=== PATIENT | male | born 1955 | race Caucasian/White ===

== ENCOUNTER 2021-08-07 18:05 | Inpatient (IN) | payer MEDICAID, SELFPAY ==
[2021-08-07] VITALS (9 sets, daily range): BP systolic 139–172; BP diastolic 71–85; PULSE 53–78; RESP 14–22; TEMP 35.9–36.8; O2SAT 98–100; BMI 21.6; BMI 18.8
--- NOTE | 2021-08-07 18:10 | EKG12_ITS ---
Test Reason : CP Blood Pressure : / mmHG Vent. Rate : 057 BPM Atrial Rate : 057 BPM P-R Int : 174 ms QRS Dur : 104 ms QT Int : 430 ms P-R-T Axes : 072 056 059 degrees QTc Int : 418 ms Sinus bradycardia Nonspecific ST abnormality Abnormal ECG Confirmed by ROSCOE GUILLEN, MAYRA ([id number]), online content editor EDIS WALLS ([id number]) on 08/12/2021 1:07:41 PM Referred By: ROBERTO Confirmed By:MAYRA MALHOTRA MD
--- NOTE | 2021-08-07 18:38 | RAD_ITS ---
STUDY: X-RAY CHEST REASON FOR EXAM: Male, 65 years old. chest pain TECHNIQUE: Single frontal view of the chest. COMPARISON: None. FINDINGS: Lungs are hyperaerated. Surgical clips right axilla. The lungs are clear and expanded. There is no demonstrated pleural abnormality. Normal size heart. Normal mediastinum and dylan. Normal visualized pulmonary arteries. Normal visualized aortic arch and descending thoracic aorta. Normal visualized thoracic spine. Normal visualized ribs, clavicles, and shoulders. There is no demonstrated abnormality of the visualized soft tissue structures of the upper abdomen. RAD/Chest 1 View (Portable) IMPRESSION: COPD Electronically Signed: Osmany Leon MD at 21:21 EDT , Service support ,
[2021-08-07 18:51] LABS: Absolute Lymphocyte Count 1.45 X10^3/uL (0.83-4.51); Absolute Neutrophil Count 4.3 X10^3/uL (2.0-7.7); Basophil# 0.04 X10^3/uL; Basophil% 0.6 % (0-1); Eosinophil# 0.08 X10^3/uL; Eosinophils% 1.2 % (0-5); Hematocrit 42.5 % (40-54); Hemoglobin 14.3 g/dL (13.0-16.5); Lymphocyte # 1.45 X10^3/ul (0.83-4.51); Lymphocyte % 22.6 % (19-41); Mean Corp Hgb Conc 33.6 g/dL (32-36); Mean Corpuscular Volume 92.2 fL (80-94); Monocyte% 7.8 % (0-10); NRBC Flagged by Analyzer 0 % (0-5); Neutrophil # 4.32 X10^3/uL (2.7-7.7); Neutrophil % 67.5 % (47-70); Platelet Count 229 K/mm3 (150-450); RBC Distribution Width CV 13.5 % (11.6-14.6); RBC Distribution Width SD 46.1 fl (35.1-43.9); Red Blood Count 4.61 M/mm3 (4.6-6.2); White Blood Count 6.4 K/mm3 (4.4-11.0)
[2021-08-07 18:59] LABS: Anion Gap 8 (5-15); BUN 19 mg/dL (7-18); BUN/Creat Ratio 18.8 RATIO (10-20); Calcium,Total 9.9 mg/dL (8.5-10.1); Chloride 99 mmol/L (98-107); Creatinine, Serum 1.01 mg/dL (0.70-1.30); EST Glomerular Filtration Rate 79 mL/min (>60); Est Glom Filt Rate - Afr Amer 95 mL/min (>60); Estimated Creatinine Clearance 61.63 ml/min; Glucose 165 mg/dL (74-106); Potassium 4.2 mmol/L (3.5-5.1); Sodium Level 134 mmol/L (136-145); Troponin-I HS 54 pg/mL (3.0-78.0)
--- NOTE | 2021-08-07 19:25 | ED.VIS.CHEST ---
HPI History of Present Illness Chief Complaint: Chest Pain Detail of Chief Complaint: Chest pain that started approximately 5 PM Informant: patient Onset/Context/Timing Onset: Today Narrative Narrative: Patient presents to the emergency department complaint chest pain at around 5 PM today. Patient states that he was laying down watching TV when he had left-sided chest discomfort with numbness and tingling in the left arm. Patient became very diaphoretic and soaked through his shirt. He is never had discomfort like this before. He denies recent travel or surgery. Patient states his pain lasted until about a half an hour ago which was a total of about an hour and a half. Patient is a smoker. No heart history. Patient does have prior history of mouth cancer. Patient is currently pain-free. [facility] Medical History (Updated 08/07/21 @ 20:[address] Alireza Villegas, ) [place] (hard of hearing) Home Medications NK 08/07/21 [History Last Taken Unknown] Allergy/AdvReac Type Severity Reaction Status Date / Time No Known Allergies Allergy Verified 08/07/21 18:06 Social History Smoking Status: Unknown if ever smoked ROS ROS ED Review of Systems ROS Unobtainable: other Constitutional Constitutional ED: Reports lethargy; Denies chills, fever(s), sweats or weight loss Eyes Eyes: Denies blurry vision, change in vision or diplopia ENT ENT ED: Denies rhinorrhea or sore throat Cardiovascular Cardiovascular: Reports chest pain; Denies orthopnea Respiratory/Chest Respiratory/Chest: Reports dyspnea and dyspnea on exertion; Denies cough, orthopnea or sputum Gastrointestinal Gastrointestinal: Denies abdominal pain, diarrhea, nausea or vomiting Genitourinary Genitourinary ED: Denies dysuria, hematuria or urinary frequency Musculoskeletal Musculoskeletal: Reports other Details: Numbness and tingling to left arm ; Denies arthralgias, back pain, myalgias or neck pain Integumentary Denies abscess, Abrasions or rash Neurologic Neurologic: Denies headache(s) or weakness Psychiatric Psychiatric: Denies anxiety, depression or suicidal thoughts Endocrine Endocrinology: Denies polydipsia, polyphagia or polyuria Hematologic/Lymphatic Hematologic/Lymphatic: Denies easy bleeding, easy bruising or lymphadenopathy Allergic/Immunologic Allergic/Immunologic ED: Denies mouth swelling, tongue swelling or urticaria EXAM Physical Exam Const Vital Signs: 08/07/21 18:06 08/07/21 18:35 08/07/21 18:50 Temperature 96.6 F L Temperature Source Temporal Pulse Rate 60 53 L Respiratory Rate 22 H 22 H Respiratory Effort Normal Non-Labored Blood Pressure 172/75 H 167/71 H Blood Pressure Mean 107 103 Pulse Ox 100 100 Oxygen Delivery Method Room Air Room Air 08/07/21 19:34 08/07/21 20:28 Temperature Temperature Source Pulse Rate 78 63 Respiratory Rate 16 14 Respiratory Effort Blood Pressure 163/85 H Blood Pressure Mean 111 Pulse Ox 100 99 Oxygen Delivery Method Room Air Room Air Positive well nourished and well developed General Appearance ED: well developed and NAD HEENT Reports TM's clear and moist mucous membranes normocephalic and atraumatic; Negative for trauma or tenderness Tympanic Membrane ED: Yes TM's clear Eyes PERRL and EOMs intact bilaterally General Eye ED: Negative for pale conjunctiva or scleral icterus Neck no lymphadenopathy, supple and no JVD General: Negative for tenderness Chest Wall inspection of chest normal and palpation of chest normal Chest: Negative for tenderness Resp normal respiratory effort and clear to auscultation bilaterally Effort and Inspection: Negative for respiratory distress or pain with movement Auscultation: Negative for rhonchi, wheezes or diminished lung sounds Cardio regular rate, regular rhythm, S1 normal heart sound, S2 normal heart sound and no murmurs Peripheral Pulses: pulses 2+ throughout GI normal to inspection, nondistended, normoactive bowel sounds, soft to palpation, non-tender, non-distended and no masses Back/Spine no CVA tenderness and no thoracic nor lumbar tenderness Extremity normal to inspection General Extremety ED: Negative for edema General Extremity: Negative for edema Neuro oriented x3, CN's II-XII intact bilaterally, no sensory deficits noted and gait normal Sensorium / Orientation: awake, alert, oriented to person, oriented to place and oriented to time Motor Exam: strength 5/5 throughout and strength abnormal Psych mental status grossly normal Skin no rashes or lesions noted and no wounds Heart Score History: Highly Suspicious ECG: Significant ST-Depression Age: >45 - <65 years Risk Factors: 1 or 2 Risk Factors Troponin: </= Normal Limit Score: 6 MDM MDM MDM Narrative Medical decision making narrative: Patient has some subtle ST depression anterior lateral which appears new compared to prior EKG from 2013. Patient currently pain-free. Case will be discussed with hospitalist evaluate for admission. Once hospitalist saw the patient he refused admission and wanted to sign out AGAINST MEDICAL ADVICE. Myself and patient son were able to convince him to stay for a repeat delta troponin. His delta troponin was elevated and believe patient is currently having a non-ST NM. Case discussed with hospitalist and will start patient on heparin drip. Patient is now agreeing to be admitted. Lab Data Attestation: I reviewed the patient's lab results. Labs: Laboratory Results - last 24 hr 08/07/21 08/07/21 08/07/21 18:35 18:35 20:18 WBC 6.4 RBC 4.61 Hgb 14.3 Hct 42.5 MCV 92.2 MCH 31.0 MCHC 33.6 RDW Std Deviation 46.1 H RDW Coeff of Atif 13.5 Plt Count 229 MPV 11.0 Immature Gran % (Auto) 0.300 Neut % (Auto) 67.5 Lymph % (Auto) 22.6 [place] % (Auto) 7.8 Eos % (Auto) 1.2 Baso % (Auto) 0.6 Absolute Neuts (auto) 4.3 Absolute Lymphs (auto) 1.45 Nucleated RBC % 0 Sodium 134 L Potassium 4.2 Chloride 99 Carbon Dioxide 27.0 Anion Gap 8 BUN 19 H Creatinine 1.01 Estim Creat Clear Calc 61.63 Est GFR (MDRD) Af Amer 95 Est GFR (MDRD) Non-Af 79 BUN/Creatinine Ratio 18.8 Glucose 165 H Calcium 9.9 Troponin I High Sens 54 267 H* Radiography Chest X-Ray - ED: 1 View Diagnostic Testin view chest x-ray obtained interpreted by myself as hyperinflation otherwise nothing acute EKG Initial EKG: Attestation: I personally reviewed and interpreted this EKG as follows: Comments: Sinus rhythm with a ventricular rate of [address] changes and subtle ST depression in lateral leads. Prior EKG tracings: available for review Prior: Changed Discharge Plan Dx/Rx/DC Orders Clinical Impression: Chest pain, Non-ST elevated myocardial infarction Disposition Disposition: Acute Care [facility]
[2021-08-07] MEDS: Aspirin 81 MG TAB.CHEW 324 MG PO (19:32)
--- NOTE | 2021-08-07 19:32 | NURSING ---
DR BARRIOS FOR DR FOLEY
[2021-08-07 20:43] LABS: Troponin-I HS 267 pg/mL (3.0-78.0)
--- NOTE | 2021-08-07 20:53 | PCM.HP.STD ---
Documented by User: DORI Sanchez 08/07/21 21:05 HPI - General General Date of Admission: 08/07/21 Date of Service: 08/07/21 Chief Complaint: Chest pain HPI Narrative AILEEN GRUBBS, is a 65 M who presents with complaints of chest pain patient stated it started approximately 5 PM this evening. Patient states that he was laying watching TV when he began to have left-sided chest pain with numbness and tingling in his left arm. Son reports that patient became diaphoretic today and soaked through T-shirt. Patient states that it lasted approximately an hour and a half. Patient has no cardiac history. Patient currently pain-free. Patient initially did not want to be admitted but delta troponin was obtained and it was significantly elevated, patient now agreeable to admission for observation. Patient denies fever, chills, shortness of breath, cough, nausea, vomiting. [facility] Medical History (Updated 08/07/21 @ 21:00 by DORI Sanchez) History of mouth cancer [place] (hard of hearing) Home Medications NK 08/07/21 [History Last Taken Unknown] Allergy/AdvReac Type Severity Reaction Status Date / Time No Known Allergies Allergy Verified 08/07/21 18:06 unable to obtain Surgical History (Updated 08/07/21 @ 20:57 by DORI Sanchez) History of mandibular surgery Social History (Updated 08/07/21 @ 20:58 by DORI Sanchez) Smoking Status: Current every day smoker tobacco type: cigars per week: 20 alcohol intake: never substance use type: does not use ROS Constitutional Constitutional: Denies anorexia, chills, fatigue, malaise or weakness Cardiovascular Cardiovascular: Reports chest pain, numbness in extremities and radiating jaw, neck or arm pain; Denies arrhythmia on telemetry, edema, nausea, palpitations or vomiting Respiratory/Chest Respiratory/Chest: Denies cough, hemoptysis, shortness of breath at rest or shortness of breath with exertion Gastrointestinal Gastrointestinal: Denies abdominal pain, constipation, diarrhea or dyspepsia Genitourinary Genitourinary: Denies dysuria Musculoskeletal Musculoskeletal: Denies back pain, extremity pain, joint pain, joint stiffness or joint swelling Integumentary Integumentary: Denies dry skin Neurologic Neurologic: Denies abnormal gait, abnormal speech, confusion, dizziness or focal weakness Psychiatric Psychiatric: Denies anxiety or depression Endocrine Endocrinology: Denies change in body appearance Hematologic/Lymphatic Hematologic/Lymphatic: Denies anemia, easy bleeding or easy bruising Vital Signs Vital Signs Vital Signs: 08/07/21 18:06 08/07/21 18:35 08/07/21 18:50 Temperature 96.6 F L Temperature Source Temporal Pulse Rate 60 53 L Respiratory Rate 22 H 22 H Respiratory Effort Normal Non-Labored Blood Pressure 172/75 H 167/71 H Blood Pressure Mean 107 103 Pulse Ox 100 100 Oxygen Delivery Method Room Air Room Air 08/07/21 19:34 08/07/21 20:28 Temperature Temperature Source Pulse Rate 78 63 Respiratory Rate 16 14 Respiratory Effort Blood Pressure 163/85 H Blood Pressure Mean 111 Pulse Ox 100 99 Oxygen Delivery Method Room Air Room Air Weight Weight: 130 lb Body Mass Index (BMI) 21.6 Physical Exam Const alert, oriented x3 and no apparent distress General Appearance: cooperative HEENT normocephalic and head/scalp atraumatic Eyes conjunctivae normal and no scleral icterus Neck supple and no JVD General: trachea midline Resp normal respiratory effort, normal air movement and clear to auscultation bilaterally Cardio regular rate, regular rhythm, S1 normal heart sound, S2 normal heart sound and peripheral pulses 2+ throughout GI normal to inspection, nondistended, normoactive bowel sounds, soft to palpation and non-tender Extremity normal capillary refill and no clubbing, cyanosis or edema General Extremity: no tenderness to palpation of joints or extremities Skin General Skin Exam: no breakdown and turgor normal Lesions: no lesions Rashes: no rashes Neuro no focal motor deficits and no sensory deficits noted Speech: speech normal Motor Exam: Negative for general weakness Psych thought process normal, cooperative and affect normal Appearance: appropriate Results Lab / Micro Data Result Diagrams: 08/07/21 18:35 08/07/21 18:35 Labs: Laboratory Results - last 24 hr 08/07/21 18:35: WBC 6.4, RBC 4.61, Hgb 14.3, Hct 42.5, MCV 92.2, MCH 31.0, MCHC 33.6, RDW Std Deviation 46.1 H, RDW Coeff of Atif 13.5, Plt Count 229, MPV 11.0, Immature Gran % (Auto) 0.300, Neut % (Auto) 67.5, Lymph % (Auto) 22.6, [place] % (Auto) 7.8, Eos % (Auto) 1.2, Baso % (Auto) 0.6, Absolute Neuts (auto) 4.3, Absolute Lymphs (auto) 1.45, Nucleated RBC % 0 08/07/21 18:35: Sodium 134 L, Potassium 4.2, Chloride 99, Carbon Dioxide 27.0, Anion Gap 8, BUN 19 H, Creatinine 1.01, Estim Creat Clear Calc 61.63, Est GFR (MDRD) Af Amer 95, Est GFR (MDRD) Non-Af 79, BUN/Creatinine Ratio 18.8, Glucose 165 H, Calcium 9.9, Troponin I High Sens 54 08/07/21 20:18: Troponin I High Sens 267 H* Assessment & Plan Assessment/Plan (1) Non-ST elevated myocardial infarction: PLAN: 1. Non-STEMI -Admit to PCU for cardiac monitoring, patient has no cardiac history -Consult cardiology -Initiate heparin drip with bolus, PTTs per protocol -Cardiac diet -N.p.o. at midnight pending cardiac evaluation -CBC, CMP, lipids, hemoglobin A1c ordered. -Normal saline 75 ml/hr -Vital signs per protocol, patient mildly hypertensive upon initial evaluation DVT prophylaxis-not indicated, therapeutic heparin ordered This patient was seen by DORI Sanchez under the supervision of Dr. George. Documented by User: Dr. Pee George MD 08/07/21 21:33 [facility] Medical History (Updated 08/07/21 @ 21:00 by DORI Sanchez) History of mouth cancer [place] (hard of hearing) Home Medications NK 08/07/21 [History Last Taken Unknown] Allergy/AdvReac Type Severity Reaction Status Date / Time No Known Allergies Allergy Verified 08/07/21 18:06 Surgical History (Updated 08/07/21 @ 20:57 by DORI Sanchez) History of mandibular surgery Social History (Updated 08/07/21 @ 20:58 by DORI Sanchez) Smoking Status: Current every day smoker tobacco type: cigars per week: 20 alcohol intake: never substance use type: does not use Results Lab / Micro Data Result Diagrams: 08/07/21 18:35 08/07/21 18:35 Charges/Coding Addendum Addendum: Dr. George: I personally reviewed the chart and examined the patient, and agree with the above findings. 65-year-old male presents from home with chest pain onset around 5 PM today. His initial troponin was unremarkable at 54 and he tried to leave AMA however he was convinced to stay for a delta troponin. On repeat troponin his troponin was 267 therefore he was convinced to stay to undergo work-up for his non-STEMI. EKG showed some ST depression laterally therefore he was started on a heparin drip and was given a dose of aspirin in the ER. 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 He had surgery which removed his tongue and all of his teeth about 6 or 7 years ago. He still has a PEG tube in place from that time because he is never followed up with surgeon to have it removed. I did discuss with the son that if he does have a heart cath by cardiology and he does have a stent placed he would need to be on to medications for 1year and the son is agreeable to monitor his pills. Of note he does not eat any solid food and subsist solely on ensures. States that he is pain-free currently and feels fine. Visit Charges Inpatient E&M: 62135 Init Hosp L2
[2021-08-07] MEDS: Heparin Injection (Vial) 5,000 UNIT/ML VIAL 4000 UNIT IV (21:15)
[2021-08-07] MEDS: HEPARIN/D5w 25,000 UNITS 25,000 UNITS/250 ML IV.SOLN. 8 UNITS IV (21:16)
[2021-08-07 21:46] LABS: International Normalized Ratio 1.1; Prothrombin Time (Protime)PT. 13.3 SECONDS (11.7-14.9)
[2021-08-07 21:47] LABS: Partial Thromboplast Time 37.4 Seconds (24.1-36.2)
--- NOTE | 2021-08-07 22:27 | NURSING ---
KARLENE GIL, BUBBA BARRIOS
--- NOTE | 2021-08-07 23:11 | PCS.PANDOC ---
PANDEMIC DOCUMENTATION INITIATED: Date: 07/15/2021 Time: 190
--- NOTE | 2021-08-07 23:18 | EKG12_ITS ---
Test Reason : CP ADMIT Blood Pressure : / mmHG Vent. Rate : 060 BPM Atrial Rate : 060 BPM P-R Int : 180 ms QRS Dur : 094 ms QT Int : 436 ms P-R-T Axes : 063 055 051 degrees QTc Int : 436 ms Normal sinus rhythm Normal ECG Confirmed by ROSCOE GUILLEN, MAYRA ([id number]), food editor EDIS WALLS ([id number]) on 08/12/2021 1:11:08 PM Referred By: SOPHIE Confirmed By:MAYRA MALHOTRA MD
[2021-08-07] MEDS: 0.9% Normal Saline 1,000 ML 75 ML IV (23:28)
[2021-08-08] VITALS (17 sets, daily range): BP systolic 132–169; BP diastolic 63–121; PULSE 52–66; RESP 15–30; TEMP 36.7–37.1; O2SAT 20–100
[2021-08-08 01:46] LABS: Troponin-I HS 1198 pg/mL (3.0-78.0)
[2021-08-08 03:57] LABS: Absolute Lymphocyte Count 1.49 X10^3/uL (0.83-4.51); Absolute Neutrophil Count 2.8 X10^3/uL (2.0-7.7); Basophil# 0.05 X10^3/uL; Eosinophil# 0.05 X10^3/uL; Hematocrit 37.6 % (40-54); Hemoglobin 12.9 g/dL (13.0-16.5); Lymphocyte # 1.49 X10^3/ul (0.83-4.51); Lymphocyte % 30.3 % (19-41); Mean Corp Hgb Conc 34.3 g/dL (32-36); Mean Corpuscular Hgb 31.2 pg (27.0-32.0); Mean Corpuscular Volume 90.8 fL (80-94); Monocyte# 0.51 X10^3/uL; Monocyte% 10.4 % (0-10); NRBC Flagged by Analyzer 0 % (0-5); Neutrophil # 2.81 X10^3/uL (2.7-7.7); Neutrophil % 57.1 % (47-70); Platelet Count 209 K/mm3 (150-450); RBC Distribution Width CV 13.3 % (11.6-14.6); RBC Distribution Width SD 44.2 fl (35.1-43.9); Red Blood Count 4.14 M/mm3 (4.6-6.2); White Blood Count 4.9 K/mm3 (4.4-11.0)
[2021-08-08 04:13] LABS: Anion Gap 6 (5-15); BUN 16 mg/dL (7-18); BUN/Creat Ratio 23.8 RATIO (10-20); Calcium,Total 9.1 mg/dL (8.5-10.1); Chloride 102 mmol/L (98-107); Cholesterol 140 mg/dL (200); Creatinine, Serum 0.67 mg/dL (0.70-1.30); EST Glomerular Filtration Rate 126 mL/min (>60); Est Glom Filt Rate - Afr Amer 153 mL/min (>60); Estimated Creatinine Clearance 93.74 ml/min; Glucose 96 mg/dL (74-106); High Density Lipoprotein 43 mg/dL; Potassium 3.8 mmol/L (3.5-5.1); Sodium Level 134 mmol/L (136-145); Triglycerides 45 mg/dL; Very Low Density Lipoprotein 9 mg/dL (5-40)
[2021-08-08 04:25] LABS: Partial Thromboplast Time 142.2 Seconds (24.1-36.2)
[2021-08-08 07:53] LABS: Hemoglobin A1c 5.2 % (3.8-5.6)
--- NOTE | 2021-08-08 09:15 | CASEMGMT ---
According to the [facility] community plan website, the following are in-network tertiary facilities: [facility], [place], [facility], [place], [facility], [facility], [facility], [place], [facility], and . Uriel VALLE CM
--- NOTE | 2021-08-08 10:31 | PCM.CONS.C ---
Documented by User: CYDNEY Aldana 08/08/21 13:48 Assessment & Plan Assessment/Plan (1) Non-ST elevated myocardial infarction: (2) Essential hypertension: PLAN: Pt will proceed with a diagnostic heart cath echocardiogram will be done today. HPI Consult Data Date of Consult: 08/08/21 HPI Narrative HPI Narrative: AILEEN GRUBBS, is a 65 M who presented last night to the emergency department with chest discomfort. He stated that the chest discomfort started about 5 PM. Left-sided chest discomfort with numbness and tingling down his left arm. He became very diaphoretic enough to soak through his shirt. The chest pain lasted about an hour and a half. He was brought to the emergency room by his son. Initial troponin was 54 it did trend upward to 267 and third troponin was 1198. He does have a history of smoking, and tongue cancer which required surgery. He was not on any home medications. Patient is currently pain free. [facility] Medical History History of mouth cancer QAGAN TAYAGUNGIN (hard of hearing) Home Medications NK 08/07/21 [History Last Taken Unknown] Allergy/AdvReac Type Severity Reaction Status Date / Time No Known Allergies Allergy Verified 08/07/21 18:06 Surgical History History of mandibular surgery Social History housing: house Smoking Status: Current every day smoker tobacco type: cigars per week: 20 Tobacco: How many years used: 52 alcohol intake: never substance use type: does not use ROS Constitutional Constitutional: Reports systems reviewed and no addt'l complaints, except as documented ENT HEENT: Reports abnormal hearing Cardiovascular Cardiovascular: Reports systems reviewed and no addt'l complaints, except as documented; Denies dizziness, dyspnea on exertion, leg edema, lightheadedness, orthopnea, palpitations or syncope Respiratory/Chest Respiratory/Chest: Reports systems reviewed and no addt'l complaints, except as documented Gastrointestinal Gastrointestinal: Reports systems reviewed and no addt'l complaints, except as documented Neurologic Neurologic: Reports systems reviewed and no addt'l complaints, except as documented Physical Exam Const alert, oriented x3, no apparent distress and average body habitus HEENT normocephalic, head/scalp atraumatic and external nose normal General Ear: hearing grossly impaired bilateral Mouth: tongue abnormal other (resected tongue and lower mandible ) Teeth and Gingiva: edentulous Eyes PERRL, EOMs intact bilaterally, conjunctivae normal and no scleral icterus Neck full ROM, nuchal rigidity, no lymphadenopathy, supple, no JVD and no carotid bruits Chest inspection of chest normal Resp normal respiratory effort, no retractions and no use of accessory muscles Auscultation: diminished lung sounds bilateral Cardio regular rate, regular rhythm, S1 normal heart sound, S2 normal heart sound, no murmurs, no rub, no gallops, no clicks and no JVD GI normal to inspection, nondistended, normoactive bowel sounds, soft to palpation, non-tender, non-distended, hepatosplenomegaly, no masses and no bruits Extremity no clubbing, cyanosis or edema and no pedal edema Peripheral Pulses: Yes posterior tibial pulses present bilateral diminished Skin no rashes or lesions noted Neuro oriented x3, CN's II-XII intact bilaterally and moves all extremities Charges/Coding Visit Charges Office Visits / Consults: 41479 IP Consult L5 Objective Data Vital Signs: Vital Signs Temp Pulse Resp BP Pulse Ox 98.0 F 56 L 16 132/70 H 95 08/08/21 04:23 08/08/21 04:23 08/08/21 04:23 08/08/21 04:23 08/08/21 07:25 Oxygen Delivery Method Room Air Weight: 131 lb 2.801 oz Body Mass Index (BMI) 18.8 Intake & Output: Intake and Output for Last 24 Hours 08/06/21 08/07/21 08/08/21 23:59 23:59 23:59 Intake Total 57.47 / 57.47 Balance 57.47 / 57.47 Lab / Micro Data Result Diagrams: 08/08/21 03:38 08/08/21 03:38 Labs: Laboratory Results - last 24 hr 08/07/21 18:35: WBC 6.4, RBC 4.61, Hgb 14.3, Hct 42.5, MCV 92.2, MCH 31.0, MCHC 33.6, RDW Std Deviation 46.1 H, RDW Coeff of Atif 13.5, Plt Count 229, MPV 11.0, Immature Gran % (Auto) 0.300, Neut % (Auto) 67.5, Lymph % (Auto) 22.6, Bertie % (Auto) 7.8, Eos % (Auto) 1.2, Baso % (Auto) 0.6, Absolute Neuts (auto) 4.3, Absolute Lymphs (auto) 1.45, Nucleated RBC % 0 08/07/21 18:35: Sodium 134 L, Potassium 4.2, Chloride 99, Carbon Dioxide 27.0, Anion Gap 8, BUN 19 H, Creatinine 1.01, Estim Creat Clear Calc 61.63, Est GFR (MDRD) Af Amer 95, Est GFR (MDRD) Non-Af 79, BUN/Creatinine Ratio 18.8, Glucose 165 H, Calcium 9.9, Troponin I High Sens 54 08/07/21 20:18: Troponin I High Sens 267 H* 08/07/21 21:14: PT 13.3, INR 1.1, APTT 37.4 H 08/08/21 00:50: Troponin I High Sens 1198 H* 08/08/21 03:38: Hemoglobin A1c 5.2 08/08/21 03:38: WBC 4.9, RBC 4.14 L, Hgb 12.9 L, Hct 37.6 L, MCV 90.8, MCH 31.2, MCHC 34.3, RDW Std Deviation 44.2 H, RDW Coeff of Atif 13.3, Plt Count 209, MPV 11.0, Immature Gran % (Auto) 0.200, Neut % (Auto) 57.1, Lymph % (Auto) 30.3, Bertie % (Auto) 10.4 H, Eos % (Auto) 1.0, Baso % (Auto) 1.0, Absolute Neuts (auto) 2.8, Absolute Lymphs (auto) 1.49, Nucleated RBC % 0 08/08/21 03:38: Sodium 134 L, Potassium 3.8, Chloride 102, Carbon Dioxide 26.0, Anion Gap 6, BUN 16, Creatinine 0.67 L, Estim Creat Clear Calc 93.74, Est GFR (MDRD) Af Amer 153, Est GFR (MDRD) Non-Af 126, BUN/Creatinine Ratio 23.8 H, Glucose 96, Calcium 9.1, Triglycerides 45, Cholesterol 140, LDL Cholesterol 88, VLDL Cholesterol 9, HDL Cholesterol 43 08/08/21 03:38: APTT 142.2 H* Micro: Microbiology 08/08/21 04:16 Nasal Secretion SARS-CoV-2 Antigen (Rapid) - Final Cardiology Labs/Tests 08/07/21 18:35: WBC 6.4, RBC 4.61, Hgb 14.3, Hct 42.5, MCV 92.2, MCH 31.0, MCHC 33.6, Plt Count 229, MPV 11.0, Immature Gran % (Auto) 0.300, Neut % (Auto) 67.5, Lymph % (Auto) 22.6, Bertie % (Auto) 7.8, Eos % (Auto) 1.2, Baso % (Auto) 0.6, Absolute Neuts (auto) 4.3, Nucleated RBC % 0 08/07/21 18:35: Sodium 134 L, Potassium 4.2, Chloride 99, Carbon Dioxide 27.0, Anion Gap 8, BUN 19 H, Creatinine 1.01, Est GFR (MDRD) Af Amer 95, Est GFR (MDRD) Non-Af 79, BUN/Creatinine Ratio 18.8, Glucose 165 H, Calcium 9.9 08/07/21 21:14: PT 13.3, INR 1.1, APTT 37.4 H 08/08/21 03:38: Hemoglobin A1c 5.2 08/08/21 03:38: WBC 4.9, RBC 4.14 L, Hgb 12.9 L, Hct 37.6 L, MCV 90.8, MCH 31.2, MCHC 34.3, Plt Count 209, MPV 11.0, Immature Gran % (Auto) 0.200, Neut % (Auto) 57.1, Lymph % (Auto) 30.3, Bertie % (Auto) 10.4 H, Eos % (Auto) 1.0, Baso % (Auto) 1.0, Absolute Neuts (auto) 2.8, Nucleated RBC % 0 08/08/21 03:38: Sodium 134 L, Potassium 3.8, Chloride 102, Carbon Dioxide 26.0, Anion Gap 6, BUN 16, Creatinine 0.67 L, Est GFR (MDRD) Af Amer 153, Est GFR (MDRD) Non-Af 126, BUN/Creatinine Ratio 23.8 H, Glucose 96, Calcium 9.1, Triglycerides 45, Cholesterol 140, LDL Cholesterol 88, VLDL Cholesterol 9, HDL Cholesterol 43 08/08/21 03:38: APTT 142.2 H* Rhythm: EKG: ECHO: Stress Test: Cardiac Cath: PCI: CT Surgery: Holter monitor: EPS: PPM: CXR: Chest CT Scan: Radiography Diagnostic Testing: Radiology Impression Chest X-Ray 08/07/21 18:38 IMPRESSION: COPD Electronically Signed: Osmany Leon MD at 21:21 EDT , Service support , Documented by User: Dr. Kp Spencer MD 08/08/21 13:58 Assessment & Plan Assessment/Plan (1) Non-ST elevated myocardial infarction: PLAN: This patient seen and evaluated today and agree with the cardiac care plan and management by the midlevel Patient presented with chest pain and has a clear evidence of non-ST elevation NH the EKG showed underlying normal sinus rhythm. We reviewed all the evaluation here in the hospital including the EKG, the cardiac telemetry and the cardiac biomarkers with high sensitive troponin Patient was taken to the [facility] and cardiac catheterization was performed the culprit lesion identified at the large proximal RCA and underwent successful percutaneous core intervention Patient has calcified left coronary system and had diffuse atherosclerosis involving the diagonal branch and had 2 focal lesions involving the LAD and had diffuse atherosclerosis involving the OM1 which is a small branch His LV systolic function is preserved ejection fraction from 55-60% with mild inferobasal hypokinesia Recommendation and plan; 1. Patient will continue on DAPT/Brilinta plus low-dose aspirin for 1 year 2. Started on high-dose atorvastatin 40 mg once a day Started on a low-dose beta-jenna carvedilol Patient to follow-up I was wondering slight #3 cardiac rehab phase 1 recommended 4. 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 Sprague for continuation of cardiac care plan and to discuss further plan based on his clinical progression. HPI Consult Data Date of Consult: 08/08/21 PFSH Medical History History of mouth cancer QAGAN TAYAGUNGIN (hard of hearing) Home Medications NK 08/07/21 [History Last Taken Unknown] Allergy/AdvReac Type Severity Reaction Status Date / Time No Known Allergies Allergy Verified 08/07/21 18:06 Surgical History History of mandibular surgery Social History housing: house Smoking Status: Current every day smoker tobacco type: cigars per week: 20 Tobacco: How many years used: 52 alcohol intake: never substance use type: does not use Lab / Micro Data Result Diagrams: 08/08/21 03:38 08/08/21 03:38
--- NOTE | 2021-08-08 10:50 | ECHOD_ITS ---
Reason For Study: NSTEMI Procedure This was a 2D Doppler, Color Flow transthoracic echocardiogram. The study was technically difficult. PT had difficulty lying still and not talking loudly during exam. Exam performed portable in patient room. Left Ventricle Normal left ventricle. The estimated ejection fraction is EF 55-60 %. Right Ventricle Normal right ventricle. Normal systolic function. Atria Normal right atrium. Mitral Valve The mitral valve is structurally normal. No prolapse or stenosis seen. No mitral valve insufficiency. Tricuspid Valve Normal tricuspid valve. Unable to estimate RV systolic pressure due to insufficient tricuspid regurgitant envelope. Aortic Valve Normal aortic valve. Pulmonic Valve The pulmonic valve is not well visualized. Great Vessels Normal aortic root. Pericardium/Pleural No pericardial effusion. MMode/2D Measurements & Calculations LVIDd: 3.6 cm IVSd: 1.0 cm Ao root diam: 3.5 cm LVIDs: 2.6 cm LVPWd: 1.0 cm RVDd: 3.0 cm FS: 26.2 % LAV(MOD-sp4): 34.1 ml LVAd ap4: 25.9 cm2 LVAd ap2: 20.9 cm2 LVLd ap4: 7.8 cm LVLd ap2: 8.3 cm EDV(MOD-sp4): 77.3 ml EDV(MOD-sp2): 44.3 ml EDV(sp4-el): 73.4 ml EDV(sp2-el): 44.8 ml LVAs ap4: 14.2 cm2 LVAs ap2: 10.8 cm2 LVLs ap4: 6.6 cm LVLs ap2: 6.7 cm ESV(MOD-sp4): 27.0 ml ESV(MOD-sp2): 15.6 ml ESV(sp4-el): 25.7 ml ESV(sp2-el): 14.7 ml EF(MOD-sp4): 65.0 % EF(MOD-sp2): 64.9 % EF(sp4-el): 65.0 % SV(MOD-sp4): 50.2 ml SV(MOD-sp2): 28.8 ml SV(sp4-el): 47.7 ml LA A4 area: 13.3 cm2 RA A4 area: 10.4 cm2 Doppler Measurements & Calculations MV E max bret: 58.3 cm/sec Lat Peak E' Bret: 5.5 cm/sec Med Peak E' Bret: 4.1 cm/sec MV A max bret: 72.1 cm/sec E/E' lat: 10.6 E/E' med: 14.1 MV E/A: 0.81 Ao V2 max: 94.2 cm/sec LV V1 max: 69.2 cm/sec PA V2 max: 61.4 cm/sec Ao max P.5 mmHg LV V1 max P.9 mmHg ECHO/Echo Complete Interpretation Summary The estimated ejection fraction is EF 55-60 %. Normal LV systolic functhion Ordering Physician: Buffy Hernández Referring Physician: TINA PCP Performed By: Domenica Suárez RDCS, RVT
--- NOTE | 2021-08-08 12:22 | PN.HOSP_ITS ---
Subjective Subjective Patient seen and examined. He was admitted with a complaint of chest pain, and diagnosed with non-STEMI based on elevated troponins. Cardiology on board he is on heparin drip. Patient had no complaints today and felt well. Review of systems otherwise negative. Labs and vitals reviewed. Objective Data Objective Data Vital Signs: Vital Signs Temp Pulse Resp BP Pulse Ox 98.1 F 62 18 146/63 H 99 08/08/21 10:00 08/08/21 10:00 08/08/21 10:00 08/08/21 10:00 08/08/21 10:00 Oxygen Delivery Method Room Air Weight: 131 lb 2.801 oz Body Mass Index (BMI) 18.8 Intake & Output: Intake and Output for Last 24 Hours 08/06/21 08/07/21 08/08/21 23:59 23:59 23:59 Intake Total 57.47 / 57.47 Balance 57.47 / 57.47 Lab / Micro Data Result Diagrams: 08/08/21 03:38 08/08/21 03:38 Labs: Laboratory Results - last 24 hr 08/07/21 18:35: WBC 6.4, RBC 4.61, Hgb 14.3, Hct 42.5, MCV 92.2, MCH 31.0, MCHC 33.6, RDW Std Deviation 46.1 H, RDW Coeff of Atif 13.5, Plt Count 229, MPV 11.0, Immature Gran % (Auto) 0.300, Neut % (Auto) 67.5, Lymph % (Auto) 22.6, Towns % (Auto) 7.8, Eos % (Auto) 1.2, Baso % (Auto) 0.6, Absolute Neuts (auto) 4.3, Absolute Lymphs (auto) 1.45, Nucleated RBC % 0 08/07/21 18:35: Sodium 134 L, Potassium 4.2, Chloride 99, Carbon Dioxide 27.0, Anion Gap 8, BUN 19 H, Creatinine 1.01, Estim Creat Clear Calc 61.63, Est GFR (MDRD) Af Amer 95, Est GFR (MDRD) Non-Af 79, BUN/Creatinine Ratio 18.8, Glucose 165 H, Calcium 9.9, Troponin I High Sens 54 08/07/21 20:18: Troponin I High Sens 267 H* 08/07/21 21:14: PT 13.3, INR 1.1, APTT 37.4 H 08/08/21 00:50: Troponin I High Sens 1198 H* 08/08/21 03:38: Hemoglobin A1c 5.2 08/08/21 03:38: WBC 4.9, RBC 4.14 L, Hgb 12.9 L, Hct 37.6 L, MCV 90.8, MCH 31.2, MCHC 34.3, RDW Std Deviation 44.2 H, RDW Coeff of Atif 13.3, Plt Count 209, MPV 11.0, Immature Gran % (Auto) 0.200, Neut % (Auto) 57.1, Lymph % (Auto) 30.3, Towns % (Auto) 10.4 H, Eos % (Auto) 1.0, Baso % (Auto) 1.0, Absolute Neuts (auto) 2.8, Absolute Lymphs (auto) 1.49, Nucleated RBC % 0 08/08/21 03:38: Sodium 134 L, Potassium 3.8, Chloride 102, Carbon Dioxide 26.0, Anion Gap 6, BUN 16, Creatinine 0.67 L, Estim Creat Clear Calc 93.74, Est GFR (MDRD) Af Amer 153, Est GFR (MDRD) Non-Af 126, BUN/Creatinine Ratio 23.8 H, Glucose 96, Calcium 9.1, Triglycerides 45, Cholesterol 140, LDL Cholesterol 88, VLDL Cholesterol 9, HDL Cholesterol 43 08/08/21 03:38: APTT 142.2 H* Micro: Microbiology 08/08/21 04:16 Nasal Secretion SARS-CoV-2 Antigen (Rapid) - Final Radiography Diagnostic Testing: Radiology Impression Chest X-Ray 08/07/21 18:38 IMPRESSION: COPD Electronically Signed: Osmany Leon MD at 21:21 EDT , Service support , Physical Exam Const alert, oriented x3 and no apparent distress Exam Limitations: no limitations HEENT head/scalp atraumatic, moist oral mucous membranes and oropharynx normal Head and Scalp: normocephalic Eyes PERRL, EOMs intact bilaterally and conjunctivae normal Neck no lymphadenopathy, supple and no JVD Resp normal respiratory effort, no retractions, no use of accessory muscles and clear to auscultation bilaterally Cardio regular rate, regular rhythm, S1 normal heart sound, S2 normal heart sound and no murmurs GI normal to inspection, nondistended, normoactive bowel sounds, soft to palpation, non-tender and non-distended Extremity normal to inspection, full ROM and no clubbing, cyanosis or edema Peripheral Pulses: Yes pulses 2+ throughout Skin no rashes or lesions noted Neuro oriented x3, CN's II-XII intact bilaterally and moves all extremities Sensorium / Orientation: awake and alert Psych affect normal Assessment & Plan Assessment/Plan (1) Non-ST elevated myocardial infarction: PLAN: #Nonstemi * Initial troponin was negative but subsequently trended up. On heparin drip * Also on aspirin and high intensity statin. * Cardiology on board and for cardiac cath later today. * 2D echo ordered. * #History of oral cancer * Has PEG tube in place * Does not eat solid foods and is mainly on Ensure. * #DVT prophylaxis: on heparin drip Charges/Coding Visit Charges Inpatient E&M: 73805 Subs Hosp L3
--- NOTE | 2021-08-08 13:36 | PCI.CARDCATH ---
PCI Cardiac Cath Report PCI Report: Procedure performed: 1. Left heart catheterization 2. Selective left coronary angiography 3. Selective right cholangiography 4. Successful percutaneous core intervention of the culprit which is subtotal proximal large dominant RCA 99% with predilatation using 2 x 15 mm balloon Followed by placement of drug-eluting stent/Orsiro 3.5 x 40 mm overlaped by 3.5 x 18 mm postdilated by 3.5 and achievement of 0% stenosis with maintenance of KINGSLEY-3 flow. 5. Left ventriculogram 6. Measurement of LVEDP 7. Placement of TR band to maintain hemostasis for the right radial artery arteriotomy site 8. Moderate sedation. Consent; Risk and benefits of the procedure explained in detail to the patient elected to proceed informed consent obtained. Preprocedure diagnosis this is a 65-year-old patient with history of hypertension presented with symptoms of chest pain and had non-ST elevation myocardial infarction EKG showed underlying normal sinus with no significant change in the EKG but he had significant elevated high sensitive troponin I. Patient treated with medical therapy with heparin aspirin and was brought into the [facility] for cardiac catheterization and a plan of myocardial revascularization based on the finding. Interventional and diagnostic equipment used 1. 6 Bolivian sheath placed in the right radial artery/[facility] 2. Diagnostic 5 Bolivian JL 3.5 catheter 3. Diagnostic 5 Bolivian JR4 catheter 4. Interventional guide catheter 6 Bolivian JR4 100 cm guide catheter. 5. 0.014 run-through extra floppy 180 cm straight guidewire 6. 0.035, 260 cm J exchange wire. 7. 2 x 15 mm emerge balloon 8. Drug-eluting stent/Orsiro 3.5 x 40 mm, overlap with 3.5 x 18 mm 9. Post dilatation using NC balloon 3.5 x 15 mm 10. 5 Bolivian angulated pigtail catheter. Procedure in detail; Patient brought to the [facility] in fasting state, heparin drip was stopped and patient was given aspirin this morning We will proceed with the access to the right radial artery and a 6 Bolivian sheath from catheter was placed patient was given a cocktail of verapamil, heparin as well as nitroglycerin Then will proceed with the diagnostic catheter, advanced ascending aorta cannulated the left main multiple views including QATARI, JIMENEZ cranial and caudal views of the left carotid system obtained Following this catheter exchanged for a 5 Bolivian JR4 catheter engaged the right coronary ostium and 2 views QATARI and JIMENEZ cranial views were obtained for the RCA Angiographic views were restarted and the culprit lesion identified as subtotal high-grade 99% stenosis of a dominant large RCA We proceed with interventional plan patient was given an additional 6000 units of heparin and then will proceed with the guide catheter 6 Bolivian JR4 guide catheter followed by the guidewire run-through across the lesion predilated the lesion with 2 x 15 mm balloon, followed by placement of a drug-eluting stent 3.5 x 40 mm overlapping 3.5 x 18 mm there was a dissection noted in the proximal part which is covered by the 3.5 x 18 and the lesions have been postdilated with 3.5 x 15 NC balloon and achieved excellent result with reduction of stenosis from 99% to 0 and maintenance of KINGSLEY-3 flow Following this we used a pigtail catheter across aortic valve placed in the mid ventricle and LV ventriculogram obtained 30 degree JIMENEZ projection ACT level was acceptable above 250 and patient was given 2 bolus of Integrilin followed by Integrilin infusion his renal function was normal. Hemodynamics; LV systolic function is preserved ejection fraction in the range of 55-60% There is no systolic gradient across aortic valve. There is no mitral regurgitation noted There is mild inferobasal hypokinesia noted in comparison to the rest of the myocardium LVEDP is elevated to 22 mmHg Current angiography; Left main coronary artery is calcified with extension of calcification into the LAD and the left circumflex Angiographically the left main coronary artery has nonobstructive atherosclerosis involving the midportion of around 20% The left anterior descending is calcified from the proximal to the mid, proximal LAD had nonobstructive atherosclerosis from 30-40 LAD itself is a very large artery reaching all the way to the apex There are 2 segmental lesions in the mid LAD of at least around proximally 70% and distally around 60 to 70% There are abundant septal branches The first diagonal branch has diffuse long segment of atherosclerosis of at least around 90% which is a branching vessel Left circumflex the first obtuse marginal is high OM1 with a diffuse atherosclerosis seen a small vessel The circumflex in the AV groove and the OM1 and OM 1 had around 50 to 60% stenosis Right coronary artery is a culprit in this case which is a large dominant RCA as described with a successful PCI and intervention Following this TR band applied to the right radial artery area with no complication in the [facility] Kp Spencer MD,FACC,[facility]
--- NOTE | 2021-08-08 13:45 | EKG12_ITS ---
Test Reason : AM EKG Blood Pressure : / mmHG Vent. Rate : 062 BPM Atrial Rate : 062 BPM P-R Int : 172 ms QRS Dur : 080 ms QT Int : 420 ms P-R-T Axes : 081 044 -49 degrees QTc Int : 426 ms Normal sinus rhythm ST & T wave abnormality, consider inferior ischemia Abnormal ECG When compared with ECG of 08-AUG-2021 14:18, MANUAL COMPARISON REQUIRED, DATA IS UNCONFIRMED Confirmed by KIRA GUILLEN, ROSINA ([id number]), makeup editor EDIS WALLS ([id number]) on 08/13/2021 10:36:02 AM Referred By: ARACELI Confirmed By:ROSINA MALONE MD
--- NOTE | 2021-08-08 13:55 | CASEMGMT ---
LEONARD YA assessment: Face to Face with patient for initial transition planning/care coordination assessment. LEONARD YA introduced self and role at [facility], pt voices understanding and consents to assessment. Pt is lying in bed in no distress on room air. Pt is A/Ox4 and answers all questions appropriately but is hard of hearing and hard to understand his speech. Care providers, pharmacy, and demographics verified. Presentation: Pt c/o CP today Admitting dx: NSTEMI PCP: Pt states does not have PCP but does have a list at home, declines list. Specialists: Pt states no current specialists. Preferred Pharmacy: [facility] Insurance: [facility] community plan Prescription Benefit: [facility] community plan Living Will/HPOA: Pt does not have LW/HPOA and declines info at this time. LNOK: Dawood Rae, son Living Arrangements: Pt states lives with son in home and states no concerns at home. Pt is independent w/ ADL's. Transportation: Pt states friend drives and states no transportation concerns. DME/HHC: Pt states no current DME or need for any further DME. Pt states no hx of HHC but has been to rehab in the past in [facility]. Pt states no concerns with going home at time of discharge. Pt is retired. Pt does smoke 5-6 cigarettes daily but does not drink ETOH. Pt voices no further concerns/needs. CM to follow any further discharge planning/needs. Advised pt to ask for CM if any further questions/concerns/needs arise, voices understanding. Pt Goal: Home Plan: [place] LEONARD YA
[2021-08-08] MEDS: 0.9% Normal Saline 1,000 ML 75 ML IV (14:20)
--- NOTE | 2021-08-08 17:56 | NURSING ---
TR band reapplied due to bleeding. 6ml pressure applied.
[2021-08-08] MEDS: Carvedilol 3.125 MG TABLET PO (21:27)
[2021-08-08] MEDS: Calcium Carbonate 500 MG Tablet 1000 MG PO (21:27)
[2021-08-08] MEDS: Atorvastatin Calcium 40 MG Tablet PO (21:27)
[2021-08-09] VITALS (8 sets, daily range): BP systolic 146–155; BP diastolic 64–68; PULSE 53–69; RESP 14–18; TEMP 36.3–36.8; O2SAT 96–98
[2021-08-09] MEDS: 0.9% Normal Saline 1,000 ML 75 ML IV (03:34)
[2021-08-09 03:51] LABS: Hematocrit 36.6 % (40-54); Hemoglobin 12.6 g/dL (13.0-16.5); Mean Corp Hgb Conc 34.4 g/dL (32-36); Mean Corpuscular Hgb 31.5 pg (27.0-32.0); Mean Corpuscular Volume 91.5 fL (80-94); Mean Platelet Vol. 11.3 fl (6.2-12.0); Platelet Count 218 K/mm3 (150-450); RBC Distribution Width CV 13.6 % (11.6-14.6); RBC Distribution Width SD 45.8 fl (35.1-43.9); White Blood Count 6.1 K/mm3 (4.4-11.0)
[2021-08-09 04:04] LABS: Partial Thromboplast Time 36.9 Seconds (24.1-36.2)
[2021-08-09 04:24] LABS: ALB/GLOB Ratio 0.9 RATIO (0.9-2.4); AST(SGOT) 34 U/L (15-37); Alanine Aminotransfer ALT/SGPT 19 U/L (16-61); Albumin, Serum 3.2 g/dL (3.2-5.0); Alkaline Phosphatase 79 U/L (45-117); Anion Gap 7 (5-15); BUN 15 mg/dL (7-18); BUN/Creat Ratio 19.6 RATIO (10-20); Calcium,Total 8.8 mg/dL (8.5-10.1); Chloride 104 mmol/L (98-107); Cholesterol 137 mg/dL (200); Creatinine, Serum 0.76 mg/dL (0.70-1.30); EST Glomerular Filtration Rate 109 mL/min (>60); Est Glom Filt Rate - Afr Amer 131 mL/min (>60); Estimated Creatinine Clearance 82.64 ml/min; Globulin 3.6 g/dL (2.2-4.2); Glucose 91 mg/dL (74-106); High Density Lipoprotein 40 mg/dL; Potassium 3.5 mmol/L (3.5-5.1); Protein, Total 6.8 g/dL (6.4-8.2); Sodium Level 135 mmol/L (136-145); Triglycerides 75 mg/dL; Very Low Density Lipoprotein 15 mg/dL (5-40)
--- NOTE | 2021-08-09 08:03 | CRPHASE1_ITS ---
Patient Communication PHII Cardiac Rehab Discussed with Patient:: Yes Guide to Cardiac Rehab Given to Patient:: Yes Choice Program [facility] CR PHII:: Communication Given to CR Choice Program Other:: Communication Given to CR Home Day Care Provider:: Kp Spencer Phase II Cardiac Rehab:: Yes Sessions:: 36 sessions - 3 days/wk, 12 weeks Cardiac Rehabilitation Info Cardiac Rehabilitation Program Information: Cardiac Rehabilitation is important for patients like you who are recovering from a heart problem. Cardiac rehabilitation programs are recognized as integral to the continued care of the patient with coronary heart disease. The cardiac rehabilitation program is designed to optimize a patient's physical, psychological, and social functioning. Health foster care case manager work in cardiac rehabilitation programs and assist you with getting the treatments you need to get stronger and healthier - like exercise, healthy eating habits, and medications. Cardiac rehabilitation has been show to help people with heart problems live longer and have better life enjoyment than people who do not go to cardiac rehabilitation. Please contact the Cardiac Rehabilitation Program at [facility] at in two weeks if you have not heard from them.
--- NOTE | 2021-08-09 08:05 | CRPH1.INSTRU ---
General Education CAD and cardiac anatomy and function:: Patient communicates acknowledgment Explanation of diagnoses and procedures:: Patient communicates acknowledgment Sign/Symptoms of MA:: Patient communicates acknowledgment Antiplatelet therapy: Patient communicates acknowledgment Smoking Patient Nicotine/Smoking Risk Factors Are:: Cigarettes Recommendations Include:: Smoking cessation strategies/Smoking packet, Participation in a smoking cessation program, Previous smoker; encourage continued cessation Nicotine/Smoking Response Code:: Patient communicates acknowledgment Dyslipidemia Patient Dyslipidemia Risk Factors Are:: Total Cholesterol, Triglycerides, HDL, LDL Recommendations Include:: Lipid profile provided, Reviewed NCEP/ATP guidelines, Therapeutic Lifestyle Change dietary guidelines Dyslipidemia Response Code:: Patient communicates acknowledgment Overweight/Obesity Patient Overweight/Obesity Risk Factors Are:: BMI Normal [18-25 & < 65 years old] Hypertension Recommendations Include:: Maintain BP <130/85, DASH dietary guidelines, Decrease/maintain normal body weight, Moderation of ETOH Hypertension:: Patient communicates acknowledgment Heart Disease Patient Heart Disease Risk Factors Are:: Family history of heart disease < 65 years old, Previous cardiac event Recommendations Include:: Educated family members of their risk Heart Disease Response Code:: Patient communicates acknowledgment Diabetes Patient Diabetes Risk Factors Are:: No documented hx of diabetes Metabolic Syndrome Recommendations Include:: Does not meet criteria Sedentary Patient Sedentary Risk Factors Are:: Lack of regular exercise Recommendations Include:: Aerobic exercise 5-7 times/week for 20-30 minutes continuously, Benefits of regular exercise, Discussed home walking program, Monitored Outpatient Cardiac Rehab Sedentary Response Code:: Patient communicates acknowledgment Stress Patient Stress Risk Factors Are:: Patient denies stress as a risk factor
[2021-08-09] MEDS: Aspirin E.C. 81 MG Tablet PO (08:54)
--- NOTE | 2021-08-09 10:00 | EKG12_ITS ---
Test Reason : Blood Pressure : / mmHG Vent. Rate : 058 BPM Atrial Rate : 058 BPM P-R Int : 198 ms QRS Dur : 088 ms QT Int : 456 ms P-R-T Axes : 068 043 -02 degrees QTc Int : 447 ms Sinus bradycardia Otherwise normal ECG When compared with ECG of 07-AUG-2021 23:18, MANUAL COMPARISON REQUIRED, DATA IS UNCONFIRMED Confirmed by KIRA GUILLEN, ROSINA ([id number]), pictures editor EDIS WALLS ([id number]) on 08/13/2021 10:40:39 AM Referred By: ARACELI Confirmed By:ROSINA MALONE MD
--- NOTE | 2021-08-09 10:23 | PN.CARD_ITS ---
Documented by User: CYDNEY Aldana 08/09/21 13:09 Subjective Subjective pt is feeling much better today. He does not have any Chest pain/heaviness/tightness. He is not SOB Objective Data Vital Signs: Vital Signs Temp Pulse Resp BP Pulse Ox 98 F 68 15 146/67 H 98 08/09/21 08:17 08/09/21 09:00 08/09/21 08:17 08/09/21 08:17 08/09/21 08:17 Oxygen Delivery Method Room Air Weight: 131 lb 2.801 oz Body Mass Index (BMI) 18.8 Intake & Output: Intake and Output for Last 24 Hours 08/07/21 08/08/21 08/09/21 23:59 23:59 23:59 Intake Total 1085.05 / 1085.05 992.5 / 992.5 Output Total 300 / 300 Balance 1085.05 / 785.05 692.5 / 692.5 Lab / Micro Data Result Diagrams: 08/09/21 03:12 08/09/21 03:12 Labs: Laboratory Results - last 24 hr 08/09/21 03:12: WBC 6.1, RBC 4.00 L, Hgb 12.6 L, Hct 36.6 L, MCV 91.5, MCH 31.5, MCHC 34.4, RDW Std Deviation 45.8 H, RDW Coeff of Atif 13.6, Plt Count 218, MPV 11.3 08/09/21 03:12: Sodium 135 L, Potassium 3.5, Chloride 104, Carbon Dioxide 24.0, Anion Gap 7, BUN 15, Creatinine 0.76, Estim Creat Clear Calc 82.64, Est GFR (MDRD) Af Amer 131, Est GFR (MDRD) Non-Af 109, BUN/Creatinine Ratio 19.6, Glucose 91, Calcium 8.8, Total Bilirubin 0.80, AST 34, ALT 19, Alkaline Phosphatase 79, Total Protein 6.8, Albumin 3.2, Globulin 3.6, Albumin/Globulin Ratio 0.9, Triglycerides 75, Cholesterol 137, LDL Cholesterol 82, VLDL Cholesterol 15, HDL Cholesterol 40 08/09/21 03:12: APTT 36.9 H Cardiology Labs/Tests 08/09/21 03:12: WBC 6.1, RBC 4.00 L, Hgb 12.6 L, Hct 36.6 L, MCV 91.5, MCH 31.5, MCHC 34.4, Plt Count 218, MPV 11.3 08/09/21 03:12: Sodium 135 L, Potassium 3.5, Chloride 104, Carbon Dioxide 24.0, Anion Gap 7, BUN 15, Creatinine 0.76, Est GFR (MDRD) Af Amer 131, Est GFR (MDRD) Non-Af 109, BUN/Creatinine Ratio 19.6, Glucose 91, Calcium 8.8, Total Bilirubin 0.80, Triglycerides 75, Cholesterol 137, LDL Cholesterol 82, VLDL Cholesterol 15, HDL Cholesterol 40 08/09/21 03:12: APTT 36.9 H Rhythm: SR Cardiac Cath with PCI 08/08/21: Left main coronary artery is calcified with extension of calcification into the LAD and the left circumflex Angiographically the left main coronary artery has nonobstructive at herosclerosis involving the midportion of around 20% The left anterior descending is calcified from the proximal to the mid, proximal LAD had nonobstructive atherosclerosis from 30-40 LAD itself is a very large artery reaching all the way to the apex There are 2 segmental lesions in the mid LAD of at least around proximally 70% and distally around 60 to 70% There are abundant septal branches The first diagonal branch has diffuse long segment of atherosclerosis of at least around 90% which is a branching vessel Left circumflex the first obtuse marginal is high OM1 with a diffuse atherosclerosis seen a small vessel The circumflex in the AV groove and the OM1 and OM 1 had around 50 to 60% steno sis Right coronary artery is a culprit in this case which is a large dominant RCA as described with a successful PCI and intervention Radiography Diagnostic Testing: Radiology Impression Echocardiogram 08/08/21 10:50 Interpretation Summary The estimated ejection fraction is EF 55-60 %. Normal LV systolic functhion ___ Ordering Physician: Buffy Hernández Referring Physician: NO PCP Performed By: Dmoenica Suárez, THADCS, RVT Physical Exam Const alert, oriented x3, no apparent distress and average body habitus HEENT normocephalic, head/scalp atraumatic and external nose normal General Ear: hearing grossly impaired bilateral Mouth: tongue abnormal other (resected tongue and lower mandible ) Teeth and Gingiva: edentulous Eyes PERRL, EOMs intact bilaterally, conjunctivae normal and no scleral icterus Neck full ROM, nuchal rigidity, no lymphadenopathy, supple, no JVD and no carotid bruits Chest inspection of chest normal Resp normal respiratory effort, no retractions and no use of accessory muscles Auscultation: diminished lung sounds bilateral Cardio regular rate, regular rhythm, S1 normal heart sound, S2 normal heart sound, no murmurs, no rub, no gallops, no clicks and no JVD GI normal to inspection, nondistended, normoactive bowel sounds, soft to palpation, non-tender, non-distended, hepatosplenomegaly, no masses and no bruits Extremity no clubbing, cyanosis or edema and no pedal edema Peripheral Pulses: Yes posterior tibial pulses present bilateral diminished Skin no rashes or lesions noted Neuro oriented x3, CN's II-XII intact bilaterally and moves all extremities Assessment & Plan Assessment/Plan (1) Non-ST elevated myocardial infarction: (2) Essential hypertension: PLAN: * Pt underwent stenting to his RCA yesterday * his lipids are controlled, however with his NSTEMI and PCI will continue with atorvastatin * Will start on low dose lisinopril * his EF is normal * will refer to for cardiac rehab * Would like for him to be d/c home on ASA, Brilinta, Coreg, Lisinopril and Atorvastatin. * Prior to d/c will stress importance of mediations for pt. Especially the brilinta with the complexity of his stent to his RCA. * will follow up with pt in office Charges/Coding Visit Charges Inpatient E&M: 31864 Subs Hosp L3 Documented by User: Dr. 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: (4) History of coronary artery stent placement: PLAN: This patient seen and evaluated at bedside today I review all his current data in the hospital including current lab finding of cardiac catheterization cardiac telemetry and agree with the plan as documented by the midlevel Patient presented with chest pain with a clinical diagnosis of non-ST elevation [facility] underwent cardiac catheterization with PCI and stent of the RCA Also patient had calcified left coronary system with significant atherosclerosis of the LAD and plan will be to continue medical therapy and arrange for elective PCI of the LAD based on his clinical progression.
[2021-08-09] MEDS: TICAGRELOR 90 MG TABLET PO (10:54)
[2021-08-09] MEDS: Carvedilol 3.125 MG TABLET PO (10:54)
--- NOTE | 2021-08-09 11:32 | PCM.DC.SUM ---
Documented by User: Dr. Marybeth Chávez MD 08/09/21 13:50 Providers Date of Admission: 08/07/21 Primary Care Physician: Tesha Primary Care Phys Consultations 08/07/21 23:13 Consult: Cardiology Routine Consulting Provider: Bc Sprague Reason for Consult: NSTEMI EMERGENT Consult: No Notified: Yes Date Notified: 08/08/21 Time Notified: 07:39 Method of Notification: Text Reason For Visit: NSTEMI Diagnosis Discharge Diagnosis (1) Non-ST elevated myocardial infarction: Status: Acute Code(s): I21.4 - Non-ST elevation (NSTEMI) myocardial infarction (2) Essential hypertension: Status: Acute Code(s): I10 - Essential (primary) hypertension Medications at Discharge Home Medications aspirin 81 mg PO DAILY #30 tab 08/09/21 atorvastatin 40 mg PO QHS #30 tab 08/09/21 carvedilol 3.125 mg PO BID #60 tab 08/09/21 lisinopril 2.5 mg PO DAILY #30 tab 08/09/21 ticagrelor [Brilinta] 90 mg PO BID #60 tab 08/09/21 Hospital Course Procedures Cardiac catheterization Summary of Care Provided Minutes Spent on Discharge: 45 Hospital Course: Patient is a 65-year-old male with a past medical history as outlined was admitted with a complaint of chest pain which started on the evening of the day of presentation was left-sided, with associated numbness and tingling in his left arm. He had associated diaphoresis and chest pain lasted for about an hour and a half. On admission, initial troponin was negative but repeat troponins trended upwards. EKG showed no acute ST changes. He was admitted and managed for non-STEMI. Cardiology was consulted. He had cardiac cath with successful PCI of the RCA which was a large dominant RCA. He was also noted to have segmental lesions in the mid LAD of at least 70% proximally and 67% distally. 2D echo done showed EF of 55 to 60% with normal left ventricular systolic function. Patient remained stable after cath and felt well. He was discharged on low-dose lisinopril, aspirin, Brilinta, Coreg and high intensity statin. 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 Patient seen and examined prior to discharge. He felt well and had no complaints. Review of symptoms otherwise negative. Labs and vitals reviewed. Home medication reviewed and reconciled. Physical Exam Const alert, oriented x3 and no apparent distress General Appearance: cooperative and comfortable Orientation / Consciousness: awake Exam Limitations: no limitations HEENT normocephalic, head/scalp atraumatic, hearing grossly normal bilaterally, moist oral mucous membranes and oropharynx normal Eyes PERRL, EOMs intact bilaterally and conjunctivae normal Neck no lymphadenopathy General: trachea midline Resp normal respiratory effort, normal air movement, no retractions, no use of accessory muscles and clear to auscultation bilaterally Cardio regular rate, regular rhythm, S1 normal heart sound, S2 normal heart sound, no murmurs and peripheral pulses 2+ throughout GI normal to inspection, nondistended, normoactive bowel sounds, soft to palpation and non-tender Extremity normal to inspection, full ROM, normal capillary refill and no clubbing, cyanosis or edema General Extremity: no tenderness to palpation of joints or extremities Skin General Skin Exam: no breakdown and turgor normal Lesions: no lesions Rashes: no rashes Neuro CN's II-XII intact bilaterally, moves all extremities, no focal motor deficits and no sensory deficits noted Sensorium / Orientation: awake and alert Speech: speech normal Motor Exam: Negative for general weakness Psych thought process normal, cooperative and affect normal Appearance: appropriate Weight / BMI Weight Weight: 131 lb 2.801 oz Body Mass Index (BMI) 18.8 ABG / Lab / Microbiology Data Result Diagrams: 08/09/21 03:12 08/09/21 03:12 Laboratory: Laboratory Results - last 24 hr 08/09/21 03:12: WBC 6.1, RBC 4.00 L, Hgb 12.6 L, Hct 36.6 L, MCV 91.5, MCH 31.5, MCHC 34.4, RDW Std Deviation 45.8 H, RDW Coeff of Atif 13.6, Plt Count 218, MPV 11.3 08/09/21 03:12: Sodium 135 L, Potassium 3.5, Chloride 104, Carbon Dioxide 24.0, Anion Gap 7, BUN 15, Creatinine 0.76, Estim Creat Clear Calc 82.64, Est GFR (MDRD) Af Amer 131, Est GFR (MDRD) Non-Af 109, BUN/Creatinine Ratio 19.6, Glucose 91, Calcium 8.8, Total Bilirubin 0.80, AST 34, ALT 19, Alkaline Phosphatase 79, Total Protein 6.8, Albumin 3.2, Globulin 3.6, Albumin/Globulin Ratio 0.9, Triglycerides 75, Cholesterol 137, LDL Cholesterol 82, VLDL Cholesterol 15, HDL Cholesterol 40 08/09/21 03:12: APTT 36.9 H Microbiology: Microbiology 08/08/21 04:16 Nasal Secretion SARS-CoV-2 Antigen (Rapid) - Final Radiography Diagnostic Testing: Radiology Impression Echocardiogram 08/08/21 10:50 Interpretation Summary The estimated ejection fraction is EF 55-60 %. Normal LV systolic functhion Ordering Physician: Buffy Hernández Referring Physician: TESHA PCP Performed By: Domenica Suárez, KIM, RVT Meaningful Use Info Meaningful Use Diagnoses (Choose all that apply): AMI AMI/Post PCI/Angioplasty Aspirin given w/in 24hrs of arrival?: Yes ASA at discharge?: Yes Antiplatelet Therapy at Discharge:: Yes Statins at discharge?: Yes Jam/ARB at discharge?: Yes Beta Shanice at discharge?: Yes Done w/ Acute IA measure.: Yes Documented LVEF (%): 60 Discharge Plan Admission Admit Date/Time: 08/07/21 20:54 Primary Reason for Your Visit: nonstemi Attending Provider: Marybteh Chávez Primary Care Provider: Care Physician,No Primary Consulting Providers: Bc Sprague Instructions Patient Instructions: Cardiac Rehab Exercise Program, Heart Attack Dc, Heart Attack Meds Discharge Orders/Prescriptions Prescriptions: New aspirin 81 mg tablet,delayed release (DR/EC) 81 mg PO DAILY Qty: 30 RF: 1 atorvastatin 40 mg tablet 40 mg PO QHS Qty: 30 RF: 1 Brilinta 90 mg tablet 90 mg PO BID Qty: 60 RF: 1 lisinopril 2.5 mg tablet 2.5 mg PO DAILY Qty: 30 RF: 1 carvedilol 3.125 mg tablet 3.125 mg PO BID Qty: 60 RF: 1 Referrals / Follow Up: Camille Woods MD [STAFF PHYSICIAN] - Within 2 Weeks (call to set up PCP appointment) Care Physician,No Primary [Primary Care Provider] - Buffy Hernández PA [PHYSICIAN RESOURCE RECOVERY ENGINEER] - 09/05/21 2:00 pm Disposition Disposition (needs filled in before D/C Order can be placed): Home, Self Care Charges/Coding Visit Charges Inpatient E&M: 57685 Disch Hosp Documented by User: CYDNEY Aldana 08/09/21 12:24 Providers Date of Admission: 08/07/21 Reason For Visit: NSTEMI Medications at Discharge Home Medications aspirin 81 mg PO DAILY #30 tab 08/09/21 atorvastatin 40 mg PO QHS #30 tab 08/09/21 carvedilol 3.125 mg PO BID #60 tab 08/09/21 lisinopril 2.5 mg PO DAILY #30 tab 08/09/21 ticagrelor [Brilinta] 90 mg PO BID #60 tab 08/09/21 ABG / Lab / Microbiology Data Result Diagrams: 08/09/21 03:12 08/09/21 03:12 D/C Instructions Lifting Restrictions: nothing greater than 10 lbs for 3 days Call your doctor if your incision/area has: Continuous Slow Oozing, Sudden Increased Bleeding, Increased Pain/ Swelling, Increased Redness, Foul Smelling Discharge and Swelling at the incision site Call your doctor if you observe: Fever of 101 or Higher, Shortness of breath and Chest pain Additional Instructions: You are also started on several new medications: it is VERY IMPORTANT TO NO STOP THE BRILINTA at any time. This is helping to keep your stent open. this is to be taken morning and evening. You should have been given a card to get this for free for 30 days. If it is to expensive after that call the [facility] [phone] option 4, the nurse will help you with either getting this medication covered or switching this. Carvedilol is to be taken twice a day (morning and evening)- this is to help with blood pressure and to help your heart heal after your heart attack Lisinopril is to be taken once a day- this is also to help with blood pressure and to help your heart heal after your heart attack You are to take a baby Aspirin once a day Atorvastatin is for cholesterol, even though yours is okay, we still want you to be on this with your heart attack Keep your appt with the [facility] Discharge Plan Admission Admit Date/Time: 08/07/21 20:54 Primary Reason for Your Visit: nonstemi Attending Provider: Marybeth Chávez Primary Care Provider: Elder Spence,Tesha Primary Consulting Providers: Bc Sprague Instructions Patient Instructions: Cardiac Rehab Exercise Program, Heart Attack Dc, Heart Attack Meds Discharge Orders/Prescriptions Prescriptions: New aspirin 81 mg tablet,delayed release (DR/EC) 81 mg PO DAILY Qty: 30 RF: 1 atorvastatin 40 mg tablet 40 mg PO QHS Qty: 30 RF: 1 Brilinta 90 mg tablet 90 mg PO BID Qty: 60 RF: 1 lisinopril 2.5 mg tablet 2.5 mg PO DAILY Qty: 30 RF: 1 carvedilol 3.125 mg tablet 3.125 mg PO BID Qty: 60 RF: 1 Referrals / Follow Up: Camille Woods MD [STAFF PHYSICIAN] - Within 2 Weeks (call to set up PCP appointment) Care Physician,No Primary [Primary Care Provider] - Buffy Hernández PA [PHYSICIAN RESOURCE RECOVERY ENGINEER] - 09/05/21 2:00 pm Disposition Disposition (needs filled in before D/C Order can be placed): Home, Self Care
[2021-08-09] MEDS: Lisinopril 2.5 MG Tablet PO (13:21)
--- NOTE | 2021-08-09 14:10 | CASEMGMT ---
Pt to be sent home on Brilinta at discharge and med e-scribed to [facility] previously. Call to pharmacy, pt's insurance card info provided, and per pharmacist, pt has no co-pay at this time. Uriel VALLE CM
== END 2021-08-09 14:30 | disposition home or self-care (01) | DRG 174 ==
LOC: ED 19:31 → PCU 08-08 02:44
PROVIDERS: Internal Medicine Interventional Cardiology; Admitting Provider Family Medicine; Emergency Provider Emergency Medicine; Visit Provider Student in an Organized Health Care Education/Training Program
DX: I21.4 Non-ST elevation (NSTEMI) myocardial infarction (principal); I25.10 Atherosclerotic heart disease of native coronary artery without angina pectoris; I10 Essential (primary) hypertension; F17.210 Nicotine dependence, cigarettes, uncomplicated; H91.90 Unspecified hearing loss, unspecified ear; Z85.819 Personal history of malignant neoplasm of unspecified site of lip, oral cavity, and pharynx; Z93.1 Gastrostomy status
CPT/HCPCS: 36415; 71045; 80048; 80053; 80061; 83036; 84484; 85025; 85027; 85610; 85730; 87426; 92928; 93005; 93306; 93458; 99152; 99153; 99285; 99406; C1874; J7030; J7040; Q9957; Q9967; A4216; C1725; C1769; C1887; C1894; C9600; J1327; J1940; J3490

== ENCOUNTER → 2021-08-27 15:24 | Outpatient (CLI) | payer MEDICAID, SELFPAY ==
[2021-08-27 16:54] LABS: Vitamin D,25 Hydroxy 43.2 ng/mL
[2021-08-28 12:41] LABS: Free T3 2.5 pg/mL (2.18-3.98); T4 Free Direct 0.69 ng/dL (0.76-1.46)
== END ==
PROVIDERS: PCP Internal Medicine; Referring Provider Internal Medicine; Visit Provider Internal Medicine
DX: R79.89 Other specified abnormal findings of blood chemistry (principal); E55.9 Vitamin D deficiency, unspecified; Z12.5 Encounter for screening for malignant neoplasm of prostate; Z86.39 Personal history of other endocrine, nutritional and metabolic disease
CPT/HCPCS: 36415; 82306; 84153; 84439; 84443; 84481; G0103

== ENCOUNTER 2023-11-07 12:50 | Inpatient (IN) | payer MEDICARE, MEDICAID, SELFPAY ==
[2023-11-07] VITALS (27 sets, daily range): BP systolic 71–176; BP diastolic 48–95; PULSE 97–141; RESP 12–41; TEMP 36.3–37.1; O2SAT 93–100; BMI 15.8
--- NOTE | 2023-11-07 12:58 | EKG12_ITS ---
Test Reason : SOB Blood Pressure : / mmHG Vent. Rate : 120 BPM Atrial Rate : 120 BPM P-R Int : 134 ms QRS Dur : 086 ms QT Int : 318 ms P-R-T Axes : 083 063 065 degrees QTc Int : 449 ms Sinus tachycardia with Premature atrial complexes with Aberrant conduction Possible Left atrial enlargement Anterior infarct , age undetermined Abnormal ECG Confirmed by JOHNATHON GUILLEN, CLIFF ([id number]), film or videotape editor MISSY EBVERLY ([id number]) on 11/10/2023 6:19:42 AM Referred By: Chi Terrell Confirmed By:ARIADNA DIEGO MD
--- NOTE | 2023-11-07 13:01 | RAD_ITS ---
STUDY: X-RAY CHEST REASON FOR EXAM: Male, 68 years old. Dyspnea TECHNIQUE: AP portable view of the chest. COMPARISON: August 07, 2021 FINDINGS: There are surgical clips in the right axillary region. There are monitoring devices. Lungs are hyperexpanded. There are mild lower lung interstitial increased opacities. There is no demonstrated pleural abnormality. Normal size heart. Normal mediastinum and dylan. Normal visualized pulmonary arteries. Normal visualized aortic arch and descending thoracic aorta. Normal visualized thoracic spine. Normal visualized ribs, clavicles, and shoulders. There is percutaneous gastrostomy tube in the left upper abdomen. RAD/Chest 1 View (Portable) IMPRESSION: COPD with lower lung interstitial edema or infiltrates. Electronically Signed: Hamzah Perez MD at 14:54 EST ,
--- NOTE | 2023-11-07 13:03 | EX.ED.DYSGE1 ---
HPI <CYDNEY Roa - Last Filed: 11/07/23 17:17> History of Present Illness Chief Complaint: Shortness of Breath Narrative Narrative: 68-year-old male with PMH of HTN, HLD, CAD with stent, oral cancer s/p surgery presents with shortness of breath. History is very limited as patient is hard of hearing and has difficulty speaking and was placed on a nonrebreather due to hypoxia. He is able to nod that he is NOT on chemotherapy or radiation. Chart lists history of tobacco abuse. PFSH <CYDNEY Roa - Last Filed: 11/07/23 17:17> PFSH Medical History Atherosclerotic heart disease of [place] coronary artery without angina pectoris CAD (coronary artery disease) Congenital hypothyroidism Dysphagia Essential hypertension Hearing loss of aging History of mouth cancer [place] (hard of hearing) HTN (hypertension) Malnutrition Myocardial infarct Oral cancer Home Medications levothyroxine 50 mcg tablet 50 mcg PO DAILY #30 tabs 08/28/21 [Rx Last Taken Unknown] aspirin 81 mg tablet,delayed release 81 mg PO DAILY #90 tabs 03/07/22 [Rx Last Taken Unknown] atorvastatin 40 mg tablet 40 mg PO QHS #90 tabs 03/07/22 [Rx Last Taken Unknown] carvedilol 3.125 mg tablet 3.125 mg PO BID #180 tabs 03/07/22 [Rx Last Taken Unknown] lisinopril 5 mg tablet 5 mg PO DAILY #90 tabs 03/07/22 [Rx Last Taken Unknown] ticagrelor 90 mg tablet (Brilinta) 90 mg PO BID #180 tabs 03/07/22 [Rx Last Taken Unknown] omeprazole 20 mg capsule,delayed release 20 mg PO DAILY 12/24/22 [History Last Taken Unknown] Allergy/AdvReac Type Severity Reaction Status Date / Time No Known Allergies Allergy Verified 11/07/23 12:51 Surgical History History of appendectomy History of coronary artery stent placement (08/08/21) History of mandibular surgery History of tonsillectomy Social History housing: house Smoking Status: Current every day smoker tobacco type: cigars per week: 20 Tobacco: How many years used: 52 alcohol intake: never substance use type: does not use caffeine: Yes Type: coffee Number of servings: 2 ROS <CYDNEY Roa - Last Filed: 11/07/23 17:17> ROS ED ROS Narrative unable to obtain EXAM <CYDNEY Roa - Last Filed: 11/07/23 17:17> Physical Exam Narrative Exam Narrative: CONST: Cachectic male sitting in bed on nonrebreather EYES: Normal inspection. NECK: Normal inspection. RESP: Tachypneic at 30/minute, diffusely wheezing with crackles. CVS: Tachycardic with regular rhythm, no murmur, no gallop. ABD: Soft and nontender, no guarding or rebound, nondistended. SKIN: Color normal, no rash, warm, dry, intact. EXTREMITIES: Normal appearance, no pedal edema. 2+ radial and DP pulses. NEURO: Awake and alert, follows commands. PSYCH: Normal affect. Const Vital Signs: 11/07/23 12:56 11/07/23 13:34 11/07/23 14:00 Temperature 98.5 F 98.8 F Temperature Source Axillary Temporal Pulse Rate 124 H 129 H Respiratory Rate 33 H 30 H Respiratory Effort Short of Breath Labored Respiratory Depth Shallow Respiratory Pattern Tachypnea Blood Pressure 152/87 H 176/95 H Blood Pressure Mean 108 122 Pulse Ox 99 99 Oxygen Delivery Method Non-Rebreather Oxygen Flow Rate (L/min) 12 Fraction of Inspired Oxygen (FIO2) 11/07/23 15:00 11/07/23 13:09 11/07/23 13:11 Temperature 98.5 F Temperature Source Axillary Pulse Rate 124 H 122 H Respiratory Rate 27 H 40 H Respiratory Effort Respiratory Depth Respiratory Pattern Blood Pressure 155/85 H 152/87 H Blood Pressure Mean 108 108 Pulse Ox 94 96 95 Oxygen Delivery Method Nasal Cannula Non-Rebreather Non-Rebreather Oxygen Flow Rate (L/min) 12 12 Fraction of Inspired Oxygen (FIO2) 11/07/23 13:14 11/07/23 13:08 11/07/23 16:37 Temperature 98.5 F Temperature Source Axillary Pulse Rate 123 H 120 H Respiratory Rate 35 H 40 H Respiratory Effort Labored Respiratory Depth Shallow Respiratory Pattern Tachypnea Blood Pressure 142/86 H Blood Pressure Mean 104 Pulse Ox 94 Oxygen Delivery Method Non-Rebreather Mechanical Ventilator Oxygen Flow Rate (L/min) 10 Fraction of Inspired Oxygen (FIO2) 11/07/23 16:45 11/07/23 17:02 Temperature Temperature Source Pulse Rate 106 H Respiratory Rate 20 H 39 H Respiratory Effort Respiratory Depth Respiratory Pattern Blood Pressure 145/93 H Blood Pressure Mean 110 Pulse Ox 93 94 Oxygen Delivery Method Ambu-Bag Oxygen Flow Rate (L/min) Fraction of Inspired Oxygen (FIO2) 60 <Dr. Chi Pleitez MD - Last Filed: 11/07/23 13:54> Physical Exam Const Vital Signs: 11/07/23 12:56 11/07/23 13:34 11/07/23 14:00 Temperature 98.5 F 98.8 F Temperature Source Axillary Temporal Pulse Rate 124 H 129 H Respiratory Rate 33 H 30 H Respiratory Effort Short of Breath Labored Respiratory Depth Shallow Respiratory Pattern Tachypnea Blood Pressure 152/87 H 176/95 H Blood Pressure Mean 108 122 Pulse Ox 99 99 Oxygen Delivery Method Non-Rebreather Oxygen Flow Rate (L/min) 12 Fraction of Inspired Oxygen (FIO2) 11/07/23 15:00 11/07/23 13:09 11/07/23 13:11 Temperature 98.5 F Temperature Source Axillary Pulse Rate 124 H 122 H Respiratory Rate 27 H 40 H Respiratory Effort Respiratory Depth Respiratory Pattern Blood Pressure 155/85 H 152/87 H Blood Pressure Mean 108 108 Pulse Ox 94 96 95 Oxygen Delivery Method Nasal Cannula Non-Rebreather Non-Rebreather Oxygen Flow Rate (L/min) 12 12 Fraction of Inspired Oxygen (FIO2) 11/07/23 13:14 11/07/23 13:08 11/07/23 16:37 Temperature 98.5 F Temperature Source Axillary Pulse Rate 123 H 120 H Respiratory Rate 35 H 40 H Respiratory Effort Labored Respiratory Depth Shallow Respiratory Pattern Tachypnea Blood Pressure 142/86 H Blood Pressure Mean 104 Pulse Ox 94 Oxygen Delivery Method Non-Rebreather Mechanical Ventilator Oxygen Flow Rate (L/min) 10 Fraction of Inspired Oxygen (FIO2) 11/07/23 16:45 11/07/23 17:02 Temperature Temperature Source Pulse Rate 106 H Respiratory Rate 20 H 39 H Respiratory Effort Respiratory Depth Respiratory Pattern Blood Pressure 145/93 H Blood Pressure Mean 110 Pulse Ox 93 94 Oxygen Delivery Method Ambu-Bag Oxygen Flow Rate (L/min) Fraction of Inspired Oxygen (FIO2) 60 <Dr. Andi Grant DO - Last Filed: 11/07/23 18:58> Physical Exam Const Vital Signs: 11/07/23 12:56 11/07/23 13:34 11/07/23 14:00 Temperature 98.5 F 98.8 F Temperature Source Axillary Temporal Pulse Rate 124 H 129 H Respiratory Rate 33 H 30 H Respiratory Effort Short of Breath Labored Respiratory Depth Shallow Respiratory Pattern Tachypnea Blood Pressure 152/87 H 176/95 H Blood Pressure Mean 108 122 Pulse Ox 99 99 Oxygen Delivery Method Non-Rebreather Oxygen Flow Rate (L/min) 12 Fraction of Inspired Oxygen (FIO2) 11/07/23 15:00 11/07/23 13:09 11/07/23 13:11 Temperature 98.5 F Temperature Source Axillary Pulse Rate 124 H 122 H Respiratory Rate 27 H 40 H Respiratory Effort Respiratory Depth Respiratory Pattern Blood Pressure 155/85 H 152/87 H Blood Pressure Mean 108 108 Pulse Ox 94 96 95 Oxygen Delivery Method Nasal Cannula Non-Rebreather Non-Rebreather Oxygen Flow Rate (L/min) 12 12 Fraction of Inspired Oxygen (FIO2) 11/07/23 13:14 11/07/23 13:08 11/07/23 16:37 Temperature 98.5 F Temperature Source Axillary Pulse Rate 123 H 120 H Respiratory Rate 35 H 40 H Respiratory Effort Labored Respiratory Depth Shallow Respiratory Pattern Tachypnea Blood Pressure 142/86 H Blood Pressure Mean 104 Pulse Ox 94 Oxygen Delivery Method Non-Rebreather Mechanical Ventilator Oxygen Flow Rate (L/min) 10 Fraction of Inspired Oxygen (FIO2) 11/07/23 16:45 11/07/23 17:02 Temperature Temperature Source Pulse Rate 106 H Respiratory Rate 20 H 39 H Respiratory Effort Respiratory Depth Respiratory Pattern Blood Pressure 145/93 H Blood Pressure Mean 110 Pulse Ox 93 94 Oxygen Delivery Method Ambu-Bag Oxygen Flow Rate (L/min) Fraction of Inspired Oxygen (FIO2) 60 MDM <CYDNEY Roa - Last Filed: 11/07/23 17:17> [facility] MDM Narrative Medical decision making narrative: I have personally performed a face to face assessment of the patient and have reviewed the CALLIE Note. I performed a substantive portion of the visit including all aspects of the following. My michel findings include: 68-year-old male history of oral cancer that was surgically resected about 7 to 8 years ago at [facility]. Son said he is really not taking care of himself. Has not left the house to see a physician recently. He been increasingly short of breath over the last week. Denies chest pain. No fever. He drinks Ensure shakes for his nutrition. He really does not eat much solids. Son said he is really cannot take care of him now at home. Exam is [six 8-year-old male blood pressure 142/86. Heart rate 123. On nonrebreather is 94%. HEENT exam dry mucous membranes. Prior surgical resection of soft tissue in his mouth. Posterior pharynx shows secretions. Neck nontender. Trachea midline. Lungs coarse breath sounds bilaterally. Tachypnea. Heart tachycardic 120. No murmur. Chest wall nontender. No crepitus. Abdomen soft. Nondistended. Moving all 4 extremities. Very cachectic. Muscular wasting. No edema. No calf tenderness or swelling. Neurologically he is awake. He is very hard of hearing. He is difficult to communicate with. Most of the history from his son.] Medical Decision Making [68-year-old male prior oral cancer with surgical resection presents short of breath.] Other additions or changes: [None] History gathered from: Patient and son Patient respiratory distress on nonrebreather with wheezing and crackling. Is very cachectic and chronically ill-appearing. He is tachycardic in the 120s, RR 30s, nonrebreather in place. Blood pressures been stable with 150s/80s or above. Due to significant wheezing and crackling routine with suctioning and states he had layers of mucus stuck in his mouth and a pillow which they removed. He was treated with DuoNeb and Solu-Medrol while sepsis workup was initiated. WBC is 15.0. Hemoglobin 14.0 but is higher than previous. Patient looks dehydrated and this may be hemoconcentration. Sodium is 147, potassium 3.2, BUN 23, creatinine 0.88. Glucose is 121 with normal CO2 and anion gap. Lactic is 2.2. Troponin is 974. EKG had significant artifact but is sinus tachycardia does not show a STEMI. He denies chest pain so this may be demand NSTEMI. CXR shows COPD with lower lung interstitial edema or infiltrates. I ordered CT of the neck and CTA of the chest to further evaluate for mass or pneumonia. The CT neck was read second and the radiologist called and said there is extensive postsurgical resection with suspected mucous plugging or aspiration in the posterior aspect of the oropharynx extending into the larynx. He also looked at the CTA and states there is significant mucous plugging at the origin of the left lower lobe bronchus extending to the subsegmental bronchi. The lung is still well aerated. He likely has aspiration pneumonia/mucous plugging was treated with Zosyn as well as IV heparin for his elevated troponin. Patient's mentation declined and he had accessory muscle use and was moved to room 1 and intubated by the attending. Cardiology Dr. Garcia was made aware that patient is being treated for an NSTEMI and he had no additional recommendations to the treatment plan. Health: Cardiology, hospitalist 25 minutes of critical care time were consumed by evaluation of the patient, discussion with family, treatment and planning, discussion with consultants. External records reviewed: Catheterization lab report 08/08/2021 showed 99% stenosis of the dominant large RCA with stent placed successfully. Lab Data Attestation: I reviewed the patient's lab results. Labs: Laboratory Results - last 24 hr 11/07/23 11/07/23 13:00 13:30 WBC 15.0 H RBC 4.48 L Hgb 14.0 Hct 42.2 MCV 94.2 H MCH 31.3 MCHC 33.2 RDW Std Deviation 46.3 H RDW Coeff of Atif 13.4 Plt Count 327 MPV 11.7 Immature Gran % (Auto) 1.100 H Neut % (Auto) 88.0 H Lymph % (Auto) 5.4 L [place] % (Auto) 5.1 Eos % (Auto) 0.1 Baso % (Auto) 0.3 Absolute Neuts (auto) 13.2 H Absolute Lymphs (auto) 0.81 L Nucleated RBC % 0 PT 16.1 H INR 1.3 APTT 28.1 Sodium 147 H Potassium 3.2 L Chloride 114 H Carbon Dioxide 28.0 Anion Gap 5 BUN 23 H Creatinine 0.88 Estim Creat Clear Calc 56.22 Est GFR (MDRD) Af Amer 111 Est GFR (MDRD) Non-Af 91 BUN/Creatinine Ratio 26.0 H Glucose 121 H Lactic Acid 2.2 H* Calcium 9.2 Total Bilirubin 1.60 H AST 23 ALT 23 Alkaline Phosphatase 104 Total Creatine Kinase 38 L Troponin I High Sens 974 H* B-Natriuretic Peptide 503.5 H Total Protein 7.1 Albumin 2.4 L Globulin 4.7 H Albumin/Globulin Ratio 0.5 L Urine Color Yellow Urine Clarity Clear Urine pH 6.0 Ur Specific [place] 1.015 Urine Protein 100 H Urine Glucose (UA) Normal Urine Ketones 50 H Urine Occult Blood 150 H Urine Nitrite Positive H Urine Bilirubin 1 H Urine Urobilinogen 4 H Ur Leukocyte Esterase 25 H Urine RBC 5-10 SEEN Urine WBC 0-5 SEEN Ur Squamous Epith Cells 0-5 SEEN Urine Bacteria 1+ Urine Mucus 0 SEEN ABG Data ABG results: ABG 11/07/23 11/07/23 13:15 16:43 Specimen Type ELIZABETH ART Sample Site Not entered R Radial pH 6.97 L* Bicarbonate Actual 25.4 Total CO2 29 Base Excess -6 L O2 Saturation 93 L O2 % 7.0 100.0 ABG pCO2 109.6 H* ABG pO2 105 H VBG pH 7.43 H VBG pO2 < 34 VBG HCO3 26 VBG Total CO2 27 VBG O2 Sat (Calc) 40 L VBG Base Excess 2 POC Mix VBG pCO2 Pt Tmp 38.7 L O2 Delivery Device AeroMask NRB Vent Mode Not entered Crit Call To/Read Back Yes Blood Gas Notified Whom pleitez Blood Gas Notified Time 16:44:25 Radiography Diagnostic Testing: Clinical Impression(s) from Imaging Studies Chest X-Ray 11/07/23 13:01 IMPRESSION: COPD with lower lung interstitial edema or infiltrates. Electronically Signed: Hamzah Perez MD at 14:54 EST , Chest CTA 11/07/23 14:07 IMPRESSION: CTA chest examination, without a demonstrated pulmonary embolism or arterial dissection. Interstitial edema or infiltrate. Electronically Signed: Hamzah Perez MD at 15:49 EST , Soft Tissue Neck CT 11/07/23 14:07 IMPRESSION: Extensive postsurgical changes to the oropharynx with suspected mucous plugging or aspirated in the posterior aspect of the oropharynx, hypopharynx and extending into the larynx. N.B. : The above Results were Read Back by Mike Ng MD to CYDNEY Roa, and understanding confirmed on 11/07/2023 16:44:29 (ET). Electronically Signed: Mike Ng MD at 16:45 EST Reading Location ID and State: [id number] / [place] [employer] , Service support , ADDENDUM: 11/07/23 1652 IMPRESSION: Extensive postsurgical changes to the oropharynx with suspected mucous plugging or aspirated in the posterior aspect of the oropharynx, hypopharynx and extending into the larynx. N.B. : The above Results were Read Back by Mike Ng MD to CYDNEY Roa, and understanding confirmed on 11/07/2023 16:44:29 (ET). Electronically Signed: Mike Ng MD at 16:45 EST Reading Location ID and State: [id number] / [place] [employer] , Service support , Chest X-Ray 11/07/23 17:15 IMPRESSION: 1. Interval placement of endotracheal tube with the tip above the [place]. 2. Interval placement of nasogastric tube with the tip likely in the body the stomach. 3. No change in bibasilar patchy pneumonia. Electronically Signed: Mike Ng MD at 18:49 EST Reading Location ID and State: [id number] / [place] [employer] , Service support , EKG Initial EKG: Attestation: I personally reviewed and interpreted this EKG as follows: Interpretation: Sinus Tachycardia Comments: Sinus tachycardia at 120 bpm Occasional PVCs, poor quality EKG due to artifact and patient movement, no STEMI <Dr. Chi Pleietz MD - Last Filed: 11/07/23 13:54> [facility] MDM Narrative Medical decision making narrative: Son arrived and provide more history. He had type of mouth cancer that was removed 7-8 years ago at and denies recurrence since then. He lives with the son and someone comes in to check in on him. He does not eat or drink much but drinks Ensure shakes. Son states he has been short of breath for 1 week. I have personally performed a face to face assessment of the patient and have reviewed the CALLIE Note. I performed a substantive portion of the visit including all aspects of the following. My michel findings include: 68-year-old male history of oral cancer that was surgically resected about 7 to 8 years ago at [facility]. Son said he is really not taking care of himself. Has not left the house to see a physician recently. He been increasingly short of breath over the last week. Denies chest pain. No fever. He drinks Ensure shakes for his nutrition. He really does not eat much solids. Son said he is really cannot take care of him now at home. Exam is [six 8-year-old male blood pressure 142/86. Heart rate 123. On nonrebreather is 94%. HEENT exam dry mucous membranes. Prior surgical resection of soft tissue in his mouth. Posterior pharynx shows secretions. Neck nontender. Trachea midline. Lungs coarse breath sounds bilaterally. Tachypnea. Heart tachycardic 120. No murmur. Chest wall nontender. No crepitus. Abdomen soft. Nondistended. Moving all 4 extremities. Very cachectic. Muscular wasting. No edema. No calf tenderness or swelling. Neurologically he is awake. He is very hard of hearing. He is difficult to communicate with. Most of the history from his son.] Medical Decision Making [68-year-old male prior oral cancer with surgical resection presents short of breath.] Other additions or changes: [None] Lab Data Lab results narrative: CBC shows no a white count of 15. H&H of 14 and 42. Platelets 327. PT/INR of 16 and 1. PTT of 28. CMP shows a sodium 147. Potassium of 3.2. Gap of 5. BUN is 23 and creatinine 0.8. Liver enzymes unremarkable. His troponins elevated at 974 previously has been over 1100. Lactic acid is elevated 2.2. Urine Alsys shows positive nitrites 5-10 red cells no white cells 1+ bacteria Labs: Laboratory Results - last 24 hr 11/07/23 11/07/23 13:00 13:30 WBC 15.0 H RBC 4.48 L Hgb 14.0 Hct 42.2 MCV 94.2 H MCH 31.3 MCHC 33.2 RDW Std Deviation 46.3 H RDW Coeff of Atif 13.4 Plt Count 327 MPV 11.7 Immature Gran % (Auto) 1.100 H Neut % (Auto) 88.0 H Lymph % (Auto) 5.4 L [place] % (Auto) 5.1 Eos % (Auto) 0.1 Baso % (Auto) 0.3 Absolute Neuts (auto) 13.2 H Absolute Lymphs (auto) 0.81 L Nucleated RBC % 0 PT 16.1 H INR 1.3 APTT 28.1 Sodium 147 H Potassium 3.2 L Chloride 114 H Carbon Dioxide 28.0 Anion Gap 5 BUN 23 H Creatinine 0.88 Estim Creat Clear Calc 56.22 Est GFR (MDRD) Af Amer 111 Est GFR (MDRD) Non-Af 91 BUN/Creatinine Ratio 26.0 H Glucose 121 H Lactic Acid 2.2 H* Calcium 9.2 Total Bilirubin 1.60 H AST 23 ALT 23 Alkaline Phosphatase 104 Total Creatine Kinase 38 L Troponin I High Sens 974 H* B-Natriuretic Peptide 503.5 H Total Protein 7.1 Albumin 2.4 L Globulin 4.7 H Albumin/Globulin Ratio 0.5 L Urine Color Yellow Urine Clarity Clear Urine pH 6.0 Ur Specific [place] 1.015 Urine Protein 100 H Urine Glucose (UA) Normal Urine Ketones 50 H Urine Occult Blood 150 H Urine Nitrite Positive H Urine Bilirubin 1 H Urine Urobilinogen 4 H Ur Leukocyte Esterase 25 H Urine RBC 5-10 SEEN Urine WBC 0-5 SEEN Ur Squamous Epith Cells 0-5 SEEN Urine Bacteria 1+ Urine Mucus 0 SEEN ABG Data ABG results: ABG 11/07/23 11/07/23 13:15 16:43 Specimen Type ELIZABETH ART Sample Site Not entered R Radial pH 6.97 L* Bicarbonate Actual 25.4 Total CO2 29 Base Excess -6 L O2 Saturation 93 L O2 % 7.0 100.0 ABG pCO2 109.6 H* ABG pO2 105 H VBG pH 7.43 H VBG pO2 < 34 VBG HCO3 26 VBG Total CO2 27 VBG O2 Sat (Calc) 40 L VBG Base Excess 2 POC Mix VBG pCO2 Pt Tmp 38.7 L O2 Delivery Device AeroMask NRB Vent Mode Not entered Crit Call To/Read Back Yes Blood Gas Notified Whom pleitez Blood Gas Notified Time 16:44:25 Radiography Chest X-Ray - ED: 1 View and Read by ED Physician Diagnostic Testing: Clinical Impression(s) from Imaging Studies Chest X-Ray 11/07/23 13:01 IMPRESSION: COPD with lower lung interstitial edema or infiltrates. Electronically Signed: Hamzah Perez MD at 14:54 EST , Chest CTA 11/07/23 14:07 IMPRESSION: CTA chest examination, without a demonstrated pulmonary embolism or arterial dissection. Interstitial edema or infiltrate. Electronically Signed: Hamzah Perez MD at 15:49 EST , Soft Tissue Neck CT 11/07/23 14:07 IMPRESSION: Extensive postsurgical changes to the oropharynx with suspected mucous plugging or aspirated in the posterior aspect of the oropharynx, hypopharynx and extending into the larynx. N.B. : The above Results were Read Back by Mike Ng MD to CYDNEY Roa, and understanding confirmed on 11/07/2023 16:44:29 (ET). Electronically Signed: Mike Ng MD at 16:45 EST , ADDENDUM: 11/07/23 1652 IMPRESSION: Extensive postsurgical changes to the oropharynx with suspected mucous plugging or aspirated in the posterior aspect of the oropharynx, hypopharynx and extending into the larynx. N.B. : The above Results were Read Back by Mike Ng MD to CYDNEY Roa, and understanding confirmed on 11/07/2023 16:44:29 (ET). Electronically Signed: Mike Ng MD at 16:45 EST Reading Location ID and State: 1407 / Tel , Service support , Chest X-Ray 11/07/23 17:15 IMPRESSION: 1. Interval placement of endotracheal tube with the tip above the [place]. 2. Interval placement of nasogastric tube with the tip likely in the body the stomach. 3. No change in bibasilar patchy pneumonia. Electronically Signed: Mike Ng MD at 18:49 EST Reading Location ID and State: [id number] / Tel , Service support , <Dr. Andi Grant, DO - Last Filed: 11/07/23 18:58> [facility] Lab Data Labs: Laboratory Results - last 24 hr 11/07/23 11/07/23 13:00 13:30 WBC 15.0 H RBC 4.48 L Hgb 14.0 Hct 42.2 MCV 94.2 H MCH 31.3 MCHC 33.2 RDW Std Deviation 46.3 H RDW Coeff of Atif 13.4 Plt Count 327 MPV 11.7 Immature Gran % (Auto) 1.100 H Neut % (Auto) 88.0 H Lymph % (Auto) 5.4 L [place] % (Auto) 5.1 Eos % (Auto) 0.1 Baso % (Auto) 0.3 Absolute Neuts (auto) 13.2 H Absolute Lymphs (auto) 0.81 L Nucleated RBC % 0 PT 16.1 H INR 1.3 APTT 28.1 Sodium 147 H Potassium 3.2 L Chloride 114 H Carbon Dioxide 28.0 Anion Gap 5 BUN 23 H Creatinine 0.88 Estim Creat Clear Calc 56.22 Est GFR (MDRD) Af Amer 111 Est GFR (MDRD) Non-Af 91 BUN/Creatinine Ratio 26.0 H Glucose 121 H Lactic Acid 2.2 H* Calcium 9.2 Total Bilirubin 1.60 H AST 23 ALT 23 Alkaline Phosphatase 104 Total Creatine Kinase 38 L Troponin I High Sens 974 H* B-Natriuretic Peptide 503.5 H Total Protein 7.1 Albumin 2.4 L Globulin 4.7 H Albumin/Globulin Ratio 0.5 L Urine Color Yellow Urine Clarity Clear Urine pH 6.0 Ur Specific [place] 1.015 Urine Protein 100 H Urine Glucose (UA) Normal Urine Ketones 50 H Urine Occult Blood 150 H Urine Nitrite Positive H Urine Bilirubin 1 H Urine Urobilinogen 4 H Ur Leukocyte Esterase 25 H Urine RBC 5-10 SEEN Urine WBC 0-5 SEEN Ur Squamous Epith Cells 0-5 SEEN Urine Bacteria 1+ Urine Mucus 0 SEEN ABG Data ABG results: ABG 11/07/23 11/07/23 13:15 16:43 Specimen Type ELIZABETH ART Sample Site Not entered R Radial pH 6.97 L* Bicarbonate Actual 25.4 Total CO2 29 Base Excess -6 L O2 Saturation 93 L O2 % 7.0 100.0 ABG pCO2 109.6 H* ABG pO2 105 H VBG pH 7.43 H VBG pO2 < 34 VBG HCO3 26 VBG Total CO2 27 VBG O2 Sat (Calc) 40 L VBG Base Excess 2 POC Mix VBG pCO2 Pt Tmp 38.7 L O2 Delivery Device AeroMask NRB Vent Mode Not entered Crit Call To/Read Back Yes Blood Gas Notified Whom pleitez Blood Gas Notified Time 16:44:25 Radiography Diagnostic Testing: Clinical Impression(s) from Imaging Studies Chest X-Ray 11/07/23 13:01 IMPRESSION: COPD with lower lung interstitial edema or infiltrates. Electronically Signed: Hamzah Perez MD at 14:54 EST Reading Location ID and State: [address] [place] [address] , Service support , Chest CTA 11/07/23 14:07 IMPRESSION: CTA chest examination, without a demonstrated pulmonary embolism or arterial dissection. Interstitial edema or infiltrate. Electronically Signed: Hamzah Perez MD at 15:49 EST , Soft Tissue Neck CT 11/07/23 14:07 IMPRESSION: Extensive postsurgical changes to the oropharynx with suspected mucous plugging or aspirated in the posterior aspect of the oropharynx, hypopharynx and extending into the larynx. N.B. : The above Results were Read Back by Mike Ng MD to CYDNEY Roa, and understanding confirmed on 11/07/2023 16:44:29 (ET). Electronically Signed: Mike Ng MD at 16:45 EST , ADDENDUM: 11/07/23 1652 IMPRESSION: Extensive postsurgical changes to the oropharynx with suspected mucous plugging or aspirated in the posterior aspect of the oropharynx, hypopharynx and extending into the larynx. N.B. : The above Results were Read Back by Mike Ng MD to CYDNEY Roa, and understanding confirmed on 11/07/2023 16:44:29 (ET). Electronically Signed: Mike Ng MD at 16:45 EST , Chest X-Ray 11/07/23 17:15 IMPRESSION: 1. Interval placement of endotracheal tube with the tip above the wellington. 2. Interval placement of nasogastric tube with the tip likely in the body the stomach. 3. No change in bibasilar patchy pneumonia. Electronically Signed: Mike Ng MD at 18:49 EST , Treatment and Re-Evaluation :: Le: Patient signed out to me pending admission called back to the room with database coordinator present. Increasing work of breathing with tachypnea patient less responsive. Patient unable to follow commands. ABG ordered, added BNP, patient moved over to larger room. Decision made to intubate. ABG with 0.9 and CO2 of 107. He will be placed on the ventilator increasing ventilation rate to help with hypercapnia. He had an NSTEMI therefore heparin will be started. He is full code. Will discuss with medicine team for ICU placement. Procedure note: Emergent. Patient moved into larger room, RSI with etomidate and succinylcholine. Initial use of glido scope, airway was anterior initial placement, however there was no breath sounds he was not hypoxic, this was removed, I used Mac 4 blade direct visualization and with slight cricoid pressure, 7.5 Kiswahili tube placed 23 cm at the lip. Bilateral breath sounds with capnography return. Tube was secured. Continued bilateral breath sounds. Postintubation chest x-ray pending. 1830: Postintubation chest x-ray 1 view interpreted myself good placement of endotracheal tube and orogastric tube. No pneumothorax. Report from nursing on propofol blood pressure announced on the 80s, this was changed over to fentanyl, IV fluid bolus was ordered. Blood gas reordered and reviewed improved pH and CO2. Ventilation rate was decreased down to 12 from 18. PaO2 was 70 on reported 60% oxygenation. Will maintain oxygenation at this time. <Dr. Chi Pleitez MD - Last Filed: 11/07/23 13:54> Critical Care Time Critical Care Time: Yes Critical care time (excluding procedures): 30-74 minutes, Including time spent:, Discussing w/Patient &/or Family/Employment Advisor, Discussing w/Consultants, Arranging Admission or Transfer, Performing Direct Patient Care at Bedside and - (35 minutes) <Dr. Andi Grant DO - Last Filed: 11/07/23 18:58> Critical Care Time Critical care time (excluding procedures): - (45 minutes) Discharge Plan Dx/Rx/DC Orders Clinical Impression: History of oral cancer, Leukocytosis, Non-ST elevated myocardial infarction, Respiratory failure, Hypoxia, Left lower lobe pneumonia, Dehydration, Acute hypercapnic respiratory failure, Severe sepsis Disposition Disposition: Acute Care Hospital [facility]
[2023-11-07] MEDS: Ipratropium/Albuterol Sulfate 3 ML AMPUL.NEB INHALATION (13:08)
[2023-11-07] MEDS: MethylPREDNISolone 125 MG/2 ML Vial IV (13:16)
[2023-11-07 13:18] LABS: Blood Gas Specimen Type VEN; O2 Delivery Device AeroMask; SITE Not entered; VBG BASE EXCESS 2 mmol/L (-1.0-3.5); VBG Bicarbonate 26 mmol/L (22-26); VBG PO2 < 34 mmHg (25-40); VBG SO2 40 % (50-70); VBG TCO2 27 mmol/L (23-33); VBG pCO2 38.7 mmHg (41-51); VBG pH 7.43 (7.32-7.42)
[2023-11-07 13:22] LABS: Absolute Lymphocyte Count 0.81 X10^3/uL (0.83-4.51); Absolute Neutrophil Count 13.2 X10^3/uL (2.0-7.7); Basophil# 0.05 X10^3/uL; Basophil% 0.3 % (0-1); Eosinophil# 0.01 X10^3/uL; Eosinophils% 0.1 % (0-5); Hematocrit 42.2 % (40-54); Lymphocyte # 0.81 X10^3/ul (0.83-4.51); Lymphocyte % 5.4 % (19-41); Mean Corp Hgb Conc 33.2 g/dL (32-36); Mean Corpuscular Hgb 31.3 pg (27.0-32.0); Mean Corpuscular Volume 94.2 fL (80-94); Mean Platelet Vol. 11.7 fl (6.2-12.0); Monocyte# 0.76 X10^3/uL; Monocyte% 5.1 % (0-10); NRBC Flagged by Analyzer 0 % (0-5); Neutrophil # 13.19 X10^3/uL (2.7-7.7); Platelet Count 327 K/mm3 (150-450); RBC Distribution Width CV 13.4 % (11.6-14.6); RBC Distribution Width SD 46.3 fl (35.1-43.9); Red Blood Count 4.48 M/mm3 (4.6-6.2)
[2023-11-07 13:32] LABS: International Normalized Ratio 1.3; Prothrombin Time (Protime)PT. 16.1 SECONDS (11.7-14.9)
[2023-11-07 13:34] LABS: Partial Thromboplast Time 28.1 Seconds (24.1-36.2)
[2023-11-07 13:34] LABS: Mucous, Urine 0 SEEN /hpf (<or=2+)
[2023-11-07 13:36] LABS: Color, Urine Yellow (Yellow); Glucose, Dipstick Normal (Normal); Ketone-Dipstick 50 mg/dl (Negative); Leukocyte Esterase-Dipstick 25 /ul (Negative); Nitrite-Dipstick Positive (Negative); Occult Blood-Urine 150 /ul (Negative); Protein-Dipstick 100 mg/dl (Negative); Specific Gravity, Urine 1.015 (1.002-1.030); Urine Clarity Clear (Clear); Urine Urobilinogen 4 mg/dl (Normal)
[2023-11-07 13:38] LABS: Urine Bilirubin Dipstick 1 mg/dL (Negative)
[2023-11-07 13:46] LABS: ALB/GLOB Ratio 0.5 RATIO (0.9-2.4); AST(SGOT) 23 U/L (15-37); Alanine Aminotransfer ALT/SGPT 23 U/L (16-61); Albumin, Serum 2.4 g/dL (3.2-5.0); Alkaline Phosphatase 104 U/L (45-117); Anion Gap 5 (5-15); BUN 23 mg/dL (7-18); Calcium,Total 9.2 mg/dL (8.5-10.1); Chloride 114 mmol/L (98-107); Creatinine, Serum 0.88 mg/dL (0.70-1.30); EST Glomerular Filtration Rate 91 mL/min (>60); Est Glom Filt Rate - Afr Amer 111 mL/min (>60); Estimated Creatinine Clearance 56.22 ml/min; Globulin 4.7 g/dL (2.2-4.2); Glucose 121 mg/dL (74-106); Lactic Acid 2.2 mmol/L (0.4-1.9); Potassium 3.2 mmol/L (3.5-5.1); Protein, Total 7.1 g/dL (6.4-8.2); Sodium Level 147 mmol/L (136-145); Troponin-I HS 974 pg/mL (3.0-78.0)
[2023-11-07 13:47] LABS: Red Blood Cells-Urine 5-10 SEEN /hpf (0-5); White Blood Cells 0-5 SEEN /hpf (0-5)
[2023-11-07 13:48] LABS: Bacteria 1+ /hpf (None Seen); Squamous Epithelial Cells - UA 0-5 SEEN /hpf (0-5)
--- NOTE | 2023-11-07 14:00 | ED.RN ---
RN ASSESSED PATIENT. PATIENT CONTINUES TO USE ACCESSORY MUSCLES TO BREATHE. PTS SON IN ROOM. RN STATES WHAT HAPPENED TODAY THAT MADE YOU CALL 911. PTS SON STATES I JUST CANT TAKE CARE OF HIM ANYMORE. HE NEEDS A LOT MORE HELP THAN I CAN GIVE HIM AT HOME. RN STATES SHE UNDERSTANDS AND WILL PUT IN FOR A CONSULT FOR SOCIAL WORK. RN STATES THEY TEND TO ROUND ON THE FLOOR WITH PATIENT AND FAMILIES. PTS SON STATES HE WOULD LIKE PT TO BE PLACED IN RETIREMENT. DR. LEMUS NOTIFIED OF CASE MANAGEMENT CONSULT AND REQUESTING PATIENT BE INTUBATED BASED OFF NURSES ASSESSMENT OF PATIENT. DR. LEMUS STATES HE WOULD LIKE TO WAIT UNTIL HIS CTA IS BACK.
--- NOTE | 2023-11-07 14:07 | CT_ITS ---
STUDY: CTA CHEST REASON FOR EXAM: Male, 68 years old. Dyspnea RADIATION DOSAGE (If Supplied By Facility): CTDIvol = ( 9.20 ) mGy, DLP = ( 435.17 ) mGycm TECHNIQUE: The examination was performed with the intravenous administration of IV 100mL Isovue-370. Post-processing of the angiographic images was performed, with multiplanar reformation and 3D reconstruction. Individualized dose optimization techniques were used for this CT. COMPARISON: Chest x-ray FINDINGS: Normal enhancement of the main pulmonary artery and right and left pulmonary arteries. Normal enhancement of the bilateral peripheral pulmonary arteries. There is no demonstrated pulmonary embolism. There is atherosclerotic calcification of the aortic arch with tortuosity. There is no demonstrated aortic dissection. There are calcifications of the coronary arteries. Normal mediastinum. Normal hilar regions. Normal visualized trachea and bronchi. The lungs are well expanded. There is emphysema with fibrotic densities and blebs at the lung apices on the right more than the left. There are regions of bronchiectasis in the upper and lower lungs. There are endobronchial opacities in the lower chest on the left more than the right. There are patchy interstitial increased opacities of the lower lungs. Normal pleura. There are surgical clips in the right axillary region. Normal osseous structures. There is a percutaneous gastrostomy in the upper abdomen. CT/CTA Chest W/WO Contrast IMPRESSION: CTA chest examination, without a demonstrated pulmonary embolism or arterial dissection. Interstitial edema or infiltrate. Electronically Signed: Hamzah Perez MD at 15:49 EST ,
--- NOTE | 2023-11-07 14:07 | CT_ITS ---
STUDY: CT SOFT TISSUE NECK WITH CONTRAST REASON FOR EXAM: Male, 68 years old. dyspnea, oral cancer RADIATION DOSAGE (If Supplied By Facility): CTDIvol = ( 9.20 ) mGy, DLP = ( 435.17 ) mGycm TECHNIQUE: The patient was scanned in a multi-detector CT scanner. High resolution transaxial imaging was performed following intravenous administration of IV 100mL Isovue-370. Sagittal and coronal images were reconstructed. Individualized dose optimization techniques were used for this CT. COMPARISON: None. FINDINGS: Normal bilateral parotid glands. Normal bilateral sterilization tech spaces. Normal bilateral parapharyngeal spaces. Normal bilateral carotid spaces. Normal bilateral sublingual and submandibular glands and spaces. Normal visualized nasopharynx. Normal retropharyngeal space. Normal perivertebral space. Postsurgical changes to the oropharynx with with enlargement of the oral cavity with suspected resection of the majority of the tongue, paucity of the surrounding soft tissues, and reconstruction of the mandible. The patient is a edentulous. . The visualized cervical lymph nodes (levels I-) are within normal size limits, and maintain normal morphology. There is no demonstrated solid or cystic mass lesion. There is no abnormal contrast enhancement. There is ill-defined alveolar densities within the inferior aspect of the oropharynx extending into the hypopharynx and larynx worrisome for a mucous plugging or aspirated. The pre-epiglottic and paraglottic adipose spaces are normal. Normal visualized bilateral piriform sinuses, aryepiglottic folds, vocal cords, and arytenoid-cricoid articulations. Normal subglottic trachea. Normal bilateral lobes of the thyroid gland. Bilateral apical scarring. Air-fluid level in the left mid x-ray sinus consistent with acute sinusitis. There is multilevel degenerative changes of the cervical spine. CT/Soft Tissue Neck WITH Contrast IMPRESSION: Extensive postsurgical changes to the oropharynx with suspected mucous plugging or aspirated in the posterior aspect of the oropharynx, hypopharynx and extending into the larynx. N.B. : The above Results were Read Back by Mike Ng MD to CYDNEY Roa, and understanding confirmed on 11/07/2023 16:44:29 (ET). Electronically Signed: Mike Ng MD at 16:45 EST ,
[2023-11-07] MEDS: 0.9% Normal Saline (1000mL) 1,000 ML 999 ML IV ×2 (14:08→18:23)
--- NOTE | 2023-11-07 14:08 | ED.RN ---
THIS RN WALKING BY PT ROOM, AND PEERED INTO ROOM. PT HAD SLID DOWN IN THE BED. THIS RN AND AMIE RN MOVED PT UP IN THE BED. PT REMAINS TACHYPNEIC BRETHING 40-50 TIMES A MINUTE. THIS RN SHARING CONCERNS WITH DR. LEMUS AND JEY ABOUT BREATHING STATUS. PER DR LEMUS PT IS A FULL CODE. MOVED UP IN THE BED AND READJUSTED.
[2023-11-07 14:16] LABS: CPK Total, Creatine Kinase 38 U/L (39-308)
--- NOTE | 2023-11-07 14:41 | ED.RN ---
PATIENTS FAMILY REQUESTING TO SPEAK TO DRAFTER CARTOGRAPHIC ABOUT PLACEMENT
--- NOTE | 2023-11-07 16:30 | ED.RN ---
RN ASKED RT DONNELL TO ASSESS PATIENT. DONNELL STATES PATIENT LOOKS WORSE AND IS USING ACCESSORY MUSCLES TO BREATHE. DR. SHAY AND CYDNEY KHANNA AT BEDSIDE ASSESSING PATIENT. PT PULLED UP IN BED. PT HAS BLANK STARE BUT RESPONDS TO PAINFUL STIMULI. DR. SHAY REQUESTING A NEW ABG TO BE ORDERED. PT MOVED TO TRAUMA ROOM 1. ALL BELONGINGS GATHERED FROM ROOM 12 AND PLACED IN ROOM 1. THIS RN AT BEDSIDE PREPARING PATIENT FOR INTUBATION. RT DONNELL AT BEDSIDE DRAWING ABG. DR. SHAY ALSO AT BEDSIDE PREPARING FOR INTUBATION.
[2023-11-07] MEDS: Etomidate 20 MG/10 ML Vial 15 MG IV (16:40)
[2023-11-07] MEDS: Succinylcholine Chloride 200 MG/10 ML SYRINGE 60 MG IV (16:41)
[2023-11-07 16:46] LABS: Base Excess -6 mmol/L (-2 to +2); Bicarbonate 25.4 mmol/L (22-26); Blood Gas Specimen Type ART; Mode Not entered; O2 Delivery Device NRB; PO2 105 mmHG (75-100); SITE R Radial; SO2 93 % (95-99); Total Carbon Dioxide 29 mmol/L; pCO2 109.6 mmHg (35-45); pH 6.97 (7.35-7.45)
[2023-11-07] MEDS: Ceftriaxone 1 GM/50 ML BAG IV (16:50)
[2023-11-07] MEDS: Propofol 10MG/Ml 1,000 MG/100 ML Bottle 2.9 MG CONT INF ×2 (17:04→19:40)
[2023-11-07] MEDS: Heparin Injection (Vial) 5,000 UNIT/ML VIAL 3000 UNIT IV (17:09)
--- NOTE | 2023-11-07 17:09 | ED.RN ---
PATIENTS SON, DANTE UPDATED- PATIENTS BREATHING DID NOT GET ANY BETTER AND HE IS NOW INTUBATED. HE WILL BE IN THE ICU. NO FURTHER QUESTIONS
[2023-11-07 17:10] LABS: BNP,B-Type NATRIURETIC PEPTIDE 503.5 pg/mL (0-100)
[2023-11-07] MEDS: HEPARIN/D5w 25,000 UNITS 25,000 UNITS/250 ML IV.SOLN. 5.5 UNITS CONT INF (17:11)
--- NOTE | 2023-11-07 17:15 | RAD_ITS ---
STUDY: X-RAY CHEST REASON FOR EXAM: Male, 68 years old. intubation TECHNIQUE: Single AP portable view of the chest. COMPARISON: 11/07/2023 at 1352 FINDINGS: Interval placement of endotracheal tube with the tip approximately 4 cm above the wellington. Interval placement of nasogastric tube with the tip in the left upper quadrant likely in the body the stomach. Status post right axillary lymph node dissection. Bilateral apical scarring. No change in the patchy alveolar densities in the lung bases consistent with bibasilar pneumonia. There is no demonstrated pleural abnormality. Normal size heart. Normal mediastinum and dylan. Normal visualized pulmonary arteries. Normal visualized aortic arch and descending thoracic aorta. Normal visualized thoracic spine. Normal visualized ribs, clavicles, and shoulders. There is no demonstrated abnormality of the visualized soft tissue structures of the upper abdomen. RAD/Chest 1 View (Portable) IMPRESSION: 1. Interval placement of endotracheal tube with the tip above the wellington. 2. Interval placement of nasogastric tube with the tip likely in the body the stomach. 3. No change in bibasilar patchy pneumonia. Electronically Signed: Mike Ng MD at 18:49 EST ,
[2023-11-07 17:16] LABS: Reflex Lactate? Y
--- NOTE | 2023-11-07 17:25 | ED.RN ---
THIS RN SPEAKS WITH PT SON DANTE ON THE PHONE, PER DANTE PT DAUGHTER REPORTS THAT PT IS A DNRCC. RTHIS RNB INQUIRES WHAT KIND OF DNR PT HAS. PER SON, PT IS OK WITH BEING INTUBATED, BUT IF HE DIES HE DOES NOT WANT REVIVED. THIS RN EDUCATES SON ON DNRCC AND DNRCC-A. PER SON PT DNRCC-A. THIS RN REQUESTS SON TO BRING IN COPIES OF THE DNR AND LIVING WILL.
[2023-11-07] MEDS: Piperacil/Tazobactam 3.375 GM in 0.9% Normal Saline (50mL MB+) 50 ML IV ×2 (17:29→23:38)
--- NOTE | 2023-11-07 17:35 | HP.PCM.HOS_ITS ---
HPI - General General Date of Admission: 11/07/23 HPI Narrative AILEEN GRUBBS, is a 68 M who presents to the hospital with shortness of breath that has been worsening over the last week. COVID and flu were negative in the ER. He has a history of head and neck cancer that he had surgery and radiation for about 8 years ago. Unfortunately he is currently intubated and there is no family at bedside so the information was obtained from the ED physician. It looks like on admission he had a CTA of the chest that demonstrated what appeared to be mucous plugging in the left airway and there was concern for significant aspiration, he did have a leukocytosis to 15. He had been doing oka y and then worsened fairly quickly necessitating intubation. Currently is hemodynamically stable and has received IV antibiotics in the ER. [facility] Medical History Atherosclerotic heart disease of [place] coronary artery without angina pectoris CAD (coronary artery disease) Congenital hypothyroidism Dysphagia Essential hypertension Hearing loss of aging History of mouth cancer [place] (hard of hearing) HTN (hypertension) Malnutrition Myocardial infarct Oral cancer Home Medications levothyroxine 50 mcg tablet 50 mcg PO DAILY #30 tabs 08/28/21 [Rx Last Taken Unknown] aspirin 81 mg tablet,delayed release 81 mg PO DAILY #90 tabs 03/07/22 [Rx Last Taken Unknown] atorvastatin 40 mg tablet 40 mg PO QHS #90 tabs 03/07/22 [Rx Last Taken Unknown] carvedilol 3.125 mg tablet 3.125 mg PO BID #180 tabs 03/07/22 [Rx Last Taken Unknown] lisinopril 5 mg tablet 5 mg PO DAILY #90 tabs 03/07/22 [Rx Last Taken Unknown] ticagrelor 90 mg tablet (Brilinta) 90 mg PO BID #180 tabs 03/07/22 [Rx Last Taken Unknown] omeprazole 20 mg capsule,delayed release 20 mg PO DAILY 12/24/22 [History Last Taken Unknown] Allergy/AdvReac Type Severity Reaction Status Date / Time No Known Allergies Allergy Verified 11/07/23 12:51 Family History unable to obtain unable to obtain Surgical History History of appendectomy History of coronary artery stent placement (08/08/21) History of mandibular surgery History of tonsillectomy Social History housing: house Smoking Status: Current every day smoker tobacco type: cigars per week: 20 Tobacco: How many years used: 52 alcohol intake: never substance use type: does not use caffeine: Yes Type: coffee Number of servings: 2 ROS Review of Systems ROS Unobtainable: due to endotracheal tube Vital Signs Vital Signs Vital Signs: 11/07/23 12:56 11/07/23 13:34 11/07/23 14:00 Temperature 98.5 F 98.8 F Temperature Source Axillary Temporal Pulse Rate 124 H 129 H Respiratory Rate 33 H 30 H Respiratory Effort Short of Breath Labored Respiratory Depth Shallow Respiratory Pattern Tachypnea Blood Pressure 152/87 H 176/95 H Blood Pressure Mean 108 122 Pulse Ox 99 99 Oxygen Delivery Method Non-Rebreather Oxygen Flow Rate (L/min) 12 11/07/23 15:00 11/07/23 13:09 11/07/23 13:11 Temperature 98.5 F Temperature Source Axillary Pulse Rate 124 H 122 H Respiratory Rate 27 H 40 H Respiratory Effort Respiratory Depth Respiratory Pattern Blood Pressure 155/85 H 152/87 H Blood Pressure Mean 108 108 Pulse Ox 94 96 95 Oxygen Delivery Method Nasal Cannula Non-Rebreather Non-Rebreather Oxygen Flow Rate (L/min) 12 12 11/07/23 13:14 11/07/23 13:08 11/07/23 16:37 Temperature 98.5 F Temperature Source Axillary Pulse Rate 123 H 120 H Respiratory Rate 35 H 40 H Respiratory Effort Labored Respiratory Depth Shallow Respiratory Pattern Tachypnea Blood Pressure 142/86 H Blood Pressure Mean 104 Pulse Ox 94 Oxygen Delivery Method Non-Rebreather Mechanical Ventilator Oxygen Flow Rate (L/min) 10 11/07/23 16:45 Temperature Temperature Source Pulse Rate 106 H Respiratory Rate 20 H Respiratory Effort Respiratory Depth Respiratory Pattern Blood Pressure 145/93 H Blood Pressure Mean 110 Pulse Ox 93 Oxygen Delivery Method Ambu-Bag Oxygen Flow Rate (L/min) Weight Weight: 107 lb 9.369 oz Body Mass Index (BMI) 15.8 Physical Exam Const General Appearance: disheveled, frail, intubated and patient mechanically ventilated Nutritional Appearance: cachectic HEENT normocephalic Eyes PERRL and conjunctivae normal Neck supple and no JVD Resp normal respiratory effort, no retractions and no use of accessory muscles Auscultation: Negative for crackles, rales, rhonchi or wheezes Cardio regular rate, regular rhythm, S1 normal heart sound, S2 normal heart sound and no murmurs GI soft to palpation and non-distended; Negative for hepatosplenomegaly Extremity no clubbing, cyanosis or edema Skin no rashes or lesions noted Neuro Sensorium / Orientation: sedated on vent Psych Appearance: intubated Results Lab / Micro Data 11/07/23 13:00 11/07/23 13:00 Labs: Laboratory Results - last 24 hr 11/07/23 13:00: WBC 15.0 H, RBC 4.48 L, Hgb 14.0, Hct 42.2, MCV 94.2 H, MCH 31.3, MCHC 33.2, RDW Std Deviation 46.3 H, RDW Coeff of Atif 13.4, Plt Count 327, MPV 11.7, Immature Gran % (Auto) 1.100 H, Neut % (Auto) 88.0 H, Lymph % (Auto) 5.4 L, [place] % (Auto) 5.1, Eos % (Auto) 0.1, Baso % (Auto) 0.3, Absolute Neuts (auto) 13.2 H, Absolute Lymphs (auto) 0.81 L, Nucleated RBC % 0, PT 16.1 H, INR 1.3, APTT 28.1, Sodium 147 H, Potassium 3.2 L, Chloride 114 H, Carbon Dioxide 28.0, Anion Gap 5, BUN 23 H, Creatinine 0.88, Estim Creat Clear Calc 56.22, Est GFR (MDRD) Af Amer 111, Est GFR (MDRD) Non-Af 91, BUN/Creatinine Ratio 26.0 H, Glucose 121 H, Lactic Acid 2.2 H*, Calcium 9.2, Total Bilirubin 1.60 H, AST 23, ALT 23, Alkaline Phosphatase 104, Total Creatine Kinase 38 L, Troponin I High Sens 974 H*, B-Natriuretic Peptide 503.5 H, Total Protein 7.1, Albumin 2.4 L, Globulin 4.7 H, Albumin/Globulin Ratio 0.5 L 11/07/23 13:30: Urine Color Yellow, Urine Clarity Clear, Urine pH 6.0, Ur Specific [place] 1.015, Urine Protein 100 H, Urine Glucose (UA) Normal, Urine Ketones 50 H, Urine Occult Blood 150 H, Urine Nitrite Positive H, Urine Bilirubin 1 H, Urine Urobilinogen 4 H, Ur Leukocyte Esterase 25 H, Urine RBC 5- 10 SEEN, Urine WBC 0-5 SEEN, Ur Squamous Epith Cells 0-5 SEEN, Urine Bacteria 1+, Urine Mucus 0 SEEN Micro: Microbiology 11/07/23 13:30 Nasal Secretion SARS-CoV-2 & FLU Antigen (Rapid) - Final ABG Data ABG results: ABG 11/07/23 11/07/23 13:15 16:43 Specimen Type ELIZABETH ART Sample Site Not entered R Radial pH 6.97 L* Bicarbonate Actual 25.4 Total CO2 29 Base Excess -6 L O2 Saturation 93 L O2 % 7.0 100.0 ABG pCO2 109.6 H* ABG pO2 105 H VBG pH 7.43 H VBG pO2 < 34 VBG HCO3 26 VBG Total CO2 27 VBG O2 Sat (Calc) 40 L VBG Base Excess 2 POC Mix VBG pCO2 Pt Tmp 38.7 L O2 Delivery Device AeroMask NRB Vent Mode Not entered Crit Call To/Read Back Yes Blood Gas Notified Whom pleitez Blood Gas Notified Time 16:44:25 Imagaing Radiology Impression Chest X-Ray 11/07/23 13:01 IMPRESSION: COPD with lower lung interstitial edema or infiltrates. Electronically Signed: Hamzah Perez MD at 14:54 EST Reading Location ID and State: [facility] / [place] , Service support , Chest CTA 11/07/23 14:07 IMPRESSION: CTA chest examination, without a demonstrated pulmonary embolism or arterial dissection. Interstitial edema or infiltrate. Electronically Signed: Hamzah Perez MD at 15:49 EST , Soft Tissue Neck CT 11/07/23 14:07 IMPRESSION: Extensive postsurgical changes to the oropharynx with suspected mucous plugging or aspirated in the posterior aspect of the oropharynx, hypopharynx and extending into the larynx. N.B. : The above Results were Read Back by Mike Ng MD to CYDNEY Roa, and understanding confirmed on 11/07/2023 16:44:29 (ET). Electronically Signed: Mike Ng MD at 16:45 EST , ADDENDUM: 11/07/23 1652 IMPRESSION: Extensive postsurgical changes to the oropharynx with suspected mucous plugging or aspirated in the posterior aspect of the oropharynx, hypopharynx and extending into the larynx. N.B. : The above Results were Read Back by Mike Ng MD to CYDNEY Roa, and understanding confirmed on 11/07/2023 16:44:29 (ET). Electronically Signed: Mike Ng MD at 16:45 EST , Assessment & Plan Assessment/Plan (1) Left lower lobe pneumonia: (2) Respiratory failure: (3) Non-ST elevated myocardial infarction: PLAN: Plan 1. Sepsis secondary to aspiration pneumonia in the setting of previous head and neck surgery for throat cancer leading to acute hypoxic and hypercapnic respir atory failure requiring intubation complicated by non-STEMI/severe protein calorie malnutrition ? Will consult cardiology ? Continue with the heparin drip ? Continue with Zosyn ? Will transfer to the ICU ? Continue with his current vent settings ? He does have an OG in place will consult nutrition secondary to his severe protein calorie malnutrition for tube feeds, BMI is 15.9 he does have temporal wasting and significant muscular atrophy ? Family did say that he is a DNR CCA with intubation 2. HTN/HLD/CAD status post stent/non-STEMI ? Continue with the heparin drip and appreciate cardiology's assistance ? Will obtain an echo ? Continue with his p.o. Coreg and Lipitor ? Continue with lisinopril and aspirin ? His stents were in 2020 3. History of oral cancer status postresection DVT: Heparin drip Sepsis Attestation Sepsis Attestation: Agree w/Sepsis Date exam was performed: 11/07/23 Time exam was performed: 16:50 Possible Source of Sepsis: Pulmonary Sepsis Organ Dysfunction Criteria Present: Acute Respiratory Failure (New need for BiPAP/CPAP or MV) and Lactic Acid > 2 mmol/L Fluid Resuscitation Fluid resuscitation indicated?: Yes Fluid Resuscitation ordered: 30 ml/kg fluid bolus ordered Sepsis Note Date exam was performed: 11/07/23 Time exam was performed: 17:56 Sepsis Attestation: Sepsis re-evaluation was performed Response to fluids: Fluid responsive hypotension Charges/Coding Visit Charges Inpatient E&M: 56651 Init Hosp L3
--- NOTE | 2023-11-07 18:04 | ED.RN ---
BP 82/53. Dr. Grant notified. Propofol stopped. Liter of fluid hung.
[2023-11-07 18:07] LABS: Allen Test Positive; Base Excess -6 mmol/L (-2 to +2); Blood Gas Specimen Type ART; Mode AC; O2 Delivery Device Adult Vent; PEEP 5; PO2 73 mmHG (75-100); RR 18; SITE L Radial; SO2 94 % (95-99); Total Carbon Dioxide 21 mmol/L; pCO2 36.7 mmHg (35-45); pH 7.34 (7.35-7.45)
--- NOTE | 2023-11-07 18:10 | CPS ---
Per Dr Le decreased RR to 12
[2023-11-07] MEDS: fentaNYL drip 100 ML 2.5 MCG CONT INF (18:22)
[2023-11-07] MEDS: fentaNYL 100 MCG/2 ML Ampul 50 MCG IV (18:23)
[2023-11-07 18:35] LABS: CPK Total, Creatine Kinase 85 U/L (39-308); Triglycerides 130 mg/dL
[2023-11-07 18:42] LABS: Lactic Acid 2.9 mmol/L (0.4-1.9)
--- NOTE | 2023-11-07 18:46 | ECHOD_ITS ---
Reason For Study: CHEST PAIN Procedure This was a 2D Doppler, Color Flow transthoracic echocardiogram. The study was technically limited. The study was technically difficult. Due to poor accoustic windows, arrhythmia and body habitus. Exam performed portable in ICU/CCU. Left Ventricle Normal LV size. The estimated ejection fraction is 60 %. Unable to assess diastolic dysfunction. No regional wall motion abnormalities noted. Right Ventricle Normal RV size. Normal systolic function. Atria Normal left atrium. Normal right atrium. No doppler evidence for ASD. Mitral Valve There is no mitral valve stenosis. No mitral valve insufficiency. Tricuspid Valve There is no tricuspid stenosis. Unable to estimate RV systolic pressure due to inadequate jet, pulmonary artery pressure probably normal. Aortic Valve The aortic valve is not well visualized. There is no aortic stenosis. No aortic valve insufficiency. Pulmonic Valve There is no pulmonic valvular stenosis. No pulmonic valve insufficiency. Great Vessels Normal aortic root. Pericardium/Pleural No pericardial effusion. MMode/2D Measurements & Calculations LVIDd: 3.7 cm IVSd: 0.81 cm Ao root diam: 2.9 cm LVIDs: 2.4 cm LVPWd: 0.83 cm RVDd: 2.7 cm FS: 36.4 % LAV(MOD-bp): 30.5 ml EDV(MOD-sp4): 36.6 ml SV(MOD-sp4): 24.4 ml LAV(MOD-bp) Indexed: 18.4 ml/m2 ESV(MOD-sp4): 12.2 ml LAV(MOD-sp2): 30.7 ml EF(MOD-sp4): 66.7 % LAV(MOD-sp4): 26.7 ml LA dimension(2D): 3.2 cm TAPSE: 2.2 cm LA A4 area: 11.6 cm2 Doppler Measurements & Calculations MV E max bertha: 59.6 cm/sec Ao V2 max: 86.5 cm/sec LV V1 max: 59.9 cm/sec Ao max P.0 mmHg LV V1 max P.4 mmHg Ao V2 mean: 52.2 cm/sec LV V1 mean P.85 mmHg Ao mean P.3 mmHg LV V1 mean: 44.1 cm/sec Ao V2 VTI: 12.8 cm LV V1 VTI: 11.2 cm AV (velocity ratio): 0.88 PA V2 max: 71.3 cm/sec PA V2 mean: 77.8 cm/sec ECHO/Echo Complete Interpretation Summary Technically difficult study The estimated ejection fraction is 60 %. Unable to assess diastolic dysfunction. Ordering Physician: Pee George Referring Physician: Jaleesa Bunch Performed By: Domenica Suárez, RDCS, RVT
--- NOTE | 2023-11-07 19:13 | ED.RN ---
1700 PT INTUBATED, MOVING LEGS. PT PLACED IN SOFT WRIST RESTRAINTS FOR TUBE PROTECTIONS. DR. SOLER.
[2023-11-07] MEDS: 0.9% Normal Saline (1000mL) 1,000 ML 100 ML IV (20:43)
[2023-11-07 20:58] LABS: Triglycerides 170 mg/dL
[2023-11-07] MEDS: 0.9% Normal Saline (500mL Bag) 500 ML 999 ML IV (21:21)
[2023-11-07] MEDS: dexMEDEtomidine 400 MCG in 0.9% Normal Saline (100mL Bag) 96 ML 6.3 MCG CONT INF (21:30)
[2023-11-07] MEDS: Vancomycin HCl 1,250 MG in 0.9% Normal Saline (250mL Bag) 250 ML 167 MG IV (21:35)
--- NOTE | 2023-11-07 21:54 | PCM.RX.CS ---
Consult Antibiotic Management Pharmacy has been consulted to manage selected antiobiotic: Vancomycin Type of Intervention Type of Consult: New start Suspected Infection Suspected Infection: Sepsis Labs Labs: Sodium 147 mmol/L (136-145) H 11/07/23 13:00 Potassium 3.2 mmol/L (3.5-5.1) L 11/07/23 13:00 Chloride 114 mmol/L (98-107) H 11/07/23 13:00 Carbon Dioxide 28.0 mmol/L (21.0-32.0) 11/07/23 13:00 Anion Gap 5 (5-15) 11/07/23 13:00 BUN 23 mg/dL (7-18) H 11/07/23 13:00 Creatinine 0.88 mg/dL (0.70-1.30) 11/07/23 13:00 Est GFR (MDRD) Af Amer 111 mL/min (>60) 11/07/23 13:00 Est GFR (MDRD) Non-Af 91 mL/min (>60) 11/07/23 13:00 BUN/Creatinine Ratio 26.0 RATIO (10-20) H 11/07/23 13:00 Glucose 121 mg/dL (74-106) H 11/07/23 13:00 Microbiology Microbiology: Microbiology 11/07/23 13:30 Nasal Secretion SARS-CoV-2 & FLU Antigen (Rapid) - Final Dosing Weight Weight used for dosin kg Estimated Creatinine Clearance Estimated Creatinine Clearance: 56 Goal Trough Goal Trough: 15-20 mcg/mL Pharmacy Plan for Drug Dosing Pharmacy Plan for Drug Dosing: Pharmacy Service will continue to monitor and adjust dosing as required. Follow-Up Labs Follow-Up Labs: Trough: Vancomycin Date/Time Labs Ordered Labs to be done on [date and time ordered]: 11/09/23 @0900
[2023-11-07] MEDS: Norepinephrine 8 MG in 0.9% Normal Saline (250mL Bag) 242 ML 9.4 MG CONT INF (22:42)
[2023-11-07] MEDS: Chlorhexidine 15 ML PO (22:45)
[2023-11-07] MEDS: Pantoprazole Sodium 40 MG in 0.9% Normal Saline (100mL MB+) 100 ML 330 MG IV (23:18)
[2023-11-07 23:33] LABS: Partial Thromboplast Time 45.9 Seconds (24.1-36.2)
[2023-11-08] VITALS (52 sets, daily range): BP systolic 74–148; BP diastolic 44–81; PULSE 89–120; RESP 12–26; TEMP 35.9–38.6; O2SAT 86–99; BMI 16.5
[2023-11-08] MEDS: 0.9% Normal Saline (1000mL) 1,000 ML 100 ML IV (02:30)
[2023-11-08] MEDS: fentaNYL drip 100 ML 15 MCG CONT INF ×4 (03:32→23:41)
[2023-11-08 04:44] LABS: Absolute Lymphocyte Count 0.62 X10^3/uL (0.83-4.51); Absolute Neutrophil Count 11.3 X10^3/uL (2.0-7.7); Basophil# 0.02 X10^3/uL; Basophil% 0.2 % (0-1); Hematocrit 32.6 % (40-54); Hemoglobin 10.4 g/dL (13.0-16.5); Lymphocyte # 0.62 X10^3/ul (0.83-4.51); Lymphocyte % 5.1 % (19-41); Mean Corp Hgb Conc 31.9 g/dL (32-36); Mean Corpuscular Hgb 30.4 pg (27.0-32.0); Mean Corpuscular Volume 95.3 fL (80-94); Mean Platelet Vol. 11.8 fl (6.2-12.0); Monocyte# 0.24 X10^3/uL; NRBC Flagged by Analyzer 0 % (0-5); Neutrophil # 11.26 X10^3/uL (2.7-7.7); Neutrophil % 91.6 % (47-70); Platelet Count 261 K/mm3 (150-450); RBC Distribution Width CV 13.7 % (11.6-14.6); RBC Distribution Width SD 48.3 fl (35.1-43.9); Red Blood Count 3.42 M/mm3 (4.6-6.2); White Blood Count 12.3 K/mm3 (4.4-11.0)
[2023-11-08 04:59] LABS: Anion Gap 7 (5-15); BUN 27 mg/dL (7-18); BUN/Creat Ratio 38.1 RATIO (10-20); Calcium,Total 7.2 mg/dL (8.5-10.1); Chloride 125 mmol/L (98-107); Creatinine, Serum 0.71 mg/dL (0.70-1.30); EST Glomerular Filtration Rate 118 mL/min (>60); Est Glom Filt Rate - Afr Amer 143 mL/min (>60); Glucose 188 mg/dL (74-106); Potassium 3.1 mmol/L (3.5-5.1); Sodium Level 151 mmol/L (136-145)
[2023-11-08] MEDS: Levothyroxine 50 MCG Tablet NG (05:30)
[2023-11-08] MEDS: dexMEDEtomidine 400 MCG in 0.9% Normal Saline (100mL Bag) 96 ML 12.5 MCG CONT INF ×3 (05:59→17:47)
[2023-11-08] MEDS: Potassium Chloride Oral Soln 20 MEQ/15 ML UDC 40 MEQ PO ×2 (06:04→10:12)
[2023-11-08] MEDS: Piperacil/Tazobactam 3.375 GM in 0.9% Normal Saline (50mL MB+) 50 ML IV ×3 (06:24→21:55)
[2023-11-08 06:37] LABS: Partial Thromboplast Time 61.4 Seconds (24.1-36.2)
--- NOTE | 2023-11-08 07:12 | CON.PCM.CC_ITS ---
Assessment & Plan Assessment/Plan (1) Acute hypercapnic respiratory failure: (2) Severe sepsis: (3) Left lower lobe pneumonia: (4) Non-ST elevated myocardial infarction: PLAN: Plan RECOMMENDATIONS: 1. Initiate tube feeds 2. Monitor for refeeding syndrome 3. Continue empiric antibiotics pending cultures 4. Spontaneous breathing and awakening trials per protocol 5. KVO IV fluids with increased free water flushes 6. Consult therapies IMPRESSIONS: 1. Sepsis secondary to possible aspiration pneumonia Patient with increased infiltrates noted in bilateral lower lobes. Patient does have an elevated troponin, but is unclear if this is related to hypoxia or not. Patient does have endorgan damage as demonstrated by respiratory failure. Patient is on empiric antibiotics at this time. Continue pressors to maintain perfusion pressures. Wean as possible. Patient does have some findings suggestive of a possible early UTI. Cultures should help differentiate. 2. Non-ST elevation [place] [facility] has been consulted. Patient does have an elevated troponin with a history of coronary artery disease. Echocardiogram has been ordered. Patient is on telemetry at this time. Await recommendations. Patient is on a heparin drip in the interim. 3. Acute combined respiratory failure with sepsis CT of the chest she does show some emphysematous changes with bronchiectasis indicating probable complications of smoking. Patient also has increased infiltrates in the bilateral lower lobes. Patient is on empiric antibiotics pending cultures. It is unclear if patient is on supplemental oxygen at baseline. 4. Hypernatremia/hyperchloremia Patient's renal function is within normal limits. Clinical suspicion that this is secondary to volume resuscitation associated to problem #1. Will KVO IV fluids. Patient will be placed on tube feeds with free water flushes. 5. History of oral cancer/severe protein malnutrition/GERD Complicates care, management, recovery and prognosis. Will need to watch patient closely for refeeding syndrome as it appears as though he had decreased p.o. intake recently. It is unclear if this is related to mechanical issues as history is relatively limited. CODE STATUS was confirmed by hospitalist with family as a DNR Comfort Care arrest. TIME: 40 minutes critical care time spent addressing patient's sepsis, NSTEMI, respiratory failure, hypernatremia, review of all data and collaboration with care team HPI Consult Data Date of Consult: 11/08/23 HPI Narrative Reason for Consultation: Respiratory failure HPI Narrative: AILEEN GRUBBS is a 68 M, with past medical history listed below, who presents to [facility] on 11/07/2023 secondary to shortness of breath. Patient does have a complex past medical history including oral cancer status post surgery. Patient reportedly is very hard of hearing and has difficulty speaking secondary to his surgery, but had to be placed on a nonrebreather secondary to hypoxia. Patient did communicate that he was not on chemoradiation at the time of presentation. In the ER, patient was afebrile, but tachycardic at 129 bpm. Patient was normotensive, but tachypneic at 33 breaths/min and requiring a nonrebreather. Patient ultimately was intubated for respiratory distress. Laboratory workup showed a white blood cell count of 15, hemoglobin of 14 and platelets of 327. INR was within normal limits. Chemistry showed a low potassium at 3.2, elevated sodium at 147 and chloride at 114. Patient's lactate was 2.2 at that time. Patient did have an elevated BNP at 503 and a troponin of 974. Urinalysis showed some mild findings consistent with a UTI. Patient did have a VBG obtai dylan initially, but postintubation ABG showed a pH of 6.97 with a CO2 of 110. Chest x-ray did show hyperinflation and a CTA of the chest showed interstitial edema versus infiltrate, but no PE. ER did report the patient does not really care for himself well and is not regularly following up with a physician. After admission to the intensive care unit, patient did have an ABG showing normalization of acid-base status. Patient has required pressors to maintain perfusion at low doses. No fevers have been reported. Patient has been able to be weaned to 30% FiO2. Patient did not have a spontaneous breathing or awakening trial this morning secondary to recent intubation. Patient did have some tachycardia and was transition from propofol to Precedex. Patient appears to have responded well to this with improved heart rate better synchrony with the ventilator. Unable to obtain review of systems secondary to patient's intubation. Review of the medical record shows patient did have an echocardiogram in 2020 showing an EF of 55 to 60% with no significant valvular issues. Review of the CTA from the ER does show a possible infiltrate in the right upper lobe along with emphysematous changes. Patient also has bilateral lower lobe infiltrates patient does have some areas consistent with bronchiectasis, but no intraluminal sputum is appreciated. Patient has never had pulmonary function tests completed at [facility]. [facility] Medical History Atherosclerotic heart disease of [place] coronary artery without angina pectoris CAD (coronary artery disease) Congenital hypothyroidism Dysphagia Essential hypertension Hearing loss of aging History of mouth cancer ALUTIIQ (hard of hearing) HTN (hypertension) Malnutrition Myocardial infarct Oral cancer Home Medications levothyroxine 50 mcg tablet 50 mcg PO DAILY #30 tabs 08/28/21 [Rx Last Taken Unknown] aspirin 81 mg tablet,delayed release 81 mg PO DAILY #90 tabs 03/07/22 [Rx Last Taken Unknown] atorvastatin 40 mg tablet 40 mg PO QHS #90 tabs 03/07/22 [Rx Last Taken Unknown] carvedilol 3.125 mg tablet 3.125 mg PO BID #180 tabs 03/07/22 [Rx Last Taken Unknown] lisinopril 5 mg tablet 5 mg PO DAILY #90 tabs 03/07/22 [Rx Last Taken Unknown] ticagrelor 90 mg tablet (Brilinta) 90 mg PO BID #180 tabs 03/07/22 [Rx Last Taken Unknown] omeprazole 20 mg capsule,delayed release 20 mg PO DAILY 12/24/22 [History Last Taken Unknown] Allergy/AdvReac Type Severity Reaction Status Date / Time No Known Allergies Allergy Verified 11/07/23 12:51 Family History unable to obtain Surgical History History of appendectomy History of coronary artery stent placement (08/08/21) History of mandibular surgery History of tonsillectomy Social History housing: house Smoking Status: Current every day smoker tobacco type: cigars per week: 20 Tobacco: How many years used: 52 alcohol intake: never substance use type: does not use caffeine: Yes Type: coffee Number of servings: 2 ROS Review of Systems ROS Unobtainable: due to endotracheal tube Physical Exam Const Constitutional Narrative: Temporal wasting noted. General Appearance: disheveled, frail, intubated and patient mechanically ventilated Nutritional Appearance: cachectic HEENT normocephalic HEENT Narrative: Edentulous General Ear: hearing grossly impaired Eyes PERRL and conjunctivae normal Neck supple and no JVD Resp normal respiratory effort, no retractions and no use of accessory muscles Auscultation: Negative for crackles, rales, rhonchi or wheezes Cardio regular rate, regular rhythm, S1 normal heart sound, S2 normal heart sound and no murmurs GI soft to palpation and non-distended; Negative for hepatosplenomegaly Extremity no clubbing, cyanosis or edema Skin no rashes or lesions noted Neuro Sensorium / Orientation: sedated on vent Psych Appearance: intubated Medical Records Data Attestation: I reviewed the patient's medical records Lab / Micro Data Attestation: I reviewed the patient's lab results. 11/08/23 04:25 11/08/23 04:25 Labs: Laboratory Results - last 24 hr 11/07/23 13:00: WBC 15.0 H, RBC 4.48 L, Hgb 14.0, Hct 42.2, MCV 94.2 H, MCH 31.3, MCHC 33.2, RDW Std Deviation 46.3 H, RDW Coeff of Atif 13.4, Plt Count 327, MPV 11.7, Immature Gran % (Auto) 1.100 H, Neut % (Auto) 88.0 H, Lymph % (Auto) 5.4 L, Coleman % (Auto) 5.1, Eos % (Auto) 0.1, Baso % (Auto) 0.3, Absolute Neuts (auto) 13.2 H, Absolute Lymphs (auto) 0.81 L, Nucleated RBC % 0, PT 16.1 H, INR 1.3, APTT 28.1, Sodium 147 H, Potassium 3.2 L, Chloride 114 H, Carbon Dioxide 28.0, Anion Gap 5, BUN 23 H, Creatinine 0.88, Estim Creat Clear Calc 56.22, Est GFR (MDRD) Af Amer 111, Est GFR (MDRD) Non-Af 91, BUN/Creatinine Ratio 26.0 H, Glucose 121 H, Lactic Acid 2.2 H*, Calcium 9.2, Total Bilirubin 1.60 H, AST 23, ALT 23, Alkaline Phosphatase 104, Total Creatine Kinase 38 L, Troponin I High Sens 974 H*, B-Natriuretic Peptide 503.5 H, Total Protein 7.1, Albumin 2.4 L, Globulin 4.7 H, Albumin/Globulin Ratio 0.5 L 11/07/23 13:30: Urine Color Yellow, Urine Clarity Clear, Urine pH 6.0, Ur Specific [place] 1.015, Urine Protein 100 H, Urine Glucose (UA) Normal, Urine Ketones 50 H, Urine Occult Blood 150 H, Urine Nitrite Positive H, Urine Bilirubin 1 H, Urine Urobilinogen 4 H, Ur Leukocyte Esterase 25 H, Urine RBC 5- 10 SEEN, Urine WBC 0-5 SEEN, Ur Squamous Epith Cells 0-5 SEEN, Urine Bacteria 1+, Urine Mucus 0 SEEN 11/07/23 18:06: Lactic Acid 2.9 H*, Total Creatine Kinase 85, Triglycerides 130 11/07/23 20:35: Triglycerides 170 11/07/23 22:50: APTT 45.9 H 11/08/23 04:25: WBC 12.3 H, RBC 3.42 L, Hgb 10.4 L, Hct 32.6 L, MCV 95.3 H, MCH 30.4, MCHC 31.9 L, RDW Std Deviation 48.3 H, RDW Coeff of Atif 13.7, Plt Count 261, MPV 11.8, Immature Gran % (Auto) 1.100 H, Neut % (Auto) 91.6 H, Lymph % (Auto) 5.1 L, Coleman % (Auto) 2.0, Eos % (Auto) 0.0, Baso % (Auto) 0.2, Absolute Neuts (auto) 11.3 H, Absolute Lymphs (auto) 0.62 L, Nucleated RBC % 0, Sodium 151 H, Potassium 3.1 L, Chloride 125 H, Carbon Dioxide 19.0 L, Anion Gap 7, BUN 27 H, Creatinine 0.71, Estim Creat Clear Calc 51.40, Est GFR (MDRD) Af Amer 143, Est GFR (MDRD) Non-Af 118, BUN/Creatinine Ratio 38.1 H, Glucose 188 H, Calcium 7.2 L 11/08/23 06:20: APTT 61.4 H Micro: Microbiology 11/07/23 13:30 Nasal Secretion SARS-CoV-2 & FLU Antigen (Rapid) - Final ABG Data ABG results: ABG 11/07/23 11/07/23 11/07/23 13:15 16:43 18:03 Specimen Type ELIZABETH ART ART Sample Site Not entered R Radial L Radial pH 6.97 L* 7.34 L Bicarbonate Actual 25.4 20.0 L Total CO2 29 21 Base Excess -6 L -6 L O2 Saturation 93 L 94 L O2 % 7.0 100.0 60.0 ABG pCO2 109.6 H* 36.7 ABG pO2 105 H 73 L Yosvany Test Positive VBG pH 7.43 H VBG pO2 < 34 VBG HCO3 26 VBG Total CO2 27 VBG O2 Sat (Calc) 40 L VBG Base Excess 2 POC Mix VBG pCO2 Pt Tmp 38.7 L Respiration Rate 18 O2 Delivery Device AeroMask NRB Adult Vent Vent Mode Not entered AC Tidal Volume 400.0 POC PEEP 5 Crit Call To/Read Back Yes Blood Gas Notified Whom pleitez Blood Gas Notified Time 16:44:25 Attestation: I personally reviewed and interpreted this ABG as follows: (Significant respiratory acidosis with partial metabolic compensation that was normalized following intubation) Imagaing Radiology Impression Chest X-Ray 11/07/23 13:01 IMPRESSION: COPD with lower lung interstitial edema or infiltrates. Electronically Signed: Hamzah Perez MD at 14:54 EST , Chest CTA 11/07/23 14:07 IMPRESSION: CTA chest examination, without a demonstrated pulmonary embolism or arterial dissection. Interstitial edema or infiltrate. Electronically Signed: Hamzah Perez MD at 15:49 EST , Soft Tissue Neck CT 11/07/23 14:07 IMPRESSION: Extensive postsurgical changes to the oropharynx with suspected mucous plugging or aspirated in the posterior aspect of the oropharynx, hypopharynx and extending into the larynx. N.B. : The above Results were Read Back by Mike Ng MD to CYDNEY Roa, and understanding confirmed on 11/07/2023 16:44:29 (ET). Electronically Signed: Mike Ng MD at 16:45 EST , ADDENDUM: 11/07/23 1652 IMPRESSION: Extensive postsurgical changes to the oropharynx with suspected mucous plugging or aspirated in the posterior aspect of the oropharynx, hypopharynx and extending into the larynx. N.B. : The above Results were Read Back by Mike Ng MD to CYDNEY Roa, and understanding confirmed on 11/07/2023 16:44:29 (ET). Electronically Signed: Mike Ng MD at 16:45 EST , Chest X-Ray 11/07/23 17:15 IMPRESSION: 1. Interval placement of endotracheal tube with the tip above the [place]. 2. Interval placement of nasogastric tube with the tip likely in the body the stomach. 3. No change in bibasilar patchy pneumonia. Electronically Signed: Mike Ng MD at 18:49 EST , Charges/Coding Procedures [facility]ists Procedures: [id number]
--- NOTE | 2023-11-08 07:20 | PCM.PN.HOSP ---
Reason for Visit Reason for Visit: Diagnoses Non-ST elevation (NSTEMI) myocardial infarction (11/07/23) Pneumonia, unspecified organism (11/07/23) Respiratory failure, unspecified, unspecified whether with hypoxia or hypercapnia (11/07/23) Objective Data Objective Data Vital Signs: Vital Signs Temp Pulse Resp BP Pulse Ox O2 Del Method O2 Flow Rate 98.6 F 111 H 15 108/65 95 Mechanical Ventilator 10 11/08/23 07:00 11/08/23 07:00 11/08/23 07:00 11/08/23 07:00 11/08/23 07:00 11/08/23 07:00 11/07/23 13:14 FiO2 30 11/08/23 07:00 Oxygen Flow Rate (L/min) 10 Oxygen Delivery Method Mechanical Ventilator Weight: 111 lb 12.39 oz Body Mass Index (BMI) 16.5 Intake & Output: Intake and Output for Last 24 Hours 11/06/23 11/07/23 11/08/23 23:59 23:59 23:59 Intake Total 2952.60 / 2965.58 1362.87 / 1362.87 Output Total 400 / 400 Balance 2952.60 / 2565.58 962.87 / 962.87 Lab / Micro Data 11/08/23 04:25 11/08/23 04:25 Labs: Laboratory Results - last 24 hr 11/07/23 13:00: WBC 15.0 H, RBC 4.48 L, Hgb 14.0, Hct 42.2, MCV 94.2 H, MCH 31.3, MCHC 33.2, RDW Std Deviation 46.3 H, RDW Coeff of Atif 13.4, Plt Count 327, MPV 11.7, Immature Gran % (Auto) 1.100 H, Neut % (Auto) 88.0 H, Lymph % (Auto) 5.4 L, [place] % (Auto) 5.1, Eos % (Auto) 0.1, Baso % (Auto) 0.3, Absolute Neuts (auto) 13.2 H, Absolute Lymphs (auto) 0.81 L, Nucleated RBC % 0, PT 16.1 H, INR 1.3, APTT 28.1, Sodium 147 H, Potassium 3.2 L, Chloride 114 H, Carbon Dioxide 28.0, Anion Gap 5, BUN 23 H, Creatinine 0.88, Estim Creat Clear Calc 56.22, Est GFR (MDRD) Af Amer 111, Est GFR (MDRD) Non-Af 91, BUN/Creatinine Ratio 26.0 H, Glucose 121 H, Lactic Acid 2.2 H*, Calcium 9.2, Total Bilirubin 1.60 H, AST 23, ALT 23, Alkaline Phosphatase 104, Total Creatine Kinase 38 L, Troponin I High Sens 974 H*, B-Natriuretic Peptide 503.5 H, Total Protein 7.1, Albumin 2.4 L, Globulin 4.7 H, Albumin/Globulin Ratio 0.5 L 11/07/23 13:30: Urine Color Yellow, Urine Clarity Clear, Urine pH 6.0, Ur Specific [place] 1.015, Urine Protein 100 H, Urine Glucose (UA) Normal, Urine Ketones 50 H, Urine Occult Blood 150 H, Urine Nitrite Positive H, Urine Bilirubin 1 H, Urine Urobilinogen 4 H, Ur Leukocyte Esterase 25 H, Urine RBC 5-10 SEEN, Urine WBC 0-5 SEEN, Ur Squamous Epith Cells 0-5 SEEN, Urine Bacteria 1+, Urine Mucus 0 SEEN 11/07/23 18:06: Lactic Acid 2.9 H*, Total Creatine Kinase 85, Triglycerides 130 11/07/23 20:35: Triglycerides 170 11/07/23 22:50: APTT 45.9 H 11/08/23 04:25: WBC 12.3 H, RBC 3.42 L, Hgb 10.4 L, Hct 32.6 L, MCV 95.3 H, MCH 30.4, MCHC 31.9 L, RDW Std Deviation 48.3 H, RDW Coeff of Atif 13.7, Plt Count 261, MPV 11.8, Immature Gran % (Auto) 1.100 H, Neut % (Auto) 91.6 H, Lymph % (Auto) 5.1 L, [place] % (Auto) 2.0, Eos % (Auto) 0.0, Baso % (Auto) 0.2, Absolute Neuts (auto) 11.3 H, Absolute Lymphs (auto) 0.62 L, Nucleated RBC % 0, Sodium 151 H, Potassium 3.1 L, Chloride 125 H, Carbon Dioxide 19.0 L, Anion Gap 7, BUN 27 H, Creatinine 0.71, Estim Creat Clear Calc 51.40, Est GFR (MDRD) Af Amer 143, Est GFR (MDRD) Non-Af 118, BUN/Creatinine Ratio 38.1 H, Glucose 188 H, Calcium 7.2 L 11/08/23 06:20: APTT 61.4 H Micro: Microbiology 11/07/23 13:30 Nasal Secretion SARS-CoV-2 & FLU Antigen (Rapid) - Final ABG Data ABG results: ABG 11/07/23 11/07/23 11/07/23 13:15 16:43 18:03 Specimen Type ELIZABETH ART ART Sample Site Not entered R Radial L Radial pH 6.97 L* 7.34 L Bicarbonate Actual 25.4 20.0 L Total CO2 29 21 Base Excess -6 L -6 L O2 Saturation 93 L 94 L O2 % 7.0 100.0 60.0 ABG pCO2 109.6 H* 36.7 ABG pO2 105 H 73 L Yosvany Test Positive VBG pH 7.43 H VBG pO2 < 34 VBG HCO3 26 VBG Total CO2 27 VBG O2 Sat (Calc) 40 L VBG Base Excess 2 POC Mix VBG pCO2 Pt Tmp 38.7 L Respiration Rate 18 O2 Delivery Device AeroMask NRB Adult Vent Vent Mode Not entered AC Tidal Volume 400.0 POC PEEP 5 Crit Call To/Read Back Yes Blood Gas Notified Whom pleitez Blood Gas Notified Time 16:44:25 Radiography Diagnostic Testing: Radiology Impression Chest X-Ray 11/07/23 13:01 IMPRESSION: COPD with lower lung interstitial edema or infiltrates. Electronically Signed: Hamzah Perez MD at 14:54 EST Reading Location ID and State: [facility] / [place] , Service support , Chest CTA 11/07/23 14:07 IMPRESSION: CTA chest examination, without a demonstrated pulmonary embolism or arterial dissection. Interstitial edema or infiltrate. Electronically Signed: Hamzah Perez MD at 15:49 EST , Soft Tissue Neck CT 11/07/23 14:07 IMPRESSION: Extensive postsurgical changes to the oropharynx with suspected mucous plugging or aspirated in the posterior aspect of the oropharynx, hypopharynx and extending into the larynx. N.B. : The above Results were Read Back by Mike Ng MD to CYDNEY Roa, and understanding confirmed on 11/07/2023 16:44:29 (ET). Electronically Signed: Mike Ng MD at 16:45 EST Reading Location ID and State: [id number] / [place] [facility] , Service support , ADDENDUM: 11/07/23 1652 IMPRESSION: Extensive postsurgical changes to the oropharynx with suspected mucous plugging or aspirated in the posterior aspect of the oropharynx, hypopharynx and extending into the larynx. N.B. : The above Results were Read Back by Mike Ng MD to CYDNEY Roa, and understanding confirmed on 11/07/2023 16:44:29 (ET). Electronically Signed: Mike Ng MD at 16:45 EST Reading Location ID and State: [id number] / [place] [facility] , Service support , Chest X-Ray 11/07/23 17:15 IMPRESSION: 1. Interval placement of endotracheal tube with the tip above the [place]. 2. Interval placement of nasogastric tube with the tip likely in the body the stomach. 3. No change in bibasilar patchy pneumonia. Electronically Signed: Mike Ng MD at 18:49 EST , Physical Exam Narrative Seen and examined. Yesterday events noted. Patient is intubated. Patient has head and neck cancer status post surgery 8 years ago. Currently sedated. On Levophed drip. Physical exam General: Sedated, unresponsive. HEENT: Atraumatic, PERRLA, EOMI, Normocephalic Oral: ET and OG tube Neck: Supple, No JVD, Negative Carotid Bruits Lungs: Air entry diminished in bilateral lung bases. No crepitation/rhonchi Cardiovascular: Irregular rhythm, Normal S1, Normal S2, No murmurs Abdomen: Buttonhole PEG tube. Bowel Sounds sluggish, Soft, Non Tender, Non-Distended : No renal angle tenderness. No suprapubic tenderness. Extremities: No edema, Capillary Refill Less than 3 Seconds Skin: No rashes, No breakdown Musculoskeletal: Diffuse atrophy of muscles of thighs and legs in both lower extremities. No Tenderness to Palpation of Joints or Extremities Neurological: Detail neuro exam unobtainable. No obvious lateralizing signs. Psych/Mental Status: Flat affect. Assessment & Plan Assessment/Plan (1) Left lower lobe pneumonia: (2) Respiratory failure: (3) Non-ST elevated myocardial infarction: PLAN: Plan 68-year-old gentleman was brought by squad for shortness of breath, hypoxia 88% on room air for being sick for several days, defecating on the sofa with history of mild cancer/surgery and 8 years ago.Patient is hard of hearing and does not speak 1. Septic shock most likely due to aspiration pneumonia with suspicion of UTI: Patient is being admitted in ICU. The patient presented with septic shock with clinical indicators of tach cardia, hypoxia, leukocytosis with immature granulocyte more than 1% indicating left shift due to possible aspiration pneumonia/early UTI with acute sepsis-related organ dysfunction as evidenced by acute hypoxic respiratory failure, fluid resistant hypotension requiring vasopressor. The patient was evaluated by return agent. Cultures pending. On broad-spectrum IV antibiotic. 2. Acute hypoxic and hypercarbic respiratory failure most likely due to aspiration as per history with previous head and neck surgery for throat cancer about 8 years ago with severe respiratory acidosis: 5 diabetes shows pH 6.97 with 110 bicarb. Patient is intubated on ventilator. Vent management as per return agent. 3. Elevated troponin possible non-STEMI type II/irregular heartbeat/Arrhythmia, CAD status post stent in 2020: Twelve-lead first EKG shows irregular rhythm with sinus tachycardia and multiple PACs/paroxysmal atrial tachycardia. Repeat EKG ordered. Elevated troponin probably nonischemic in nature, due to acute myocardial injury from increased cardiac demand with severe respiratory acidosis and hypoxia. Patient also has severe coronary artery disease. Continue aspirin, and heparin drip. Beta-jenna and nitrate on hold due to hold for SBP less than 120 mmHg 4. Hypertension, dyslipidemia: Fasting profile tomorrow AM. 5. Severe protein calorie malnutrition chronic in nature: Skin Drier consulted. Patient has buttonhole type PEG tube. DVT: Heparin drip Charges/Coding Visit Charges Inpatient E&M: 29949 Subs Hosp L3
--- NOTE | 2023-11-08 09:55 | EKG12_ITS ---
Test Reason : Blood Pressure : / mmHG Vent. Rate : 105 BPM Atrial Rate : 000 BPM P-R Int : 000 ms QRS Dur : 088 ms QT Int : 364 ms P-R-T Axes : 000 071 231 degrees QTc Int : 481 ms Atrial fibrillation with rapid ventricular response with premature ventricular or aberrantly conducte d complexes T wave abnormality, consider anterior ischemia Abnormal ECG When compared with ECG of 07-NOV-2023 13:10, MANUAL COMPARISON REQUIRED, DATA IS UNCONFIRMED Confirmed by JOHNATHON GUILLEN, CLIFF ([id number]), city editor EDIS WALLS ([id number]) on 11/10/2023 8:52:10 A M Referred By: Chi Terrell Confirmed By:ARIADNA DIEGO MD
[2023-11-08] MEDS: Vancomycin IV 500 MG/100 ML BAG 100 MG IV ×2 (10:10→20:22)
[2023-11-08] MEDS: Chlorhexidine 15 ML PO ×2 (10:11→20:39)
[2023-11-08] MEDS: Carvedilol 3.125 MG TABLET NG ×2 (10:11→20:29)
[2023-11-08] MEDS: Pantoprazole Sodium 40 MG in 0.9% Normal Saline (100mL MB+) 100 ML 330 MG IV ×2 (10:12→21:31)
--- NOTE | 2023-11-08 10:53 | CON.PCM.CA_ITS ---
Assessment & Plan Assessment/Plan (1) Non-ST elevated myocardial infarction: PLAN: Likely demand based in the setting of hypoxia and acidosis on top of his underlying severe coronary artery disease. Continue aspirin. Also on ticagrelor.Continue beta-blockers. Continue beta-blockers. Nitropaste. (2) CAD (coronary artery disease): PLAN: Coronary angiography from 2020 was reviewed. At that time, he was noted to have critical lesion in his proximal and mid right coronary artery which were treated with drug-eluting stents. He is also noted to have severe diffuse LAD disease and a very tight lesion in proximal first diagonal. Continue medical management. Presently he is not a candidate for any invasive options. Further recommendations when his respiratory issues and sepsis are resolved. (3) Severe sepsis: PLAN: As per critical care. (4) Bilateral pneumonia: PLAN: As per pulmonology. (5) Respiratory failure: PLAN: Bilateral pneumonia. On ventilator. (6) Protein calorie malnutrition: (7) History of mouth cancer: HPI Consult Data Date of Consult: 11/08/23 HPI Narrative Reason for Consultation: Elevated troponin HPI Narrative: This gentleman has past medical history significant for oral cancer status post glossectomy and extensive pharyngeal reconstructive surgery. He presented to the hospital with complaints of shortness of breath. His condition deteriorated rapidly in the emergency room and he had to be intubated. CT scan of the chest revealed bilateral pneumonia, likely aspiration. His pH on admission was 6.97. Troponins were noted to be elevated. Subsequently we have been asked for evaluation. Patient is presently intubated. History is obtained from the chart. [facility] Medical History (Updated 11/08/23 @ 11:[address] Salena Garcia MD) Atherosclerotic heart disease of [place] coronary artery without angina pectoris CAD (coronary artery disease) Congenital hypothyroidism Dysphagia Essential hypertension Hearing loss of aging History of mouth cancer [place] (hard of hearing) HTN (hypertension) Malnutrition Myocardial infarct Oral cancer Home Medications levothyroxine 50 mcg tablet 50 mcg PO DAILY #30 tabs 08/28/21 [Rx Last Taken Unknown] aspirin 81 mg tablet,delayed release 81 mg PO DAILY #90 tabs 03/07/22 [Rx Last Taken Unknown] atorvastatin 40 mg tablet 40 mg PO QHS #90 tabs 03/07/22 [Rx Last Taken Unknown] carvedilol 3.125 mg tablet 3.125 mg PO BID #180 tabs 03/07/22 [Rx Last Taken Unknown] lisinopril 5 mg tablet 5 mg PO DAILY #90 tabs 03/07/22 [Rx Last Taken Unknown] ticagrelor 90 mg tablet (Brilinta) 90 mg PO BID #180 tabs 03/07/22 [Rx Last Taken Unknown] omeprazole 20 mg capsule,delayed release 20 mg PO DAILY 12/24/22 [History Last Taken Unknown] Allergy/AdvReac Type Severity Reaction Status Date / Time No Known Allergies Allergy Verified 11/07/23 12:51 Family History unable to obtain Surgical History History of appendectomy History of coronary artery stent placement (08/08/21) History of mandibular surgery History of tonsillectomy Social History housing: house Smoking Status: Current every day smoker tobacco type: cigars per week: 20 Tobacco: How many years used: 52 alcohol intake: never substance use type: does not use caffeine: Yes Type: coffee Number of servings: 2 Physical Exam Narrative Sedated on vent. Cachectic. Heart sounds 1 and 2 are noted. Chest clear to auscultation anteriorly. No ankle edema is noted. Risk Stratification Risk Stratification Applicable: No Objective Data Vital Signs: Vital Signs Temp Pulse Resp BP Pulse Ox O2 Del Method O2 Flow Rate 98.6 F 100 21 H 108/65 93 Mechanical Ventilator 10 11/08/23 07:00 11/08/23 09:21 11/08/23 09:21 11/08/23 07:00 11/08/23 09:21 11/08/23 07:00 11/07/23 13:14 FiO2 30 11/08/23 07:00 Oxygen Flow Rate (L/min) 10 Oxygen Delivery Method Mechanical Ventilator Weight: 111 lb 12.39 oz Body Mass Index (BMI) 16.5 Intake & Output: Intake and Output for Last 24 Hours 11/06/23 11/07/23 11/08/23 23:59 23:59 23:59 Intake Total 2952.60 / 2965.58 1505.55 / 1505.55 Output Total 525 / 525 Balance 2952.60 / 2565.58 980.55 / 980.55 Lab / Micro Data 11/08/23 04:25 11/08/23 04:25 Labs: Laboratory Results - last 24 hr 11/07/23 13:00: WBC 15.0 H, RBC 4.48 L, Hgb 14.0, Hct 42.2, MCV 94.2 H, MCH 31.3, MCHC 33.2, RDW Std Deviation 46.3 H, RDW Coeff of Atif 13.4, Plt Count 327, MPV 11.7, Immature Gran % (Auto) 1.100 H, Neut % (Auto) 88.0 H, Lymph % (Auto) 5.4 L, [place] % (Auto) 5.1, Eos % (Auto) 0.1, Baso % (Auto) 0.3, Absolute Neuts (auto) 13.2 H, Absolute Lymphs (auto) 0.81 L, Nucleated RBC % 0, PT 16.1 H, INR 1.3, APTT 28.1, Sodium 147 H, Potassium 3.2 L, Chloride 114 H, Carbon Dioxide 28.0, Anion Gap 5, BUN 23 H, Creatinine 0.88, Estim Creat Clear Calc 56.22, Est GFR (MDRD) Af Amer 111, Est GFR (MDRD) Non-Af 91, BUN/Creatinine Ratio 26.0 H, Glucose 121 H, Lactic Acid 2.2 H*, Calcium 9.2, Total Bilirubin 1.60 H, AST 23, ALT 23, Alkaline Phosphatase 104, Total Creatine Kinase 38 L, Troponin I High Sens 974 H*, B-Natriuretic Peptide 503.5 H, Total Protein 7.1, Albumin 2.4 L, Globulin 4.7 H, Albumin/Globulin Ratio 0.5 L 11/07/23 13:30: Urine Color Yellow, Urine Clarity Clear, Urine pH 6.0, Ur Specific [place] 1.015, Urine Protein 100 H, Urine Glucose (UA) Normal, Urine Ketones 50 H, Urine Occult Blood 150 H, Urine Nitrite Positive H, Urine Bilirubin 1 H, Urine Urobilinogen 4 H, Ur Leukocyte Esterase 25 H, Urine RBC 5- 10 SEEN, Urine WBC 0-5 SEEN, Ur Squamous Epith Cells 0-5 SEEN, Urine Bacteria 1+ , Urine Mucus 0 SEEN 11/07/23 18:06: Lactic Acid 2.9 H*, Total Creatine Kinase 85, Triglycerides 130 11/07/23 20:35: Triglycerides 170 12/09/23 22:50: APTT 45.9 H 11/08/23 04:25: WBC 12.3 H, RBC 3.42 L, Hgb 10.4 L, Hct 32.6 L, MCV 95.3 H, MCH 30.4, MCHC 31.9 L, RDW Std Deviation 48.3 H, RDW Coeff of Atif 13.7, Plt Count 261, MPV 11.8, Immature Gran % (Auto) 1.100 H, Neut % (Auto) 91.6 H, Lymph % (Auto) 5.1 L, [place] % (Auto) 2.0, Eos % (Auto) 0.0, Baso % (Auto) 0.2, Absolute Neuts (auto) 11.3 H, Absolute Lymphs (auto) 0.62 L, Nucleated RBC % 0, Sodium 151 H, Potassium 3.1 L, Chloride 125 H, Carbon Dioxide 19.0 L, Anion Gap 7, BUN 27 H, Creatinine 0.71, Estim Creat Clear Calc 51.40, Est GFR (MDRD) Af Amer 143, Est GFR (MDRD) Non-Af 118, BUN/Creatinine Ratio 38.1 H, Glucose 188 H, Calcium 7.2 L 11/08/23 06:20: APTT 61.4 H Micro: Microbiology 11/07/23 13:30 Nasal Secretion SARS-CoV-2 & FLU Antigen (Rapid) - Final ABG Data ABG results: ABG 11/07/23 11/07/23 11/07/23 13:15 16:43 18:03 Specimen Type ELIZABETH ART ART Sample Site Not entered R Radial L Radial pH 6.97 L* 7.34 L Bicarbonate Actual 25.4 20.0 L Total CO2 29 21 Base Excess -6 L -6 L O2 Saturation 93 L 94 L O2 % 7.0 100.0 60.0 ABG pCO2 109.6 H* 36.7 ABG pO2 105 H 73 L Yosvany Test Positive VBG pH 7.43 H VBG pO2 < 34 VBG HCO3 26 VBG Total CO2 27 VBG O2 Sat (Calc) 40 L VBG Base Excess 2 POC Mix VBG pCO2 Pt Tmp 38.7 L Respiration Rate 18 O2 Delivery Device AeroMask NRB Adult Vent Vent Mode Not entered AC Tidal Volume 400.0 POC PEEP 5 Crit Call To/Read Back Yes Blood Gas Notified Whom pleitez Blood Gas Notified Time 16:44:25 Cardiology Labs/Tests 11/07/23 13:00: WBC 15.0 H, RBC 4.48 L, Hgb 14.0, Hct 42.2, MCV 94.2 H, MCH 31.3, MCHC 33.2, Plt Count 327, MPV 11.7, Immature Gran % (Auto) 1.100 H, Neut % (Auto) 88.0 H, Lymph % (Auto) 5.4 L, [place] % (Auto) 5.1, Eos % (Auto) 0.1, Baso % (Auto) 0.3, Absolute Neuts (auto) 13.2 H, Nucleated RBC % 0, PT 16.1 H, INR 1.3, APTT 28.1, Sodium 147 H, Potassium 3.2 L, Chloride 114 H, Carbon Dioxide 28.0, Anion Gap 5, BUN 23 H, Creatinine 0.88, Est GFR (MDRD) Af Amer 111, Est GFR (MDRD) Non-Af 91, BUN/Creatinine Ratio 26.0 H, Glucose 121 H, Lactic Acid 2.2 H* , Calcium 9.2, Total Bilirubin 1.60 H, B-Natriuretic Peptide 503.5 H 11/07/23 13:15: VBG pH 7.43 H, VBG pO2 < 34, VBG HCO3 26, VBG O2 Sat (Calc) 40 L , VBG Base Excess 2 11/07/23 13:30: Urine Color Yellow, Urine Clarity Clear, Urine pH 6.0, Ur Specific [place] 1.015, Urine Protein 100 H, Urine Glucose (UA) Normal, Urine Ketones 50 H, Urine Occult Blood 150 H, Urine Nitrite Positive H, Urine Bilirubin 1 H, Urine Urobilinogen 4 H, Ur Leukocyte Esterase 25 H, Urine RBC 5- 10 SEEN, Urine WBC 0-5 SEEN 11/07/23 16:43: pH 6.97 L*, Bicarbonate Actual 25.4, Base Excess -6 L, O2 Saturation 93 L, ABG pCO2 109.6 H*, ABG pO2 105 H 11/07/23 18:03: pH 7.34 L, Bicarbonate Actual 20.0 L, Base Excess -6 L, O2 Saturation 94 L, ABG pCO2 36.7, ABG pO2 73 L, Yosvany Test Positive 11/07/23 18:06: Lactic Acid 2.9 H*, Triglycerides 130 11/07/23 20:35: Triglycerides 170 11/07/23 22:50: APTT 45.9 H 11/08/23 04:25: WBC 12.3 H, RBC 3.42 L, Hgb 10.4 L, Hct 32.6 L, MCV 95.3 H, MCH 30.4, MCHC 31.9 L, Plt Count 261, MPV 11.8, Immature Gran % (Auto) 1.100 H, Neut % (Auto) 91.6 H, Lymph % (Auto) 5.1 L, [place] % (Auto) 2.0, Eos % (Auto) 0.0, Baso % (Auto) 0.2, Absolute Neuts (auto) 11.3 H, Nucleated RBC % 0, Sodium 151 H, Potassium 3.1 L, Chloride 125 H, Carbon Dioxide 19.0 L, Anion Gap 7, BUN 27 H, Creatinine 0.71, Est GFR (MDRD) Af Amer 143, Est GFR (MDRD) Non-Af 118, BUN/Creatinine Ratio 38.1 H, Glucose 188 H, Calcium 7.2 L 11/08/23 06:20: APTT 61.4 H Rhythm: EKG: ECHO: Stress Test: Cardiac Cath: PCI: CT Surgery: Holter monitor: EPS: PPM: CXR: Chest CT Scan: Radiography Diagnostic Testing: Radiology Impression Chest X-Ray 11/07/23 13:01 IMPRESSION: COPD with lower lung interstitial edema or infiltrates. Electronically Signed: Hamzah Perez MD at 14:54 EST , Chest CTA 11/07/23 14:07 IMPRESSION: CTA chest examination, without a demonstrated pulmonary embolism or arterial dissection. Interstitial edema or infiltrate. Electronically Signed: Hamzah Perez MD at 15:49 EST , Soft Tissue Neck CT 11/07/23 14:07 IMPRESSION: Extensive postsurgical changes to the oropharynx with suspected mucous plugging or aspirated in the posterior aspect of the oropharynx, hypopharynx and extending into the larynx. N.B. : The above Results were Read Back by Mike Ng MD to CYDNEY Roa, and understanding confirmed on 11/07/2023 16:44:29 (ET). Electronically Signed: Mike Ng MD at 16:45 EST Reading Location ID and State: [id number] / [facility] [employer] Tel , Service support , ADDENDUM: 11/07/23 1652 IMPRESSION: Extensive postsurgical changes to the oropharynx with suspected mucous plugging or aspirated in the posterior aspect of the oropharynx, hypopharynx and extending into the larynx. N.B. : The above Results were Read Back by Mike Ng MD to CYDNEY Roa, and understanding confirmed on 11/07/2023 16:44:29 (ET). Electronically Signed: Mike Ng MD at 16:45 EST , Chest X-Ray 11/07/23 17:15 IMPRESSION: 1. Interval placement of endotracheal tube with the tip above the [place]. 2. Interval placement of nasogastric tube with the tip likely in the body the stomach. 3. No change in bibasilar patchy pneumonia. Electronically Signed: Mike Ng MD at 18:49 EST ,
[2023-11-08] MEDS: Vital AF 1.2 Cal Liquid 1,000 ML 20 ML GT (12:11)
[2023-11-08] MEDS: 0.9% Saline Lock 10 ML Syringe IV ×2 (12:18→16:45)
--- NOTE | 2023-11-08 12:30 | NURSING ---
1230 SpO2 dropped to 86%, repositioned, suctioned for nothing per OET, OET remains 23cm lip w/same position inside of os. RT notified, increased to 40%, 1240 SpO2 88% increased to 50%, RT present in pt room. 1250 SpO2 93%
--- NOTE | 2023-11-08 13:34 | RAD_ITS ---
STUDY: XR Chest 1 View 11/08/2023 1:47 PM REASON FOR EXAM: Male, 68 years old. PICC placement COMPARISON: Study done yesterday TECHNIQUE: XR Chest 1 View FINDINGS: There is no demonstrated pleural abnormality. There is an NGT and ET tube in place. Left PICC line. The tip is in the superior vena cava. Left lower lobe infiltrate. The lung hughes are hyperexpanded. There is an elevated right hemidiaphragm. Normal heart size. Normal mediastinum. Normal dylan. Prominent appearing increased interstitial lung markings. Normal visualized pulmonary arteries. There is atherosclerotic calcification of the aortic arch with tortuosity. There are diffuse degenerative changes of the visualized thoracic spine. There is degenerative osteoarthritis of the bilateral shoulders. There are no acute findings of the upper abdomen. RAD/CXR for Line Placement IMPRESSION: Left sided pneumonia. Electronically Signed: Mike Hernandez MD at 14:45 EST ,
[2023-11-08 14:37] LABS: Partial Thromboplast Time 50.2 Seconds (24.1-36.2)
[2023-11-08] MEDS: Nitroglycerin Oint 1 INCH PACKET 0.5 INCH TD ×2 (15:02→20:28)
[2023-11-08] MEDS: HEPARIN/D5w 25,000 UNITS 25,000 UNITS/250 ML IV.SOLN. 7.5 UNITS CONT INF (16:08)
[2023-11-08] MEDS: Acetaminophen 650 MG/20 ML UDC GT (20:29)
[2023-11-08 22:13] LABS: Partial Thromboplast Time 59.3 Seconds (24.1-36.2)
[2023-11-09] VITALS (33 sets, daily range): BP systolic 89–146; BP diastolic 39–85; PULSE 92–126; RESP 12–36; TEMP 37.8–38.4; O2SAT 90–100; BMI 17.6
[2023-11-09] MEDS: dexMEDEtomidine 400 MCG in 0.9% Normal Saline (100mL Bag) 96 ML 12.5 MCG CONT INF (01:47)
[2023-11-09 04:43] LABS: Magnesium 2.4 mg/dL (1.6-2.6); Phosphorus 2.2 mg/dL (2.5-4.9)
[2023-11-09 04:44] LABS: Partial Thromboplast Time 59.5 Seconds (24.1-36.2)
[2023-11-09] MEDS: Nitroglycerin Oint 1 INCH PACKET 0.5 INCH TD ×3 (05:14→21:00)
[2023-11-09] MEDS: Levothyroxine 50 MCG Tablet NG (05:14)
[2023-11-09] MEDS: Piperacil/Tazobactam 3.375 GM in 0.9% Normal Saline (50mL MB+) 50 ML IV ×3 (05:14→22:10)
[2023-11-09] MEDS: Acetaminophen 650 MG/20 ML UDC GT (05:14)
--- NOTE | 2023-11-09 07:31 | PN.HOSP_ITS ---
Reason for Visit Reason for Visit: Shortness of breath Subjective Subjective Mr. Rae is a 68-year-old male who presents emergency department [facility] on 11/07/2023 with worsening shortness of breath. Reported that his breathing had worsened been worsening over the last week prior to presentation. He indicated he had a history of head neck cancer that he had surgery and radiation for about 8 years ago. He required intubation on presentation due to his extreme hypoxia and respiratory distress on presentation. On presentation he was afebrile with a heart rate of 124, blood pressure was 152/87, respiratory rate was 33-40 and oxygen saturations were 99% on a nonrebreather at 12 L. Due to ongoing respiratory distress as noted above he required intubation. His CBC revealed a leukocytosis with a white count of 15.0 and 88.0% neutrophilia. Initial blood gas demonstrated a pH of 6.97, pCO2 109.6 and a pO2 of 105. Timing of this ABG was unclear however I suspect it was immediately following intubation. His ABG improved with mechanical ventilation. His initial chemistry panel showed hyponatremia with a sodium of 147, serum potassium was 3. 2, serum chloride was elevated at 114, renal function was normal but he did have a lactic acidosis with a lactic of 2.2. His initial bilirubin was elevated at 1.6 and his serum troponin was 974. Initial BNP was 503.5. He qualified for sepsis and that was 5 to be related to aspiration pneumonia and he was then placed on empiric antibiotics. Due to his rising troponin cardiology was consulted. And felt that his troponin elevation was likely related to severe hypoxia and acidosis on his underlying severe coronary artery disease and recommended continuing aspirin, starting Brilinta and continuing his beta- blockers. His previous cardiac catheterization from 2020 was reviewed and patient may undergo a cardiac catheterization once he is more medically stable per documentation. He is intubated and sedated. Currently on 35% FiO2. Does awaken move all extremities spontaneously. Patient was evidently found in a very disheveled state. Objective Data Objective Data Vital Signs: Vital Signs Temp Pulse Resp BP Pulse Ox O2 Del Method O2 Flow Rate 100.9 F H 117 H 28 H 131/53 H 93 Mechanical Ventilator 10 11/09/23 07:00 11/09/23 07:21 11/09/23 07:21 11/09/23 07:00 11/09/23 07:21 11/09/23 07:00 11/07/23 13:14 FiO2 35 11/09/23 07:21 Oxygen Flow Rate (L/min) 10 Oxygen Delivery Method Mechanical Ventilator Weight: 54 kg Body Mass Index (BMI) 17.6 Intake & Output: Intake and Output for Last 24 Hours 11/07/23 11/08/23 11/09/23 23:59 23:59 23:59 Intake Total 2952.60 / 2965.58 2972.74 / 3139.99 708.86 / 708.86 Output Total 1100 / 1100 200 / 200 Balance 2952.60 / 2565.58 1872.74 / 2039.99 508.86 / 508.86 Medical Nutrition Assessment Dietitian: Malnutrition Criteria Met Start: 11/08/23 09:33 Freq: Status: Active Protocol: Document 11/08/23 09:46 AG (Rec: 11/08/23 09:46 AG Desktop) Nutrition Malnutrition Evidence of Malnutrition Exists Yes Malnutrition (severe): Chronic Evidenced By Suboptimal Energy Intake ( Severe),Physical Changes ( Severe) Clinical Problem Chronic Disease or Condition Related Malnutrition Etiology severe, chronic malnutrition related to inadequate energy intake Signs/Symptoms as evidenced by svere muscle wasting/fat loss evident per physical exam in orbital, clavicle, acromion, and temporal areas; estimated PO intake meeting <75% of estimated energy needs > 3 months; BMI 16.5 Status Active Problem Recommendation Dietitian Recommendations/Changes NPO while intubated; Via OGT- Vital AF 1.2 at goal rate of 60mL/hour w/ 150mL H2O flush every 4 hours to provide 1728 calories, 108 g protein, and 2067mL total fluid/day. Would start at 20mL/hour and increase by 10mL/hour every 8- 12 hours as tolerated until goal rate is achieved. Concerns for refeeding given malnutrition, will monitor electrolytes closely. Daily wts. VP PACKAGING eval prior to PO diet advancement once extubated. May need to revisit use of PEG for nutrition. Lab / Micro Data 11/09/23 07:35 11/09/23 07:35 Labs: Laboratory Results - last 24 hr 11/08/23 14:20: APTT 50.2 H 11/08/23 21:55: APTT 59.3 H 11/09/23 04:20: APTT 59.5 H, Phosphorus 2.2 L, Magnesium 2.4 Micro: Microbiology 11/07/23 18:08 Sputum, Induced/Lukens Gram Stain - Final 11/07/23 13:30 Urine Catheter - Catheter Urine Culture - Preliminary Presumptive E. coli 11/07/23 13:30 Nasal Secretion SARS-CoV-2 & FLU Antigen (Rapid) - Final Radiography Diagnostic Testing: Radiology Impression Chest X-Ray 11/08/23 13:34 IMPRESSION: Left sided pneumonia. Electronically Signed: Mike Hernandez MD at 14:45 EST , Physical Exam Const no apparent distress; Negative for average body habitus, healthy appearing or well nourished Constitutional Narrative: Cachectic appearing, upper middle-aged, white male, lying in bed intubated and sedated, appears much older than stated age HEENT head/scalp atraumatic and moist oral mucous membranes HEENT Narrative: Bilateral temporal wasting, edentulous, ET tube and OG in place Head and Scalp: normocephalic Eyes PERRL and conjunctivae normal Eyes Narrative: No scleral icterus Neck no lymphadenopathy and supple Neck Narrative: Trachea midline, no thyroid enlargement Resp no retractions and no use of accessory muscles Resp Narrative: Diffusely diminished but currently clear Auscultation: Negative for rales, rhonchi or wheezes Cardio regular rate, regular rhythm, S1 normal heart sound, S2 normal heart sound, no murmurs, no rub, no gallops and no clicks GI normal to inspection, nondistended, normoactive bowel sounds, soft to palpation and non-tender GI Narrative: Scaphoid abdomen Extremity no clubbing, cyanosis or edema Extremity Narrative: Pedal pulses are 2+, extremities are cool, extremely poor nail care, significantly reduced lean muscle mass Skin no wounds, skin turgor normal, no jaundice, no petechiae and no mottling Skin Narrative: Pale Neuro Neuro Narrative: Patient is intubated and sedated sedated, does spontaneously move extremities Psych Psych Narrative: Unable to assess due to sedation Assessment & Plan Assessment/Plan (1) Acute respiratory failure with hypoxia and hypercapnia: (2) Protein calorie malnutrition: (3) Severe sepsis: (4) Left lower lobe pneumonia: (5) Dehydration: (6) Non-ST elevated myocardial infarction: (7) Hypernatremia: (8) Hypokalemia: (9) Lactic acidosis: PLAN: Plan Acute hypoxic hypercapnic respiratory failure secondary to pneumonia -Patient's oxygen saturations were extremely low on presentation requiring n onrebreather with eventual intubation -Initial blood gas showed a pH of 6.97 which is consistent with severe acidosis and found to be respiratory -Gram stain shows multiple organisms however not yet finalized--> suspect aspiration in nature -Patient remains on mechanical ventilation with an FiO2 of 35%. -Will need speech consultation after extubation -Continue vancomycin and Zosyn -Pulmonary/critical care medicine following-appreciate input Septic shock -Suspect related to aspiration pneumonia plus UTI -Urine culture is showing E. coli but colony count is not significant -Sputum cultures pending -Blood cultures remain pending -Patient has been weaned off of Levophed as of yesterday afternoon at noon -Continue to monitor -Continue broad-spectrum antibiotics with vancomycin and Zosyn for now Hypernatremia/hyperchloremia -Increase free water and tube feed to 250 cc every 4 hours -Add D5W x 1 L -Repeat lab in a.m. NSTEMI -Suspect related to hypoxia and acidosis causing worsening ischemia and known coronary artery disease -Cardiac catheterization from 2020 was reviewed and showed a critical lesion in the proximal and mid right coronary artery which was treated with drug-eluting stents as well as severe diffuse LAD disease and had very tight lesion in the proximal first diagonal -Plan at this time is to continue medical therapy as patient is not currently a candidate for invasive options however may need cardiac catheterization once respiratory issues and sepsis is resolved -Echocardiogram is pending -Continue heparin drip -Continue carvedilol 3.125 twice daily -Start Aspirin and Brilinta per cardiology documentation -Continue Nitropaste as ordered Hypokalemia -Resolved -Recheck in a.m. Lactic acidosis -Likely related to severe hypoxia and sepsis -Resolved Severe malnutrition -Dietitian is following -Tube feeds have been initiated -Oral supplementations CAD/HTN/HPL -Continue home carvedilol -Restart home ticagrelor -Restart home aspirin -Restart home statin -Restart home lisinopril -Cardiac catheterization from 2020 was reviewed and showed a critical lesion in the proximal and mid right coronary artery which was treated with drug-eluting stents as well as severe diffuse LAD disease and had very tight lesion in the proximal first diagonal -Echo is pending GERD -Continue PPI History of head neck cancer -Remote -Previous radiation could contribute to swallowing difficulties -Will ask speech therapy to evaluate the patient prior to discharge after extubated DVT prophylaxis -Continue heparin drip CODE STATUS -DNR CCA with short-term intubation Charges/Coding Visit Charges Inpatient E&M: 10399 Subs Hosp L3
[2023-11-09 07:53] LABS: Absolute Lymphocyte Count 0.58 X10^3/uL (0.83-4.51); Absolute Neutrophil Count 11.3 X10^3/uL (2.0-7.7); Basophil# 0.03 X10^3/uL; Basophil% 0.2 % (0-1); Hematocrit 32.7 % (40-54); Hemoglobin 10.4 g/dL (13.0-16.5); Lymphocyte # 0.58 X10^3/ul (0.83-4.51); Lymphocyte % 4.7 % (19-41); Mean Corp Hgb Conc 31.8 g/dL (32-36); Mean Corpuscular Volume 97.6 fL (80-94); Mean Platelet Vol. 12.5 fl (6.2-12.0); Monocyte# 0.31 X10^3/uL; Monocyte% 2.5 % (0-10); NRBC Flagged by Analyzer 0 % (0-5); Neutrophil # 11.25 X10^3/uL (2.7-7.7); Neutrophil % 91.7 % (47-70); POSITIVE DIFFERENTIAL YES; POSITIVE MORPHOLOGY YES; Platelet Count 200 K/mm3 (150-450); RBC Distribution Width SD 50.2 fl (35.1-43.9); Red Blood Count 3.35 M/mm3 (4.6-6.2); White Blood Count 12.3 K/mm3 (4.4-11.0)
[2023-11-09 07:56] LABS: Differential Indicated SCAN CRITERIA MET
--- NOTE | 2023-11-09 07:58 | PN.CC_ITS ---
Assessment & Plan Assessment/Plan (1) Acute hypercapnic respiratory failure: (2) Severe sepsis: (3) Left lower lobe pneumonia: (4) Non-ST elevated myocardial infarction: PLAN: Plan RECOMMENDATIONS: 1. Continue assist-control mode mechanical ventilation. Wean FiO2 and PEEP to maintain oxygen saturations at or above 90%. 2. Continue empiric antimicrobials. 3. Continue tube feeding as tolerated. 4. Continue heparin infusion. 5. Periodic diuresis to maintain euvolemic state. 6. Continue appropriate ICU prophylaxis. IMPRESSIONS: 1. Sepsis secondary to possible aspiration pneumonia The patient presented with sepsis due to probable aspiration pneumonia with acute sepsis related organ dysfunction as evidenced by respiratory failure requiring invasive mechanical ventilatory support. The patient remains on appropriate antimicrobial therapy. He has been weaned from vasopressor support and remains hemodynamically stable. Plan to continue empiric antimicrobials, pending finalized culture results. Continue to wean FiO2 to maintain saturations at or above 90%. Plan for daily paired spontaneous awakening and breathing trials. 2. Non-ST elevation [place] Most likely secondary to demand ischemia in the setting of #1. Cardiology is following to assist with medical management. Awaiting results of repeat echocardiogram. 3. Acute combined respiratory failure with sepsis CT of the chest she does show some emphysematous changes with bronchiectasis indicating probable complications of smoking. Continue current supportive measures as noted above. 4. History of oral cancer/severe protein malnutrition/GERD Complicates care, management, recovery and prognosis. Continue to monitor for refeeding syndrome given underlying poor nutritional state. Physical therapy to work with the patient. CODE STATUS: DNR Comfort Care arrest TIME: 33 minutes of critical care time, independent of procedures, was spent add ressing the patient's sepsis secondary to aspiration pneumonia, NSTEMI, respiratory failure, review of all data and collaboration with care team. Subjective Subjective The patient was seen and examined at the bedside this morning. Events from the last 24 hours have been reviewed. Today is vent day #3. The patient failed his spontaneous awakening/breathing trial this morning. He remains on assist control mode of mechanical ventilation with an FiO2 requirement of 35% and PEEP of 5. He is currently sedated on Precedex and fentanyl. He has been tolerant of tube feeds. The patient is documented to be overall net +5.3 L for the hospitalization. Objective Data Objective Data The patient's most recent lab work, culture data and imaging studies have all been personally reviewed. Surface echocardiogram from July 2021 demonstrated an ejection fraction of 55 to 60%. Infectious workup has been unrevealing to date. Vital Signs: Vital Signs Temp Pulse Resp BP Pulse Ox O2 Del Method O2 Flow Rate 100.9 F H 117 H 28 H 131/53 H 93 Mechanical Ventilator 10 11/09/23 07:00 11/09/23 07:21 11/09/23 07:21 11/09/23 07:00 11/09/23 07:21 11/09/23 07:00 11/07/23 13:14 FiO2 35 11/09/23 07:21 Oxygen Flow Rate (L/min) 10 Oxygen Delivery Method Mechanical Ventilator Weight: 119 lb 0.794 oz Body Mass Index (BMI) 17.6 Intake & Output: Intake and Output for Last 24 Hours 11/07/23 11/08/23 11/09/23 23:59 23:59 23:59 Intake Total 2952.60 / 2965.58 2972.74 / 3139.99 708.86 / 708.86 Output Total 1100 / 1100 200 / 200 Balance 2952.60 / 2565.58 1872.74 / 2039.99 508.86 / 508.86 Medical Nutrition Assessment Dietitian: Malnutrition Criteria Met Start: 11/08/23 09:33 Freq: Status: Active Protocol: Document 11/08/23 09:46 AG (Rec: 11/08/23 09:46 AG Desktop) Nutrition Malnutrition Evidence of Malnutrition Exists Yes Malnutrition (severe): Chronic Evidenced By Suboptimal Energy Intake ( Severe),Physical Changes ( Severe) Clinical Problem Chronic Disease or Condition Related Malnutrition Etiology severe, chronic malnutrition related to inadequate energy intake Signs/Symptoms as evidenced by svere muscle wasting/fat loss evident per physical exam in orbital, clavicle, acromion, and temporal areas; estimated PO intake meeting <75% of estimated energy needs > 3 months; BMI 16.5 Status Active Problem Recommendation Dietitian Recommendations/Changes NPO while intubated; Via OGT- Vital AF 1.2 at goal rate of 60mL/hour w/ 150mL H2O flush every 4 hours to provide 1728 calories, 108 g protein, and 2067mL total fluid/day. Would start at 20mL/hour and increase by 10mL/hour every 8- 12 hours as tolerated until goal rate is achieved. Concerns for refeeding given malnutrition, will monitor electrolytes closely. 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 May need to revisit use of PEG for nutrition. Lab / Micro Data Attestation: I reviewed the patient's lab results. 11/09/23 07:35 11/08/23 04:25 Labs: Laboratory Results - last 24 hr 11/08/23 14:20: APTT 50.2 H 11/08/23 21:55: APTT 59.3 H 11/09/23 04:20: APTT 59.5 H, Phosphorus 2.2 L, Magnesium 2.4 11/09/23 07:35: WBC 12.3 H, RBC 3.35 L, Hgb 10.4 L, Hct 32.7 L, MCV 97.6 H, MCH 31.0, MCHC 31.8 L, RDW Std Deviation 50.2 H, RDW Coeff of Atif 14.0, Plt Count 200, MPV 12.5 H, Immature Gran % (Auto) 0.900, Neut % (Auto) 91.7 H, Lymph % (Auto) 4.7 L, [place] % (Auto) 2.5, Eos % (Auto) 0.0, Baso % (Auto) 0.2, Absolute Neuts (auto) 11.3 H, Absolute Lymphs (auto) 0.58 L, Nucleated RBC % 0 Micro: Microbiology 11/07/23 18:08 Sputum, Induced/Lukens Gram Stain - Final 11/07/23 13:30 Urine Catheter - Catheter Urine Culture - Preliminary Presumptive E. coli 11/07/23 13:30 Nasal Secretion SARS-CoV-2 & FLU Antigen (Rapid) - Final Radiography Diagnostic Testing: Radiology Impression Chest X-Ray 11/08/23 13:34 IMPRESSION: Left sided pneumonia. Electronically Signed: Mike Hernandez MD at 14:45 EST , Physical Exam Const Constitutional Narrative: Intubated, sedated and mechanically ventilated. No ventilator dyssynchrony noted. Frail and cachectic in appearance. HEENT normocephalic and head/scalp atraumatic HEENT Narrative: Temporal wasting present. Mouth: endotracheal tube in place and OG tube in place Eyes PERRL, EOMs intact bilaterally and conjunctivae normal Neck supple General: trachea midline Chest inspection of chest normal Resp normal respiratory effort Auscultation: Negative for rales, rhonchi or wheezes Cardio regular rate and regular rhythm GI normal to inspection, nondistended, normoactive bowel sounds Extremity no clubbing, cyanosis or edema Skin no rashes or lesions noted Neuro Sensorium / Orientation: sedated on vent Charges/Coding Procedures Hospitalists Procedures: 62843 Critial Care 1st Hr
[2023-11-09 08:05] LABS: Anion Gap 6 (5-15); BUN 43 mg/dL (7-18); BUN/Creat Ratio 41.3 RATIO (10-20); Calcium,Total 7.7 mg/dL (8.5-10.1); Chloride 126 mmol/L (98-107); Creatinine, Serum 1.04 mg/dL (0.70-1.30); EST Glomerular Filtration Rate 76 mL/min (>60); Est Glom Filt Rate - Afr Amer 92 mL/min (>60); Estimated Creatinine Clearance 52.64 ml/min; Glucose 174 mg/dL (74-106); Potassium 4.4 mmol/L (3.5-5.1); Sodium Level 152 mmol/L (136-145)
[2023-11-09 08:22] LABS: Differential Comment SCANNED
[2023-11-09 08:27] LABS: Vancomycin, Trough Level 16.3 ug/mL (5.0-15.0)
[2023-11-09 08:28] LABS: Thyroid Stim Hormone (TSH) < 0.01 uIU/mL (0.358-3.74)
--- NOTE | 2023-11-09 08:42 | PCM.RX.CS ---
Consult Antibiotic Management Pharmacy has been consulted to manage selected antiobiotic: Vancomycin Type of Intervention Type of Consult: Follow-up Suspected Infection Suspected Infection: Sepsis and Pneumonia Labs Labs: Sodium 152 mmol/L (136-145) H 11/09/23 07:35 Potassium 4.4 mmol/L (3.5-5.1) 11/09/23 07:35 Chloride 126 mmol/L (98-107) H 11/09/23 07:35 Carbon Dioxide 20.0 mmol/L (21.0-32.0) L 11/09/23 07:35 Anion Gap 6 (5-15) 11/09/23 07:35 BUN 43 mg/dL (7-18) H 11/09/23 07:35 Creatinine 1.04 mg/dL (0.70-1.30) 11/09/23 07:35 Est GFR (MDRD) Af Amer 92 mL/min (>60) 11/09/23 07:35 Est GFR (MDRD) Non-Af 76 mL/min (>60) 11/09/23 07:35 BUN/Creatinine Ratio 41.3 RATIO (10-20) H 11/09/23 07:35 Glucose 174 mg/dL (74-106) H 11/09/23 07:35 Vancomycin Trough 16.3 ug/mL (5.0-15.0) H 11/09/23 07:35 Microbiology Microbiology: Microbiology 11/07/23 13:30 Urine Catheter - Catheter Urine Culture - Final Presumptive E. coli 11/07/23 18:08 Sputum, Induced/Lukens Gram Stain - Final 11/07/23 13:30 Nasal Secretion SARS-CoV-2 & FLU Antigen (Rapid) - Final Goal Trough Goal Trough: 15-20 mcg/mL Pharmacy Plan for Drug Dosing Pharmacy Plan for Drug Dosing: VANCOMYCIN LEVEL RECEIVED Current Vancomycin Dose: 500mg q12h (30,0) Number of Doses Received: x1 1250mg dose, x2 500mg doses Vancomycin Level: trough resulted at 16.3 Hours Since Last Dose: 11 hours since last 500mg dose Renal Function: SrCr is 1.04 Renal Function Trend: SrCr is increasing (was 0.71 on 11/08/23) Lab/Micro: Vancomycin Plan/Comments: resulted trough of 16.3 is within the ordered goal trough range of 15-20. recommend continuing current dose of 500mg q12h and checking a trough prior to the 4th dose Pending Level: 11/11/23 at 0900 Pharmacy Service will continue to monitor and adjust dosing as required. Follow-Up Labs Follow-Up Labs: Trough: Vancomycin (11/11/23 @ 0900)
--- NOTE | 2023-11-09 09:21 | CASEMGMT ---
LEONARD YA received call from Ada YA at [facility] [phone], asking for update. Per Ada, patient has had pegtube for 12 years and is not being used. Patient was to have follow-up with Dr. Vela and patient cancelled. Ada will be on vacation and Mohan will be covering [phone].
[2023-11-09] MEDS: Vancomycin IV 500 MG/100 ML BAG 100 MG IV ×2 (09:39→20:30)
[2023-11-09] MEDS: Aspirin 81 MG TAB.CHEW NG (09:39)
[2023-11-09] MEDS: TICAGRELOR 90 MG TABLET NG ×2 (09:39→21:00)
[2023-11-09] MEDS: Lisinopril 5 MG Tablet NG (09:39)
[2023-11-09] MEDS: Chlorhexidine 15 ML PO ×2 (09:41→21:00)
[2023-11-09] MEDS: Carvedilol 3.125 MG TABLET NG ×2 (09:48→21:00)
[2023-11-09] MEDS: Polyethylene Glycol 3350 17 GM PACKET 34 GM PO (09:48)
[2023-11-09] MEDS: Senna Tablet 1 TABLET PO ×2 (09:48→21:00)
[2023-11-09] MEDS: Dextrose 5%-Water (1000mL Bag) 1,000 ML 60 ML IV (10:00)
[2023-11-09] MEDS: Pantoprazole Sodium 40 MG in 0.9% Normal Saline (100mL MB+) 100 ML 330 MG IV ×2 (10:22→21:47)
[2023-11-09] MEDS: Na Biphos/Potassium Phosphate PACKET 1 PACKET GT ×2 (13:59→21:00)
[2023-11-09] MEDS: dexMEDEtomidine 400 MCG in 0.9% Normal Saline (100mL Bag) 96 ML 6.3 MCG CONT INF (14:05)
[2023-11-09] MEDS: fentaNYL drip 100 ML 7.5 MCG CONT INF (14:08)
--- NOTE | 2023-11-09 19:40 | NURSING ---
At the start of shift pts tube feed running at 50 mL/hr but charted as 30mL/hr in MAR. This RN charted tube feed is at 50mL/hr in MAR at 1940.
[2023-11-09] MEDS: Vital AF 1.2 Cal Liquid 1,000 ML 50 ML GT (21:00)
[2023-11-09] MEDS: Polyethylene Glycol 3350 17 GM PACKET PO (21:00)
[2023-11-09] MEDS: Atorvastatin Calcium 40 MG Tablet NG (21:00)
[2023-11-10] VITALS (37 sets, daily range): BP systolic 93–130; BP diastolic 45–97; PULSE 12–112; RESP 12–35; TEMP 37.6–38.1; O2SAT 90–99; BMI 18.1
[2023-11-10] MEDS: HEPARIN/D5w 25,000 UNITS 25,000 UNITS/250 ML IV.SOLN. 7.5 UNITS CONT INF (01:19)
[2023-11-10] MEDS: fentaNYL drip 100 ML 10 MCG CONT INF ×2 (01:36→14:37)
[2023-11-10] MEDS: dexMEDEtomidine 400 MCG in 0.9% Normal Saline (100mL Bag) 96 ML 10 MCG CONT INF (02:34)
[2023-11-10] MEDS: Piperacil/Tazobactam 3.375 GM in 0.9% Normal Saline (50mL MB+) 50 ML IV ×3 (05:00→20:34)
[2023-11-10] MEDS: Nitroglycerin Oint 1 INCH PACKET 0.5 INCH TD ×3 (05:01→20:47)
[2023-11-10] MEDS: Na Biphos/Potassium Phosphate PACKET 1 PACKET GT ×2 (05:01→13:39)
[2023-11-10] MEDS: Levothyroxine 50 MCG Tablet NG (05:01)
[2023-11-10 06:19] LABS: Absolute Neutrophil Count 12.3 X10^3/uL (2.0-7.7); Basophil# 0.02 X10^3/uL; Basophil% 0.2 % (0-1); Hemoglobin 9.9 g/dL (13.0-16.5); Lymphocyte % 4.5 % (19-41); Mean Corp Hgb Conc 31.9 g/dL (32-36); Mean Corpuscular Hgb 30.8 pg (27.0-32.0); Mean Corpuscular Volume 96.6 fL (80-94); Mean Platelet Vol. 12.7 fl (6.2-12.0); Monocyte# 0.22 X10^3/uL; Monocyte% 1.7 % (0-10); NRBC Flagged by Analyzer 0 % (0-5); Neutrophil # 12.28 X10^3/uL (2.7-7.7); Neutrophil % 92.5 % (47-70); POSITIVE DIFFERENTIAL YES; POSITIVE MORPHOLOGY YES; Platelet Count 190 K/mm3 (150-450); RBC Distribution Width CV 14.2 % (11.6-14.6); RBC Distribution Width SD 50.2 fl (35.1-43.9); Red Blood Count 3.21 M/mm3 (4.6-6.2); White Blood Count 13.3 K/mm3 (4.4-11.0)
[2023-11-10 06:28] LABS: Partial Thromboplast Time 52.2 Seconds (24.1-36.2)
[2023-11-10 06:36] LABS: ALB/GLOB Ratio 0.4 RATIO (0.9-2.4); AST(SGOT) 50 U/L (15-37); Alanine Aminotransfer ALT/SGPT 30 U/L (16-61); Albumin, Serum 1.3 g/dL (3.2-5.0); Alkaline Phosphatase 60 U/L (45-117); Anion Gap 4 (5-15); BUN 38 mg/dL (7-18); BUN/Creat Ratio 43.4 RATIO (10-20); Calcium,Total 7.4 mg/dL (8.5-10.1); Chloride 122 mmol/L (98-107); Creatinine, Serum 0.88 mg/dL (0.70-1.30); EST Glomerular Filtration Rate 92 mL/min (>60); Est Glom Filt Rate - Afr Amer 112 mL/min (>60); Estimated Creatinine Clearance 64.06 ml/min; Globulin 3.2 g/dL (2.2-4.2); Glucose 169 mg/dL (74-106); Magnesium 2.4 mg/dL (1.6-2.6); Phosphorus 1.8 mg/dL (2.5-4.9); Potassium 3.8 mmol/L (3.5-5.1); Protein, Total 4.5 g/dL (6.4-8.2); Sodium Level 147 mmol/L (136-145)
[2023-11-10 06:57] LABS: Differential Indicated SCAN CRITERIA MET
--- NOTE | 2023-11-10 07:05 | PCM.PN.INT ---
Assessment & Plan Assessment/Plan (1) Acute hypercapnic respiratory failure: (2) Severe sepsis: (3) Left lower lobe pneumonia: (4) Non-ST elevated myocardial infarction: PLAN: Plan RECOMMENDATIONS: 1. Continue assist-control mode mechanical ventilation. Wean FiO2 and PEEP to maintain oxygen saturations at or above 90%. 2. Continue empiric antimicrobials, pending finalized culture results. 3. Ongoing electrolyte repletion as needed. 4. Continue tube feeding as tolerated. 5. Continue heparin infusion. 6. Will administer low-dose diuretics today. 7. Continue appropriate ICU prophylaxis. 8. Start scheduled bronchodilators. IMPRESSIONS: 1. Sepsis secondary to possible aspiration pneumonia The patient presented with sepsis due to probable aspiration pneumonia with acute sepsis related organ dysfunction as evidenced by respiratory failure requiring invasive mechanical ventilatory support. The patient remains on appropriate antimicrobial therapy. He has been weaned from vasopressor support and remains hemodynamically stable. Plan to continue empiric antimicrobials, pending finalized culture results. Continue to wean FiO2 to maintain saturations at or above 90%. Plan for daily paired spontaneous awakening and breathing trials. Given the patient's volume status, will attempt to administer low-dose diuretics today. 2. Non-ST elevation [place] Most likely secondary to demand ischemia in the setting of #1. Cardiology is following to assist with medical management. Echocardiogram revealed intact, preserved systolic function. 3. Acute combined respiratory failure with sepsis CT of the chest she does show some emphysematous changes with bronchiectasis indicating probable complications of smoking. As such, we will start scheduled bronchodilator therapy today. 4. History of oral cancer/severe protein malnutrition/GERD Complicates care, management, recovery and prognosis. Continue to monitor for refeeding syndrome given underlying poor nutritional state. Physical therapy to work with the patient. CODE STATUS: DNR Comfort Care arrest TIME: 32 minutes of critical care time, independent of procedures, was spent addressing the patient's sepsis secondary to aspiration pneumonia, NSTEMI, respiratory failure, review of all data and collaboration with care team. Subjective Subjective The patient was seen and examined at the bedside this morning. Events from the last 24 hours have been reviewed. The patient is currently afebrile, hemodynamically stable and maintaining appropriate oxygen saturations with an FiO2 requirement of 35%. The patient was placed on a spontaneous breathing trial this morning. However, he is not currently following any commands and appears tachypneic on CPAP. The patient is documented to be overall net +9.7 L for the hospitalization. Chemistry profile demonstrated improvement in his sodium to 147. Phosphorus is low at 1.8. Objective Data Objective Data The patient's most recent lab work, culture data and imaging studies have all been personally reviewed. Surface echocardiogram from July 2021 demonstrated an ejection fraction of 55 to 60%. Sputum culture is currently growing Staph aureus and gram-negative rods. Urine culture is demonstrating growth of presumptive E. coli. Vital Signs: Vital Signs Temp Pulse Resp BP Pulse Ox O2 Del Method O2 Flow Rate 100 F H 97 30 H 130/71 H 92 Mechanical Ventilator 10 11/10/23 07:00 11/10/23 07:00 11/10/23 07:00 11/10/23 07:00 11/10/23 07:00 11/10/23 07:00 11/07/23 13:14 FiO2 35 11/10/23 07:00 Oxygen Flow Rate (L/min) 10 Oxygen Delivery Method Mechanical Ventilator Weight: 122 lb 9.232 oz Body Mass Index (BMI) 18.1 Intake & Output: Intake and Output for Last 24 Hours 11/08/23 11/09/23 11/10/23 23:59 23:59 23:59 Intake Total 2972.74 / 3139.99 3057.72 / 3322.72 2689.99 / 2689.99 Output Total 1100 / 1100 600 / 600 200 / 200 Balance 1872.74 / 2039.99 2457.72 / 2722.72 2489.99 / 2489.99 Medical Nutrition Assessment Dietitian: Malnutrition Criteria Met Start: 11/08/23 09:33 Freq: Status: Active Protocol: Document 11/09/23 10:11 [facility] (Rec: 11/09/23 10:11 [facility] Desktop) Nutrition Malnutrition Evidence of Malnutrition Exists Yes Malnutrition (severe): Chronic Evidenced By Suboptimal Energy Intake ( Severe),Physical Changes ( Severe) Clinical Problem Chronic Disease or Condition Related Malnutrition Etiology severe, chronic malnutrition related to inadequate energy intake Signs/Symptoms as evidenced by severe muscle wasting/fat loss evident per physical exam in orbital, clavicle, acromion, and temporal areas; estimated PO intake meeting <75% of 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 Rec continue to increase by 10mL/hour every 8- 12 hours as tolerated until goal rate of 60 ml/hr is achieved. Concerns for refeeding given malnutrition, will monitor electrolytes closely. 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 May need to revisit use of PEG for nutrition. Lab / Micro Data Attestation: I reviewed the patient's lab results. 11/10/23 05:10 11/10/23 05:10 Labs: Laboratory Results - last 24 hr 11/09/23 07:35: WBC 12.3 H, RBC 3.35 L, Hgb 10.4 L, Hct 32.7 L, MCV 97.6 H, MCH 31.0, MCHC 31.8 L, RDW Std Deviation 50.2 H, RDW Coeff of Atif 14.0, Plt Count 200, MPV 12.5 H, Immature Gran % (Auto) 0.900, Neut % (Auto) 91.7 H, Lymph % (Auto) 4.7 L, [place] % (Auto) 2.5, Eos % (Auto) 0.0, Baso % (Auto) 0.2, Absolute Neuts (auto) 11.3 H, Absolute Lymphs (auto) 0.58 L, Nucleated RBC % 0, Differential Comment SCANNED, Sodium 152 H, Potassium 4.4, Chloride 126 H, Carbon Dioxide 20.0 L, Anion Gap 6, BUN 43 H, Creatinine 1.04, Estim Creat Clear Calc 52.64, Est GFR (MDRD) Af Amer 92, Est GFR (MDRD) Non-Af 76, BUN/Creatinine Ratio 41.3 H, Glucose 174 H, Calcium 7.7 L, TSH < 0.01 L, Vancomycin Trough 16.3 H 11/10/23 05:10: WBC 13.3 H, RBC 3.21 L, Hgb 9.9 L, Hct 31.0 L, MCV 96.6 H, MCH 30.8, MCHC 31.9 L, RDW Std Deviation 50.2 H, RDW Coeff of Atif 14.2, Plt Count 190, MPV 12.7 H, Immature Gran % (Auto) 1.100 H, Neut % (Auto) 92.5 H, Lymph % (Auto) 4.5 L, [place] % (Auto) 1.7, Eos % (Auto) 0.0, Baso % (Auto) 0.2, Absolute Neuts (auto) 12.3 H, Absolute Lymphs (auto) 0.60 L, Nucleated RBC % 0, APTT 52.2 H, Sodium 147 H, Potassium 3.8, Chloride 122 H, Carbon Dioxide 21.0, Anion Gap 4 L, BUN 38 H, Creatinine 0.88, Estim Creat Clear Calc 64.06, Est GFR (MDRD) Af Amer 112, Est GFR (MDRD) Non-Af 92, BUN/Creatinine Ratio 43.4 H, Glucose 169 H, Calcium 7.4 L, Phosphorus 1.8 L, Magnesium 2.4, Total Bilirubin 0.90, AST 50 H, ALT 30, Alkaline Phosphatase 60, Total Protein 4.5 L, Albumin 1.3 L, Globulin 3.2, Albumin/Globulin Ratio 0.4 L Micro: Microbiology 11/09/23 11:50 Sputum, Induced/Lukens Gram Stain - Final 11/07/23 18:08 Sputum, Induced/Lukens Gram Stain - Final 11/07/23 18:08 Sputum, Induced/Lukens Respiratory Culture - Preliminary Staphylococcus aureus Gram negative 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 coli 11/07/23 13:30 Nasal Secretion SARS-CoV-2 & FLU Antigen (Rapid) - Final Radiography Diagnostic Testing: Radiology Impression Echocardiogram 11/07/23 18:46 Interpretation Summary Technically difficult study The estimated ejection fraction is 60 %. Unable to assess diastolic dysfunction. Ordering Physician: Pee George Referring Physician: Jaleesa Bunch Performed By: Domenica Suárez, KIM, RVT Physical Exam Const Constitutional Narrative: Intubated, sedated and mechanically ventilated. No ventilator dyssynchrony noted. Frail and cachectic in appearance. Tachypneic on spontaneous breathing trial. HEENT normocephalic and head/scalp atraumatic HEENT Narrative: Temporal wasting present. Mouth: endotracheal tube in place and OG tube in place Eyes PERRL, EOMs intact bilaterally and conjunctivae normal Neck supple General: trachea midline Chest inspection of chest normal Resp Effort and Inspection: tachypneic Auscultation: Negative for rales, rhonchi or wheezes Cardio regular rate and regular rhythm GI normal to inspection, nondistended, normoactive bowel sounds Inspection: GI tube present Extremity no clubbing, cyanosis or edema Skin no rashes or lesions noted Neuro Sensorium / Orientation: sedated on vent Charges/Coding Procedures Hospitalists Procedures: [id number] Critial Care 1st Hr
[2023-11-10 07:36] LABS: T4 Free Direct 1.18 ng/dL (0.76-1.46)
[2023-11-10 07:38] LABS: Differential Comment SCANNED; Reactive Lymphocyte 1+
[2023-11-10] MEDS: Polyethylene Glycol 3350 17 GM PACKET PO ×2 (08:07→20:47)
[2023-11-10] MEDS: TICAGRELOR 90 MG TABLET NG ×2 (08:07→20:47)
[2023-11-10] MEDS: Senna Tablet 1 TABLET PO ×2 (08:07→20:47)
[2023-11-10] MEDS: Carvedilol 3.125 MG TABLET NG ×2 (08:07→20:48)
[2023-11-10] MEDS: Aspirin 81 MG TAB.CHEW NG (08:07)
[2023-11-10] MEDS: Furosemide 20 MG/2 ML VIAL IV ×2 (08:09→18:12)
[2023-11-10] MEDS: Lisinopril 5 MG Tablet NG (08:10)
[2023-11-10] MEDS: Pantoprazole Sodium 40 MG in 0.9% Normal Saline (100mL MB+) 100 ML 330 MG IV ×2 (08:10→20:33)
--- NOTE | 2023-11-10 08:22 | PCM.PN.HOSP ---
Reason for Visit Reason for Visit: Shortness of breath Subjective Subjective Tachycardic and tachypneic. Doing okay on his breathing trial however with his tachycardia and tachypnea I suspect extubation will be on hold for this time. As his risk for reintubation is quite high. No significant issues overnight. Objective Data Objective Data Vital Signs: Vital Signs Temp Pulse Resp BP Pulse Ox O2 Del Method O2 Flow Rate 100 F H 108 H 35 H 130/71 H 91 Mechanical Ventilator 10 11/10/23 07:00 11/10/23 07:19 11/10/23 07:19 11/10/23 07:00 11/10/23 07:19 11/10/23 07:00 11/07/23 13:14 FiO2 35 11/10/23 07:00 Oxygen Flow Rate (L/min) 10 Oxygen Delivery Method Mechanical Ventilator Weight: 55.6 kg Body Mass Index (BMI) 18.1 Intake & Output: Intake and Output for Last 24 Hours 11/08/23 11/09/23 11/10/23 23:59 23:59 23:59 Intake Total 2972.74 / 3139.99 3057.72 / 3322.72 2689.99 / 2689.99 Output Total 1100 / 1100 600 / 600 200 / 200 Balance 1872.74 / 2039.99 2457.72 / 2722.72 2489.99 / 2489.99 Medical Nutrition Assessment Dietitian: Malnutrition Criteria Met Start: 11/08/23 09:33 Freq: Status: Active Protocol: Document 11/09/23 10:11 SLA (Rec: 11/09/23 10:11 SLA Desktop) Nutrition Malnutrition Evidence of Malnutrition Exists Yes Malnutrition (severe): Chronic Evidenced By Suboptimal Energy Intake ( Severe),Physical Changes ( Severe) Clinical Problem Chronic Disease or Condition Related Malnutrition Etiology severe, chronic malnutrition related to inadequate energy intake Signs/Symptoms as evidenced by severe muscle wasting/fat loss evident per physical exam in orbital, clavicle, acromion, and temporal areas; estimated PO intake meeting <75% of estimated energy needs > 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 Rec continue to increase by 10mL/hour every 8- 12 hours as tolerated until goal rate of 60 ml/hr is achieved. Concerns for refeeding given malnutrition, will monitor electrolytes closely. 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 May need to revisit use of PEG for nutrition. Lab / Micro Data 11/10/23 05:10 11/10/23 05:10 Labs: Laboratory Results - last 24 hr 11/09/23 07:35: Differential Comment SCANNED, TSH < 0.01 L, Vancomycin Trough 16.3 H 11/10/23 05:10: WBC 13.3 H, RBC 3.21 L, Hgb 9.9 L, Hct 31.0 L, MCV 96.6 H, MCH 30.8, MCHC 31.9 L, RDW Std Deviation 50.2 H, RDW Coeff of Atif 14.2, Plt Count 190, MPV 12.7 H, Immature Gran % (Auto) 1.100 H, Neut % (Auto) 92.5 H, Lymph % (Auto) 4.5 L, [place] % (Auto) 1.7, Eos % (Auto) 0.0, Baso % (Auto) 0.2, Absolute Neuts (auto) 12.3 H, Absolute Lymphs (auto) 0.60 L, Nucleated RBC % 0, Differential Comment SCANNED, Reactive Lymphocytes 1+, APTT 52.2 H, Sodium 147 H, Potassium 3.8, Chloride 122 H, Carbon Dioxide 21.0, Anion Gap 4 L, BUN 38 H, Creatinine 0.88, Estim Creat Clear Calc 64.06, Est GFR (MDRD) Af Amer 112, Est GFR (MDRD) Non-Af 92, BUN/Creatinine Ratio 43.4 H, Glucose 169 H, Calcium 7.4 L, Phosphorus 1.8 L, Magnesium 2.4, Total Bilirubin 0.90, AST 50 H, ALT 30, Alkaline Phosphatase 60, Total Protein 4.5 L, Albumin 1.3 L, Globulin 3.2, Albumin/Globulin Ratio 0.4 L, Free T4 1.18 Micro: Microbiology 11/09/23 11:50 Sputum, Induced/Lukens Gram Stain - Final 11/07/23 18:08 Sputum, Induced/Lukens Gram Stain - Final 11/07/23 18:08 Sputum, Induced/Lukens Respiratory Culture - Preliminary Staphylococcus aureus Gram negative 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 coli 11/07/23 13:30 Nasal Secretion SARS-CoV-2 & FLU Antigen (Rapid) - Final Radiography Diagnostic Testing: Radiology Impression Echocardiogram 11/07/23 18:46 Interpretation Summary Technically difficult study The estimated ejection fraction is 60 %. Unable to assess diastolic dysfunction. Ordering Physician: Pee George Referring Physician: Jaleesa Bunch Performed By: Domenica Suárez, KIM, RVT Physical Exam Const alert and no apparent distress; Negative for average body habitus, healthy appearing or well nourished Constitutional Narrative: Cachectic appearing, upper middle-aged, white male, lying in bed intubated and sedated, appears much older than stated age, despite sedation patient is somewhat awake during my evaluation and follows commands intermittently but not consistently General Appearance: disheveled and frail HEENT normocephalic, head/scalp atraumatic and moist oral mucous membranes HEENT Narrative: ET tube and OG in place, patient is a dentulous Head and Scalp: normocephalic Resp normal respiratory effort, no retractions and no use of accessory muscles Resp Narrative: Diffusely diminished but currently clear Auscultation: Negative for crackles, rales, rhonchi or wheezes Cardio regular rate, regular rhythm, S1 normal heart sound, S2 normal heart sound, no murmurs, no rub, no gallops and no clicks GI normal to inspection, nondistended, normoactive bowel sounds, soft to palpation, non-tender and non-distended; Negative for hepatosplenomegaly GI Narrative: Scaphoid abdomen Extremity no clubbing, cyanosis or edema Extremity Narrative: Pedal pulses are 2+, significantly reduced lean muscle mass, left upper extremity PICC is clean and dry Neuro Neuro Narrative: Patient is intubated and sedated on the ventilator however does open eyes and interacts intermittently following commands, spontaneously moves all extremities Sensorium / Orientation: awake and alert Speech: Negative for speech normal Psych Psych Narrative: Unable to assess due to sedation/intubation Appearance: intubated Assessment & Plan Assessment/Plan (1) Acute respiratory failure with hypoxia and hypercapnia: (2) Protein calorie malnutrition: (3) Severe sepsis: (4) Left lower lobe pneumonia: (5) Dehydration: (6) Non-ST elevated myocardial infarction: (7) Hypernatremia: (8) Hypokalemia: (9) Lactic acidosis: (10) Abnormal results of thyroid function studies: (11) Hypophosphatemia: PLAN: Plan Acute hypoxic hypercapnic respiratory failure secondary to polymicrobial pneumonia (Staph aureus/and 2 gram-negative rods) -Patient's oxygen saturations were extremely low on presentation requiring nonrebreather with eventual intubation -Initial blood gas showed a pH of 6.97 which is consistent with severe acidosis and found to be respiratory -Gram stain shows multiple organisms however not yet finalized--> suspect aspiration in nature -Patient remains on mechanical ventilation with an FiO2 of 35%. -Will need speech consultation after extubation -Continue vancomycin and Zosyn -Lasix 20 mg IV twice daily x 1 day ordered -Sputum cultures thus far growing Staph aureus and 2 different gram-negative rods with identification pending -Awaiting his sensitivities for all organisms -Pulmonary/critical care medicine following-appreciate input Septic shock -Suspect related to polymicrobial pneumonia -Urine culture is showing E. coli but colony count is not significant -Sputum cultures shows polymicrobial infection -Blood cultures remain pending -Continue broad-spectrum antibiotics with vancomycin and Zosyn for now Hypernatremia/hyperchloremia -Improved today with bolus of free water and increasing free water via tube feed with sodium and chloride now trending down -Continue free water and tube feed to 250 cc every 4 hours -Received D5W x 1 L on 11/09/2023 -Repeat lab in a.m. Abnormal TSH -TSH was undetectable however free T4 is normal -Suspect euthyroid sick syndrome -Okay to continue levothyroxine NSTEMI -Suspect related to hypoxia and acidosis causing worsening ischemia and known coronary artery disease -Cardiac catheterization from 2020 was reviewed and showed a critical lesion in the proximal and mid right coronary artery which was treated with drug-eluting stents as well as severe diffuse LAD disease and had very tight lesion in the proximal first diagonal -Plan at this time is to continue medical therapy as patient is not currently a candidate for invasive options however may need cardiac catheterization once respiratory issues and sepsis is resolved -Echocardiogram demonstrated normal EF at 60% with no identifiable regional wall motion abnormalities however the study was difficult -Continue heparin drip -Continue carvedilol 3.125 twice daily -Continue lisinopril -Continue aspirin and Brilinta per cardiology documentation -Continue Nitropaste as ordered Hypophosphatemia -K-Phos bolus given -Recheck a.m. phosphorus level Lactic acidosis -Likely related to severe hypoxia and sepsis -Resolved Severe malnutrition -Dietitian is following -Tube feeds have been initiated -Oral supplementations CAD/HTN/HPL -Continue home carvedilol -Restart home ticagrelor -Restart home aspirin -Restart home statin -Restart home lisinopril -Cardiac catheterization from 2020 was reviewed and showed a critical lesion in the proximal and mid right coronary artery which was treated with drug-eluting stents as well as severe diffuse LAD disease and had very tight lesion in the proximal first diagonal -Echo is pending GERD -Continue PPI History of head neck cancer -Remote -Previous radiation could contribute to swallowing difficulties -Will ask speech therapy to evaluate the patient prior to discharge after extubated DVT prophylaxis -Continue heparin drip CODE STATUS -DNR CCA with short-term intubation Charges/Coding Visit Charges Inpatient E&M: 25604 Subs Hosp L2
[2023-11-10] MEDS: Potassium Phosphate 30 MMOL in 0.9% Normal Saline (250mL Bag) 250 ML 42 MMOL IV (08:51)
[2023-11-10] MEDS: Vancomycin IV 500 MG/100 ML BAG 100 MG IV ×2 (09:10→20:34)
[2023-11-10] MEDS: Chlorhexidine 15 ML PO ×2 (09:38→20:54)
[2023-11-10] MEDS: dexMEDEtomidine 400 MCG in 0.9% Normal Saline (100mL Bag) 96 ML 12.5 MCG CONT INF ×2 (11:05→19:30)
[2023-11-10] MEDS: Ipratropium/Albuterol Sulfate 3 ML AMPUL.NEB INHALATION ×2 (11:58→19:01)
--- NOTE | 2023-11-10 15:02 | CASEMGMT ---
RN CM NOTE: Pt remains intubated. Call placed to pt's son, Dawood, to complete initial RN CM assessment. No answer. VM left asking son to return call to RN CM. Phone number provided. Joan JUNIORN RN CM
[2023-11-10] MEDS: Vital AF 1.2 Cal Liquid 1,000 ML 60 ML GT (18:24)
[2023-11-10] MEDS: Atorvastatin Calcium 40 MG Tablet NG (20:48)
[2023-11-10] MEDS: Acetaminophen 650 MG/20 ML UDC GT (21:09)
[2023-11-10] MEDS: 0.9% Saline Lock 10 ML Syringe IV (21:09)
[2023-11-11] VITALS (52 sets, daily range): BP systolic 76–137; BP diastolic 45–79; PULSE 88–123; RESP 16–41; TEMP 37.7–38.1; O2SAT 89–98; BMI 18.5
[2023-11-11] MEDS: fentaNYL drip 100 ML 7.5 MCG CONT INF (01:42)
[2023-11-11] MEDS: dexMEDEtomidine 400 MCG in 0.9% Normal Saline (100mL Bag) 96 ML 10 MCG CONT INF ×2 (01:43→14:45)
[2023-11-11] MEDS: CHLORHEXIDINE GLUC 2% CLOTH 1 EACH TOWELETTE TOPICAL ×2 (03:43→23:00)
[2023-11-11 03:53] LABS: Absolute Lymphocyte Count 0.54 X10^3/uL (0.83-4.51); Absolute Neutrophil Count 9.2 X10^3/uL (2.0-7.7); Basophil# 0.01 X10^3/uL; Basophil% 0.1 % (0-1); Eosinophil# 0.02 X10^3/uL; Eosinophils% 0.2 % (0-5); Hematocrit 28.8 % (40-54); Hemoglobin 9.5 g/dL (13.0-16.5); Lymphocyte # 0.54 X10^3/ul (0.83-4.51); Lymphocyte % 5.3 % (19-41); Mean Corpuscular Hgb 31.5 pg (27.0-32.0); Mean Corpuscular Volume 95.4 fL (80-94); Mean Platelet Vol. 12.7 fl (6.2-12.0); NRBC Flagged by Analyzer 0.2 % (0-5); Neutrophil # 9.17 X10^3/uL (2.7-7.7); Neutrophil % 90.3 % (47-70); POSITIVE DIFFERENTIAL YES; POSITIVE MORPHOLOGY YES; Platelet Count 161 K/mm3 (150-450); RBC Distribution Width CV 14.2 % (11.6-14.6); RBC Distribution Width SD 49.8 fl (35.1-43.9); Red Blood Count 3.02 M/mm3 (4.6-6.2); White Blood Count 10.2 K/mm3 (4.4-11.0)
[2023-11-11 04:04] LABS: Partial Thromboplast Time 61.2 Seconds (24.1-36.2)
[2023-11-11 04:12] LABS: Anion Gap 6 (5-15); BUN 43 mg/dL (7-18); BUN/Creat Ratio 42.2 RATIO (10-20); Calcium,Total 7.1 mg/dL (8.5-10.1); Chloride 120 mmol/L (98-107); Creatinine, Serum 1.02 mg/dL (0.70-1.30); EST Glomerular Filtration Rate 77 mL/min (>60); Est Glom Filt Rate - Afr Amer 94 mL/min (>60); Estimated Creatinine Clearance 55.27 ml/min; Glucose 161 mg/dL (74-106); Magnesium 2.1 mg/dL (1.6-2.6); Phosphorus 3.7 mg/dL (2.5-4.9); Potassium 3.1 mmol/L (3.5-5.1); Sodium Level 148 mmol/L (136-145)
[2023-11-11 04:24] LABS: Differential Comment SCANNED; Differential Indicated SCAN CRITERIA MET
[2023-11-11] MEDS: Nitroglycerin Oint 1 INCH PACKET 0.5 INCH TD (05:50)
[2023-11-11] MEDS: Piperacil/Tazobactam 3.375 GM in 0.9% Normal Saline (50mL MB+) 50 ML IV ×3 (05:50→20:30)
[2023-11-11] MEDS: Levothyroxine 50 MCG Tablet NG (05:51)
[2023-11-11] MEDS: Ipratropium/Albuterol Sulfate 3 ML AMPUL.NEB INHALATION ×3 (07:06→19:19)
--- NOTE | 2023-11-11 07:07 | PN.CC_ITS ---
Assessment & Plan Assessment/Plan (1) Acute hypercapnic respiratory failure: (2) Severe sepsis: (3) Left lower lobe pneumonia: (4) Non-ST elevated myocardial infarction: PLAN: Plan RECOMMENDATIONS: 1. Continue assist-control mode mechanical ventilation. Wean FiO2 and PEEP to maintain oxygen saturations at or above 90%. 2. Continue empiric antimicrobials, pending finalized culture results. 3. Ongoing electrolyte repletion as needed. 4. Continue tube feeding as tolerated. 5. Continue heparin infusion. 6. Gentle diuresis as tolerated by hemodynamics and renal function. 7. Continue appropriate ICU prophylaxis. 8. Continue scheduled bronchodilators. 9. Obtain follow-up chest x-ray this morning. IMPRESSIONS: 1. Sepsis secondary to possible aspiration pneumonia The patient presented with sepsis due to probable aspiration pneumonia with acute sepsis related organ dysfunction as evidenced by respiratory failure req uiring invasive mechanical ventilatory support. The patient remains on appropriate antimicrobial therapy. He has been weaned from vasopressor support and remains hemodynamically stable. Plan to continue empiric antimicrobials, pending finalized culture results. Continue to wean FiO2 to maintain saturations at or above 90%. Plan for daily paired spontaneous awakening and breathing trials. Continue attempts at diuresis as tolerated by hemodynamics and renal function. 2. Non-ST elevation [place] Most likely secondary to demand ischemia in the setting of #1. Cardiology is following to assist with medical management. Echocardiogram revealed intact, preserved systolic function. 3. Acute combined respiratory failure with sepsis CT of the chest she does show some emphysematous changes with bronchiectasis indicating probable complications of smoking. As such, we will continue scheduled bronchodilator therapy today. 4. History of oral cancer/severe protein malnutrition/GERD Complicates care, management, recovery and prognosis. Continue to monitor for refeeding syndrome given underlying poor nutritional state. Physical therapy to work with the patient. CODE STATUS: DNR Comfort Care arrest TIME: 34 minutes of critical care time, independent of procedures, was spent addressin g the patient's sepsis secondary to aspiration pneumonia, NSTEMI, respiratory failure, review of all data and collaboration with care team. Subjective Subjective The patient was seen and examined at the bedside this morning. Events from the last 24 hours have been reviewed. The patient has had some low-grade fevers overnight but remains otherwise hemodynamically stable on assist control mode of mechanical ventilation with an FiO2 requirement of 40%. The patient continues to develop significant tachycardia and tachypnea with spontaneous breathing trials. The patient is currently documented to be overall net +11 L for the hospitalization. Sodium remains mildly elevated at 148 with a potassium of 3.1. Objective Data Objective Data The patient's most recent lab work, culture data and imaging studies have all been personally reviewed. Surface echocardiogram from July 2021 demonstrated an ejection fraction of 55 to 60%. The patient's sputum culture is currently demonstrating growth of 3+ Staphylococcus aureus and rare Proteus mirabilis and E. coli. Vital Signs: Vital Signs Temp Pulse Resp BP Pulse Ox O2 Del Method O2 Flow Rate 100.3 F H 93 22 H 92/47 L 91 Mechanical Ventilator 10 11/11/23 07:00 11/11/23 07:00 11/11/23 07:00 11/11/23 07:00 11/11/23 07:00 11/11/23 07:00 11/07/23 13:14 FiO2 40 11/11/23 07:00 Oxygen Flow Rate (L/min) 10 Oxygen Delivery Method Mechanical Ventilator Weight: 125 lb 10.616 oz Body Mass Index (BMI) 18.5 Intake & Output: Intake and Output for Last 24 Hours 11/09/23 11/10/23 11/11/23 23:59 23:59 23:59 Intake Total 3057.72 / 3322.72 5489.60 / 5752.73 694.79 / 694.79 Output Total 600 / 600 2049 / 2049 350 / 350 Balance 2457.72 / 2722.72 3439.60 / 3702.73 344.79 / 344.79 Medical Nutrition Assessment Dietitian: Malnutrition Criteria Met Start: 11/08/23 09:33 Freq: Status: Active Protocol: Document 11/10/23 12:51 (Rec: 11/10/23 12:51 [id number]) Nutrition Malnutrition Evidence of Malnutrition Exists Yes Malnutrition (severe): Chronic Evidenced By Suboptimal Energy Intake ( Severe),Physical Changes ( Severe) Clinical Problem Chronic Disease or Condition Related Malnutrition Etiology severe, chronic malnutrition related to inadequate energy intake Signs/Symptoms as evidenced by severe muscle wasting/fat loss evident per physical exam in orbital, clavicle, acromion, and temporal areas; 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 Rec continue to increase by 10mL/hour every 8- 12 hours as tolerated until goal rate of 60 ml/hr is achieved. Concerns for refeeding given malnutrition, will monitor electrolytes closely. [employer] OPERATIONS eval prior to PO diet advancement once extubated. May need to revisit use of PEG for nutrition. Lab / Micro Data Attestation: I reviewed the patient's lab results. 11/11/23 03:45 11/11/23 03:45 Labs: Laboratory Results - last 24 hr 11/10/23 05:10: Differential Comment SCANNED, Reactive Lymphocytes 1+, Free T4 1.18 11/11/23 03:45: WBC 10.2, RBC 3.02 L, Hgb 9.5 L, Hct 28.8 L, MCV 95.4 H, MCH 31.5, MCHC 33.0, RDW Std Deviation 49.8 H, RDW Coeff of Atif 14.2, Plt Count 161, MPV 12.7 H, Immature Gran % (Auto) 2.100 H, Neut % (Auto) 90.3 H, Lymph % (Auto) 5.3 L, [place] % (Auto) 2.0, Eos % (Auto) 0.2, Baso % (Auto) 0.1, Absolute Neuts (auto) 9.2 H, Absolute Lymphs (auto) 0.54 L, Nucleated RBC % 0.2, Differential Comment SCANNED, APTT 61.2 H, Sodium 148 H, Potassium 3.1 L, Chloride 120 H, Carbon Dioxide 22.0, Anion Gap 6, BUN 43 H, Creatinine 1.02, Estim Creat Clear Calc 55.27, Est GFR (MDRD) Af Amer 94, Est GFR (MDRD) Non-Af 77, BUN/Creatinine Ratio 42.2 H, Glucose 161 H, Calcium 7.1 L, Phosphorus 3.7, Magnesium 2.1 Micro: Microbiology 11/07/23 13:10 Blood Culture (Wb) - Anticubital Left Blood Culture - Pr eliminary No growth in 48 hours. 11/07/23 13:00 Blood Culture (Wb) - Anticubital Right Blood Culture - Preliminary No growth in 48 hours. 11/07/23 18:08 Sputum, Induced/Lukens Gram Stain - Final 11/07/23 18:08 Sputum, Induced/Lukens Respiratory Culture - Preliminary Staphylococcus aureus Proteus mirabilis Escherichia coli 11/09/23 11:50 Sputum, Induced/Lukens Gram Stain - Final 11/07/23 13:30 Urine Catheter - Catheter Urine Culture - Final Presumptive E. coli 11/07/23 13:30 Nasal Secretion SARS-CoV-2 & FLU Antigen (Rapid) - Final Radiography Diagnostic Testing: Radiology Impression Echocardiogram 11/07/23 18:46 Interpretation Summary Technically difficult study The estimated ejection fraction is 60 %. Unable to assess diastolic dysfunction. Ordering Physician: Pee George Referring Physician: Jaleesa Bunch Performed By: Domenica Suárez, KIM, RVT Physical Exam Const Constitutional Narrative: Intubated, sedated and mechanically ventilated. No ventilator dyssynchrony noted. Frail and cachectic in appearance. HEENT normocephalic and head/scalp atraumatic HEENT Narrative: Temporal wasting present. Mouth: endotracheal tube in place and OG tube in place Eyes PERRL, EOMs intact bilaterally and conjunctivae normal Neck supple General: trachea midline Chest inspection of chest normal Resp Resp Narrative: Overbreathing set rate on ventilator. Effort and Inspection: tachypneic Auscultation: Negative for rales, rhonchi or wheezes Cardio regular rate and regular rhythm GI normal to inspection, nondistended, normoactive bowel sounds Inspection: GI tube present Extremity no clubbing, cyanosis or edema Skin no rashes or lesions noted Neuro Sensorium / Orientation: sedated on vent Charges/Coding Procedures Hospitalists Procedures: 99123 Critial Care 1st Hr
--- NOTE | 2023-11-11 07:08 | RAD_ITS ---
INDICATION: Respiratory Failure EXAMINATION/TECHNIQUE: X-RAY - XR Chest 1 View COMPARISON: 11/07/2023. FINDINGS: LINES/DEVICES: PICC line is seen on the left side its tip is at the lower part of the superior vena cava. Endotracheal tube is seen its tip is 3 cm superior to the [place]. An NG tube is seen its tip is below the diaphragm is in good position. LUNGS: Patchy groundglass opacities are seen in the lung bases bilaterally suggesting bilateral pneumonia. There is hyperinflation both lungs suggesting COPD. There is pleural-parenchymal scarring in the right lung apex. MEDIASTINUM AND CARDIOVASCULAR STRUCTURES: Cardiac silhouette not enlarged. Central airways and mediastinal contour are unremarkable. BONES AND SOFT TISSUES: Unremarkable. RAD/Chest 1 View (Portable) IMPRESSION: Bibasilar pneumonia it is worse when compared to the previous study. COPD. Electronically Signed: Kaleigh Parra MD at 8:07 EST ,
[2023-11-11] MEDS: Chlorhexidine 15 ML PO ×2 (08:16→20:31)
[2023-11-11] MEDS: TICAGRELOR 90 MG TABLET NG ×2 (08:16→20:30)
[2023-11-11] MEDS: Aspirin 81 MG TAB.CHEW NG (08:16)
[2023-11-11] MEDS: Potassium Chloride 10mEq/100mL 10 MEQ/100 ML IV.SOLN. 100 MEQ IV BOLUS ×4 (08:16→11:04)
[2023-11-11] MEDS: Potassium Chloride Oral Soln 20 MEQ/15 ML UDC 60 MEQ GT (08:16)
[2023-11-11] MEDS: Senna Tablet 1 TABLET PO ×2 (08:17→20:30)
[2023-11-11] MEDS: Polyethylene Glycol 3350 17 GM PACKET PO ×2 (08:17→20:30)
[2023-11-11] MEDS: Carvedilol 3.125 MG TABLET NG ×2 (08:17→20:30)
[2023-11-11] MEDS: Pantoprazole Sodium 40 MG in 0.9% Normal Saline (100mL MB+) 100 ML 330 MG IV ×2 (08:20→20:29)
[2023-11-11] MEDS: Furosemide 40 MG/4 ML Vial IV (08:21)
--- NOTE | 2023-11-11 08:21 | PCM.PN.HOSP ---
Reason for Visit Reason for Visit: Shortness of breath Subjective Subjective No issues overnight. Patient continues to become tachycardic and tachypneic while on breathing trials. After his breathing trial today his sats dropped and he required increasing FiO2 to 40%. Objective Data Objective Data Vital Signs: Vital Signs Temp Pulse Resp BP Pulse Ox O2 Del Method O2 Flow Rate 100.2 F H 95 22 H 96/48 L 92 Mechanical Ventilator 10 11/11/23 08:00 11/11/23 08:00 11/11/23 08:00 11/11/23 08:00 11/11/23 08:00 11/11/23 08:00 11/07/23 13:14 FiO2 40 11/11/23 08:00 Oxygen Flow Rate (L/min) 10 Oxygen Delivery Method Mechanical Ventilator Weight: 57 kg Body Mass Index (BMI) 18.5 Intake & Output: Intake and Output for Last 24 Hours 11/09/23 11/10/23 11/11/23 23:59 23:59 23:59 Intake Total 3057.72 / 3322.72 5489.60 / 5752.73 944.79 / 944.79 Output Total 600 / 600 2049 / 2049 350 / 350 Balance 2457.72 / 2722.72 3439.60 / 3702.73 594.79 / 594.79 Medical Nutrition Assessment Dietitian: Malnutrition Criteria Met Start: 11/08/23 09:33 Freq: Status: Active Protocol: Document 11/10/23 12:51 LO (Rec: 11/10/23 12:51 LO [id number]) Nutrition Malnutrition Evidence of Malnutrition Exists Yes Malnutrition (severe): Chronic Evidenced By Suboptimal Energy Intake ( Severe),Physical Changes ( Severe) Clinical Problem Chronic Disease or Condition Related Malnutrition Etiology severe, chronic malnutrition related to inadequate energy intake Signs/Symptoms as evidenced by severe muscle wasting/fat loss evident per physical exam in orbital, clavicle, acromion, and temporal areas; 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 Rec continue to increase by 10mL/hour every 8- 12 hours as tolerated until goal rate of 60 ml/hr is achieved. Concerns for refeeding given malnutrition, will monitor electrolytes closely. BUSINESS LAWYER eval prior to PO diet advancement once extubated. May need to revisit use of PEG for nutrition. Lab / Micro Data 11/11/23 03:45 11/11/23 03:45 Labs: Laboratory Results - last 24 hr 11/11/23 03:45: WBC 10.2, RBC 3.02 L, Hgb 9.5 L, Hct 28.8 L, MCV 95.4 H, MCH 31.5, MCHC 33.0, RDW Std Deviation 49.8 H, RDW Coeff of Atif 14.2, Plt Count 161, MPV 12.7 H, Immature Gran % (Auto) 2.100 H, Neut % (Auto) 90.3 H, Lymph % (Auto) 5.3 L, [place] % (Auto) 2.0, Eos % (Auto) 0.2, Baso % (Auto) 0.1, Absolute Neuts (auto) 9.2 H, Absolute Lymphs (auto) 0.54 L, Nucleated RBC % 0.2, Differential Comment SCANNED, APTT 61.2 H, Sodium 148 H, Potassium 3.1 L, Chloride 120 H, Carbon Dioxide 22.0, Anion Gap 6, BUN 43 H, Creatinine 1.02, Estim Creat Clear Calc 55.27, Est GFR (MDRD) Af Amer 94, Est GFR (MDRD) Non-Af 77, BUN/Creatinine Ratio 42.2 H, Glucose 161 H, Calcium 7.1 L, Phosphorus 3.7, Magnesium 2.1 Micro: Microbiology 11/07/23 13:10 Blood Culture (Wb) - Anticubital Left Blood Culture - Preliminary No growth in 48 hours. 11/07/23 13:00 Blood Culture (Wb) - Anticubital Right Blood Culture - Preliminary No growth in 48 hours. 11/07/23 18:08 Sputum, Induced/Lukens Gram Stain - Final 11/07/23 18:08 Sputum, Induced/Lukens Respiratory Culture - Preliminary Staphylococcus aureus Proteus mirabilis Escherichia coli 11/09/23 11:50 Sputum, Induced/Lukens Gram Stain - Final 11/07/23 13:30 Urine Catheter - Catheter Urine Culture - Final Presumptive E. coli 11/07/23 13:30 Nasal Secretion SARS-CoV-2 & FLU Antigen (Rapid) - Final Radiography Diagnostic Testing: Radiology Impression Chest X-Ray 11/11/23 07:08 IMPRESSION: Bibasilar pneumonia it is worse when compared to the previous study. COPD. Electronically Signed: Kaleigh Parra MD at 8:07 EST Reading Location ID and State: [facility] / [place] Tel , Service support , Physical Exam Const alert and no apparent distress; Negative for average body habitus, healthy appearing or well nourished Constitutional Narrative: Cachectic appearing, upper middle-aged, white male, lying in bed intubated and sedated, appears much older than stated age General Appearance: disheveled and frail HEENT normocephalic, head/scalp atraumatic and moist oral mucous membranes HEENT Narrative: Edentulous, ET tube, OG in place, temporal wasting Resp normal respiratory effort, no retractions, no use of accessory muscles and clear to auscultation bilaterally Resp Narrative: Diffusely diminished but currently clear Auscultation: Negative for crackles, rales, rhonchi or wheezes Cardio regular rhythm, S1 normal heart sound, S2 normal heart sound, no murmurs, no rub, no gallops and no clicks Cardio Narrative: Mild tachycardia with heart rates fluctuating between 100-110 GI normal to inspection, nondistended, normoactive bowel sounds, soft to palpation, non-tender and non-distended; Negative for hepatosplenomegaly GI Narrative: Scaphoid abdomen Extremity no clubbing, cyanosis or edema Extremity Narrative: Pedal pulses are 2+, significantly reduced lean muscle mass, left upper extremity PICC is clean and dry Neuro Neuro Narrative: Patient is intubated and sedated on the ventilator Psych Psych Narrative: Unable to assess due to sedation/intubation Assessment & Plan Assessment/Plan (1) Acute respiratory failure with hypoxia and hypercapnia: (2) Protein calorie malnutrition: (3) Severe sepsis: (4) Left lower lobe pneumonia: (5) Dehydration: (6) Non-ST elevated myocardial infarction: (7) Hypernatremia: (8) Hypokalemia: (9) Lactic acidosis: (10) Abnormal results of thyroid function studies: (11) Hypophosphatemia: (12) Anemia: PLAN: Plan Acute hypoxic hypercapnic respiratory failure secondary to polymicrobial pneumonia (Staph aureus/and 2 gram-negative rods) -Patient's oxygen saturations were extremely low on presentation requiring nonrebreather with eventual intubation -Initial blood gas showed a pH of 6.97 which is consistent with severe acidosis and found to be respiratory -Sputum culture with Staph aureus, Proteus, and E. coli -Staph is MSSA so discontinue vancomycin -Proteus is sensitive to Zosyn so we will continue -Patient remains on mechanical ventilation with an FiO2 of 40% -Continue diuresis per pulmonary critical care medicine as hemodynamics allow -Will need speech consultation after extubation -Pulmonary/critical care medicine following-appreciate input Septic shock -Secondary to polymicrobial pneumonia -Urine culture is showing E. coli but colony count is not significant -Blood cultures are with no growth at 48 hours -Narrow to Zosyn only to cover E. coli and Proteus -Today is day 4 of 7 for antibiotics Hypernatremia/hyperchloremia -Seems to be stabilizing however slight rise today so we will increase free water -Continue free water and tube feed but increase to 300 cc every 4 hours from 250 cc every 4 hours -Received D5W x 1 L on 11/09/2023 -Repeat lab in a.m. Hypokalemia -Oral potassium replacement -Recheck level in a.m. Anemia -Baseline hemoglobin is unclear -Hemoglobin has trended down however he is over 11 L positive for his hospitalization -If continues to trend down will need to pursue further workup given the fact the patient is on a heparin drip, Brilinta, and aspirin -Discontinue heparin drip as soon as cardiology allows Abnormal TSH -TSH was undetectable however free T4 is normal -Suspect euthyroid sick syndrome -Okay to continue levothyroxine NSTEMI -Suspect related to hypoxia and acidosis causing worsening ischemia and known coronary artery disease -Cardiac catheterization from 2020 was reviewed and showed a critical lesion in the proximal and mid right coronary artery which was treated with drug-eluting stents as well as severe diffuse LAD disease and had very tight lesion in the proximal first diagonal -Plan at this time is to continue medical therapy as patient is not currently a candidate for invasive options however may need cardiac catheterization once respiratory issues and sepsis is resolved -Echocardiogram demonstrated normal EF at 60% with no identifiable regional wall motion abnormalities however the study was difficult -Continue heparin drip--> awaiting cardiology input to discontinue -Continue carvedilol 3.125 twice daily -Continue lisinopril -Continue aspirin and Brilinta per cardiology documentation -Continue Nitropaste as ordered Hypophosphatemia -Resolved Severe malnutrition -Dietitian is following -Tube feeds running and patient tolerating well -Oral supplementations CAD/HTN/HPL -Continue home carvedilol -Restart home ticagrelor -Restart home aspirin -Restart home statin -Restart home lisinopril -Cardiac catheterization from 2020 was reviewed and showed a critical lesion in the proximal and mid right coronary artery which was treated with drug-eluting stents as well as severe diffuse LAD disease and had very tight lesion in the proximal first diagonal -Echo is pending GERD -Continue PPI History of head neck cancer -Remote -Previous radiation could contribute to swallowing difficulties -Will ask speech therapy to evaluate the patient prior to discharge after extubated DVT prophylaxis -Continue heparin drip CODE STATUS -DNR CCA with short-term intubation Charges/Coding Visit Charges Inpatient E&M: 74574 Subs Hosp L2
[2023-11-11] MEDS: dexMEDEtomidine 400 MCG in 0.9% Normal Saline (100mL Bag) 96 ML 16.3 MCG CONT INF (08:44)
[2023-11-11 10:04] LABS: Hemoglobin A1c 5.6 % (3.8-5.6)
--- NOTE | 2023-11-11 10:10 | CASEMGMT ---
LEONARD YA NOTE: No return call from son. Call placed to son again at this time. No answer. VM left for son to return call to this RN CM. Phone # provided. Joan JUNIORN LEONARD CM
[2023-11-11] MEDS: HEPARIN/D5w 25,000 UNITS 25,000 UNITS/250 ML IV.SOLN. 7.5 UNITS CONT INF (10:16)
[2023-11-11] MEDS: fentaNYL drip 100 ML 12.5 MCG CONT INF ×2 (10:16→18:22)
[2023-11-11] MEDS: Vital AF 1.2 Cal Liquid 1,000 ML 60 ML GT (10:55)
[2023-11-11] MEDS: 0.45% Normal Saline 1,000 ML 999 ML IV (13:38)
[2023-11-11] MEDS: Norepinephrine 8 MG in 0.9% Normal Saline (250mL Bag) 242 ML 9.4 MG CONT INF (14:46)
[2023-11-11] MEDS: Atorvastatin Calcium 40 MG Tablet NG (20:30)
[2023-11-11] MEDS: dexMEDEtomidine 400 MCG in 0.9% Normal Saline (100mL Bag) 96 ML 12.5 MCG CONT INF (22:24)
[2023-11-12] VITALS (46 sets, daily range): BP systolic 74–157; BP diastolic 44–106; PULSE 77–99; RESP 16–33; TEMP 36.8–37.8; O2SAT 87–100; BMI 19.3
--- NOTE | 2023-11-12 00:01 | EKG12_ITS ---
Test Reason : Blood Pressure : / mmHG Vent. Rate : 088 BPM Atrial Rate : 088 BPM P-R Int : 150 ms QRS Dur : 086 ms QT Int : 360 ms P-R-T Axes : 073 059 125 degrees QTc Int : 435 ms Normal sinus rhythm T wave abnormality, consider anterolateral ischemia Abnormal ECG When compared with ECG of 08-NOV-2023 09:55, Sinus rhythm has replaced Atrial fibrillation Non-specific change in ST segment in Anterior leads Inverted T waves have replaced nonspecific T wave abnormality in Lateral leads Confirmed by JOHNATHON GUILLEN, CLIFF ([id number]), publishing editor EIDS WALLS ([id number]) on 11/16/2023 12:57:48 PM Referred By: Chi Terrell Confirmed By:ARIADNA DIEGO MD
[2023-11-12] MEDS: 0.9% Saline Lock 10 ML Syringe IV ×3 (02:45→07:52)
[2023-11-12] MEDS: fentaNYL drip 100 ML 12.5 MCG CONT INF (02:45)
[2023-11-12 03:53] LABS: Absolute Lymphocyte Count 0.68 X10^3/uL (0.83-4.51); Absolute Neutrophil Count 13.6 X10^3/uL (2.0-7.7); Basophil# 0.01 X10^3/uL; Basophil% 0.1 % (0-1); Eosinophil# 0.04 X10^3/uL; Eosinophils% 0.3 % (0-5); Hematocrit 27.3 % (40-54); Lymphocyte # 0.68 X10^3/ul (0.83-4.51); Lymphocyte % 4.6 % (19-41); Mean Corpuscular Hgb 30.9 pg (27.0-32.0); Mean Corpuscular Volume 93.8 fL (80-94); Mean Platelet Vol. 12.7 fl (6.2-12.0); Monocyte# 0.26 X10^3/uL; Monocyte% 1.8 % (0-10); NRBC Flagged by Analyzer 0 % (0-5); Neutrophil % 91.5 % (47-70); POSITIVE MORPHOLOGY YES; Platelet Count 196 K/mm3 (150-450); RBC Distribution Width CV 14.3 % (11.6-14.6); RBC Distribution Width SD 48.6 fl (35.1-43.9); Red Blood Count 2.91 M/mm3 (4.6-6.2); White Blood Count 14.8 K/mm3 (4.4-11.0)
[2023-11-12 04:02] LABS: Differential Indicated SCAN CRITERIA MET
[2023-11-12 04:08] LABS: Anion Gap 4 (5-15); BUN 42 mg/dL (7-18); BUN/Creat Ratio 42.3 RATIO (10-20); Calcium,Total 7.1 mg/dL (8.5-10.1); Chloride 120 mmol/L (98-107); Creatinine, Serum 0.99 mg/dL (0.70-1.30); EST Glomerular Filtration Rate 80 mL/min (>60); Est Glom Filt Rate - Afr Amer 97 mL/min (>60); Estimated Creatinine Clearance 61.04 ml/min; Glucose 191 mg/dL (74-106); Potassium 3.5 mmol/L (3.5-5.1); Sodium Level 147 mmol/L (136-145)
[2023-11-12 04:30] LABS: Differential Comment SCANNED; Target Cells 2+
[2023-11-12] MEDS: Piperacil/Tazobactam 3.375 GM in 0.9% Normal Saline (50mL MB+) 50 ML IV ×3 (05:11→22:07)
[2023-11-12] MEDS: Levothyroxine 50 MCG Tablet NG (05:11)
[2023-11-12 05:24] LABS: Partial Thromboplast Time 62.4 Seconds (24.1-36.2)
[2023-11-12] MEDS: dexMEDEtomidine 400 MCG in 0.9% Normal Saline (100mL Bag) 96 ML 10 MCG CONT INF (05:49)
--- NOTE | 2023-11-12 06:35 | PCM.PN.INT ---
Assessment & Plan Assessment/Plan (1) Acute hypercapnic respiratory failure: (2) Severe sepsis: (3) Left lower lobe pneumonia: (4) Non-ST elevated myocardial infarction: PLAN: Plan RECOMMENDATIONS: 1. Continue assist-control mode mechanical ventilation. Wean FiO2 and PEEP to maintain oxygen saturations at or above 90%. 2. Continue antimicrobials. 3. Ongoing electrolyte repletion as needed. 4. Continue tube feeding as tolerated. 5. Attempt diuresis, if feasible, from a hemodynamic perspective. 6. Continue appropriate ICU prophylaxis. 7. Continue scheduled bronchodilators. IMPRESSIONS: 1. Sepsis secondary to possible aspiration pneumonia The patient presented with sepsis due to probable aspiration pneumonia with acute sepsis related organ dysfunction as evidenced by respiratory failure requiring invasive mechanical ventilatory support. The patient remains on appropriate antimicrobial therapy. He has been weaned from vasopressor support and remains hemodynamically stable. Plan to continue empiric antimicrobials, pending finalized culture results. Continue to wean FiO2 to maintain saturations at or above 90%. Plan for daily paired spontaneous awakening and breathing trials. Continue attempts at diuresis as tolerated by hemodynamics and renal function. 2. Non-ST elevation PR Most likely secondary to demand ischemia in the setting of #1. Cardiology is following to assist with medical management. Echocardiogram revealed intact, preserved systolic function. 3. Acute combined respiratory failure with sepsis CT of the chest she does show some emphysematous changes with bronchiectasis indicating probable complications of smoking. As such, we will continue scheduled bronchodilator therapy today. 4. History of oral cancer/severe protein malnutrition/GERD Complicates care, management, recovery and prognosis. Continue to monitor for refeeding syndrome given underlying poor nutritional state. Physical therapy to work with the patient. CODE STATUS: DNR Comfort Care arrest TIME: 32 minutes of critical care time, independent of procedures, was spent addressing the patient's sepsis secondary to aspiration pneumonia, NSTEMI, respiratory failure, review of all data and collaboration with care team. Subjective Subjective The patient was seen and examined at the bedside this morning. Events from the last 24 hours have been reviewed. The patient was able to be weaned off of Levophed this morning. He seems to be quite sensitive to fentanyl. He continues to fail his spontaneous breathing trial on account of worsening tachypnea and tachycardia. The patient is documented to be overall net +14 L for the hospitalization. However, attempts at diuresis have been limited due to his hemodynamic status. Objective Data Objective Data The patient's most recent lab work, culture data and imaging studies have all been personally reviewed. Surface echocardiogram from July 2021 demonstrated an ejection fraction of 55 to 60%. The patient's sputum culture is currently demonstrating growth of 3+ Staphylococcus aureus and rare Proteus mirabilis and E. coli. Vital Signs: Vital Signs Temp Pulse Resp BP Pulse Ox O2 Del Method O2 Flow Rate 98.6 F 88 30 H 157/69 H 96 Mechanical Ventilator 35 11/12/23 06:00 11/12/23 06:15 11/12/23 06:00 11/12/23 06:15 11/12/23 06:00 11/12/23 06:00 11/12/23 04:00 FiO2 35 11/12/23 06:00 Oxygen Flow Rate (L/min) 35 Oxygen Delivery Method Mechanical Ventilator Weight: 131 lb 6.328 oz Body Mass Index (BMI) 19.3 Intake & Output: Intake and Output for Last 24 Hours 11/10/23 11/11/23 11/12/23 23:59 23:59 23:59 Intake Total 5489.60 / 5752.73 4383.23 / 4401.33 1712.22 / 1712.22 Output Total 0 / 0 2200 / 2200 400 / 400 Balance 3439.60 / 3702.73 2183.23 / 2201.33 1312.22 / 1312.22 Medical Nutrition Assessment Dietitian: Malnutrition Criteria Met Start: 11/08/23 09:33 Freq: Status: Active Protocol: Document 11/11/23 09:25 AG (Rec: 11/11/23 09:25 AG Desktop) Nutrition Malnutrition Evidence of Malnutrition Exists Yes Malnutrition (severe): Chronic Evidenced By Suboptimal Energy Intake ( Severe),Physical Changes ( Severe) Clinical Problem Chronic Disease or Condition Related Malnutrition Etiology severe, chronic malnutrition related to inadequate energy intake Signs/Symptoms as evidenced by severe muscle wasting/fat loss evident per physical exam in orbital, clavicle, acromion, and temporal areas; 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 WAREHOUSE RECEIVER eval prior to PO diet advancement once extubated. May need to revisit use of PEG for nutrition. Lab / Micro Data Attestation: I reviewed the patient's lab results. 11/12/23 03:40 11/12/23 03:40 Labs: Laboratory Results - last 24 hr 11/11/23 03:45: Hemoglobin A1c 5.6 11/12/23 03:40: WBC 14.8 H, RBC 2.91 L, Hgb 9.0 L, Hct 27.3 L, MCV 93.8, MCH 30.9, MCHC 33.0, RDW Std Deviation 48.6 H, RDW Coeff of Atif 14.3, Plt Count 196, MPV 12.7 H, Immature Gran % (Auto) 1.700 H, Neut % (Auto) 91.5 H, Lymph % (Auto) 4.6 L, [place] % (Auto) 1.8, Eos % (Auto) 0.3, Baso % (Auto) 0.1, Absolute Neuts (auto) 13.6 H, Absolute Lymphs (auto) 0.68 L, Nucleated RBC % 0, Differential Comment SCANNED, Target Cells 2+, APTT 62.4 H, Sodium 147 H, Potassium 3.5, Chloride 120 H, Carbon Dioxide 23.0, Anion Gap 4 L, BUN 42 H, Creatinine 0.99, Estim Creat Clear Calc 61.04, Est GFR (MDRD) Af Amer 97, Est GFR (MDRD) Non-Af 80, BUN/Creatinine Ratio 42.3 H, Glucose 191 H, Calcium 7.1 L Micro: Microbiology 11/09/23 11:50 Sputum, Induced/Lukens Gram Stain - Final 11/09/23 11:50 Sputum, Induced/Lukens Respiratory Culture - Preliminary Staphylococcus aureus Yeast, not Pina albicans 11/07/23 18:08 Sputum, Induced/Lukens Gram Stain - Final 11/07/23 18:08 Sputum, Induced/Lukens Respiratory Culture - Final Staphylococcus aureus Proteus mirabilis Escherichia coli 11/07/23 13:10 Blood Culture (Wb) - Anticubital Left Blood Culture - Preliminary No growth in 48 hours. 11/07/23 13:00 Blood Culture (Wb) - Anticubital Right Blood Culture - Preliminary No growth in 48 hours. 11/07/23 13:30 Urine Catheter - Catheter Urine Culture - Final Presumptive E. coli 11/07/23 13:30 Nasal Secretion SARS-CoV-2 & FLU Antigen (Rapid) - Final Radiography Diagnostic Testing: Radiology Impression Chest X-Ray 11/11/23 07:08 IMPRESSION: Bibasilar pneumonia it is worse when compared to the previous study. COPD. Electronically Signed: Kaleigh Parra MD at 8:07 EST , Physical Exam Const Constitutional Narrative: Intubated, sedated and mechanically ventilated. No ventilator dyssynchrony noted. Frail and cachectic in appearance. HEENT normocephalic and head/scalp atraumatic HEENT Narrative: Temporal wasting present. Mouth: endotracheal tube in place and OG tube in place Eyes PERRL, EOMs intact bilaterally and conjunctivae normal Neck supple General: trachea midline Chest inspection of chest normal Resp Resp Narrative: Overbreathing set rate on ventilator. Effort and Inspection: tachypneic Auscultation: Negative for rales, rhonchi or wheezes Cardio regular rate and regular rhythm GI normal to inspection, nondistended, normoactive bowel sounds Inspection: GI tube present Extremity no clubbing, cyanosis or edema Skin no rashes or lesions noted Neuro Sensorium / Orientation: sedated on vent Charges/Coding Procedures Hospitalists Procedures: [id number] Critical Care 1st Hr
[2023-11-12] MEDS: Ipratropium/Albuterol Sulfate 3 ML AMPUL.NEB INHALATION ×3 (07:11→18:38)
[2023-11-12] MEDS: Aspirin 81 MG TAB.CHEW NG (07:52)
[2023-11-12] MEDS: TICAGRELOR 90 MG TABLET NG ×2 (07:52→21:34)
[2023-11-12] MEDS: Carvedilol 3.125 MG TABLET NG (07:52)
[2023-11-12] MEDS: Potassium Chloride Oral Soln 20 MEQ/15 ML UDC 40 MEQ PO (08:01)
[2023-11-12 09:02] LABS: Ferritin 1496 ng/mL (26-388); Iron 13 ug/dL (65-175); Iron Binding Capacity,Total 131 ug/dL (250-450); PERCENT IRON SATURATION 9.9 % (15.0-55.0)
[2023-11-12] MEDS: CHLORHEXIDINE GLUC 2% CLOTH 1 EACH TOWELETTE TOPICAL (09:36)
[2023-11-12] MEDS: Furosemide 40 MG/4 ML Vial IV (09:36)
[2023-11-12] MEDS: Chlorhexidine 15 ML PO ×2 (09:36→21:34)
[2023-11-12] MEDS: Pantoprazole Sodium 40 MG in 0.9% Normal Saline (100mL MB+) 100 ML 330 MG IV ×2 (10:04→21:39)
[2023-11-12] MEDS: Vital AF 1.2 Cal Liquid 1,000 ML 60 ML GT (10:04)
--- NOTE | 2023-11-12 12:30 | PCM.PN.HOSP ---
Reason for Visit Reason for Visit: Shortness of breath Subjective Subjective Patient continues to get tachypneic and tachycardic when he is on his breathing trial. Was placed back on a rate this morning and will try again tomorrow. May be a very difficult extubation Objective Data Objective Data Vital Signs: Vital Signs Temp Pulse Resp BP Pulse Ox O2 Del Method O2 Flow Rate 98.3 F 86 29 H 111/61 93 Mechanical Ventilator 35 11/12/23 10:00 11/12/23 10:00 11/12/23 10:00 11/12/23 10:00 11/12/23 10:00 11/12/23 11:59 11/12/23 04:00 FiO2 35 11/12/23 11:59 Oxygen Flow Rate (L/min) 35 Oxygen Delivery Method Mechanical Ventilator Weight: 59.6 kg Body Mass Index (BMI) 19.3 Intake & Output: Intake and Output for Last 24 Hours 11/10/23 11/11/23 11/12/23 23:59 23:59 23:59 Intake Total 5489.60 / 5752.73 4383.23 / 4401.33 2671.81 / 2671.81 Output Total 0 / 2049 2200 / 2200 1000 / 1000 Balance 3439.60 / 3702.73 2183.23 / 2201.33 1671.81 / 1671.81 Medical Nutrition Assessment Dietitian: Malnutrition Criteria Met Start: 11/08/23 09:33 Freq: Status: Active Protocol: Document 11/12/23 09:58 AG (Rec: 11/12/23 09:58 AG Desktop) Nutrition Malnutrition Evidence of Malnutrition Exists Yes Malnutrition (severe): Chronic Evidenced By Suboptimal Energy Intake ( Severe),Physical Changes ( Severe) Clinical Problem Chronic Disease or Condition Related Malnutrition Etiology severe, chronic malnutrition related to inadequate energy intake Signs/Symptoms as evidenced by severe muscle wasting/fat loss evident per physical exam in orbital, clavicle, acromion, and temporal areas; estimated PO intake meeting <75% of 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 GRAIN OILSEED OR PASTURE FARM MANAGER eval prior to PO diet advancement once extubated. May need to revisit use of PEG for nutrition. Lab / Micro Data 11/12/23 03:40 11/12/23 03:40 Labs: Laboratory Results - last 24 hr 11/12/23 03:40: WBC 14.8 H, RBC 2.91 L, Hgb 9.0 L, Hct 27.3 L, MCV 93.8, MCH 30.9, MCHC 33.0, RDW Std Deviation 48.6 H, RDW Coeff of Atif 14.3, Plt Count 196, MPV 12.7 H, Immature Gran % (Auto) 1.700 H, Neut % (Auto) 91.5 H, Lymph % (Auto) 4.6 L, [place] % (Auto) 1.8, Eos % (Auto) 0.3, Baso % (Auto) 0.1, Absolute Neuts (auto) 13.6 H, Absolute Lymphs (auto) 0.68 L, Nucleated RBC % 0, Differential Comment SCANNED, Target Cells 2+, APTT 62.4 H, Sodium 147 H, Potassium 3.5, Chloride 120 H, Carbon Dioxide 23.0, Anion Gap 4 L, BUN 42 H, Creatinine 0.99, Estim Creat Clear Calc 61.04, Est GFR (MDRD) Af Amer 97, Est GFR (MDRD) Non-Af 80, BUN/Creatinine Ratio 42.3 H, Glucose 191 H, Calcium 7.1 L 11/12/23 07:50: Iron 13 L, TIBC 131 L, Iron Saturation 9.9 L, Ferritin 1496 H Micro: Microbiology 11/09/23 11:50 Sputum, Induced/Lukens Gram Stain - Final 11/09/23 11:50 Sputum, Induced/Lukens Respiratory Culture - Final Staphylococcus aureus Yeast, not Pina albicans Presumptive C albicans 11/07/23 18:08 Sputum, Induced/Lukens Gram Stain - Final 11/07/23 18:08 Sputum, Induced/Lukens Respiratory Culture - Final Staphylococcus aureus Proteus mirabilis Escherichia coli 11/07/23 13:10 Blood Culture (Wb) - Anticubital Left Blood Culture - Preliminary No growth in 48 hours. 11/07/23 13:00 Blood Culture (Wb) - Anticubital Right Blood Culture - Preliminary No growth in 48 hours. 11/07/23 13:30 Urine Catheter - Catheter Urine Culture - Final Presumptive E. coli 11/07/23 13:30 Nasal Secretion SARS-CoV-2 & FLU Antigen (Rapid) - Final Physical Exam Const alert and no apparent distress; Negative for average body habitus, healthy appearing or well nourished Constitutional Narrative: Cachectic appearing, upper middle-aged, white male, lying in bed intubated and sedated, appears much older than stated age General Appearance: disheveled and frail Nutritional Appearance: cachectic HEENT normocephalic, head/scalp atraumatic and moist oral mucous membranes HEENT Narrative: Edentulous, ET tube in place Resp no retractions, no use of accessory muscles and clear to auscultation bilaterally Resp Narrative: Tachypnea diffusely diminished but currently clear Auscultation: Negative for crackles, rales, rhonchi or wheezes Cardio regular rate, regular rhythm, S1 normal heart sound, S2 normal heart sound, no murmurs, no rub, no gallops and no clicks Cardio Narrative: Mild tachycardia with heart rates fluctuating between 100-110 GI normal to inspection, nondistended, normoactive bowel sounds, soft to palpation, non-tender and non-distended; Negative for hepatosplenomegaly GI Narrative: Scaphoid abdomen, G-tube in place Extremity no clubbing, cyanosis or edema Extremity Narrative: Pedal pulses are 2+, significantly reduced lean muscle mass, left upper extremity PICC is clean and dry Neuro Neuro Narrative: Patient is intubated and sedated on the ventilator Psych Psych Narrative: Unable to assess due to sedation/intubation Assessment & Plan Assessment/Plan (1) Acute respiratory failure with hypoxia and hypercapnia: (2) Protein calorie malnutrition: (3) Severe sepsis: (4) Left lower lobe pneumonia: (5) Dehydration: (6) Non-ST elevated myocardial infarction: (7) Hypernatremia: (8) Hypokalemia: (9) Lactic acidosis: (10) Abnormal results of thyroid function studies: (11) Hypophosphatemia: (12) Anemia: PLAN: Plan Acute hypoxic hypercapnic respiratory failure secondary to polymicrobial pneumonia (Staph aureus/and 2 gram-negative rods) -Patient's oxygen saturations were extremely low on presentation requiring nonrebreather with eventual intubation -Initial blood gas showed a pH of 6.97 which is consistent with severe acidosis and found to be respiratory -Sputum culture with Staph aureus, Proteus, and E. coli with repeat culture from the continue to show staph and Pina -Staph is MSSA so discontinue vancomycin -Proteus is sensitive to Zosyn so we will continue --> day 5 of 7 -Patient remains on mechanical ventilation with an FiO2 of 40% -Continue diuresis per pulmonary critical care medicine as hemodynamics allow -Will need speech consultation after extubation -Pulmonary/critical care medicine following-appreciate input Septic shock -Secondary to polymicrobial pneumonia -Blood pressure dropped overnight did require reinitiation of Levophed however it is off at this time -Urine culture is showing E. coli but colony count is not significant -Blood cultures are with no growth at 48 hours -Narrow to Zosyn only to cover E. coli and Proteus -Today is day 5 of 7 for antibiotics Hypernatremia/hyperchloremia -Stable and currently 147 -Continue free water with tube feed at 300 cc every 4 hours -Received D5W x 1 L on 11/09/2023 -Repeat lab in a.m. Hypokalemia -Resolved however potassium is only 3.5 and patient will be getting some IV Lasix today per pulmonary medicine so we will give another 40 mill equivalents via his G-tube -Recheck level in a.m. Anemia -Baseline hemoglobin is unclear however hemoglobin has been trending down -Hemoglobin has trended down however he is over 11 L positive for his hospitalization -Check guaiac stool -Discontinue heparin drip -SCDs until we can prove that his guaiac is negative and then will restart Lovenox then -If continues to trend down will need to pursue further workup given the fact the patient is on a heparin drip, Brilinta, and aspirin -Discontinue heparin drip as soon as cardiology allows Abnormal TSH -TSH was undetectable however free T4 is normal -Suspect euthyroid sick syndrome -Okay to continue levothyroxine NSTEMI -Suspect related to hypoxia and acidosis causing worsening ischemia and known coronary artery disease -Cardiac catheterization from 2020 was reviewed and showed a critical lesion in the proximal and mid right coronary artery which was treated with drug-eluting stents as well as severe diffuse LAD disease and had very tight lesion in the proximal first diagonal -Plan at this time is to continue medical therapy as patient is not currently a candidate for invasive options however may need cardiac catheterization once respiratory issues and sepsis is resolved -Echocardiogram demonstrated normal EF at 60% with no identifiable regional wall motion abnormalities however the study was difficult -Discontinue heparin drip -Hold carvedilol 3.125 twice daily -Hold lisinopril -Continue aspirin and Brilinta per cardiology documentation Severe malnutrition -Dietitian is following -Tube feeds running and patient tolerating well -Oral supplementations CAD/HTN/HPL -Hold home carvedilol due to hypotension -Restart home ticagrelor -Restart home aspirin -Restart home statin -Hold home lisinopril secondary to hypotension -Cardiac catheterization from 2020 was reviewed and showed a critical lesion in the proximal and mid right coronary artery which was treated with drug-eluting stents as well as severe diffuse LAD disease and had very tight lesion in the proximal first diagonal -Echo is pending GERD -Continue PPI History of head neck cancer -Remote -Previous radiation could contribute to swallowing difficulties -Will ask speech therapy to evaluate the patient prior to discharge after extubated DVT prophylaxis -SCDs -Heparin drip discontinued and if guaiac is negative will start subcu Lovenox CODE STATUS -DNR CCA with short-term intubation Charges/Coding Visit Charges Inpatient E&M: 24036 Subs Hosp L2
[2023-11-12] MEDS: dexMEDEtomidine 400 MCG in 0.9% Normal Saline (100mL Bag) 96 ML 12.5 MCG CONT INF ×2 (14:18→21:31)
[2023-11-12] MEDS: Menthol/Lanolin/Calamine/Znox 113 GM Tube 1 APPLIC TOPICAL ×2 (15:11→21:42)
[2023-11-12] MEDS: fentaNYL drip 100 ML 20 MCG CONT INF ×2 (16:49→21:49)
--- NOTE | 2023-11-12 16:57 | EX.PCM.CON.G ---
HPI Consult Data Date of Consult: 11/12/23 HPI Narrative HPI Narrative: FABIÁN GRUBBS, is a 68-year-old male history of oral cancer that was surgically resected about 7 to 8 years ago at [facility]. He status post glossectomy and extensive pharyngeal reconstructive surgery. He presented to the hospital with complaints of shortness of breath. His condition deteriorated rapidly in the emergency room and he had to be intubated. CT scan of the chest revealed bilateral pneumonia, likely aspiration. His pH on admission was 6.97. Troponins were noted to be elevated. His son said he is really not taking care of himself. Has not left the house to see a physician recently. He been increasingly short of breath over the last week. Denies chest pain. No fever. He drinks Ensure shakes for his nutrition. He really does not eat much solids. Son said he is really cannot take care of him now at home. He was sedated and I was asked to see for his worsening anemia. His hemoglobin was 14 and now it is down to 9 mg/dL. I was asked to see him due to his worsening anemia. [facility] Medical History (Updated 11/12/23 @ 17:[address] Tomlinson Friend, DO) Atherosclerotic heart disease of [place] coronary artery without angina pectoris CAD (coronary artery disease) Congenital hypothyroidism Dysphagia Essential hypertension Hearing loss of aging History of mouth cancer [place] (hard of hearing) HTN (hypertension) Malnutrition Myocardial infarct Oral cancer Home Medications levothyroxine 50 mcg tablet 50 mcg PO DAILY #30 tabs 08/28/21 [Rx Last Taken Unknown] aspirin 81 mg tablet,delayed release 81 mg PO DAILY #90 tabs 03/07/22 [Rx Last Taken Unknown] atorvastatin 40 mg tablet 40 mg PO QHS #90 tabs 03/07/22 [Rx Last Taken Unknown] carvedilol 3.125 mg tablet 3.125 mg PO BID #180 tabs 03/07/22 [Rx Last Taken Unknown] lisinopril 5 mg tablet 5 mg PO DAILY #90 tabs 03/07/22 [Rx Last Taken Unknown] ticagrelor 90 mg tablet (Brilinta) 90 mg PO BID #180 tabs 03/07/22 [Rx Last Taken Unknown] omeprazole 20 mg capsule,delayed release 20 mg PO DAILY 12/24/22 [History Last Taken Unknown] Allergy/AdvReac Type Severity Reaction Status Date / Time No Known Allergies Allergy Verified 11/07/23 12:51 Family History unable to obtain Surgical History History of appendectomy History of coronary artery stent placement (08/08/21) History of mandibular surgery History of tonsillectomy Social History housing: house Smoking Status: Current every day smoker tobacco type: cigars per week: 20 Tobacco: How many years used: 52 alcohol intake: never substance use type: does not use caffeine: Yes Type: coffee Number of servings: 2 ROS Review of Systems ROS Unobtainable: due to endotracheal tube Physical Exam Const alert and no apparent distress; Negative for average body habitus, healthy appearing or well nourished Constitutional Narrative: \ General Appearance: disheveled and frail Nutritional Appearance: cachectic HEENT normocephalic, head/scalp atraumatic and moist oral mucous membranes HEENT Narrative: Edentulous, ET tube in place Resp no retractions, no use of accessory muscles and clear to auscultation bilaterally Resp Narrative: Tachypnea diffusely diminished but currently clear Auscultation: Negative for crackles, rales, rhonchi or wheezes Cardio regular rate, regular rhythm, S1 normal heart sound, S2 normal heart sound, no murmurs, no rub, no gallops and no clicks Cardio Narrative: Mild tachycardia with heart rates fluctuating between 100-110 GI normal to inspection, nondistended, normoactive bowel sounds, soft to palpation, non-tender and non-distended; Negative for hepatosplenomegaly GI Narrative: Scaphoid abdomen, G-tube in place Extremity no clubbing, cyanosis or edema Extremity Narrative: Pedal pulses are 2+, significantly reduced lean muscle mass, left upper extremity PICC is clean and dry Neuro Neuro Narrative: Patient is intubated and sedated on the ventilator Psych Psych Narrative: Unable to assess due to sedation/intubation Medical Records Data Medical Nutrition Assessment Dietitian: Malnutrition Criteria Met Start: 11/08/23 09:33 Freq: Status: Active Protocol: Document 11/12/23 09:58 AG (Rec: 11/12/23 09:58 AG Desktop) Nutrition Malnutrition Evidence of Malnutrition Exists Yes Malnutrition (severe): Chronic Evidenced By Suboptimal Energy Intake ( Severe),Physical Changes ( Severe) Clinical Problem Chronic Disease or Condition Related Malnutrition Etiology severe, chronic malnutrition related to inadequate energy intake Signs/Symptoms as evidenced by severe muscle wasting/fat loss evident per physical exam in orbital, clavicle, acromion, and temporal areas; estimated PO intake meeting <75% of 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 WIRELESS CONSTRUCTION MANAGER eval prior to PO diet advancement once extubated. May need to revisit use of PEG for nutrition. Lab / Micro Data 11/12/23 03:40 11/12/23 03:40 Labs: Laboratory Results - last 24 hr 11/12/23 03:40: WBC 14.8 H, RBC 2.91 L, Hgb 9.0 L, Hct 27.3 L, MCV 93.8, MCH 30.9, MCHC 33.0, RDW Std Deviation 48.6 H, RDW Coeff of Atif 14.3, Plt Count 196, MPV 12.7 H, Immature Gran % (Auto) 1.700 H, Neut % (Auto) 91.5 H, Lymph % (Auto) 4.6 L, Edwards % (Auto) 1.8, Eos % (Auto) 0.3, Baso % (Auto) 0.1, Absolute Neuts (auto) 13.6 H, Absolute Lymphs (auto) 0.68 L, Nucleated RBC % 0, Differential Comment SCANNED, Target Cells 2+, APTT 62.4 H, Sodium 147 H, Potassium 3.5, Chloride 120 H, Carbon Dioxide 23.0, Anion Gap 4 L, BUN 42 H, Creatinine 0.99, Estim Creat Clear Calc 61.04, Est GFR (MDRD) Af Amer 97, Est GFR (MDRD) Non-Af 80, BUN/Creatinine Ratio 42.3 H, Glucose 191 H, Calcium 7.1 L 11/12/23 07:50: Iron 13 L, TIBC 131 L, Iron Saturation 9.9 L, Ferritin 1496 H Micro: Microbiology 11/07/23 13:10 Blood Culture (Wb) - Anticubital Left Blood Culture - Final No growth in 5 days. 11/07/23 13:00 Blood Culture (Wb) - Anticubital Right Blood Culture - Final No growth in 5 days. 11/12/23 12:40 Stool Stool Occult Blood (VADIM) - Final Occult Blood Positive 11/09/23 11:50 Sputum, Induced/Lukens Gram Stain - Final 11/09/23 11:50 Sputum, Induced/Lukens Respiratory Culture - Final Staphylococcus aureus Yeast, not Pina albicans Presumptive C albicans Assessment & Plan Assessment/Plan (1) Left lower lobe pneumonia: QUALIFIERS: Pneumonia type: due to unspecified organism Qualified Code(s): J18.9 - Pneumonia, unspecified organism (2) Respiratory failure: QUALIFIERS: Chronicity: acute Respiratory failure complication: hypoxia and hypercapnia Qualified Code(s): J96.01 - Acute respiratory failure with hypoxia; J96.02 - Acute respiratory failure with hypercapnia (3) Non-ST elevated myocardial infarction: PLAN: Plan 68-year-old gentleman was brought by squad for shortness of breath, hypoxia 88% on room air for being sick for several days, defecating on the sofa with history of mild cancer/surgery and 8 years ago.Patient is hard of hearing and does not speak Worsening anemia. The differential diagnosis for his anemia does include peptic ulcer disease, stress gastritis, H. pylori associated gastritis, H. pylori associated peptic ulcer disease, bile induced gastritis or reflux disease. He should undergo an upper scope to evaluate his upper GI tract. Septic shock most likely due to aspiration pneumonia with suspicion of UTI: Patient is being admitted in ICU. The patient presented with septic shock with clinical indicators of tach cardia, hypoxia, leukocytosis with immature granulocyte more than 1% indicating left shift due to possible aspiration pneumonia/early UTI with acute sepsis-related organ dysfunction as evidenced by acute hypoxic respiratory failure, fluid resistant hypotension requiring vasopressor. The patient was evaluated by vest tailor. Cultures pending. On broad-spectrum IV antibiotic. Acute hypoxic and hypercarbic respiratory failure most likely due to aspiration as per history with previous head and neck surgery for throat cancer about 8 years ago with severe respiratory acidosis: 5 diabetes shows pH 6.97 with 110 bicarb. Patient is intubated on ventilator. Vent management as per vest tailor. Elevated troponin possible non-STEMI type II/irregular heartbeat/Arrhythmia, CAD status post stent in 2020: Twelve-lead first EKG shows irregular rhythm with sinus tachycardia and multiple PACs/paroxysmal atrial tachycardia. Repeat EKG ordered. Elevated troponin probably nonischemic in nature, due to acute myocardial injury from increased cardiac demand with severe respiratory acidosis and hypoxia. Patient also has severe coronary artery disease. Continue aspirin, and heparin drip. Beta-jenna and nitrate on hold due to hold for SBP less than 120 mmHg Hypertension, dyslipidemia: Fasting profile tomorrow AM. Severe protein calorie malnutrition chronic in nature: Sugarcane Research Technician consulted. Patient has buttonhole type PEG tube. Charges/Coding Visit Charges Inpatient E&M: 21686 Init Hosp L3
[2023-11-12] MEDS: Atorvastatin Calcium 40 MG Tablet NG (21:35)
[2023-11-13] VITALS (38 sets, daily range): BP systolic 86–136; BP diastolic 46–78; PULSE 57–92; RESP 15–33; TEMP 36.6–37.5; O2SAT 90–97; BMI 19.1
[2023-11-13] MEDS: Ipratropium/Albuterol Sulfate 3 ML AMPUL.NEB INHALATION ×4 (00:22→18:58)
[2023-11-13] MEDS: Vital AF 1.2 Cal Liquid 1,000 ML 60 ML GT (02:44)
[2023-11-13] MEDS: TITRATION PARAMETER CHANGE 1 EACH IV ×2 (02:44)
[2023-11-13] MEDS: fentaNYL drip 100 ML 20 MCG CONT INF (02:49)
[2023-11-13 03:30] LABS: Absolute Lymphocyte Count 0.56 X10^3/uL (0.83-4.51); Basophil# 0.03 X10^3/uL; Basophil% 0.2 % (0-1); Eosinophil# 0.13 X10^3/uL; Eosinophils% 0.9 % (0-5); Hematocrit 27.1 % (40-54); Lymphocyte # 0.56 X10^3/ul (0.83-4.51); Lymphocyte % 3.7 % (19-41); Mean Corp Hgb Conc 33.2 g/dL (32-36); Mean Corpuscular Hgb 31.4 pg (27.0-32.0); Mean Corpuscular Volume 94.4 fL (80-94); Mean Platelet Vol. 12.6 fl (6.2-12.0); Monocyte# 0.33 X10^3/uL; Monocyte% 2.2 % (0-10); NRBC Flagged by Analyzer 0.1 % (0-5); Neutrophil # 14.01 X10^3/uL (2.7-7.7); Neutrophil % 91.5 % (47-70); POSITIVE DIFFERENTIAL YES; Platelet Count 196 K/mm3 (150-450); RBC Distribution Width CV 14.5 % (11.6-14.6); RBC Distribution Width SD 48.3 fl (35.1-43.9); Red Blood Count 2.87 M/mm3 (4.6-6.2); White Blood Count 15.3 K/mm3 (4.4-11.0)
[2023-11-13] MEDS: dexMEDEtomidine 400 MCG in 0.9% Normal Saline (100mL Bag) 96 ML 17.6 MCG CONT INF ×4 (03:38→21:38)
[2023-11-13 03:46] LABS: Differential Indicated SCAN CRITERIA MET
[2023-11-13 03:58] LABS: Anion Gap 6 (5-15); BUN 37 mg/dL (7-18); BUN/Creat Ratio 42.2 RATIO (10-20); Chloride 118 mmol/L (98-107); Creatinine, Serum 0.88 mg/dL (0.70-1.30); EST Glomerular Filtration Rate 92 mL/min (>60); Est Glom Filt Rate - Afr Amer 112 mL/min (>60); Estimated Creatinine Clearance 67.75 ml/min; Glucose 165 mg/dL (74-106); Sodium Level 147 mmol/L (136-145)
[2023-11-13 04:03] LABS: Differential Comment SCANNED
[2023-11-13] MEDS: Levothyroxine 50 MCG Tablet NG (05:46)
[2023-11-13] MEDS: Menthol/Lanolin/Calamine/Znox 113 GM Tube 1 APPLIC TOPICAL ×3 (05:47→21:20)
[2023-11-13] MEDS: Piperacil/Tazobactam 3.375 GM in 0.9% Normal Saline (50mL MB+) 50 ML IV ×3 (05:47→21:19)
[2023-11-13 07:52] LABS: Phosphorus 2.5 mg/dL (2.5-4.9)
[2023-11-13 08:08] LABS: Ionized Calcium 4.82 mg/dL (4.36-5.20)
[2023-11-13] MEDS: Potassium Chloride Oral Soln 20 MEQ/15 ML UDC 60 MEQ GT (08:24)
[2023-11-13] MEDS: 0.9% Saline Lock 10 ML Syringe IV ×2 (08:24→15:17)
[2023-11-13] MEDS: Chlorhexidine 15 ML PO ×2 (08:25→21:20)
[2023-11-13] MEDS: Senna Tablet 1 TABLET PO ×2 (08:25→21:16)
[2023-11-13] MEDS: Carvedilol 3.125 MG TABLET NG (08:25)
[2023-11-13] MEDS: CHLORHEXIDINE GLUC 2% CLOTH 1 EACH TOWELETTE TOPICAL (08:25)
[2023-11-13] MEDS: Pantoprazole Sodium 40 MG in 0.9% Normal Saline (100mL MB+) 100 ML 330 MG IV ×2 (09:58→21:16)
--- NOTE | 2023-11-13 10:55 | PCM.PN.INT ---
Assessment & Plan Assessment/Plan (1) Acute hypercapnic respiratory failure: (2) Severe sepsis: (3) Left lower lobe pneumonia: QUALIFIERS: Pneumonia type: due to unspecified organism Qualified Code(s): J18.9 - Pneumonia, unspecified organism (4) Non-ST elevated myocardial infarction: PLAN: Plan RECOMMENDATIONS: 1. Continue assist-control mode mechanical ventilation. Patient passed SBT however he is scheduled for EGD today. Will plan for extubation after EGD if patient continues to do well. 2. Continue antimicrobials. Sputum Culture growing MSSA and gram-negative rods. DC vancomycin continue Zosyn 3. Ongoing electrolyte repletion as needed. 4. Hemoglobin trended down. Fecal occult blood was positive. Heparin drip was held. Continue PPI twice daily. EGD today per GI 5. He remains on 2 mics of Levophed. Will start midodrine. 6. Continue appropriate ICU prophylaxis. 7. Continue scheduled bronchodilators. IMPRESSIONS: 1. Sepsis secondary to possible aspiration pneumonia The patient presented with sepsis due to probable aspiration pneumonia with acute sepsis related organ dysfunction as evidenced by respiratory failure requiring invasive mechanical ventilatory support. The patient remains on appropriate antimicrobial therapy. He has been weaned from vasopressor support and remains hemodynamically stable. Plan to continue empiric antimicrobials, pending finalized culture results. Continue to wean FiO2 to maintain saturations at or above 90%. Plan for daily paired spontaneous awakening and breathing trials. Continue attempts at diuresis as tolerated by hemodynamics and renal function. 2. Non-ST elevation SD Most likely secondary to demand ischemia in the setting of #1. Cardiology is following to assist with medical management. Echocardiogram revealed intact, preserved systolic function. 3. Acute combined respiratory failure with sepsis CT of the chest she does show some emphysematous changes with bronchiectasis indicating probable complications of smoking. As such, we will continue scheduled bronchodilator therapy today. 4. History of oral cancer/severe protein malnutrition/GERD Complicates care, management, recovery and prognosis. Continue to monitor for refeeding syndrome given underlying poor nutritional state. Physical therapy to work with the patient. CODE STATUS: DNR TIME: 35 minutes of critical care time, independent of procedures, was spent addressing the patient's sepsis secondary to aspiration pneumonia, NSTEMI, respiratory failure, review of all data and collaboration with care team. Subjective Subjective Passed SBT today however plan for EGD this afternoon. Plan to extubate after EGD if he does okay Objective Data Objective Data Vital Signs: Vital Signs Temp Pulse Resp BP Pulse Ox O2 Del Method O2 Flow Rate 37.2 C 74 28 H 114/68 96 Mechanical Ventilator 35 11/13/23 07:00 11/13/23 09:20 11/13/23 09:20 11/13/23 07:00 11/13/23 09:20 11/13/23 08:00 11/12/23 21:00 FiO2 35 11/13/23 07:00 Oxygen Flow Rate (L/min) 35 Oxygen Delivery Method Mechanical Ventilator Weight: 58.8 kg Body Mass Index (BMI) 19.1 Intake & Output: Intake and Output for Last 24 Hours 11/11/23 11/12/23 11/13/23 23:59 23:59 23:59 Intake Total 4383.23 / 4401.33 4231.32 / 4865.72 2861.96 / 2861.96 Output Total 2200 / 2200 3200 / 3300 375 / 375 Balance 2183.23 / 2201.33 1031.32 / 1565.72 2486.96 / 2486.96 Medical Nutrition Assessment Dietitian: Malnutrition Criteria Met Start: 11/08/23 09:33 Freq: Status: Active Protocol: Document 11/13/23 09:30 AG (Rec: 11/13/23 09:30 AG Desktop) Nutrition Malnutrition Evidence of Malnutrition Exists Yes Malnutrition (severe): Chronic Evidenced By Suboptimal Energy Intake ( Severe),Physical Changes ( Severe) Clinical Problem Chronic Disease or Condition Related Malnutrition Etiology severe, chronic malnutrition related to inadequate energy intake Signs/Symptoms as evidenced by severe muscle wasting/fat loss evident per physical exam in orbital, clavicle, acromion, and temporal areas; 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 CONSUMER AFFAIRS DIRECTOR eval prior to PO diet advancement once extubated. Recommend use PEG for nutrition when extubated until adequate PO intake is established. Lab / Micro Data 11/13/23 03:15 11/13/23 03:15 Labs: Laboratory Results - last 24 hr 11/13/23 03:15: WBC 15.3 H, RBC 2.87 L, Hgb 9.0 L, Hct 27.1 L, MCV 94.4 H, MCH 31.4, MCHC 33.2, RDW Std Deviation 48.3 H, RDW Coeff of Atif 14.5, Plt Count 196, MPV 12.6 H, Immature Gran % (Auto) 1.500 H, Neut % (Auto) 91.5 H, Lymph % (Auto) 3.7 L, [place] % (Auto) 2.2, Eos % (Auto) 0.9, Baso % (Auto) 0.2, Absolute Neuts (auto) 14.0 H, Absolute Lymphs (auto) 0.56 L, Nucleated RBC % 0.1, Differential Comment SCANNED, Sodium 147 H, Potassium 3.0 L, Chloride 118 H, Carbon Dioxide 23.0, Anion Gap 6, BUN 37 H, Creatinine 0.88, Estim Creat Clear Calc 67.75, Est GFR (MDRD) Af Amer 112, Est GFR (MDRD) Non-Af 92, BUN/Creatinine Ratio 42.2 H, Glucose 165 H, Calcium 7.0 L, Phosphorus 2.5, Magnesium 2.0 11/13/23 08:03: Ionized Calcium 4.82 Micro: Microbiology 11/07/23 13:10 Blood Culture (Wb) - Anticubital Left Blood Culture - Final No growth in 5 days. 11/07/23 13:00 Blood Culture (Wb) - Anticubital Right Blood Culture - Final No growth in 5 days. 11/12/23 12:40 Stool Stool Occult Blood (VADIM) - Final Occult Blood Positive 11/09/23 11:50 Sputum, Induced/Lukens Gram Stain - Final 11/09/23 11:50 Sputum, Induced/Lukens Respiratory Culture - Final Staphylococcus aureus Yeast, not Pina albicans Presumptive C albicans 11/07/23 18:08 Sputum, Induced/Lukens Gram Stain - Final 11/07/23 18:08 Sputum, Induced/Lukens Respiratory Culture - Final Staphylococcus aureus Proteus mirabilis Escherichia coli 11/07/23 13:30 Urine Catheter - Catheter Urine Culture - Final Presumptive E. coli 11/07/23 13:30 Nasal Secretion SARS-CoV-2 & FLU Antigen (Rapid) - Final Physical Exam Const Constitutional Narrative: Intubated, sedated and mechanically ventilated. No ventilator dyssynchrony noted. Frail and cachectic in appearance. General Appearance: disheveled, frail, intubated and patient mechanically ventilated Nutritional Appearance: cachectic HEENT normocephalic and head/scalp atraumatic Eyes PERRL, EOMs intact bilaterally and conjunctivae normal Neck supple and no JVD General: trachea midline Chest inspection of chest normal Resp normal respiratory effort, no retractions and no use of accessory muscles Resp Narrative: Overbreathing set rate on ventilator. Effort and Inspection: tachypneic Auscultation: Negative for crackles, rales, rhonchi or wheezes Cardio regular rate, regular rhythm, S1 normal heart sound, S2 normal heart sound and no murmurs GI normal to inspection, nondistended, normoactive bowel sounds, soft to palpation and non-distended; Negative for hepatosplenomegaly Inspection: GI tube present Extremity no clubbing, cyanosis or edema Skin no rashes or lesions noted Neuro Sensorium / Orientation: sedated on vent Psych Appearance: intubated Charges/Coding Procedures Hospitalists Procedures: 44093 Critical Care 1st Hr
[2023-11-13] MEDS: Midodrine HCl 5 MG Tablet 10 MG PO ×2 (11:29→17:45)
--- NOTE | 2023-11-13 12:48 | PCM.PN.HOSP ---
Reason for Visit Reason for Visit: Shortness of breath Subjective Subjective Patient did better with his brother spontaneous breathing trial today. Extubation held for EGD. Still on small amounts of pressors intermittently and pressure seems to be lower when he is in a deep sleep. Objective Data Objective Data Vital Signs: Vital Signs Temp Pulse Resp BP Pulse Ox O2 Del Method O2 Flow Rate 98.4 F 66 33 H 102/62 97 Mechanical Ventilator 35 11/13/23 11:00 11/13/23 11:50 11/13/23 11:50 11/13/23 11:30 11/13/23 11:50 11/13/23 11:00 11/13/23 09:00 FiO2 35 11/13/23 11:00 Oxygen Flow Rate (L/min) 35 Oxygen Delivery Method Mechanical Ventilator Weight: 58.8 kg Body Mass Index (BMI) 19.1 Intake & Output: Intake and Output for Last 24 Hours 11/11/23 11/12/23 11/13/23 23:59 23:59 23:59 Intake Total 4383.23 / 4401.33 4231.32 / 4865.72 2897.26 / 2897.26 Output Total 2200 / 2200 3200 / 3300 625 / 625 Balance 2183.23 / 2201.33 1031.32 / 1565.72 2272.26 / 2272.26 Medical Nutrition Assessment Dietitian: Malnutrition Criteria Met Start: 11/08/23 09:33 Freq: Status: Active Protocol: Document 11/13/23 09:30 AG (Rec: 11/13/23 09:30 AG Desktop) Nutrition Malnutrition Evidence of Malnutrition Exists Yes Malnutrition (severe): Chronic Evidenced By Suboptimal Energy Intake ( Severe),Physical Changes ( Severe) Clinical Problem Chronic Disease or Condition Related Malnutrition Etiology severe, chronic malnutrition related to inadequate energy intake Signs/Symptoms as evidenced by severe muscle wasting/fat loss evident per physical exam in orbital, clavicle, acromion, and temporal areas; estimated PO intake 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 CAR DELIVERER eval prior to PO diet advancement once extubated. Recommend use PEG for nutrition when extubated until adequate PO intake is established. Lab / Micro Data 11/13/23 03:15 11/13/23 03:15 Labs: Laboratory Results - last 24 hr 11/13/23 03:15: WBC 15.3 H, RBC 2.87 L, Hgb 9.0 L, Hct 27.1 L, MCV 94.4 H, MCH 31.4, MCHC 33.2, RDW Std Deviation 48.3 H, RDW Coeff of Atif 14.5, Plt Count 196, MPV 12.6 H, Immature Gran % (Auto) 1.500 H, Neut % (Auto) 91.5 H, Lymph % (Auto) 3.7 L, [place] % (Auto) 2.2, Eos % (Auto) 0.9, Baso % (Auto) 0.2, Absolute Neuts (auto) 14.0 H, Absolute Lymphs (auto) 0.56 L, Nucleated RBC % 0.1, Differential Comment SCANNED, Sodium 147 H, Potassium 3.0 L, Chloride 118 H, Carbon Dioxide 23.0, Anion Gap 6, BUN 37 H, Creatinine 0.88, Estim Creat Clear Calc 67.75, Est GFR (MDRD) Af Amer 112, Est GFR (MDRD) Non-Af 92, BUN/Creatinine Ratio 42.2 H, Glucose 165 H, Calcium 7.0 L, Phosphorus 2.5, Magnesium 2.0 11/13/23 08:03: Ionized Calcium 4.82 Micro: Microbiology 11/07/23 13:10 Blood Culture (Wb) - Anticubital Left Blood Culture - Final No growth in 5 days. 11/07/23 13:00 Blood Culture (Wb) - Anticubital Right Blood Culture - Final No growth in 5 days. 11/12/23 12:40 Stool Stool Occult Blood (VADIM) - Final Occult Blood Positive 11/09/23 11:50 Sputum, Induced/Lukens Gram Stain - Final 11/09/23 11:50 Sputum, Induced/Lukens Respiratory Culture - Final Staphylococcus aureus Yeast, not Pina albicans Presumptive C albicans 11/07/23 18:08 Sputum, Induced/Lukens Gram Stain - Final 11/07/23 18:08 Sputum, Induced/Lukens Respiratory Culture - Final Staphylococcus aureus Proteus mirabilis Escherichia coli 11/07/23 13:30 Urine Catheter - Catheter Urine Culture - Final Presumptive E. coli 11/07/23 13:30 Nasal Secretion SARS-CoV-2 & FLU Antigen (Rapid) - Final Physical Exam Const alert and no apparent distress; Negative for average body habitus, healthy appearing or well nourished Constitutional Narrative: Cachectic appearing, upper middle-aged, white male, lying in bed intubated and sedated, appears much older than stated age, does open eyes to verbal and tactile stimuli and intermittently follows commands General Appearance: disheveled and frail HEENT normocephalic, head/scalp atraumatic and moist oral mucous membranes HEENT Narrative: ET tube in place Resp normal respiratory effort, no retractions, no use of accessory muscles and clear to auscultation bilaterally Resp Narrative: Diffusely diminished but clear Auscultation: Negative for crackles, rales, rhonchi or wheezes Cardio regular rate, regular rhythm, S1 normal heart sound, S2 normal heart sound, no murmurs, no rub, no gallops and no clicks GI normal to inspection, nondistended, normoactive bowel sounds, soft to palpation and non-tender GI Narrative: Scaphoid abdomen, G-tube in place Extremity no clubbing, cyanosis or edema Extremity Narrative: Pedal pulses are 2+, significantly reduced lean muscle mass, left upper extremity PICC is clean and dry Neuro Neuro Narrative: Patient is intubated and sedated on the ventilator, awakens to verbal and tactile and intermittently follows commands Speech: Negative for speech normal Psych Psych Narrative: Unable to assess due to sedation/intubation Appearance: intubated Assessment & Plan Assessment/Plan (1) Acute respiratory failure with hypoxia and hypercapnia: (2) Protein calorie malnutrition: (3) Severe sepsis: (4) Left lower lobe pneumonia: QUALIFIERS: Pneumonia type: due to unspecified organism Qualified Code(s): J18.9 - Pneumonia, unspecified organism (5) Dehydration: (6) Non-ST elevated myocardial infarction: (7) Hypernatremia: (8) Hypokalemia: (9) Lactic acidosis: (10) Abnormal results of thyroid function studies: (11) Hypophosphatemia: (12) Anemia: PLAN: Plan Acute hypoxic hypercapnic respiratory failure secondary to polymicrobial pneumonia (Staph aureus/and 2 gram-negative rods) -Patient's oxygen saturations were extremely low on presentation requiring nonrebreather with eventual intubation -Initial blood gas showed a pH of 6.97 which is consistent with severe acidosis and found to be respiratory -Sputum culture with Staph aureus, Proteus, and E. coli with repeat culture from the continue to show staph and Pina -Staph is MSSA so discontinue vancomycin -Proteus is sensitive to Zosyn so we will continue --> day 6 of 7 -Patient remains on mechanical ventilation with an FiO2 of 40% -Continue diuresis per pulmonary critical care medicine as hemodynamics allow -Will need speech consultation after extubation -Pulmonary/critical care medicine following-appreciate input Septic shock -Secondary to polymicrobial pneumonia -Still is intermittently on pressors -Midodrine added in attempt to keep him off pressors -Urine culture is showing E. coli but colony count is not significant -Blood cultures unremarkable -Narrow to Zosyn only to cover E. coli and Proteus -Today is day 6 7 for antibiotics Hypernatremia/hyperchloremia -Remains stable stable and currently 147 -Continue free water with tube feed at 300 cc every 4 hours -Repeat lab in a.m. Hypokalemia -60 mill colons p.o. potassium again today -Repeat in a.m. -Magnesium is within normal limits Anemia -Baseline hemoglobin is unclear however hemoglobin has been trending down -Hemoglobin has trended down however he is over 11 L positive for his hospitalization -Guaiac stool was positive -GI consultation with pending EGD -Heparin drip discontinued yesterday but will continue aspirin and Brilinta for now given NSTEMI and previous known coronary disease Abnormal TSH -TSH was undetectable however free T4 is normal -Suspect euthyroid sick syndrome -Okay to continue levothyroxine NSTEMI -Suspect related to hypoxia and acidosis causing worsening ischemia and known coronary artery disease -Cardiac catheterization from 2020 was reviewed and showed a critical lesion in the proximal and mid right coronary artery which was treated with drug-eluting stents as well as severe diffuse LAD disease and had very tight lesion in the proximal first diagonal -Plan at this time is to continue medical therapy as patient is not currently a candidate for invasive options however may need cardiac catheterization once respiratory issues and sepsis is resolved -Echocardiogram demonstrated normal EF at 60% with no identifiable regional wall motion abnormalities however the study was difficult -Hold carvedilol 3.125 twice daily -Hold lisinopril -Continue aspirin and Brilinta per cardiology documentation Severe malnutrition -Dietitian is following -Tube feeds running and patient tolerating well -Oral supplementations CAD/HTN/HPL -Hold home carvedilol due to hypotension -Continue home ticagrelor -Continue home aspirin -Continue home statin -Hold home lisinopril secondary to hypotension -Cardiac catheterization from 2020 was reviewed and showed a critical lesion in the proximal and mid right coronary artery which was treated with drug-eluting stents as well as severe diffuse LAD disease and had very tight lesion in the proximal first diagonal -Echo is pending GERD -Continue PPI History of head neck cancer -Remote -Previous radiation could contribute to swallowing difficulties -Will ask speech therapy to evaluate the patient prior to discharge after extubated DVT prophylaxis -SCDs -Heparin drip discontinued and if guaiac is negative will start subcu Lovenox CODE STATUS -DNR CCA with short-term intubation Charges/Coding Visit Charges Inpatient E&M: 37786 Subs Hosp L2
[2023-11-13] MEDS: Midazolam 2 MG/2 ML Syringe IV (14:48)
--- NOTE | 2023-11-13 16:14 | OP.EGD_ITS ---
Patient Name: Jonh Rae Procedure Date: 11/13/2023 2:44 PM Date of : 1955 Age: 68 Procedure: Upper GI endoscopy Indications: Iron deficiency anemia, Dysphagia Providers: Davi Vela DO Referring MD: Wilmer Terrell MD Medicines: Midazolam 2 mg IV, Fentanyl 75 micrograms IV Patient Profile: This is a 68 year old male. Refer to note in patient chart for documentation of history and physical. Patient has symptoms of chronic dysphagia, acute dyspepsia and acute vomiting. Complications: No immediate complications. Procedure: Pre-Anesthesia Assessment: - Prior to the procedure, a History and Physical was performed, and patient medications and allergies were reviewed. The patient is competent. The risks and benefits of the procedure and the sedation options and risks were discussed with the patient. All questions were answered and informed consent was obtained. Patient identification and proposed procedure were verified by the physician in the pre-procedure area. Mental Status Examination: alert and oriented. Airway Examination: normal oropharyngeal airway and neck mobility. Respiratory Examination: clear to auscultation. CV Examination: normal. Prophylactic Antibiotics: The patient does not require prophylactic antibiotics. Prior Anticoagulants: The patient has taken no anticoagulant or antiplatelet agents. ASA Grade Assessment: III - A patient with severe systemic disease. After reviewing the risks and benefits, the patient was deemed in satisfactory condition to undergo the procedure. The anesthesia plan was to use monitored anesthesia care (MAC). Immediately prior to administration of medications, the patient was re-assessed for adequacy to receive sedatives. The heart rate, respiratory rate, oxygen saturations, blood pressure, adequacy of pulmonary ventilation, and response to care were monitored throughout the procedure. The physical status of the patient was re-assessed after the procedure. After obtaining informed consent, the endoscope was passed under direct vision. Throughout the procedure, the patient's blood pressure, pulse, and oxygen saturations were monitored continuously. The Endoscope was introduced through the mouth, and advanced to the second part of duodenum. The upper GI endoscopy was accomplished without difficulty. The patient tolerated the procedure well. Moderate Sedation: Moderate (conscious) sedation was administered by the nurse and supervised by the endoscopist. The following parameters were monitored: oxygen saturation, heart rate, blood pressure, respiratory rate, EKG, adequacy of pulmonary ventilation, and response to care. Total physician intraservice time was 15 minutes. Scope In: 2:49:38 PM Scope Out: 3:00:15 PM Total Procedure Duration Time 0 hours 10 minutes 37 seconds Findings: One benign-appearing, intrinsic moderate stenosis was found 18 to 21 cm from the incisors. This stenosis measured 3 mm (inner diameter) x 2 cm (in length). The stenosis was traversed. A guidewire was placed and the scope was withdrawn. Dilation was performed with a Savary dilator with no resistance at 45 Fr. The dilation site was examined and showed moderate mucosal disruption. Estimated blood loss was minimal. There was evidence of an eroding gastrostomy tube present in the gastric body. This was characterized by congestion, edema, erosion, erythema, friable mucosa and a hemorrhagic appearance. The PEG required removal because it was broken, was clogged and was kinked. The PEG was cut externally, grasped, and removed with the scope. Removal was easily accomplished. No gross lesions were noted in the entire examined stomach. The patient was placed in the supine position for PEG placement. The stomach was insufflated to appose gastric and abdominal christiansen. A site was located in the cardia with excellent transillumination for placement. The abdominal wall was marked and prepped in a sterile manner. The area was anesthetized with 1 mL of 0.5% lidocaine. The trocar needle was introduced through the abdominal wall and into the stomach under direct endoscopic view. A snare was introduced through the endoscope and opened in the gastric lumen. The guide wire was passed through the trocar and into the open snare. The snare was closed around the guide wire. The endoscope and snare were removed, pulling the wire out through the mouth. A skin incision was made at the site of needle insertion. The externally removable 20 Fr EndoVive low-profile gastrostomy tube was lubricated. The G-tube was tied to the guide wire and pulled through the mouth and into the stomach. The trocar needle was removed, and the gastrostomy tube was pulled out from the stomach through the skin. The external bumper was attached to the gastrostomy tube, and the tube was cut to remove the guide wire. The final position of the gastrostomy tube was confirmed by relook endoscopy, and skin marking noted to be 2 cm at the external bumper. The final tension and compression of the abdominal wall by the PEG tube and external bumper were checked and revealed that the bumper was loose and lightly touching the skin. The feeding tube was capped, and the tube site cleaned and dressed. No gross lesions were noted in the first portion of the duodenum. Impression: - Benign-appearing esophageal stenosis. Dilated. - Eroding gastrostomy tube present characterized by congestion, edema, erosion, erythema, friable mucosa and a hemorrhagic appearance. - No gross lesions in the entire stomach. - No gross lesions in the first portion of the duodenum. - The PEG was cut externally, grasped, and removed with the scope because it was broken, was clogged and was kinked. - An externally removable PEG placement was successfully completed. - No specimens collected. Recommendation: - Return patient to ICU for ongoing care. - Resume previous diet. - Continue present medications. Procedure Code(s): --- Professional --- 04584, 51, Esophagogastroduodenoscopy, flexible, transoral; with directed placement of percutaneous gastrostomy tube 91091, 59, Esophagogastroduodenoscopy, flexible, transoral; with removal of foreign body(s) 16543, Esophagogastroduodenoscopy, flexible, transoral; with insertion of guide wire followed by passage of dilator(s) through esophagus over guide wire 84833, 59, Moderate sedation services provided by the same physician or other qualified health certified caregiver performing the diagnostic or therapeutic service that the sedation supports, requiring the presence of an independent trained observer to assist in the monitoring of the patient's level of consciousness and physiological status; initial 15 minutes of intraservice time, patient age 5 years or older CPT copyright 2021 [employer]. All rights reserved. The codes documented in this report are preliminary and upon account director review may be revised to meet current compliance requirements. Davi Vela DO 11/13/2023 4:13:58 PM This report has been signed electronically. Number of Addenda: 0 Note Initiated On: 11/13/2023 2:44 PM
--- NOTE | 2023-11-13 16:14 | OP.CCLET_ITS ---
11/13/2023 Jaleesa Bunch [facility] [address] [place] [address] Re : Upper GI endoscopy procedure for Jonh Rae Dear Dr. Bunch This procedure was performed on Monday, November 13, 2023. My impressions and recommendations are as follows: Impressions : - Benign-appearing esophageal stenosis. Dilated. - Eroding gastrostomy tube present characterized by congestion, edema, erosion, erythema, friable mucosa and a hemorrhagic appearance. - No gross lesions in the entire stomach. - No gross lesions in the first portion of the duodenum. - The PEG was cut externally, grasped, and removed with the scope because it was broken, was clogged and was kinked. - An externally removable PEG placement was successfully completed. - No specimens collected. Recommendations : - Return patient to ICU for ongoing care. - Resume previous diet. - Continue present medications. My findings are described in the full procedure note, which is enclosed. If I can be of further assistance, please feel free to contact me at . Sincerely, Davi Vela, 11/13/2023 4:13:58 PM This report has been signed electronically.
[2023-11-13] MEDS: TICAGRELOR 90 MG TABLET NG (21:16)
[2023-11-13] MEDS: Polyethylene Glycol 3350 17 GM PACKET PO (21:16)
[2023-11-13] MEDS: Atorvastatin Calcium 40 MG Tablet NG (21:16)
[2023-11-14] VITALS (29 sets, daily range): BP systolic 98–138; BP diastolic 47–85; PULSE 67–96; RESP 15–41; TEMP 36.3–37.8; O2SAT 90–98; BMI 19.9
[2023-11-14] MEDS: fentaNYL drip 100 ML 5 MCG CONT INF (00:31)
[2023-11-14] MEDS: dexMEDEtomidine 400 MCG in 0.9% Normal Saline (100mL Bag) 96 ML 17.6 MCG CONT INF (03:19)
[2023-11-14 04:09] LABS: Absolute Lymphocyte Count 0.49 X10^3/uL (0.83-4.51); Absolute Neutrophil Count 8.9 X10^3/uL (2.0-7.7); Basophil# 0.01 X10^3/uL; Basophil% 0.1 % (0-1); Eosinophil# 0.12 X10^3/uL; Eosinophils% 1.2 % (0-5); Hematocrit 26.6 % (40-54); Hemoglobin 8.7 g/dL (13.0-16.5); Lymphocyte # 0.49 X10^3/ul (0.83-4.51); Mean Corp Hgb Conc 32.7 g/dL (32-36); Mean Corpuscular Hgb 30.9 pg (27.0-32.0); Mean Corpuscular Volume 94.3 fL (80-94); Mean Platelet Vol. 12.7 fl (6.2-12.0); Monocyte# 0.27 X10^3/uL; Monocyte% 2.7 % (0-10); NRBC Flagged by Analyzer 0 % (0-5); Neutrophil # 8.85 X10^3/uL (2.7-7.7); Neutrophil % 89.6 % (47-70); POSITIVE DIFFERENTIAL YES; Platelet Count 186 K/mm3 (150-450); RBC Distribution Width CV 14.6 % (11.6-14.6); RBC Distribution Width SD 50.3 fl (35.1-43.9); Red Blood Count 2.82 M/mm3 (4.6-6.2); White Blood Count 9.9 K/mm3 (4.4-11.0)
[2023-11-14 04:13] LABS: Differential Indicated SCAN CRITERIA MET
[2023-11-14 04:26] LABS: Anion Gap 5 (5-15); BUN 31 mg/dL (7-18); Calcium,Total 7.4 mg/dL (8.5-10.1); Chloride 119 mmol/L (98-107); Creatinine, Serum 0.76 mg/dL (0.70-1.30); EST Glomerular Filtration Rate 109 mL/min (>60); Est Glom Filt Rate - Afr Amer 132 mL/min (>60); Estimated Creatinine Clearance 62.15 ml/min; Glucose 132 mg/dL (74-106); Magnesium 1.8 mg/dL (1.6-2.6); Potassium 3.7 mmol/L (3.5-5.1); Sodium Level 147 mmol/L (136-145)
[2023-11-14 04:35] LABS: Phosphorus 2.3 mg/dL (2.5-4.9)
[2023-11-14 05:24] LABS: Differential Comment SCANNED
[2023-11-14 05:25] LABS: Toxic Granulation 2+
[2023-11-14] MEDS: Menthol/Lanolin/Calamine/Znox 113 GM Tube 1 APPLIC TOPICAL ×3 (05:49→21:05)
[2023-11-14] MEDS: TITRATION PARAMETER CHANGE 1 EACH IV (05:49)
[2023-11-14] MEDS: Piperacil/Tazobactam 3.375 GM in 0.9% Normal Saline (50mL MB+) 50 ML IV ×3 (05:52→21:06)
[2023-11-14] MEDS: Levothyroxine 50 MCG Tablet NG (05:53)
--- NOTE | 2023-11-14 05:55 | RAD_ITS ---
EXAM: XR CHEST, 1 VIEW CLINICAL INDICATION: follow up TECHNIQUE: Frontal view of the chest. COMPARISON: XR Chest dated 11/11/2023 FINDINGS: LUNGS AND PLEURAL SPACES: Bilateral lower lobe pulmonary opacities consistent with pneumonia. Increasing airspace opacification of the right middle lobe. HEART: Normal heart size. MEDIASTINUM: No mediastinal or hilar mass. BONES/JOINTS: No acute abnormality. TUBES, LINES AND DEVICES: The endotracheal tube (ETT) is in satisfactory position with tip 2.8 cm above the wellington. Left peripherally inserted central catheter (PICC) tip in the mid superior vena cava. RAD/Chest 1 View (Portable) IMPRESSION: Bilateral lower lobe pneumonia. Increasing involvement of the right middle lobe. Electronically Signed: Memo Sanchez MD at 9:23 EST ,
[2023-11-14] MEDS: Ipratropium/Albuterol Sulfate 3 ML AMPUL.NEB INHALATION ×2 (07:01→13:33)
[2023-11-14] MEDS: Potassium Phosphate 21 MMOL in 0.9% Normal Saline (250mL Bag) 250 ML 84 MMOL IV (07:51)
[2023-11-14] MEDS: dexMEDEtomidine 400 MCG in 0.9% Normal Saline (100mL Bag) 96 ML 18.4 MCG CONT INF (07:58)
[2023-11-14] MEDS: Midodrine HCl 5 MG Tablet 10 MG PO ×3 (08:02→17:41)
[2023-11-14] MEDS: Senna Tablet 1 TABLET PO (10:18)
[2023-11-14] MEDS: CHLORHEXIDINE GLUC 2% CLOTH 1 EACH TOWELETTE TOPICAL (10:18)
[2023-11-14] MEDS: Polyethylene Glycol 3350 17 GM PACKET PO (10:18)
[2023-11-14] MEDS: TICAGRELOR 90 MG TABLET NG ×2 (10:18→21:03)
[2023-11-14] MEDS: Pantoprazole Sodium 40 MG in 0.9% Normal Saline (100mL MB+) 100 ML 330 MG IV ×2 (10:30→21:03)
--- NOTE | 2023-11-14 11:54 | PCM.PN.INT ---
Assessment & Plan Assessment/Plan (1) Acute hypercapnic respiratory failure: (2) Severe sepsis: (3) Left lower lobe pneumonia: QUALIFIERS: Pneumonia type: due to unspecified organism Qualified Code(s): J18.9 - Pneumonia, unspecified organism (4) Non-ST elevated myocardial infarction: PLAN: Plan RECOMMENDATIONS: 1. Pt extubated successfully this AM 2. Continue antimicrobials. Sputum Culture growing MSSA and gram-negative rods. DC vancomycin continue Zosyn 3. Ongoing electrolyte repletion as needed. 4. Hemoglobin trended down. Fecal occult blood was positive. Heparin drip was held. Continue PPI twice daily. EGD yesterday negative for PUD. PEG was replaced 5. He is off levo 6. Continue appropriate ICU prophylaxis. 7. Continue scheduled bronchodilators. 8. PT /OT IMPRESSIONS: 1. Sepsis secondary to possible aspiration pneumonia The patient presented with sepsis due to probable aspiration pneumonia with acute sepsis related organ dysfunction as evidenced by respiratory failure requiring invasive mechanical ventilatory support. The patient remains on appropriate antimicrobial therapy. He has been weaned from vasopressor support and remains hemodynamically stable. Extubated successfully 11/14 2. Non-ST elevation PR Most likely secondary to demand ischemia in the setting of #1. Cardiology is following to assist with medical management. Echocardiogram revealed intact, preserved systolic function. 3. Acute combined respiratory failure with sepsis CT of the chest she does show some emphysematous changes with bronchiectasis indicating probable complications of smoking. As such, we will continue scheduled bronchodilator therapy today. 4. History of oral cancer/severe protein malnutrition/GERD Complicates care, management, recovery and prognosis. Continue to monitor for refeeding syndrome given underlying poor nutritional state. Physical therapy to work with the patient. CODE STATUS: DNR TIME: 35 minutes of critical care time, independent of procedures, was spent addressing the patient's sepsis secondary to aspiration pneumonia, NSTEMI, respiratory failure, review of all data and collaboration with care team. Subjective Subjective No acute events. Pt passed SBT this AM and was extubated successfully Objective Data Objective Data Vital Signs: Vital Signs Temp Pulse Resp BP Pulse Ox O2 Del Method O2 Flow Rate 37.2 C 72 32 H 107/55 L 94 Nasal Cannula 3 11/14/23 09:00 11/14/23 09:00 11/14/23 09:00 11/14/23 09:00 11/14/23 09:00 11/14/23 09:00 11/14/23 09:00 FiO2 30 11/14/23 08:00 Oxygen Flow Rate (L/min) 3 Oxygen Delivery Method Nasal Cannula Weight: 61.3 kg Body Mass Index (BMI) 19.9 Intake & Output: Intake and Output for Last 24 Hours 11/12/23 11/13/23 11/14/23 23:59 23:59 23:59 Intake Total 4231.32 / 4865.72 4574.11 / 4596.71 2507.09 / 2507.09 Output Total 3200 / 3300 860 / 860 200 / 200 Balance 1031.32 / 1565.72 3714.11 / 3736.71 2307.09 / 2307.09 Medical Nutrition Assessment Dietitian: Malnutrition Criteria Met Start: 11/08/23 09:33 Freq: Status: Active Protocol: Document 11/14/23 11:05 RMA (Rec: 11/14/23 11:05 RMA [id number]) Nutrition Malnutrition Evidence of Malnutrition Exists Yes Malnutrition (severe): Chronic Evidenced By Suboptimal Energy Intake ( Severe),Physical Changes ( Severe) Clinical Problem Chronic Disease or Condition Related Malnutrition Etiology severe, chronic malnutrition related to inadequate energy intake Signs/Symptoms as evidenced by severe muscle wasting/fat loss evident per physical exam in orbital, clavicle, acromion, and temporal areas; 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 Flush with 180mL free water Q 4 hours. TF at goal and water flushes will provide 1980 Kcal , 84 gm protein, and 2083 mL total free water per day. TF will meet~100% estimated nutrition needs for now given NPO status. Recommend PO as tolerated with Regular diet as deemed safe/ appropriate per DIRECTOR INTERNAL COMMUNICATIONS with PO ensure plus high protein as indicated if cleared for oral intake. Will monitor weight, labs, any PO nutrition and adjust enteral nutrition support as indicated to optimize nutrition and promote gradual weight gain. Lab / Micro Data 11/14/23 03:47 11/14/23 03:47 Labs: Laboratory Results - last 24 hr 11/14/23 03:47: WBC 9.9, RBC 2.82 L, Hgb 8.7 L, Hct 26.6 L, MCV 94.3 H, MCH 30.9, MCHC 32.7, RDW Std Deviation 50.3 H, RDW Coeff of Atif 14.6, Plt Count 186, MPV 12.7 H, Immature Gran % (Auto) 1.400 H, Neut % (Auto) 89.6 H, Lymph % (Auto) 5.0 L, [place] % (Auto) 2.7, Eos % (Auto) 1.2, Baso % (Auto) 0.1, Absolute Neuts (auto) 8.9 H, Absolute Lymphs (auto) 0.49 L, Nucleated RBC % 0, Differential Comment SCANNED, Toxic Granulation 2+, Sodium 147 H, Potassium 3.7, Chloride 119 H, Carbon Dioxide 23.0, Anion Gap 5, BUN 31 H, Creatinine 0.76, Estim Creat Clear Calc 62.15, Est GFR (MDRD) Af Amer 132, Est GFR (MDRD) Non-Af 109, BUN/Creatinine Ratio 41.0 H, Glucose 132 H, Calcium 7.4 L, Phosphorus 2.3 L, Magnesium 1.8 Micro: Microbiology 11/07/23 13:10 Blood Culture (Wb) - Anticubital Left Blood Culture - Final No growth in 5 days. 11/07/23 13:00 Blood Culture (Wb) - Anticubital Right Blood Culture - Final No growth in 5 days. 11/12/23 12:40 Stool Stool Occult Blood (VADIM) - Final Occult Blood Positive 11/09/23 11:50 Sputum, Induced/Lukens Gram Stain - Final 11/09/23 11:50 Sputum, Induced/Lukens Respiratory Culture - Final Staphylococcus aureus Yeast, not Pina albicans Presumptive C albicans 11/07/23 18:08 Sputum, Induced/Lukens Gram Stain - Final 11/07/23 18:08 Sputum, Induced/Lukens Respiratory Culture - Final Staphylococcus aureus Proteus mirabilis Escherichia coli 11/07/23 13:30 Urine Catheter - Catheter Urine Culture - Final Presumptive E. coli 11/07/23 13:30 Nasal Secretion SARS-CoV-2 & FLU Antigen (Rapid) - Final Radiography Diagnostic Testing: Radiology Impression Chest X-Ray 11/14/23 05:55 IMPRESSION: Bilateral lower lobe pneumonia. Increasing involvement of the right middle lobe. Electronically Signed: Memo Sanchez MD at 9:23 EST , Physical Exam Const Constitutional Narrative: Intubated, sedated and mechanically ventilated. No ventilator dyssynchrony noted. Frail and cachectic in appearance. General Appearance: disheveled, frail, intubated and patient mechanically ventilated Nutritional Appearance: cachectic HEENT normocephalic and head/scalp atraumatic Eyes PERRL, EOMs intact bilaterally and conjunctivae normal Neck supple and no JVD General: trachea midline Chest inspection of chest normal Resp normal respiratory effort, no retractions and no use of accessory muscles Resp Narrative: Overbreathing set rate on ventilator. Effort and Inspection: tachypneic Auscultation: Negative for crackles, rales, rhonchi or wheezes Cardio regular rate, regular rhythm, S1 normal heart sound, S2 normal heart sound and no murmurs GI normal to inspection, nondistended, normoactive bowel sounds, soft to palpation and non-distended; Negative for hepatosplenomegaly Inspection: GI tube present Extremity no clubbing, cyanosis or edema Skin no rashes or lesions noted Neuro Sensorium / Orientation: sedated on vent Psych Appearance: intubated Charges/Coding Procedures Hospitalists Procedures: [id number] Critical Care 1st Hr
[2023-11-14] MEDS: Jevity 1.5 1,000 ML 25 ML GT (13:06)
--- NOTE | 2023-11-14 13:12 | PCM.PN.HOSP ---
Reason for Visit Reason for Visit: Shortness of breath Subjective Subjective No issues overnight. EGD done yesterday with no significant obvious signs of bleeding other than at the old PEG site which was exchanged. Doing well on a spontaneous breathing trial and anticipate extubation later today. Objective Data Objective Data Vital Signs: Vital Signs Temp Pulse Resp BP Pulse Ox O2 Del Method O2 Flow Rate 98.9 F 72 32 H 107/55 L 94 Nasal Cannula 3 11/14/23 09:00 11/14/23 09:00 11/14/23 09:00 11/14/23 09:00 11/14/23 09:00 11/14/23 09:00 11/14/23 09:00 FiO2 30 11/14/23 08:00 Oxygen Flow Rate (L/min) 3 Oxygen Delivery Method Nasal Cannula Weight: 61.3 kg Body Mass Index (BMI) 19.9 Intake & Output: Intake and Output for Last 24 Hours 11/12/23 11/13/23 11/14/23 23:59 23:59 23:59 Intake Total 4231.32 / 4865.72 4574.11 / 4596.71 2874.09 / 2874.09 Output Total 3200 / 3300 860 / 860 200 / 200 Balance 1031.32 / 1565.72 3714.11 / 3736.71 2674.09 / 2674.09 Medical Nutrition Assessment Dietitian: Malnutrition Criteria Met Start: 11/08/23 09:33 Freq: Status: Active Protocol: Document 11/14/23 11:05 RMA (Rec: 11/14/23 11:05 RMA [id number]) Nutrition Malnutrition Evidence of Malnutrition Exists Yes Malnutrition (severe): Chronic Evidenced By Suboptimal Energy Intake ( Severe),Physical Changes ( Severe) Clinical Problem Chronic Disease or Condition Related Malnutrition Etiology severe, chronic malnutrition related to inadequate energy intake Signs/Symptoms as evidenced by severe muscle wasting/fat loss evident per physical exam in orbital, clavicle, acromion, and temporal areas; estimated PO intake meeting <75% 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 Flush with 180mL free water Q 4 hours. TF at goal and water flushes will provide 1980 Kcal , 84 gm protein, and 2083 mL total free water per day. TF will meet~100% estimated nutrition needs for now given NPO status. Recommend PO as tolerated with Regular diet as deemed safe/ appropriate per CARDIOPULMONARY PHYSICAL THERAPIST with PO ensure plus high protein as indicated if cleared for oral intake. Will monitor weight, labs, any PO nutrition and adjust enteral nutrition support as indicated to optimize nutrition and promote gradual weight gain. Lab / Micro Data 11/14/23 03:47 11/14/23 03:47 Labs: Laboratory Results - last 24 hr 11/14/23 03:47: WBC 9.9, RBC 2.82 L, Hgb 8.7 L, Hct 26.6 L, MCV 94.3 H, MCH 30.9, MCHC 32.7, RDW Std Deviation 50.3 H, RDW Coeff of Atif 14.6, Plt Count 186, MPV 12.7 H, Immature Gran % (Auto) 1.400 H, Neut % (Auto) 89.6 H, Lymph % (Auto) 5.0 L, [place] % (Auto) 2.7, Eos % (Auto) 1.2, Baso % (Auto) 0.1, Absolute Neuts (auto) 8.9 H, Absolute Lymphs (auto) 0.49 L, Nucleated RBC % 0, Differential Comment SCANNED, Toxic Granulation 2+, Sodium 147 H, Potassium 3.7, Chloride 119 H, Carbon Dioxide 23.0, Anion Gap 5, BUN 31 H, Creatinine 0.76, Estim Creat Clear Calc 62.15, Est GFR (MDRD) Af Amer 132, Est GFR (MDRD) Non-Af 109, BUN/Creatinine Ratio 41.0 H, Glucose 132 H, Calcium 7.4 L, Phosphorus 2.3 L, Magnesium 1.8 Micro: Microbiology 11/07/23 13:10 Blood Culture (Wb) - Anticubital Left Blood Culture - Final No growth in 5 days. 11/07/23 13:00 Blood Culture (Wb) - Anticubital Right Blood Culture - Final No growth in 5 days. 11/12/23 12:40 Stool Stool Occult Blood (VADIM) - Final Occult Blood Positive 11/09/23 11:50 Sputum, Induced/Lukens Gram Stain - Final 11/09/23 11:50 Sputum, Induced/Lukens Respiratory Culture - Final Staphylococcus aureus Yeast, not Pina albicans Presumptive C albicans 11/07/23 18:08 Sputum, Induced/Lukens Gram Stain - Final 11/07/23 18:08 Sputum, Induced/Lukens Respiratory Culture - Final Staphylococcus aureus Proteus mirabilis Escherichia coli 11/07/23 13:30 Urine Catheter - Catheter Urine Culture - Final Presumptive E. coli 11/07/23 13:30 Nasal Secretion SARS-CoV-2 & FLU Antigen (Rapid) - Final Radiography Diagnostic Testing: Radiology Impression Chest X-Ray 11/14/23 05:55 IMPRESSION: Bilateral lower lobe pneumonia. Increasing involvement of the right middle lobe. Electronically Signed: Memo Sanchez MD at 9:23 EST , Physical Exam Const alert and no apparent distress; Negative for average body habitus, healthy appearing or well nourished Constitutional Narrative: Cachectic appearing, upper middle-aged, white male, lying in bed intubated and sedated, appears much older than stated age, does open eyes to verbal and tactile stimuli and intermittently follows commands General Appearance: disheveled and frail Nutritional Appearance: cachectic HEENT normocephalic, head/scalp atraumatic and moist oral mucous membranes HEENT Narrative: ET tube in place, significant temporal wasting Resp normal respiratory effort, no retractions, no use of accessory muscles and clear to auscultation bilaterally Resp Narrative: Diffusely diminished but clear Auscultation: Negative for crackles, rales, rhonchi or wheezes Cardio regular rate, regular rhythm, S1 normal heart sound, S2 normal heart sound, no murmurs, no rub, no gallops and no clicks GI normal to inspection, nondistended, normoactive bowel sounds, soft to palpation and non-tender GI Narrative: Scaphoid abdomen, G-tube in place Extremity no clubbing, cyanosis or edema Extremity Narrative: Pedal pulses are 2+, significantly reduced lean muscle mass, left upper extremity PICC is clean and dry Neuro Neuro Narrative: Patient is intubated and sedated on the ventilator, awakens to verbal and tactile and intermittently follows commands Sensorium / Orientation: awake and alert Speech: Negative for speech normal Psych Psych Narrative: Unable to assess due to sedation/intubation Appearance: intubated Assessment & Plan Assessment/Plan (1) Acute respiratory failure with hypoxia and hypercapnia: (2) Protein calorie malnutrition: (3) Severe sepsis: (4) Left lower lobe pneumonia: QUALIFIERS: Pneumonia type: due to unspecified organism Qualified Code(s): J18.9 - Pneumonia, unspecified organism (5) Dehydration: (6) Non-ST elevated myocardial infarction: (7) Hypernatremia: (8) Hypokalemia: (9) Lactic acidosis: (10) Abnormal results of thyroid function studies: (11) Hypophosphatemia: (12) Anemia: PLAN: Plan Acute hypoxic hypercapnic respiratory failure secondary to polymicrobial pneumonia (Staph aureus/and 2 gram-negative rods) -Patient's oxygen saturations were extremely low on presentation requiring nonrebreather with eventual intubation -Initial blood gas showed a pH of 6.97 which is consistent with severe acidosis and found to be respiratory -Sputum culture with Staph aureus, Proteus, and E. coli with repeat culture from the continue to show staph and Pina -Staph is MSSA so discontinue vancomycin -Proteus is sensitive to Zosyn so we will continue --> day 7 of 7 -Discontinue antibiotics tomorrow -Patient remains on mechanical ventilation with an FiO2 of 35%--> anticipate extubation today -Continue diuresis per pulmonary critical care medicine as hemodynamics allow -Will need speech consultation after extubation--> unsure if patient was able to eat prior to admission -Pulmonary/critical care medicine following-appreciate input Septic shock -Secondary to polymicrobial pneumonia -Off pressors since yesterday late morning -Continue midodrine 10 mg 3 times daily via PEG -Continue Zosyn day 7 of 7 cs Hypernatremia/hyperchloremia -Remains stable at 147 -Continue free water with tube feed at 300 cc every 4 hours -Repeat lab in a.m. Hypokalemia - resolved -3.7 this morning -Repeat lab in a.m. Hypophosphatemia -K-Phos replacement given -Repeat Phos in a.m. Anemia -Baseline hemoglobin is unclear however hemoglobin has been trending down -Hemoglobin has trended down however he is over 11 L positive for his hospitalization -Guaiac stool was positive -EGD was performed and no clear source of bleeding however he is some oozing near the PEG site and his PEG was exchanged -Will continue IV Protonix twice daily for now -Await GI input if they plan on doing a colonoscopy during hospitalization Abnormal TSH -TSH was undetectable however free T4 is normal -Suspect euthyroid sick syndrome -Okay to continue levothyroxine NSTEMI -Suspect related to hypoxia and acidosis causing worsening ischemia and known coronary artery disease -Cardiac catheterization from 2020 was reviewed and showed a critical lesion in the proximal and mid right coronary artery which was treated with drug-eluting stents as well as severe diffuse LAD disease and had very tight lesion in the proximal first diagonal -Plan at this time is to continue medical therapy as patient is not currently a candidate for invasive options however may need cardiac catheterization once respiratory issues and sepsis is resolved -Will touch base with cardiology tomorrow if patient is extubated to see if they are going to pursue any further invasive cardiac testing during this admission -Echocardiogram demonstrated normal EF at 60% with no identifiable regional wall motion abnormalities however the study was difficult -Hold carvedilol 3.125 twice daily -Hold lisinopril -Continue aspirin and Brilinta per cardiology documentation Severe malnutrition -Dietitian is following -Tube feeds running and patient tolerating well--> should be able to continue running tube feeds even if extubated as patient already has access with the PEG -Oral supplementations CAD/HTN/HPL -Hold home carvedilol due to hypotension -Continue home ticagrelor -Continue home aspirin -Continue home statin -Hold home lisinopril secondary to hypotension -Cardiac catheterization from 2020 was reviewed and showed a critical lesion in the proximal and mid right coronary artery which was treated with drug-eluting stents as well as severe diffuse LAD disease and had very tight lesion in the proximal first diagonal -Echo is pending GERD -Continue PPI History of head neck cancer -Remote -Previous radiation could contribute to swallowing difficulties -Will ask speech therapy to evaluate the patient prior to discharge after extubated DVT prophylaxis -SCDs -Heparin drip discontinued and if guaiac is negative will start subcu Lovenox CODE STATUS -DNR CCA with short-term intubation Charges/Coding Visit Charges Inpatient E&M: 41563 Subs Hosp L2
[2023-11-14] MEDS: Loperamide (Oral Liquid) 1 MG/7.5 ML ML 2 MG GT (15:16)
[2023-11-14] MEDS: 0.9% Saline Lock 10 ML Syringe IV (15:19)
[2023-11-14 15:36] LABS: Ionized Calcium 4.85 mg/dL (4.36-5.20)
[2023-11-14] MEDS: Acetaminophen 650 MG/20 ML UDC GT (17:42)
--- NOTE | 2023-11-14 19:15 | NURSING ---
Pt's Jevity TF running at 15ml/hr, reduced per dayshift LEONARD Velázquez,LEONARD d/t multiple episodes of Lg loose stools today.
--- NOTE | 2023-11-14 19:20 | CASEMGMT ---
Addendum entered and electronically signed by Amisha Kaur RN 11/14/23 22:39: Dawood states he can be reached best between the hours of 06-09, 17-1900. 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 States messages may be left on his voicemail including any specific questions he needs to answer and he will return calls with the requested information. Pt had also lived with his daughter Deja prior to moving in with Dawood. Silvana Kaur RN CM Original Note: LEONARD YA Discharge Planning Assessment: Return call received from son with voicemail left on 11/13. This RN CM phoned pt's son Dawood to completed dc planning assessment. Noted pt was extubated this afternoon but is confused. This RN FELTON explained role, Dawood expressed understanding and was agreeable to participating in assessment. Care providers, demographics and pharmacy verified. Admitting dx: Respiratory Failure PCP: Julio C: Dawood states pt has not seen a DrSanjuanita in a 2-3 years. Specialists: none Preferred Pharmacy: [facility] [employer] [facility] Prescription Benefit: yes LNOK: son Dawood and daughter Deja Living Arrangements: Pt lives with his son Dawood for the past approximately 5 years in a two story home with [facility] for pt. There are two steps to enter which pt did not previously have difficulty with. Per Dawood, pt has had poor self care since the passing of his significant other many years ago. Dawood states since pt moved in with him, pt has not showered and only changes his clothes weekly. Dawood states he has encouraged pt to bathe by offering to get him a shower chair, providing him wipes and the soap/conditioner that pt requested but pt did not use them. Dawood feels pt is afraid of falling in the shower but also does not sponge bathe. States pt drinks boost/ensure and does not eat solid food. Pt has had significant surgery with removal of his tongue and jaw reconstruction which severely limits his ability to intake food and to speak. Pt often communicates with Dawood via text messages and responds poorly to son's prompting. Transportation: pt does not drive and rarely leaves the home. Dawood does transport him if needed but states this is rare. DME: deneis any current DME SNF: denies but states pt was in a rehab facility s/p his cancer treatment/surgeries where he had to learn to talk and walk again. C: unknown. States pt receives regular visits from someone from pt's insurance that checks pt's VS and provides some care including stool samples. States he is unclear if this is a nurse, RETAIL SALES ASSOCIATE, or physician but thinks this is a nurse. Denies pt being a part of [employer] [facility] or having a CM. States pt doesn't always tell him things and it was set up without his knowledge. States he is usually sleeping when they come and does not interact with them regularly. Dawood states he does not want the pt to return to his home unless the pt is willing to take better care of himself. States pt sleeps only on the couch and has ruined the couch. States pt receives $750/month in social security. Dawood feels pt needs more care than he can provide and with someone pt will listen to as pt does not listen to Dawood. Plan: TBD Will continue to follow PT/OT evaluations and pt's clinical progress for further determination of dc plan. Will also communicate the above with SW. Silvana Kaur RN CM
--- NOTE | 2023-11-14 20:06 | PCM.HOSP.N ---
Hospitalist Note Patient with notable diarrhea, will hold miralax and change softer to once daily only as patient started on lomotil also.
--- NOTE | 2023-11-14 20:47 | NURSING ---
Fentanyl gtt taken down from pt's IV pole and wasted in [employer], could not record waste amt in [facility] d/t med being discontinued on JAN; Yue Barton RN witnessed 85ml of fentanyl waste.
[2023-11-14] MEDS: Atorvastatin Calcium 40 MG Tablet NG (21:04)
--- NOTE | 2023-11-14 21:26 | EX.PCM.PN.GI ---
Subjective Subjective Patient underwent and upper endoscopy yesterday while intubated. P patient is currently extubated. He's not having any problems at this time. No obvious signs of G.I. bleeding were seen on his upper endoscopy yesterday. Objective Data Objective Data Vital Signs: Vital Signs Temp Pulse Resp BP Pulse Ox O2 Del Method O2 Flow Rate 99.9 F H 82 32 H 107/60 97 Nasal Cannula 3 11/14/23 19:00 11/14/23 19:00 11/14/23 19:00 11/14/23 19:00 11/14/23 19:00 11/14/23 20:00 11/14/23 19:00 FiO2 30 11/14/23 08:00 Oxygen Flow Rate (L/min) 3 Oxygen Delivery Method Nasal Cannula Weight: 135 lb 2.294 oz Body Mass Index (BMI) 19.9 Intake & Output: Intake and Output for Last 24 Hours 11/12/23 11/13/23 11/14/23 23:59 23:59 23:59 Intake Total 4231.32 / 4865.72 4574.11 / 4596.71 3280.65 / 3280.65 Output Total 3200 / 3300 860 / 860 600 / 600 Balance 1031.32 / 1565.72 3714.11 / 3736.71 2680.65 / 2680.65 Medical Nutrition Assessment Dietitian: Malnutrition Criteria Met Start: 11/08/23 09:33 Freq: Status: Active Protocol: Document 11/14/23 11:05 RMA (Rec: 11/14/23 11:05 RMA [id number]) Nutrition Malnutrition Evidence of Malnutrition Exists Yes Malnutrition (severe): Chronic Evidenced By Suboptimal Energy Intake ( Severe),Physical Changes ( Severe) Clinical Problem Chronic Disease or Condition Related Malnutrition Etiology severe, chronic malnutrition related to inadequate energy intake Signs/Symptoms as evidenced by severe muscle wasting/fat loss evident per physical exam in orbital, clavicle, acromion, and temporal areas; estimated PO intake meeting <75% of estimated energy needs > 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 Flush with 180mL free water Q 4 hours. TF at goal and water flushes will provide 1980 Kcal , 84 gm protein, and 2083 mL total free water per day. TF will meet~100% estimated nutrition needs for now given NPO status. Recommend PO as tolerated with Regular diet as deemed safe/ appropriate per PLASTIC CNC MACHINE OPERATOR with PO ensure plus high protein as indicated if cleared for oral intake. Will monitor weight, labs, any PO nutrition and adjust enteral nutrition support as indicated to optimize nutrition and promote gradual weight gain. Lab / Micro Data 11/14/23 03:47 11/14/23 03:47 Labs: Laboratory Results - last 24 hr 11/14/23 03:47: WBC 9.9, RBC 2.82 L, Hgb 8.7 L, Hct 26.6 L, MCV 94.3 H, MCH 30.9, MCHC 32.7, RDW Std Deviation 50.3 H, RDW Coeff of Atif 14.6, Plt Count 186, MPV 12.7 H, Immature Gran % (Auto) 1.400 H, Neut % (Auto) 89.6 H, Lymph % (Auto) 5.0 L, [place] % (Auto) 2.7, Eos % (Auto) 1.2, Baso % (Auto) 0.1, Absolute Neuts (auto) 8.9 H, Absolute Lymphs (auto) 0.49 L, Nucleated RBC % 0, Differential Comment SCANNED, Toxic Granulation 2+, Sodium 147 H, Potassium 3.7, Chloride 119 H, Carbon Dioxide 23.0, Anion Gap 5, BUN 31 H, Creatinine 0.76, Estim Creat Clear Calc 62.15, Est GFR (MDRD) Af Amer 132, Est GFR (MDRD) Non-Af 109, BUN/Creatinine Ratio 41.0 H, Glucose 132 H, Calcium 7.4 L, Phosphorus 2.3 L, Magnesium 1.8 11/14/23 15:31: Ionized Calcium 4.85 Micro: Microbiology 11/07/23 13:10 Blood Culture (Wb) - Anticubital Left Blood Culture - Final No growth in 5 days. 11/07/23 13:00 Blood Culture (Wb) - Anticubital Right Blood Culture - Final No growth in 5 days. 11/12/23 12:40 Stool Stool Occult Blood (VADIM) - Final Occult Blood Positive 11/09/23 11:50 Sputum, Induced/Lukens Gram Stain - Final 11/09/23 11:50 Sputum, Induced/Lukens Respiratory Culture - Final Staphylococcus aureus Yeast, not Pina albicans Presumptive C albicans 11/07/23 18:08 Sputum, Induced/Lukens Gram Stain - Final 11/07/23 18:08 Sputum, Induced/Lukens Respiratory Culture - Final Staphylococcus aureus Proteus mirabilis Escherichia coli 11/07/23 13:30 Urine Catheter - Catheter Urine Culture - Final Presumptive E. coli 11/07/23 13:30 Nasal Secretion SARS-CoV-2 & FLU Antigen (Rapid) - Final Radiography Diagnostic Testing: Radiology Impression Chest X-Ray 11/14/23 05:55 IMPRESSION: Bilateral lower lobe pneumonia. Increasing involvement of the right middle lobe. Electronically Signed: Memo Sanchez MD at 9:23 EST , Physical Exam Const Constitutional Narrative: Frail and cachectic in appearance. General Appearance: disheveled, frail, intubated and patient mechanically ventilated Nutritional Appearance: cachectic HEENT normocephalic and head/scalp atraumatic Eyes PERRL, EOMs intact bilaterally and conjunctivae normal Neck supple and no JVD General: trachea midline Chest inspection of chest normal Resp normal respiratory effort, no retractions and no use of accessory muscles Resp Narrative: Overbreathing set rate on ventilator. Effort and Inspection: tachypneic Auscultation: Negative for crackles, rales, rhonchi or wheezes Cardio regular rate, regular rhythm, S1 normal heart sound, S2 normal heart sound and no murmurs GI normal to inspection, nondistended, normoactive bowel sounds, soft to palpation and non-distended; Negative for hepatosplenomegaly Inspection: GI tube present Extremity no clubbing, cyanosis or edema Skin no rashes or lesions noted Neuro Sensorium / Orientation: sedated on vent Psych Appearance: intubated Assessment & Plan Assessment/Plan (1) Anemia: QUALIFIERS: Anemia type: unspecified type Qualified Code(s): D64.9 - Anemia, unspecified (2) Protein calorie malnutrition: QUALIFIERS: Protein-calorie malnutrition severity: moderate Qualified Code(s): E44.0 - Moderate protein-calorie malnutrition PLAN: Plan 68-year-old with problems, including COPD, history of oral cancer, status, post surgery, chemo and radiation with peg placement in the past. I did not see any signs of quiescent or over bleeding on his upper endoscopy. Recommend colonoscopy while he's impatient. He can be prepped tomorrow for colonoscopy on Thursday morning. Prep can be given through the peg tube. Charges/Coding Visit Charges Inpatient E&M: 05570 Subs Hosp L3
[2023-11-14 23:27] LABS: Ionized Calcium Order ORDER TUBE
[2023-11-14] MEDS: dexMEDEtomidine 400 MCG in 0.9% Normal Saline (100mL Bag) 96 ML 9.2 MCG CONT INF (23:47)
[2023-11-15] VITALS (32 sets, daily range): BP systolic 96–208; BP diastolic 49–114; PULSE 69–126; RESP 20–32; TEMP 36.7–37.5; O2SAT 85–99; BMI 19.1
[2023-11-15 04:17] LABS: Absolute Lymphocyte Count 0.64 X10^3/uL (0.83-4.51); Absolute Neutrophil Count 9.8 X10^3/uL (2.0-7.7); Basophil# 0.02 X10^3/uL; Basophil% 0.2 % (0-1); Eosinophil# 0.09 X10^3/uL; Eosinophils% 0.8 % (0-5); Hematocrit 26.3 % (40-54); Hemoglobin 8.8 g/dL (13.0-16.5); Lymphocyte # 0.64 X10^3/ul (0.83-4.51); Lymphocyte % 5.8 % (19-41); Mean Corp Hgb Conc 33.5 g/dL (32-36); Mean Corpuscular Hgb 31.1 pg (27.0-32.0); Mean Corpuscular Volume 92.9 fL (80-94); Mean Platelet Vol. 12.3 fl (6.2-12.0); Monocyte# 0.34 X10^3/uL; Monocyte% 3.1 % (0-10); NRBC Flagged by Analyzer 0 % (0-5); Neutrophil # 9.78 X10^3/uL (2.7-7.7); Neutrophil % 89.2 % (47-70); Platelet Count 214 K/mm3 (150-450); RBC Distribution Width CV 14.8 % (11.6-14.6); Red Blood Count 2.83 M/mm3 (4.6-6.2)
[2023-11-15 04:24] LABS: Ionized Calcium 4.91 mg/dL (4.36-5.20)
[2023-11-15 04:32] LABS: Anion Gap 5 (5-15); BUN 26 mg/dL (7-18); BUN/Creat Ratio 34.3 RATIO (10-20); Calcium,Total 7.5 mg/dL (8.5-10.1); Chloride 119 mmol/L (98-107); Creatinine, Serum 0.76 mg/dL (0.70-1.30); EST Glomerular Filtration Rate 109 mL/min (>60); Est Glom Filt Rate - Afr Amer 132 mL/min (>60); Estimated Creatinine Clearance 62.15 ml/min; Glucose 141 mg/dL (74-106); Magnesium 2.1 mg/dL (1.6-2.6); Potassium 3.6 mmol/L (3.5-5.1); Sodium Level 146 mmol/L (136-145)
[2023-11-15 04:39] LABS: Phosphorus 3.4 mg/dL (2.5-4.9)
[2023-11-15] MEDS: Menthol/Lanolin/Calamine/Znox 113 GM Tube 1 APPLIC TOPICAL ×3 (05:27→21:07)
[2023-11-15] MEDS: Piperacil/Tazobactam 3.375 GM in 0.9% Normal Saline (50mL MB+) 50 ML IV ×3 (05:28→21:10)
[2023-11-15] MEDS: 0.9% Saline Lock 10 ML Syringe IV (05:29)
[2023-11-15] MEDS: Levothyroxine 50 MCG Tablet NG (05:29)
[2023-11-15] MEDS: Ipratropium/Albuterol Sulfate 3 ML AMPUL.NEB INHALATION ×3 (06:52→19:06)
[2023-11-15] MEDS: Midodrine HCl 5 MG Tablet 10 MG PO ×2 (08:14→21:06)
[2023-11-15] MEDS: Aspirin 81 MG TAB.CHEW NG (08:14)
--- NOTE | 2023-11-15 08:33 | PCM.PN.HOSP ---
Reason for Visit Reason for Visit: Shortness of breath Subjective Subjective Extubated yesterday. Stable on 3 L but does have intermittent tachypnea and on Precedex for agitation. Will trial off Precedex today and start some risperidone. Likely if does well with this can transfer to PCU tomorrow. Patient has an extraordinarily weak cough due to his marked debility at baseline and acute illness and he is at high risk for recurrent aspiration despite n.p.o. status. Objective Data Objective Data Vital Signs: Vital Signs Temp Pulse Resp BP Pulse Ox O2 Del Method O2 Flow Rate 98.2 F 90 21 H 114/54 L 99 Nasal Cannula 3 11/15/23 06:00 11/15/23 07:00 11/15/23 07:00 11/15/23 07:00 11/15/23 07:00 11/15/23 07:00 11/15/23 07:00 FiO2 30 11/14/23 08:00 Oxygen Flow Rate (L/min) 3 Oxygen Delivery Method Nasal Cannula Weight: 58.8 kg Body Mass Index (BMI) 19.1 Intake & Output: Intake and Output for Last 24 Hours 11/13/23 11/14/23 11/15/23 23:59 23:59 23:59 Intake Total 4574.11 / 4596.71 3596.14 / 3598.13 475.56 / 475.56 Output Total 860 / 860 600 / 600 250 / 250 Balance 3714.11 / 3736.71 2996.14 / 2998.13 225.56 / 225.56 Medical Nutrition Assessment Dietitian: Malnutrition Criteria Met Start: 11/08/23 09:33 Freq: Status: Active Protocol: Document 11/14/23 11:05 RMA (Rec: 11/14/23 11:05 RMA [id number]) Nutrition Malnutrition Evidence of Malnutrition Exists Yes Malnutrition (severe): Chronic Evidenced By Suboptimal Energy Intake ( Severe),Physical Changes ( Severe) Clinical Problem Chronic Disease or Condition Related Malnutrition Etiology severe, chronic malnutrition related to inadequate energy intake Signs/Symptoms as evidenced by severe muscle wasting/fat loss evident per physical exam in orbital, clavicle, acromion, and temporal areas; estimated PO intake meeting <75% of 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 Flush with 180mL free water Q 4 hours. TF at goal and water flushes will provide 1980 Kcal , 84 gm protein, and 2083 mL total free water per day. TF will meet~100% estimated nutrition needs for now given NPO status. Recommend PO as tolerated with Regular diet as deemed safe/ appropriate per ENVIRONMENTAL LABORATORY TECHNICIAN with PO ensure plus high protein as indicated if cleared for oral intake. Will monitor weight, labs, any PO nutrition and adjust enteral nutrition support as indicated to optimize nutrition and promote gradual weight gain. Lab / Micro Data 11/15/23 04:10 11/15/23 04:10 Labs: Laboratory Results - last 24 hr 11/14/23 15:31: Ionized Calcium 4.85 11/15/23 04:10: WBC 11.0, RBC 2.83 L, Hgb 8.8 L, Hct 26.3 L, MCV 92.9, MCH 31.1, MCHC 33.5, RDW Std Deviation 49.0 H, RDW Coeff of Atif 14.8 H, Plt Count 214, MPV 12.3 H, Immature Gran % (Auto) 0.900, Neut % (Auto) 89.2 H, Lymph % (Auto) 5.8 L, [place] % (Auto) 3.1, Eos % (Auto) 0.8, Baso % (Auto) 0.2, Absolute Neuts (auto) 9.8 H, Absolute Lymphs (auto) 0.64 L, Nucleated RBC % 0, Sodium 146 H, Potassium 3.6, Chloride 119 H, Carbon Dioxide 22.0, Anion Gap 5, BUN 26 H, Creatinine 0.76, Estim Creat Clear Calc 62.15, Est GFR (MDRD) Af Amer 132, Est GFR (MDRD) Non-Af 109, BUN/Creatinine Ratio 34.3 H, Glucose 141 H, Calcium 7.5 L, Phosphorus 3.4, Magnesium 2.1 11/15/23 04:19: Ionized Calcium 4.91 Micro: Microbiology 11/07/23 13:10 Blood Culture (Wb) - Anticubital Left Blood Culture - Final No growth in 5 days. 11/07/23 13:00 Blood Culture (Wb) - Anticubital Right Blood Culture - Final No growth in 5 days. 11/12/23 12:40 Stool Stool Occult Blood (VADIM) - Final Occult Blood Positive 11/09/23 11:50 Sputum, Induced/Lukens Gram Stain - Final 11/09/23 11:50 Sputum, Induced/Lukens Respiratory Culture - Final Staphylococcus aureus Yeast, not Pina albicans Presumptive C albicans 11/07/23 18:08 Sputum, Induced/Lukens Gram Stain - Final 11/07/23 18:08 Sputum, Induced/Lukens Respiratory Culture - Final Staphylococcus aureus Proteus mirabilis Escherichia coli 11/07/23 13:30 Urine Catheter - Catheter Urine Culture - Final Presumptive E. coli 11/07/23 13:30 Nasal Secretion SARS-CoV-2 & FLU Antigen (Rapid) - Final Radiography Diagnostic Testing: Radiology Impression Chest X-Ray 11/14/23 05:55 IMPRESSION: Bilateral lower lobe pneumonia. Increasing involvement of the right middle lobe. Electronically Signed: Memo Sanchez MD at 9:23 EST , Physical Exam Const alert and no apparent distress; Negative for average body habitus, healthy appearing or well nourished Constitutional Narrative: Frail and cachectic appearing, upper middle-aged, white male, sitting up in bed watching television, on nasal cannula 3 L, appears comfortable, weak cough, difficult to ascertain orientation HEENT normocephalic, head/scalp atraumatic and moist oral mucous membranes HEENT Narrative: Extremely hard of hearing, edentulous, Mallampati 1, no thrush Resp no retractions and no use of accessory muscles Resp Narrative: Tachypneic, diffusely diminished but clear, cough is extremely weak Auscultation: Negative for rales, rhonchi or wheezes Cardio regular rate, regular rhythm, S1 normal heart sound, S2 normal heart sound, no murmurs, no rub, no gallops and no clicks GI soft to palpation, non-tender and non-distended; Negative for hepatosplenomegaly GI Narrative: Scaphoid abdomen, G-tube in place, bowel sounds are hyperactive Extremity no clubbing, cyanosis or edema Extremity Narrative: Pedal pulses are 2+, significantly reduced lean muscle mass, left upper extremity PICC is clean and dry Neuro moves all extremities and no focal motor deficits Neuro Narrative: Marked diffuse weakness, difficult to ascertain orientation questions due to weak speech and hearing loss Sensorium / Orientation: awake and alert Speech: Negative for speech normal Psych Psych Narrative: Currently calm with no agitation, makes eye contact, affect is flat Assessment & Plan Assessment/Plan (1) Acute respiratory failure with hypoxia and hypercapnia: (2) Protein calorie malnutrition: QUALIFIERS: Protein-calorie malnutrition severity: moderate Qualified Code(s): E44.0 - Moderate protein-calorie malnutrition (3) Severe sepsis: (4) Left lower lobe pneumonia: QUALIFIERS: Pneumonia type: due to unspecified organism Qualified Code(s): J18.9 - Pneumonia, unspecified organism (5) Dehydration: (6) Non-ST elevated myocardial infarction: (7) Hypernatremia: (8) Hypokalemia: (9) Lactic acidosis: (10) Abnormal results of thyroid function studies: (11) Hypophosphatemia: (12) Anemia: QUALIFIERS: Anemia type: unspecified type Qualified Code(s): D64.9 - Anemia, unspecified PLAN: Plan Acute hypoxic hypercapnic respiratory failure secondary to polymicrobial pneumonia (Staph aureus/and 2 gram-negative rods) -Patient's oxygen saturations were extremely low on presentation requiring nonrebreather with eventual intubation 11/07/2023 -Extubated 11/14/2023 -Initial blood gas showed a pH of 6.97 which is consistent with severe acidosis and found to be respiratory -Sputum culture with Staph aureus, Proteus, and E. coli with repeat culture from the continue to show staph and Pina -Staph is MSSA so discontinue vancomycin -Proteus is sensitive to Zosyn so we will continue --> day 7 of 10--> course extended due to persistent positivity of MSSA -Discontinue antibiotics tomorrow -Continue diuresis per pulmonary critical care medicine as hemodynamics allow -Speech therapy consultation is pending -Pulmonary/critical care medicine following-appreciate input Septic shock -Secondary to polymicrobial pneumonia -Resolved -Continue midodrine 10 mg 3 times daily via PEG -Continue Zosyn day 7 of 10--> course extended due to persistent positivity of MSSA Hypernatremia/hyperchloremia -Remains stable at 146 -Continue free water with tube feed at 300 cc every 4 hours -Repeat lab in a.m. Hypokalemia - resolved but will need to continue to monitor -3.6 this morning -Repeat lab in a.m. Hypophosphatemia -Resolved Anemia -Baseline hemoglobin is unclear however hemoglobin has been trending down -Hemoglobin has trended down however he is over 11 L positive for his hospitalization -Guaiac stool was positive -EGD was performed and no clear source of bleeding however he is some oozing near the PEG site and his PEG was exchanged -Hemoglobin is relatively stable -Transition PPI from IV to via PEG -Await GI input if they plan on doing a colonoscopy during hospitalization Abnormal TSH -TSH was undetectable however free T4 is normal -Suspect euthyroid sick syndrome -Okay to continue levothyroxine NSTEMI -Suspect related to hypoxia and acidosis causing worsening ischemia and known coronary artery disease -Cardiac catheterization from 2020 was reviewed and showed a critical lesion in the proximal and mid right coronary artery which was treated with drug-eluting stents as well as severe diffuse LAD disease and had very tight lesion in the proximal first diagonal -Notified cardiology patient has been extubated--> Dr. Yusuf will reevaluate the situation later today -Echocardiogram demonstrated normal EF at 60% with no identifiable regional wall motion abnormalities however the study was difficult -Lisinopril and carvedilol are still on hold however could consider restarting soon if blood pressures remain stable -Continue aspirin and Brilinta per cardiology documentation Severe malnutrition -Dietitian is following -Continue tube feed -Oral supplementations CAD/HTN/HPL -Hold home carvedilol due to hypotension -Continue home ticagrelor -Continue home aspirin -Continue home statin -Hold home lisinopril secondary to hypotension and monitor blood pressure to restart -Cardiac catheterization from 2020 was reviewed and showed a critical lesion in the proximal and mid right coronary artery which was treated with drug-eluting stents as well as severe diffuse LAD disease and had very tight lesion in the proximal first diagonal GERD -Continue PPI History of head neck cancer -Remote -Previous radiation could contribute to swallowing difficulties -Will ask speech therapy to evaluate the patient prior to discharge after extubated DVT prophylaxis -Subcu Lovenox CODE STATUS -DNR CCA with short-term intubation Charges/Coding Visit Charges Inpatient E&M: 68163 Subs Hosp L2
[2023-11-15] MEDS: Potassium Chloride 10mEq/100mL 10 MEQ/100 ML IV.SOLN. 100 MEQ IV BOLUS (10:10)
[2023-11-15] MEDS: Potassium Chloride Oral Soln 20 MEQ/15 ML UDC PO (10:10)
[2023-11-15] MEDS: RisperiDONE 0.25 MG Tablet GT (10:11)
[2023-11-15] MEDS: Lansoprazole 15 MG Capsule.DR 30 MG GT ×2 (10:11→21:05)
[2023-11-15] MEDS: TICAGRELOR 90 MG TABLET NG ×2 (10:11→21:06)
--- NOTE | 2023-11-15 11:09 | PN.CC_ITS ---
Assessment & Plan Assessment/Plan (1) Acute hypercapnic respiratory failure: (2) Severe sepsis: (3) Left lower lobe pneumonia: QUALIFIERS: Pneumonia type: due to unspecified organism Qualified Code(s): J18.9 - Pneumonia, unspecified organism (4) Non-ST elevated myocardial infarction: PLAN: Plan RECOMMENDATIONS: 1. Pt extubated successfully 11/14. He was somewhat agitated post extubation an d required Precedex ggt. He was started on risperidone per medicine. Noted pt also in +ve fluid balance. Will start him on lasix 2. Continue antimicrobials. Sputum Culture growing MSSA and gram-negative rods. Zosyn to complete 10 days 3. Ongoing electrolyte repletion as needed. 4. Hemoglobin trended down. Fecal occult blood was positive. Heparin drip was stopped. Continue PPI twice daily. EGD negative for PUD. PEG was replaced, he is tolerating TF 5. Aspiration precautions 6. PT /OT IMPRESSIONS: 1. Sepsis secondary to possible aspiration pneumonia The patient presented with sepsis due to probable aspiration pneumonia with acute sepsis related organ dysfunction as evidenced by respiratory failure requiring invasive mechanical ventilatory support. The patient remains on appropriate antimicrobial therapy. He has been weaned from vasopressor support and remains hemodynamically stable. Extubated successfully 11/14 2. Non-ST elevation [place] Most likely secondary to demand ischemia in the setting of #1. Cardiology is following to assist with medical management. Echocardiogram revealed intact, preserved systolic function. 3. Acute combined respiratory failure with sepsis CT of the chest she does show some emphysematous changes with bronchiectasis indicating probable complications of smoking. As such, we will continue scheduled bronchodilator therapy today. 4. History of oral cancer/severe protein malnutrition/GERD Complicates care, management, recovery and prognosis. Continue to monitor for refeeding syndrome given underlying poor nutritional state. Physical therapy to work with the patient. CODE STATUS: DNR Subjective Subjective Awake, appears less anxious while on precedex Objective Data Objective Data Vital Signs: Vital Signs Temp Pulse Resp BP Pulse Ox O2 Del Method O2 Flow Rate 37.1 C 75 32 H 113/63 98 Nasal Cannula 3 11/15/23 10:00 11/15/23 10:00 11/15/23 10:00 11/15/23 10:00 11/15/23 10:00 11/15/23 10:00 11/15/23 10:00 FiO2 30 11/14/23 08:00 Oxygen Flow Rate (L/min) 3 Oxygen Delivery Method Nasal Cannula Weight: 58.8 kg Body Mass Index (BMI) 19.1 Intake & Output: Intake and Output for Last 24 Hours 11/13/23 11/14/23 11/15/23 23:59 23:59 23:59 Intake Total 4574.11 / 4596.71 3596.14 / 3598.13 737.76 / 737.76 Output Total 860 / 860 600 / 600 400 / 400 Balance 3714.11 / 3736.71 2996.14 / 2998.13 337.76 / 337.76 Medical Nutrition Assessment Dietitian: Malnutrition Criteria Met Start: 11/08/23 09:33 Freq: Status: Active Protocol: Document 11/14/23 11:05 RMA (Rec: 11/14/23 11:05 RMA [id number]) Nutrition Malnutrition Evidence of Malnutrition Exists Yes Malnutrition (severe): Chronic Evidenced By Suboptimal Energy Intake ( Severe),Physical Changes ( Severe) Clinical Problem Chronic Disease or Condition Related Malnutrition Etiology severe, chronic malnutrition related to inadequate energy intake Signs/Symptoms as evidenced by severe muscle wasting/fat loss evident per physical exam in orbital, clavicle, acromion, and temporal areas; estimated PO intake meeting <75% of 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 Flush with 180mL free water Q 4 hours. TF at goal and water flushes will provide 1980 Kcal , 84 gm protein, and 2083 mL total free water per day. TF will meet~100% estimated nutrition needs for now given NPO status. Recommend PO as tolerated with Regular diet as deemed safe/ appropriate per OUTSIDE SALESMAN with PO ensure plus high protein as indicated if cleared for oral intake. Will monitor weight, labs, any PO nutrition and adjust enteral nutrition support as indicated to optimize nutrition and promote gradual weight gain. Lab / Micro Data 11/15/23 04:10 11/15/23 04:10 Labs: Laboratory Results - last 24 hr 11/14/23 15:31: Ionized Calcium 4.85 11/15/23 04:10: WBC 11.0, RBC 2.83 L, Hgb 8.8 L, Hct 26.3 L, MCV 92.9, MCH 31.1, MCHC 33.5, RDW Std Deviation 49.0 H, RDW Coeff of Atif 14.8 H, Plt Count 214, MPV 12.3 H, Immature Gran % (Auto) 0.900, Neut % (Auto) 89.2 H, Lymph % (Auto) 5.8 L , [place] % (Auto) 3.1, Eos % (Auto) 0.8, Baso % (Auto) 0.2, Absolute Neuts (auto) 9.8 H, Absolute Lymphs (auto) 0.64 L, Nucleated RBC % 0, Sodium 146 H, Potassium 3.6, Chloride 119 H, Carbon Dioxide 22.0, Anion Gap 5, BUN 26 H, Creatinine 0.76, Estim Creat Clear Calc 62.15, Est GFR (MDRD) Af Amer 132, Est GFR (MDRD) Non-Af 109, BUN/Creatinine Ratio 34.3 H, Glucose 141 H, Calcium 7.5 L, Phosphorus 3.4, Magnesium 2.1 11/15/23 04:19: Ionized Calcium 4.91 Micro: Microbiology 11/07/23 13:10 Blood Culture (Wb) - Anticubital Left Blood Culture - Final No growth in 5 days. 11/07/23 13:00 Blood Culture (Wb) - Anticubital Right Blood Culture - Final No growth in 5 days. 11/12/23 12:40 Stool Stool Occult Blood (VADIM) - Final Occult Blood Positive 11/09/23 11:50 Sputum, Induced/Lukens Gram Stain - Final 11/09/23 11:50 Sputum, Induced/Lukens Respiratory Culture - Final Staphylococcus aureus Yeast, not Pina albicans Presumptive C albicans 11/07/23 18:08 Sputum, Induced/Lukens Gram Stain - Final 11/07/23 18:08 Sputum, Induced/Lukens Respiratory Culture - Final Staphylococcus aureus Proteus mirabilis Escherichia coli 11/07/23 13:30 Urine Catheter - Catheter Urine Culture - Final Presumptive E. coli 11/07/23 13:30 Nasal Secretion SARS-CoV-2 & FLU Antigen (Rapid) - Final Physical Exam Narrative General alert no acute distress HEENT. s/p glossectomy Respiratory reduced air entry bilaterally, mild crackles Cardiac S1-S2, regular rate and rhythm GI abdomen soft and nontender MSK no lower extremity edema Skin no rashes Neuro moves all extremities Charges/Coding Visit Charges Inpatient E&M: 16222 Subs Hosp L3
[2023-11-15 12:15] LABS: Ionized Calcium Order ORDER TUBE
--- NOTE | 2023-11-15 12:37 | PCM.PN.CARD ---
Subjective Subjective Patient is extubated. Denies any chest pain. His admission was mainly due to respiratory issues. He denied any chest pain prior to admission. Objective Data Vital Signs: Vital Signs Temp Pulse Resp BP Pulse Ox O2 Del Method O2 Flow Rate 98.7 F 88 28 H 113/63 98 Nasal Cannula 3 11/15/23 10:00 11/15/23 12:17 11/15/23 12:17 11/15/23 10:00 11/15/23 10:00 11/15/23 10:00 11/15/23 10:00 FiO2 30 11/14/23 08:00 Oxygen Flow Rate (L/min) 3 Oxygen Delivery Method Nasal Cannula Weight: 129 lb 10.109 oz Body Mass Index (BMI) 19.1 Intake & Output: Intake and Output for Last 24 Hours 11/13/23 11/14/23 11/15/23 23:59 23:59 23:59 Intake Total 4574.11 / 4596.71 3596.14 / 3598.13 839.17 / 839.17 Output Total 860 / 860 600 / 600 400 / 400 Balance 3714.11 / 3736.71 2996.14 / 2998.13 439.17 / 439.17 Lab / Micro Data 11/15/23 04:10 11/15/23 04:10 Labs: Laboratory Results - last 24 hr 11/14/23 15:31: Ionized Calcium 4.85 11/15/23 04:10: WBC 11.0, RBC 2.83 L, Hgb 8.8 L, Hct 26.3 L, MCV 92.9, MCH 31.1, MCHC 33.5, RDW Std Deviation 49.0 H, RDW Coeff of Atif 14.8 H, Plt Count 214, MPV 12.3 H, Immature Gran % (Auto) 0.900, Neut % (Auto) 89.2 H, Lymph % (Auto) 5.8 L, [place] % (Auto) 3.1, Eos % (Auto) 0.8, Baso % (Auto) 0.2, Absolute Neuts (auto) 9.8 H, Absolute Lymphs (auto) 0.64 L, Nucleated RBC % 0, Sodium 146 H, Potassium 3.6, Chloride 119 H, Carbon Dioxide 22.0, Anion Gap 5, BUN 26 H, Creatinine 0.76, Estim Creat Clear Calc 62.15, Est GFR (MDRD) Af Amer 132, Est GFR (MDRD) Non-Af 109, BUN/Creatinine Ratio 34.3 H, Glucose 141 H, Calcium 7.5 L, Phosphorus 3.4, Magnesium 2.1 11/15/23 04:19: Ionized Calcium 4.91 Cardiology Labs/Tests 11/14/23 15:31: Ionized Calcium 4.85 11/15/23 04:10: WBC 11.0, RBC 2.83 L, Hgb 8.8 L, Hct 26.3 L, MCV 92.9, MCH 31.1, MCHC 33.5, Plt Count 214, MPV 12.3 H, Immature Gran % (Auto) 0.900, Neut % (Auto) 89.2 H, Lymph % (Auto) 5.8 L, [place] % (Auto) 3.1, Eos % (Auto) 0.8, Baso % (Auto) 0.2, Absolute Neuts (auto) 9.8 H, Nucleated RBC % 0, Sodium 146 H, Potassium 3.6, Chloride 119 H, Carbon Dioxide 22.0, Anion Gap 5, BUN 26 H, Creatinine 0.76, Est GFR (MDRD) Af Amer 132, Est GFR (MDRD) Non-Af 109, BUN/Creatinine Ratio 34.3 H, Glucose 141 H, Calcium 7.5 L, Phosphorus 3.4, Magnesium 2.1 11/15/23 04:19: Ionized Calcium 4.91 Rhythm: EKG: ECHO: Stress Test: Cardiac Cath: PCI: CT Surgery: Holter monitor: EPS: PPM: CXR: Chest CT Scan: Physical Exam Const alert HEENT normocephalic Eyes no scleral icterus Assessment & Plan Assessment/Plan (1) Non-ST elevated myocardial infarction: PLAN: Likely demand based in the setting of hypoxia and acidosis on top of his underlying severe coronary artery disease. No further inpatient workup recommended from a cardiac standpoint. Patient can follow-up with cardiology as an outpatient. (2) CAD (coronary artery disease): QUALIFIERS: Coronary Disease-Associated Artery/Lesion type: unspecified vessel or lesion type [place] vs. transplanted heart: [place] heart Associated angina: without angina Qualified Code(s): I25.10 - Atherosclerotic heart disease of [place] coronary artery without angina pectoris PLAN: Coronary angiography from 2020 was reviewed. At that time, he was noted to have critical lesion in his proximal and mid right coronary artery which were treated with drug-eluting stents. He is also noted to have severe diffuse LAD disease and a very tight lesion in proximal first diagonal. Continue medical management. (3) Severe sepsis: PLAN: As per critical care. (4) Protein calorie malnutrition: QUALIFIERS: Protein-calorie malnutrition severity: moderate Qualified Code(s): E44.0 - Moderate protein-calorie malnutrition (5) History of mouth cancer:
[2023-11-15] MEDS: Furosemide 20 MG/2 ML VIAL IV ×2 (12:50→18:52)
[2023-11-15] MEDS: Loperamide (Oral Liquid) 1 MG/7.5 ML ML 2 MG GT (13:15)
[2023-11-15] MEDS: CHLORHEXIDINE GLUC 2% CLOTH 1 EACH TOWELETTE TOPICAL (13:52)
[2023-11-15] MEDS: dexMEDEtomidine 400 MCG in 0.9% Normal Saline (100mL Bag) 96 ML 7.7 MCG CONT INF (13:59)
[2023-11-15] MEDS: TITRATION PARAMETER CHANGE 1 EACH IV (18:52)
[2023-11-15] MEDS: dexMEDEtomidine 400 MCG in 0.9% Normal Saline (100mL Bag) 96 ML 14.7 MCG CONT INF (21:00)
[2023-11-15] MEDS: RisperiDONE 0.5 MG Tablet PO (21:06)
[2023-11-15] MEDS: Atorvastatin Calcium 40 MG Tablet NG (21:06)
[2023-11-16] VITALS (38 sets, daily range): BP systolic 90–189; BP diastolic 51–81; PULSE 75–133; RESP 12–31; TEMP 36.4–37.1; O2SAT 78–98; BMI 18.6
[2023-11-16] MEDS: Ipratropium/Albuterol Sulfate 3 ML AMPUL.NEB INHALATION ×3 (00:48→13:11)
[2023-11-16] MEDS: Jevity 1.5 1,000 ML 35 ML GT (04:00)
[2023-11-16] MEDS: dexMEDEtomidine 400 MCG in 0.9% Normal Saline (100mL Bag) 96 ML 14.7 MCG CONT INF (04:12)
[2023-11-16 04:55] LABS: Absolute Lymphocyte Count 0.69 X10^3/uL (0.83-4.51); Absolute Neutrophil Count 9.6 X10^3/uL (2.0-7.7); Basophil# 0.02 X10^3/uL; Basophil% 0.2 % (0-1); Eosinophil# 0.05 X10^3/uL; Eosinophils% 0.5 % (0-5); Hemoglobin 8.9 g/dL (13.0-16.5); Lymphocyte # 0.69 X10^3/ul (0.83-4.51); Lymphocyte % 6.4 % (19-41); Mean Corpuscular Hgb 30.9 pg (27.0-32.0); Mean Corpuscular Volume 93.8 fL (80-94); Mean Platelet Vol. 11.8 fl (6.2-12.0); Monocyte# 0.35 X10^3/uL; Monocyte% 3.3 % (0-10); NRBC Flagged by Analyzer 0 % (0-5); Neutrophil # 9.58 X10^3/uL (2.7-7.7); Neutrophil % 88.9 % (47-70); Platelet Count 248 K/mm3 (150-450); RBC Distribution Width CV 14.6 % (11.6-14.6); RBC Distribution Width SD 48.4 fl (35.1-43.9); Red Blood Count 2.88 M/mm3 (4.6-6.2); White Blood Count 10.8 K/mm3 (4.4-11.0)
[2023-11-16 05:02] LABS: Anion Gap 6 (5-15); BUN 23 mg/dL (7-18); BUN/Creat Ratio 26.1 RATIO (10-20); Calcium,Total 7.9 mg/dL (8.5-10.1); Chloride 114 mmol/L (98-107); Creatinine, Serum 0.88 mg/dL (0.70-1.30); EST Glomerular Filtration Rate 92 mL/min (>60); Est Glom Filt Rate - Afr Amer 111 mL/min (>60); Estimated Creatinine Clearance 65.67 ml/min; Glucose 176 mg/dL (74-106); Magnesium 2.1 mg/dL (1.6-2.6); Potassium 3.6 mmol/L (3.5-5.1); Sodium Level 146 mmol/L (136-145)
[2023-11-16] MEDS: Piperacil/Tazobactam 3.375 GM in 0.9% Normal Saline (50mL MB+) 50 ML IV ×3 (05:26→20:57)
[2023-11-16] MEDS: Menthol/Lanolin/Calamine/Znox 113 GM Tube 1 APPLIC TOPICAL ×3 (05:27→20:52)
[2023-11-16] MEDS: Levothyroxine 50 MCG Tablet NG (05:27)
[2023-11-16 06:24] LABS: Phosphorus 3.8 mg/dL (2.5-4.9)
--- NOTE | 2023-11-16 07:20 | PCM.PN.HOSP ---
Reason for Visit Reason for Visit: Diagnoses Sepsis, unspecified organism (11/07/23) Anemia, unspecified (11/07/23) Moderate protein-calorie malnutrition (11/07/23) Unspecified protein-calorie malnutrition (11/07/23) Other disorders of phosphorus metabolism (11/07/23) Dehydration (11/07/23) Hyperosmolality and hypernatremia (11/07/23) Acidosis, unspecified (11/07/23) Hypokalemia (11/07/23) Non-ST elevation (NSTEMI) myocardial infarction (11/07/23) Atherosclerotic heart disease of [place] coronary artery without angina pectoris (11/07/23) Pneumonia, unspecified organism (11/07/23) Acute respiratory failure with hypoxia (11/07/23) Acute respiratory failure with hypercapnia (11/07/23) Respiratory failure, unspecified, unspecified whether with hypoxia or hypercapnia (11/07/23) Severe sepsis without septic shock (11/07/23) Abnormal results of thyroid function studies (11/07/23) Personal history of malignant neoplasm of unspecified site of lip, oral cavity, and pharynx (11/07/23) Subjective Subjective Patient is a 68-year-old old gentleman with history of head and neck cancer status post surgery and radiation who presented to the emergency department with worsening shortness of breath. Patient was intubated on presentation admitted to the intensive care unit and subsequently weaned off the vent. Objective Data Objective Data Vital Signs: Vital Signs Temp Pulse Resp BP Pulse Ox O2 Del Method O2 Flow Rate 97.5 F L 90 24 H 135/65 H 95 Nasal Cannula 3 11/16/23 07:00 11/16/23 07:00 11/16/23 07:00 11/16/23 07:00 11/16/23 07:00 11/16/23 07:00 11/16/23 07:00 FiO2 30 11/14/23 08:00 Oxygen Flow Rate (L/min) 3 Oxygen Delivery Method Nasal Cannula Weight: 57 kg Body Mass Index (BMI) 18.6 Intake & Output: Intake and Output for Last 24 Hours 11/14/23 11/15/23 11/16/23 23:59 23:59 23:59 Intake Total 3596.14 / 3598.13 1557.74 / 1752.44 1175.26 / 1175.26 Output Total 600 / 600 2050 / 3700 2350 / 2350 Balance 2996.14 / 2998.13 -492.26 / -1947.56 -1174.74 / -1174.74 Medical Nutrition Assessment Dietitian: Malnutrition Criteria Met Start: 11/08/23 09:33 Freq: Status: Active Protocol: Document 11/15/23 13:26 RMA (Rec: 11/15/23 13:26 RMA [id number]) Nutrition Malnutrition Evidence of Malnutrition Exists Yes Malnutrition (severe): Chronic Evidenced By Suboptimal Energy Intake ( Severe),Physical Changes ( Severe) Clinical Problem Chronic Disease or Condition Related Malnutrition Etiology severe, chronic malnutrition related to inadequate energy intake Signs/Symptoms as evidenced by severe muscle wasting/fat loss evident per physical exam in orbital, clavicle, acromion, and temporal areas; estimated PO intake meeting <75% of 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 Flush with 180mL free water Q 4 hours. TF at goal and water flushes will provide 1980 Kcal, 84 gm protein, and 2083 mL total free water per day. TF will meet~100% estimated nutrition needs given NPO status. Recommend PO as tolerated with Regular diet as deemed safe/ appropriate per VOICE TEACHER with PO ensure plus high protein as indicated if cleared for oral intake. Will monitor weight, labs, any PO nutrition and adjust enteral nutrition support as indicated to optimize nutrition and promote gradual weight gain. Lab / Micro Data 11/16/23 04:00 11/16/23 04:00 Labs: Laboratory Results - last 24 hr 11/16/23 04:00: WBC 10.8, RBC 2.88 L, Hgb 8.9 L, Hct 27.0 L, MCV 93.8, MCH 30.9, MCHC 33.0, RDW Std Deviation 48.4 H, RDW Coeff of Atif 14.6, Plt Count 248, MPV 11.8, Immature Gran % (Auto) 0.700, Neut % (Auto) 88.9 H, Lymph % (Auto) 6.4 L, [place] % (Auto) 3.3, Eos % (Auto) 0.5, Baso % (Auto) 0.2, Absolute Neuts (auto) 9.6 H, Absolute Lymphs (auto) 0.69 L, Nucleated RBC % 0, Sodium 146 H, Potassium 3.6, Chloride 114 H, Carbon Dioxide 26.0, Anion Gap 6, BUN 23 H, Creatinine 0.88, Estim Creat Clear Calc 65.67, Est GFR (MDRD) Af Amer 111, Est GFR (MDRD) Non-Af 92, BUN/Creatinine Ratio 26.1 H, Glucose 176 H, Calcium 7.9 L, Phosphorus 3.8, Magnesium 2.1 Micro: Microbiology 11/07/23 13:10 Blood Culture (Wb) - Anticubital Left Blood Culture - Final No growth in 5 days. 11/07/23 13:00 Blood Culture (Wb) - Anticubital Right Blood Culture - Final No growth in 5 days. 11/12/23 12:40 Stool Stool Occult Blood (VADIM) - Final Occult Blood Positive 11/09/23 11:50 Sputum, Induced/Lukens Gram Stain - Final 11/09/23 11:50 Sputum, Induced/Lukens Respiratory Culture - Final Staphylococcus aureus Yeast, not Pina albicans Presumptive C albicans 11/07/23 18:08 Sputum, Induced/Lukens Gram Stain - Final 11/07/23 18:08 Sputum, Induced/Lukens Respiratory Culture - Final Staphylococcus aureus Proteus mirabilis Escherichia coli 11/07/23 13:30 Urine Catheter - Catheter Urine Culture - Final Presumptive E. coli 11/07/23 13:30 Nasal Secretion SARS-CoV-2 & FLU Antigen (Rapid) - Final Physical Exam Narrative GENERAL: cooperative HEENT: Atraumatic; normocephalic EYES; Anicteric, Normal Conjunctiva NECK; supple, normal thyroid, RESPIRATORY: Diminished to auscultation CARDIOVASCULAR: Regular S1 S2, GI: soft, normoactive bowel sounds, : No Renal angle tenderness; EXTREMITIES: No edema, no clubbing, MUSCULOSKELETAL: no muscle wasting NEURO: Awake; no lateralizing signs. SKIN: No Rash PSYCH; Flat affect Assessment & Plan Assessment/Plan (1) Left lower lobe pneumonia: QUALIFIERS: Pneumonia type: due to unspecified organism Qualified Code(s): J18.9 - Pneumonia, unspecified organism PLAN: Plan Patient is a 68-year-old old gentleman with history of head and neck cancer status post surgery and radiation who presented to the emergency department with worsening shortness of breath. Patient was intubated on presentation admitted to the intensive care unit and subsequently weaned off the vent. 1. Acute hypoxic and hypercapnic respiratory failure ? Secondary to polymicrobial pneumonia. Cultures positive for Staph aureus, Proteus mirabilis as well as E. coli. Patient was intubated on 11/07/2023 and extubated on 11/14/2023. Has since been managed with broad-spectrum antibiotic therapy. Pulmonary toileting following extubation. Patient has been seen in consultation by pulmonary/critical care 2. Septic shock ? Secondary to polymicrobial pneumonia present on admission has since resolved 3. Hyperchloremic hypernatremia ? Patient managed with free water via tube feed 300 cc every 4 hours with subsequent monitoring of BMP ordered 4. Hypokalemia ? Corrected per protocol 5. Hypophosphatemia ? Corrected per protocol 6. Anemia ? Secondary to anemia of chronic disorder. Patient had EGD performed no clear source of bleeding found was found to have some oozing around the PEG tube site which was exchanged. Patient remains on PPI with daily monitoring of H&H ordered 7. Dyslipidemia -Patient is on statin therapy, continued at home dose 8. Hypothyroidism - Patient is on levothyroxine home dose continued 9. Evaded troponin ? Suspected to be secondary to myocardial injury as a result of hypoxia and acidosis we will continue with monitoring 10. Coronary artery disease -Cardiac catheterization from 2020 was reviewed and showed a critical lesion in the proximal and mid right coronary artery which was treated with drug-eluting stents as well as severe diffuse LAD disease and had very tight lesion in the proximal first diagonal. Cardiology consulted. Patient is on dual antiplatelet therapy in addition to BARRY inhibitor's and beta-blockers which were held given patient low blood pressure plan is to resume as patient blood pressure control improves 11. Severe protein calorie malnutrition ? As evidenced by suboptimal energy intake, severe physical changes this is due to patient multiple medical comorbidities patient has been seen and evaluated by dietitian notes and recommendations reviewed. 12. GERD -Continue PPI 13. History of head neck cancer Treated with surgery and radiation with subsequent PEG tube placement 14. DVT prophylaxis -Subcu Lovenox CODE STATUS -DNR CCA with short-term intubation Time spent in the patient's overall evaluation,decision-making process, review of diagnostic data, adjustment of management, discussion with other providers, nursing nursing and ancillary staff involved in patient's care documentation, 55 Minutes Charges/Coding Visit Charges Inpatient E&M: 27312 Subs Hosp L3
--- NOTE | 2023-11-16 07:46 | PN.CC_ITS ---
Assessment & Plan Assessment/Plan (1) Acute hypercapnic respiratory failure: (2) Severe sepsis: (3) Left lower lobe pneumonia: QUALIFIERS: Pneumonia type: due to unspecified organism Qualified Code(s): J18.9 - Pneumonia, unspecified organism (4) Non-ST elevated myocardial infarction: PLAN: Plan RECOMMENDATIONS: 1. Delirium protocol 2. Complete 10 days of antimicrobials 3. Ongoing electrolyte repletion as needed. 4. Advance tube feeds as tolerated 5. Aspiration precautions 6. PT /OT 7. Okay to leave the intensive care unit once off Precedex IMPRESSIONS: 1. Sepsis secondary to possible aspiration pneumonia The patient presented with sepsis due to probable aspiration pneumonia with acute sepsis related organ dysfunction as evidenced by respiratory failure requiring invasive mechanical ventilatory support. The patient remains on appropriate antimicrobial therapy using culture guidance. Patient was successfully extubated on 11/14/2023. Patient still having some intermittent agitation requiring Precedex 2. Non-ST elevation VT Most likely secondary to demand ischemia in the setting of #1. Cardiology is following to assist with medical management. Echocardiogram revealed intact, preserved systolic function. 3. Acute combined respiratory failure with sepsis CT of the chest she does show some emphysematous changes with bronchiectasis indicating probable complications of smoking. As such, we will continue scheduled bronchodilator therapy today. 4. Metabolic encephalopathy/delirium Patient is hard of hearing and does not have hearing aids in place. Patient also with electrolyte abnormalities intermittently. Patient with hypernatremia and hyperchloremia. Patient is receiving increased free water. 5. History of oral cancer/severe protein malnutrition/GERD Complicates care, management, recovery and prognosis. Continue to monitor for refeeding syndrome given underlying poor nutritional state. Physical therapy to work with the patient. Patient verified to be a DNR/DNI. Subjective Subjective Patient did okay overnight from a hemodynamic standpoint. Patient does remain on Precedex secondary to agitation. Patient is requesting to take p.o. Patient is not reporting any pain or dyspnea. Patient tolerating minimal nasal cannula. Patient has had some diarrhea associated with tube feeds. Patient reports that he is hard of hearing, but does not wear his hearing aids. Objective Data Objective Data Vital Signs: Vital Signs Temp Pulse Resp BP Pulse Ox O2 Del Method O2 Flow Rate 36.4 C L 90 24 H 135/65 H 97 Nasal Cannula 3 11/16/23 07:00 11/16/23 07:43 11/16/23 07:43 11/16/23 07:00 11/16/23 07:43 11/16/23 07:43 11/16/23 07:43 FiO2 30 11/14/23 08:00 Oxygen Flow Rate (L/min) 3 Oxygen Delivery Method Nasal Cannula Weight: 57 kg Body Mass Index (BMI) 18.6 Intake & Output: Intake and Output for Last 24 Hours 11/14/23 11/15/23 11/16/23 23:59 23:59 23:59 Intake Total 3596.14 / 3598.13 1557.74 / 1752.44 1175.26 / 1175.26 Output Total 600 / 600 2050 / 3700 2350 / 2350 Balance 2996.14 / 2998.13 -492.26 / -1947.56 -1174.74 / -1174.74 Medical Nutrition Assessment Dietitian: Malnutrition Criteria Met Start: 11/08/23 09:33 Freq: Status: Active Protocol: Document 11/15/23 13:26 RMA (Rec: 11/15/23 13:26 RMA [id number]) Nutrition Malnutrition Evidence of Malnutrition Exists Yes Malnutrition (severe): Chronic Evidenced By Suboptimal Energy Intake ( Severe),Physical Changes ( Severe) Clinical Problem Chronic Disease or Condition Related Malnutrition Etiology severe, chronic malnutrition related to inadequate energy intake Signs/Symptoms as evidenced by severe muscle wasting/fat loss evident per physical exam in orbital, clavicle, acromion, and temporal areas; estimated PO intake meeting <75% 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 Flush with 180mL free water Q 4 hours. TF at goal and water flushes will provide 1980 Kcal, 84 gm protein, and 2083 mL total free water per day. TF will meet~100% estimated nutrition needs given NPO status. Recommend PO as tolerated with Regular diet as deemed safe/ appropriate per LINE AND FRAME POLER with PO ensure plus high protein as indicated if cleared for oral intake. Will monitor weight, labs, any PO nutrition and adjust enteral nutrition support as indicated to optimize nutrition and promote gradual weight gain. Lab / Micro Data Attestation: I reviewed the patient's lab results. 11/16/23 04:00 11/16/23 04:00 Labs: Laboratory Results - last 24 hr 11/16/23 04:00: WBC 10.8, RBC 2.88 L, Hgb 8.9 L, Hct 27.0 L, MCV 93.8, MCH 30.9, MCHC 33.0, RDW Std Deviation 48.4 H, RDW Coeff of Atif 14.6, Plt Count 248, MPV 11.8, Immature Gran % (Auto) 0.700, Neut % (Auto) 88.9 H, Lymph % (Auto) 6.4 L, [place] % (Auto) 3.3, Eos % (Auto) 0.5, Baso % (Auto) 0.2, Absolute Neuts (auto) 9.6 H, Absolute Lymphs (auto) 0.69 L, Nucleated RBC % 0, Sodium 146 H, Potassium 3.6, Chloride 114 H, Carbon Dioxide 26.0, Anion Gap 6, BUN 23 H, Creatinine 0.88, Estim Creat Clear Calc 65.67, Est GFR (MDRD) Af Amer 111, Est GFR (MDRD) Non-Af 92, BUN/Creatinine Ratio 26.1 H, Glucose 176 H, Calcium 7.9 L, Phosphorus 3.8, Magnesium 2.1 Micro: Microbiology 11/07/23 13:10 Blood Culture (Wb) - Anticubital Left Blood Culture - Final No growth in 5 days. 11/07/23 13:00 Blood Culture (Wb) - Anticubital Right Blood Culture - Final No growth in 5 days. 11/12/23 12:40 Stool Stool Occult Blood (VADIM) - Final Occult Blood Positive 11/09/23 11:50 Sputum, Induced/Lukens Gram Stain - Final 11/09/23 11:50 Sputum, Induced/Lukens Respiratory Culture - Final Staphylococcus aureus Yeast, not Pina albicans Presumptive C albicans 11/07/23 18:08 Sputum, Induced/Lukens Gram Stain - Final 11/07/23 18:08 Sputum, Induced/Lukens Respiratory Culture - Final Staphylococcus aureus Proteus mirabilis Escherichia coli 11/07/23 13:30 Urine Catheter - Catheter Urine Culture - Final Presumptive E. coli 11/07/23 13:30 Nasal Secretion SARS-CoV-2 & FLU Antigen (Rapid) - Final Physical Exam Const alert Constitutional Narrative: Interactive. RASS 0 General Appearance: frail HEENT HEENT Narrative: Temporal wasting. Status post glossectomy Eyes PERRL and EOMs intact bilaterally Neck full ROM and no lymphadenopathy Resp Auscultation: diminished lung sounds; Negative for rales, rhonchi or wheezes Cardio regular rate, regular rhythm, S1 normal heart sound, S2 normal heart sound, no murmurs, no rub and no gallops GI normal to inspection, nondistended, normoactive bowel sounds Inspection: GI tube present Extremity General Extremity: clubbing; Negative for edema Neuro CN's II-XII intact bilaterally and no focal motor deficits Charges/Coding Visit Charges Inpatient E&M: 89713 Subs Hosp L3
[2023-11-16 08:11] LABS: Ionized Calcium 4.93 mg/dL (4.36-5.20)
[2023-11-16] MEDS: Aspirin 81 MG TAB.CHEW NG (08:15)
[2023-11-16] MEDS: Midodrine HCl 5 MG Tablet 10 MG PO (08:15)
[2023-11-16] MEDS: Furosemide 20 MG/2 ML VIAL IV ×2 (08:15→17:14)
[2023-11-16] MEDS: Lansoprazole 15 MG Capsule.DR 30 MG GT ×2 (08:16→20:53)
[2023-11-16] MEDS: Senna Tablet 1 TABLET PO (08:16)
[2023-11-16] MEDS: RisperiDONE 0.25 MG Tablet GT (08:16)
[2023-11-16] MEDS: TICAGRELOR 90 MG TABLET NG ×2 (08:17→20:53)
[2023-11-16] MEDS: CHLORHEXIDINE GLUC 2% CLOTH 1 EACH TOWELETTE TOPICAL (08:31)
--- NOTE | 2023-11-16 09:32 | CASEMGMT ---
Therapy is recommending [facility] facility for rehab. SW met with patient. Introduced self and role at [facility]. SW explained therapy's recommendation for short term rehab. SW provided patient with a list of [facility] facility providers including quality and resource use data and consistent with patient?s preferred geographic region, medical needs, and insurance network were provided [facility]. SW asked patient if he would like to look at the list should SW call family. Patient took the list and motioned to SW he needs his glasses. Patient then began breathing rapidly. Also, Speech Therapy and respiratory were in the room SW told patient SW will check back. Malia Wang COMMUNICATIONS TECHNICIAN LADI
[2023-11-16] MEDS: Electrolyte Solution/Peg's 4000 ML GT (12:54)
--- NOTE | 2023-11-16 15:26 | CASEMGMT ---
SW met with patient again. Patient has not looked at the list. Patient was agreeable to SW calling his son to discuss which facility. Patient's son Dawood works weight shifter. SW called Dawood and left him a voice mail letting him know SW needs to work with him on which facility to send patient. Malia Wang HAND BRUSH FILLER LADI
--- NOTE | 2023-11-16 15:56 | PN.GI_ITS ---
Subjective Subjective Patient has no complaints other than some diarrhea from his tube feedings. Patient's hemoglobin seems to be remaining stable off of heparin drip for non-ST segment patient SD. Objective Data Objective Data Vital Signs: Vital Signs Temp Pulse Resp BP Pulse Ox O2 Del Method O2 Flow Rate 98.8 F 102 H 19 H 141/66 H 94 Nasal Cannula 3 11/16/23 12:00 11/16/23 15:00 11/16/23 15:00 11/16/23 15:00 11/16/23 15:00 11/16/23 15:00 11/16/23 15:00 FiO2 30 11/14/23 08:00 Oxygen Flow Rate (L/min) 3 Oxygen Delivery Method Nasal Cannula Weight: 125 lb 10.616 oz Body Mass Index (BMI) 18.6 Intake & Output: Intake and Output for Last 24 Hours 11/14/23 11/15/23 11/16/23 23:59 23:59 23:59 Intake Total 3596.14 / 3598.13 1557.74 / 1752.44 / Output Total 600 / 600 2050 / 3700 4125 / 4125 Balance 2996.14 / 2998.13 -492.26 / -1947.56 -2146.07 / -2146.07 Medical Nutrition Assessment Dietitian: Malnutrition Criteria Met Start: 11/08/23 09:33 Freq: Status: Active Protocol: Document 11/16/23 10:58 RMA (Rec: 11/16/23 10:58 RMA [id number]) Nutrition Malnutrition Evidence of Malnutrition Exists Yes Malnutrition (severe): Chronic Evidenced By Suboptimal Energy Intake ( Severe),Physical Changes ( Severe) Clinical Problem Chronic Disease or Condition Related Malnutrition Etiology severe, chronic malnutrition related to inadequate energy intake Signs/Symptoms as evidenced by severe muscle wasting/fat loss evident per physical exam in orbital, clavicle, acromion, and temporal areas; estimated PO intake meeting <75% of estimated energy 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 Flush with 180mL free water Q 4 hours. TF at goal and water flushes will provide 1980 Kcal, 84 gm protein, and 2083 mL total free water per day. TF will meet~100% estimated nutrition needs given NPO status. Recommend PO as tolerated with Regular diet as deemed safe/ appropriate per MOBILE APPLICATION ARCHITECT with PO ensure plus high protein as indicated if cleared for oral intake. Will monitor weight, labs, any PO nutrition and adjust enteral nutrition support as indicated to optimize nutrition and promote gradual weight gain. Lab / Micro Data 11/16/23 04:00 11/16/23 04:00 Labs: Laboratory Results - last 24 hr 11/16/23 04:00: WBC 10.8, RBC 2.88 L, Hgb 8.9 L, Hct 27.0 L, MCV 93.8, MCH 30.9, MCHC 33.0, RDW Std Deviation 48.4 H, RDW Coeff of Atif 14.6, Plt Count 248, MPV 11.8, Immature Gran % (Auto) 0.700, Neut % (Auto) 88.9 H, Lymph % (Auto) 6.4 L, Blanco % (Auto) 3.3, Eos % (Auto) 0.5, Baso % (Auto) 0.2, Absolute Neuts (auto) 9.6 H, Absolute Lymphs (auto) 0.69 L, Nucleated RBC % 0, Sodium 146 H, Potassium 3.6, Chloride 114 H, Carbon Dioxide 26.0, Anion Gap 6, BUN 23 H, Creatinine 0.88 , Estim Creat Clear Calc 65.67, Est GFR (MDRD) Af Amer 111, Est GFR (MDRD) Non- Af 92, BUN/Creatinine Ratio 26.1 H, Glucose 176 H, Calcium 7.9 L, Phosphorus 3.8, Magnesium 2.1 11/16/23 04:04: Ionized Calcium 4.93 Micro: Microbiology 11/07/23 13:10 Blood Culture (Wb) - Anticubital Left Blood Culture - Final No growth in 5 days. 11/07/23 13:00 Blood Culture (Wb) - Anticubital Right Blood Culture - Final No growth in 5 days. 11/12/23 12:40 Stool Stool Occult Blood (VADIM) - Final Occult Blood Positive 11/09/23 11:50 Sputum, Induced/Lukens Gram Stain - Final 11/09/23 11:50 Sputum, Induced/Lukens Respiratory Culture - Final Staphylococcus aureus Yeast, not Pina albicans Presumptive C albicans 11/07/23 18:08 Sputum, Induced/Lukens Gram Stain - Final 11/07/23 18:08 Sputum, Induced/Lukens Respiratory Culture - Final Staphylococcus aureus Proteus mirabilis Escherichia coli 11/07/23 13:30 Urine Catheter - Catheter Urine Culture - Final Presumptive E. coli 11/07/23 13:30 Nasal Secretion SARS-CoV-2 & FLU Antigen (Rapid) - Final Physical Exam Const alert Constitutional Narrative: Interactive. RASS 0 General Appearance: frail HEENT HEENT Narrative: Temporal wasting. Status post glossectomy Eyes PERRL and EOMs intact bilaterally Neck full ROM and no lymphadenopathy Resp Auscultation: diminished lung sounds; Negative for rales, rhonchi or wheezes Cardio regular rate, regular rhythm, S1 normal heart sound, S2 normal heart sound, no murmurs, no rub and no gallops GI normal to inspection, nondistended, normoactive bowel sounds Inspection: GI tube present Extremity General Extremity: clubbing; Negative for edema Neuro CN's II-XII intact bilaterally and no focal motor deficits Assessment & Plan Assessment/Plan (1) Acute respiratory failure with hypoxia and hypercapnia: (2) Protein calorie malnutrition: QUALIFIERS: Protein-calorie malnutrition severity: moderate Qualified Code(s): E44.0 - Moderate protein-calorie malnutrition (3) Severe sepsis: (4) Left lower lobe pneumonia: QUALIFIERS: Pneumonia type: due to unspecified organism Qualified Code(s): J18.9 - Pneumonia, unspecified organism (5) Dehydration: (6) Non-ST elevated myocardial infarction: (7) Hypernatremia: (8) Hypokalemia: (9) Lactic acidosis: (10) Abnormal results of thyroid function studies: (11) Hypophosphatemia: (12) Anemia: QUALIFIERS: Anemia type: unspecified type Qualified Code(s): D64.9 - Anemia, unspecified PLAN: Plan Acute hypoxic hypercapnic respiratory failure secondary to polymicrobial pneumonia -Patient remains extubated and has been on antibiotic therapy. Management as per pulmonary critical care Septic shock -Secondary to polymicrobial pneumonia -Resolved -He is on midodrine 10 mg 3 times daily via PEG -He continues on antibiotic therapy Anemia -Baseline hemoglobin is unclear however hemoglobin has been trending down -Hemoglobin has trended down however he is over 11 L positive for his hospitalization -Guaiac stool was positive -EGD was performed and no clear source of bleeding however he is some oozing near the PEG site and his PEG was exchanged -Hemoglobin is relatively stable -Transition PPI from IV to via PEG -Patient will undergo colonoscopy tomorrow and he will prep today via PEG. Charges/Coding Visit Charges Inpatient E&M: 53452 Subs Hosp L3
--- NOTE | 2023-11-16 18:48 | EKG12_ITS ---
Test Reason : arrythmia Blood Pressure : / mmHG Vent. Rate : 135 BPM Atrial Rate : 135 BPM P-R Int : 126 ms QRS Dur : 086 ms QT Int : 388 ms P-R-T Axes : 094 065 112 degrees QTc Int : 582 ms Critical Test Result: Long QTc Poor data quality, interpretation may be adversely affected Sinus tachycardia with frequent and consecutive Premature ventricular complexes Left ventricular hypertrophy with repolarization abnormality ( Sokolow-Grissom ) Abnormal ECG When compared with ECG of 11-NOV-2023 23:13, Premature ventricular complexes are now Present Vent. rate has increased BY [address] now depressed in Inferior leads T wave inversion no longer evident in Anterior leads Confirmed by ROSINA MALONE MD ([id number]), assistant film editor EDIS WALLS ([id number]) on 11/18/2023 6:01:37 AM Referred By: Chi Terrell Confirmed By:ROSINA MALONE MD
[2023-11-16 18:56] LABS: Anion Gap 6 (5-15); BUN 19 mg/dL (7-18); BUN/Creat Ratio 20.7 RATIO (10-20); Chloride 109 mmol/L (98-107); Creatinine, Serum 0.92 mg/dL (0.70-1.30); EST Glomerular Filtration Rate 87 mL/min (>60); Est Glom Filt Rate - Afr Amer 106 mL/min (>60); Estimated Creatinine Clearance 62.82 ml/min; Glucose 136 mg/dL (74-106); Potassium 3.3 mmol/L (3.5-5.1); Sodium Level 144 mmol/L (136-145)
--- NOTE | 2023-11-16 18:59 | EKG12_ITS ---
Test Reason : arrythmia Blood Pressure : / mmHG Vent. Rate : 118 BPM Atrial Rate : 000 BPM P-R Int : 000 ms QRS Dur : 080 ms QT Int : 320 ms P-R-T Axes : 000 068 182 degrees QTc Int : 448 ms Atrial fibrillation with rapid ventricular response with premature ventricular or aberrantly conducte d complexes Minimal voltage criteria for LVH, may be normal variant ( Sokolow-Grissom ) Nonspecific ST and T wave abnormality Abnormal ECG When compared with ECG of 16-NOV-2023 18:57, Atrial fibrillation has replaced Sinus rhythm Nonspecific T wave abnormality has replaced inverted T waves in Inferior leads Confirmed by KIRA GUILLEN, ROSINA ([id number]), electronic news gathering editor EDIS WALLS ([id number]) on 12/01/2023 10:17:58 AM Referred By: Chi Terrell Confirmed By:ROSINA MALONE MD
[2023-11-16] MEDS: Adenosine 6 MG/2 ML Syringe IV (19:00)
--- NOTE | 2023-11-16 19:02 | EKG12_ITS ---
Test Reason : arrythmia Blood Pressure : / mmHG Vent. Rate : 068 BPM Atrial Rate : 068 BPM P-R Int : 158 ms QRS Dur : 090 ms QT Int : 552 ms P-R-T Axes : 035 068 163 degrees QTc Int : 586 ms Critical Test Result: Long QTc Sinus rhythm with sinus arrhythmia with frequent and consecutive Premature ventricular complexes Left ventricular hypertrophy with repolarization abnormality ( Sokolow-Grissom ) Prolonged QT Abnormal ECG When compared with ECG of 16-NOV-2023 18:57, Vent. rate has decreased BY 67 BPM Confirmed by KIRA GUILLEN, ROSINA ([id number]), school photograph editor EDIS WALLS ([id number]) on 12/01/2023 10:18:06 AM Referred By: Chi Terrell Confirmed By:ROSINA MALONE MD
[2023-11-16] MEDS: Magnesium Sulfate 1 GM, 0.9% Normal Saline (Pres. free 8 ML in Syringe 0 EACH IV (19:03)
[2023-11-16] MEDS: Adenosine 6 MG/2 ML Syringe 12 MG IV (19:04)
--- NOTE | 2023-11-16 19:20 | NURSING ---
Pt refusing intubation and the bipap at this time. Dr. Worrell at bedside. Pt expresses understanding of the situation and wishes to be kept comfortable instead of going back on the ventilator or wearing the bipap or nonrebreather masks. Son Dawood called by dayshift RN to be made aware of pt's condition.
--- NOTE | 2023-11-16 19:26 | NURSING ---
patient went into afib RVR, nulytely stopped
--- NOTE | 2023-11-16 19:26 | NURSING ---
1858- Dr. Grayson at bedside 1899- adenosine 6 mg IV push 1902- magnesium 1 gram IV push 1903- adenosine 12 mg IV push 1924- patient wishes for comfort care, Dr Grayson verified
--- NOTE | 2023-11-16 19:30 | NURSING ---
Bowel prep via GT paused at this time d/t pt's decision for comfort measures only.
[2023-11-16] MEDS: Digoxin 250 MCG/ML Ampul 500 MCG IV (19:33)
[2023-11-16] MEDS: dilTIAZem 25 MG/5 ML Vial 10 MG IV BOLUS (19:33)
[2023-11-16] MEDS: 0.9% Saline Lock 10 ML Syringe IV (19:42)
[2023-11-16] MEDS: Diltiazem 125 MG in Dextrose 5%-Water (100mL Bag) 100 ML CONT INF (19:42)
--- NOTE | 2023-11-16 19:42 | PCM.HOSP.N ---
Hospitalist Note I was called urgently to the ICU at approximately 1900 hrs. after patient was noted to be in a persistent narrow complex tachycardia in the 130-150 bpm range. Adenosine 6 mg IV once had already been ordered and I came to the bedside to the bedside so there would be a physician present. The first dose of adenosine had little effect so he was then given 1 g magnesium sulfate IV once to calm significant ectopy with very frequent PVCs followed by a second dose of adenosine 12 mg IV once. His heart rate did slow down into the 50 bpm range but then slowly increased back to 130 bpm requiring treatment with IV digoxin 0.5 mg IV once. His heart rate persisted in the 130 bpm range and he was then ordered IV Cardizem 10 mg bolus with a drip to follow to be titrated to keep his heart rate less than or equal to 100 bpm. Finally, upon further questioning the patient requested that his BiPAP be removed and that his CODE STATUS be changed to DNR CCA with comfort measures and no intubation. Multiple nurses were present when the patient made this decision and then his son was called to be notified and updated about his choice for comfort care. He was then given 3 mg of morphine IV once which were repeated every 2 hours as needed for dyspnea and a respiratory rate greater than 35 bpm. Finally, we will consult palliative care to see this patient in the a.m. on rounds for further recommendations with help appreciated in advance.
[2023-11-16] MEDS: Morphine 2 MG/ML Syringe 3 MG IV (19:53)
[2023-11-16 19:54] LABS: Magnesium 1.9 mg/dL (1.6-2.6); Phosphorus 3.3 mg/dL (2.5-4.9)
[2023-11-16] MEDS: Midodrine HCl 5 MG Tablet 10 MG GT (20:53)
[2023-11-16] MEDS: Atorvastatin Calcium 40 MG Tablet NG (20:53)
[2023-11-16] MEDS: RisperiDONE 0.5 MG Tablet GT (20:53)
[2023-11-16] MEDS: Amiodarone 150 MG in Dextrose 5%-Water (100mL Bag) 100 ML 600 MG IV BOLUS (22:36)
[2023-11-16] MEDS: Amiodarone 360 MG in Dextrose 5% Viaflo Bag 192.8 ML 33.3 MG CONT INF (22:49)
[2023-11-17] VITALS (27 sets, daily range): BP systolic 94–148; BP diastolic 47–65; PULSE 88–103; RESP 13–25; TEMP 36.4–36.8; O2SAT 88–100; BMI 19.2
[2023-11-17 01:06] LABS: Ionized Calcium 4.93 mg/dL (4.36-5.20)
[2023-11-17 03:42] LABS: Ionized Calcium 4.68 mg/dL (4.36-5.20)
[2023-11-17 03:54] LABS: Magnesium 2.3 mg/dL (1.6-2.6); Phosphorus 3.3 mg/dL (2.5-4.9)
[2023-11-17] MEDS: Diltiazem 125 MG in Dextrose 5%-Water (100mL Bag) 100 ML 15 MG CONT INF ×3 (03:56→21:38)
[2023-11-17] MEDS: Amiodarone 360 MG in Dextrose 5% Viaflo Bag 192.8 ML 16.7 MG CONT INF ×2 (03:57→15:41)
[2023-11-17] MEDS: 0.9% Saline Lock 10 ML Syringe IV ×2 (03:57→17:22)
[2023-11-17] MEDS: Levothyroxine 50 MCG Tablet NG (04:17)
[2023-11-17] MEDS: Morphine 2 MG/ML Syringe 3 MG IV (05:00)
--- NOTE | 2023-11-17 06:24 | PN.CC_ITS ---
Assessment & Plan Assessment/Plan (1) Acute hypercapnic respiratory failure: (2) Severe sepsis: (3) Left lower lobe pneumonia: QUALIFIERS: Pneumonia type: due to unspecified organism Qualified Code(s): J18.9 - Pneumonia, unspecified organism (4) Non-ST elevated myocardial infarction: PLAN: Plan RECOMMENDATIONS: 1. Continue to wean supplemental oxygen to maintain saturations at or above 90% . 2. Continue nutritional support per dietary recommendations. 3. Continue aerosol treatments. 4. Diuresis, as tolerated by hemodynamics and renal function. IMPRESSIONS: 1. Sepsis secondary to possible aspiration pneumonia The patient presented with sepsis due to probable aspiration pneumonia with acute sepsis related organ dysfunction as evidenced by respiratory failure requiring invasive mechanical ventilatory support. The patient was successfully extubated and has completed a treatment course of antibiotics. Continue to wean supplemental oxygen to maintain saturations at or above 90%. 2. Non-ST elevation ME Most likely secondary to demand ischemia in the setting of #1. Cardiology is following to assist with medical management. Echocardiogram revealed intact, preserved systolic function. 3. Acute combined respiratory failure with sepsis CT of the chest she does show some emphysematous changes with bronchiectasis indicating probable complications of smoking. As such, we will continue scheduled bronchodilator therapy. 4. History of oral cancer/severe protein malnutrition/GERD Complicates care, management, recovery and prognosis. Continue to monitor for refeeding syndrome given underlying poor nutritional state. Physical therapy to work with the patient. This note was generated with [employer] dictation software. It may contain incorrect words, spelling, and punctuation that were not noted in checking the note before signing. Subjective Subjective The patient was seen and examined at the bedside this morning. Events from the last 24 hours have been reviewed. The patient is currently afebrile, hemodynamically stable and maintaining appropriate oxygen saturations on 5 L/min via nasal cannula. The patient is hard of hearing but denies any resting s hortness of breath this morning. He is currently documented to be overall net +16.4 L for the hospitalization. The patient's CODE STATUS was transition to DNR CCA by the overnight hospitalist. Objective Data Objective Data The patient's most recent lab work, culture data and imaging studies have all been personally reviewed. Surface echocardiogram from July 2021 demonstrated an ejection fraction of 55 to 60%. The patient's sputum culture is currently demonstrating growth of 3+ Staphylococcus aureus and rare Proteus mirabilis and E. coli. Vital Signs: Vital Signs Temp Pulse Resp BP Pulse Ox O2 Del Method O2 Flow Rate 97.8 F 90 21 H 121/58 H 98 Nasal Cannula 6 11/17/23 00:00 11/17/23 06:00 11/17/23 06:00 11/17/23 06:00 11/17/23 06:00 11/17/23 06:00 11/17/23 06:00 FiO2 100 11/16/23 18:50 Oxygen Flow Rate (L/min) 6 Oxygen Delivery Method Nasal Cannula Weight: 129 lb 10.109 oz Body Mass Index (BMI) 19.2 Intake & Output: Intake and Output for Last 24 Hours 11/15/23 11/16/23 11/17/23 23:59 23:59 23:59 Intake Total 1557.74 / 1752.44 2389.53 / 2437.83 404.63 / 404.63 Output Total 2050 / 3700 5825 / 5825 700 / 700 Balance -492.26 / -1947.56 -3435.47 / -3387.17 -295.37 / -295.37 Medical Nutrition Assessment Dietitian: Malnutrition Criteria Met Start: 11/08/23 09:33 Freq: Status: Active Protocol: Document 11/16/23 10:58 RMA (Rec: 11/16/23 10:58 RMA [id number]) Nutrition Malnutrition Evidence of Malnutrition Exists Yes Malnutrition (severe): Chronic Evidenced By Suboptimal Energy Intake ( Severe),Physical Changes ( Severe) Clinical Problem Chronic Disease or Condition Related Malnutrition Etiology severe, chronic malnutrition related to inadequate energy intake Signs/Symptoms as evidenced by severe muscle wasting/fat loss evident per physical exam in orbital, clavicle, acromion, and temporal areas; estimated PO intake meeting <75% of 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 Flush with 180mL free water Q 4 hours. TF at goal and water flushes will provide 1980 Kcal, 84 gm protein, and 2083 mL total free water per day. TF will meet~100% estimated nutrition needs given NPO status. Recommend PO as tolerated with Regular diet as deemed safe/ appropriate per HOTHOUSE WORKER with PO ensure plus high protein as indicated if cleared for oral intake. Will monitor weight, labs, any PO nutrition and adjust enteral nutrition support as indicated to optimize nutrition and promote gradual weight gain. Lab / Micro Data Attestation: I reviewed the patient's lab results. 11/16/23 04:00 11/16/23 18:40 Labs: Laboratory Results - last 24 hr 11/16/23 04:00: Phosphorus 3.8 11/16/23 04:04: Ionized Calcium 4.93 11/16/23 05:53: Ionized Calcium 4.93 11/16/23 18:40: Sodium 144, Potassium 3.3 L, Chloride 109 H, Carbon Dioxide 29.0, Anion Gap 6, BUN 19 H, Creatinine 0.92, Estim Creat Clear Calc 62.82, Est GFR (MDRD) Af Amer 106, Est GFR (MDRD) Non-Af 87, BUN/Creatinine Ratio 20.7 H, Glucose 136 H, Calcium 9.0 11/16/23 19:09: Phosphorus 3.3, Magnesium 1.9 11/17/23 03:30: Phosphorus 3.3, Magnesium 2.3 11/17/23 03:37: Ionized Calcium 4.68 Micro: Microbiology 11/07/23 13:10 Blood Culture (Wb) - Anticubital Left Blood Culture - Final No growth in 5 days. 11/07/23 13:00 Blood Culture (Wb) - Anticubital Right Blood Culture - Final No growth in 5 days. 11/12/23 12:40 Stool Stool Occult Blood (VADIM) - Final Occult Blood Positive 11/09/23 11:50 Sputum, Induced/Lukens Gram Stain - Final 11/09/23 11:50 Sputum, Induced/Lukens Respiratory Culture - Final Staphylococcus aureus Yeast, not Pina albicans Presumptive C albicans 11/07/23 18:08 Sputum, Induced/Lukens Gram Stain - Final 11/07/23 18:08 Sputum, Induced/Lukens Respiratory Culture - Final Staphylococcus aureus Proteus mirabilis Escherichia coli 11/07/23 13:30 Urine Catheter - Catheter Urine Culture - Final Presumptive E. coli 11/07/23 13:30 Nasal Secretion SARS-CoV-2 & FLU Antigen (Rapid) - Final Radiography Diagnostic Testing: Radiology Impression Chest X-Ray 11/11/23 07:08 IMPRESSION: Bibasilar pneumonia it is worse when compared to the previous study. COPD. Electronically Signed: Kaleigh Parra MD at 8:07 EST , Physical Exam Const Constitutional Narrative: Frail and cachectic in appearance. No acute distress. HEENT normocephalic and head/scalp atraumatic HEENT Narrative: Temporal wasting present. Eyes PERRL, EOMs intact bilaterally and conjunctivae normal Neck supple General: trachea midline Chest inspection of chest normal Resp Auscultation: rhonchi and diminished lung sounds; Negative for rales or wheezes Cardio regular rate and regular rhythm GI normal to inspection, nondistended, normoactive bowel sounds Inspection: GI tube present Extremity no clubbing, cyanosis or edema Skin no rashes or lesions noted Neuro CN's II-XII intact bilaterally and no focal motor deficits Psych Mood & Affect: flat affect Charges/Coding Visit Charges Inpatient E&M: 49639 Subs Hosp L2
[2023-11-17] MEDS: Ipratropium/Albuterol Sulfate 3 ML AMPUL.NEB INHALATION ×3 (06:40→20:07)
--- NOTE | 2023-11-17 07:15 | PN.HOSP_ITS ---
Reason for Visit Reason for Visit: Diagnoses Sepsis, unspecified organism (11/07/23) Anemia, unspecified (11/07/23) Moderate protein-calorie malnutrition (11/07/23) Unspecified protein-calorie malnutrition (11/07/23) Other disorders of phosphorus metabolism (11/07/23) Dehydration (11/07/23) Hyperosmolality and hypernatremia (11/07/23) Acidosis, unspecified (11/07/23) Hypokalemia (11/07/23) Non-ST elevation (NSTEMI) myocardial infarction (11/07/23) Atherosclerotic heart disease of [place] coronary artery without angina pectoris (11/07/23) Pneumonia, unspecified organism (11/07/23) Acute respiratory failure with hypoxia (11/07/23) Acute respiratory failure with hypercapnia (11/07/23) Respiratory failure, unspecified, unspecified whether with hypoxia or hypercapnia (11/07/23) Severe sepsis without septic shock (11/07/23) Abnormal results of thyroid function studies (11/07/23) Personal history of malignant neoplasm of unspecified site of lip, oral cavity, and pharynx (11/07/23) Subjective Subjective Went into A-fib with RVR necessitating patient being started on Cardizem and amiodarone drip Objective Data Objective Data Vital Signs: Vital Signs Temp Pulse Resp BP Pulse Ox O2 Del Method O2 Flow Rate 97.8 F 90 21 H 121/58 H 98 Nasal Cannula 6 11/17/23 00:00 11/17/23 06:00 11/17/23 06:00 11/17/23 06:00 11/17/23 06:00 11/17/23 06:00 11/17/23 06:00 FiO2 100 11/16/23 18:50 Oxygen Flow Rate (L/min) 6 Oxygen Delivery Method Nasal Cannula Weight: 58.8 kg Body Mass Index (BMI) 19.2 Intake & Output: Intake and Output for Last 24 Hours 11/15/23 11/16/23 11/17/23 23:59 23:59 23:59 Intake Total 1557.74 / 1752.44 2389.53 / 2437.83 404.63 / 404.63 Output Total 2050 / 3700 5825 / 5825 700 / 700 Balance -492.26 / -1947.56 -3435.47 / -3387.17 -295.37 / -295.37 Medical Nutrition Assessment Dietitian: Malnutrition Criteria Met Start: 11/08/23 09:33 Freq: Status: Active Protocol: Document 11/16/23 10:58 RMA (Rec: 11/16/23 10:58 RMA [id number]) Nutrition Malnutrition Evidence of Malnutrition Exists Yes Malnutrition (severe): Chronic Evidenced By Suboptimal Energy Intake ( Severe),Physical Changes ( Severe) Clinical Problem Chronic Disease or Condition Related Malnutrition Etiology severe, chronic malnutrition related to inadequate energy intake Signs/Symptoms as evidenced by severe muscle wasting/fat loss evident per physical exam in orbital, clavicle, acromion, and temporal areas; 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 Flush with 180mL free water Q 4 hours. TF at goal and water flushes will provide 1980 Kcal, 84 gm protein, and 2083 mL total free water per day. TF will meet~100% estimated nutrition needs given NPO status. Recommend PO as tolerated with Regular diet as deemed safe/ appropriate per [employer] with PO ensure plus high protein as indicated if cleared for oral intake. Will monitor weight, labs, any PO nutrition and adjust enteral nutrition support as indicated to optimize nutrition and promote gradual weight gain. Lab / Micro Data 11/16/23 04:00 11/16/23 18:40 Labs: Laboratory Results - last 24 hr 11/16/23 04:04: Ionized Calcium 4.93 11/16/23 05:53: Ionized Calcium 4.93 11/16/23 18:40: Sodium 144, Potassium 3.3 L, Chloride 109 H, Carbon Dioxide 29.0, Anion Gap 6, BUN 19 H, Creatinine 0.92, Estim Creat Clear Calc 62.82, Est GFR (MDRD) Af Amer 106, Est GFR (MDRD) Non-Af 87, BUN/Creatinine Ratio 20.7 H, Glucose 136 H, Calcium 9.0 11/16/23 19:09: Phosphorus 3.3, Magnesium 1.9 11/17/23 03:30: Phosphorus 3.3, Magnesium 2.3 11/17/23 03:37: Ionized Calcium 4.68 Micro: Microbiology 11/07/23 13:10 Blood Culture (Wb) - Anticubital Left Blood Culture - Final No growth in 5 days. 11/07/23 13:00 Blood Culture (Wb) - Anticubital Right Blood Culture - Final No growth in 5 days. 11/12/23 12:40 Stool Stool Occult Blood (VADIM) - Final Occult Blood Positive 11/09/23 11:50 Sputum, Induced/Lukens Gram Stain - Final 11/09/23 11:50 Sputum, Induced/Lukens Respiratory Culture - Final Staphylococcus aureus Yeast, not Pina albicans Presumptive C albicans 11/07/23 18:08 Sputum, Induced/Lukens Gram Stain - Final 11/07/23 18:08 Sputum, Induced/Lukens Respiratory Culture - Final Staphylococcus aureus Proteus mirabilis Escherichia coli 11/07/23 13:30 Urine Catheter - Catheter Urine Culture - Final Presumptive E. coli 11/07/23 13:30 Nasal Secretion SARS-CoV-2 & FLU Antigen (Rapid) - Final Physical Exam Narrative GENERAL: cooperative HEENT: Atraumatic; normocephalic EYES; Anicteric, Normal Conjunctiva NECK; supple, normal thyroid, RESPIRATORY: Diminished to auscultation CARDIOVASCULAR: Regular S1 S2, GI: soft, normoactive bowel sounds, : No Renal angle tenderness; EXTREMITIES: No edema, no clubbing, MUSCULOSKELETAL: no muscle wasting NEURO: Awake; no lateralizing signs. SKIN: No Rash PSYCH; Flat affect Assessment & Plan Assessment/Plan (1) Left lower lobe pneumonia: QUALIFIERS: Pneumonia type: due to unspecified organism Qualified Code(s): J18.9 - Pneumonia, unspecified organism PLAN: Plan Patient is a 68-year-old old gentleman with history of head and neck cancer status post surgery and radiation who presented to the emergency department with worsening shortness of breath. Patient was intubated on presentation admitted to the intensive care unit and subsequently weaned off the vent. 1. Acute hypoxic and hypercapnic respiratory failure ? Secondary to polymicrobial pneumonia. Cultures positive for Staph aureus, Proteus mirabilis as well as E. coli. Patient was intubated on 11/07/2023 and extubated on 11/14/2023. Has since been managed with broad-spectrum antibiotic therapy. Pulmonary toileting following extubation. Patient has been seen in consultation by pulmonary/critical care ? 11/17/2023; remains in ICU on supplemental oxygen 2. Septic shock ? Secondary to polymicrobial pneumonia present on admission has since resolved 3. Hyperchloremic hypernatremia ? Patient managed with free water via tube feed 300 cc every 4 hours with subsequent monitoring of BMP ordered 4. Hypokalemia ? Corrected per protocol ? 11/17/2023 potassium remains low at 3.3 5. Hypophosphatemia ? Corrected per protocol 6. Anemia ? Secondary to anemia of chronic disorder. Patient had EGD performed no clear source of bleeding found was found to have some oozing around the PEG tube site which was exchanged. Patient remains on PPI with daily monitoring of H&H ordered 7. Dyslipidemia -Patient is on statin therapy, continued at home dose 8. Hypothyroidism - Patient is on levothyroxine home dose continued 9. Evaded troponin ? Suspected to be secondary to myocardial injury as a result of hypoxia and acidosis we will continue with monitoring 10. Coronary artery disease -Cardiac catheterization from 2020 was reviewed and showed a critical lesion in the proximal and mid right coronary artery which was treated with drug-eluting stents as well as severe diffuse LAD disease and had very tight lesion in the proximal first diagonal. Cardiology consulted. Patient is on dual antiplatelet therapy in addition to BARRY inhibitor's and beta-blockers which were held given patient low blood pressure plan is to resume as patient blood pressure control improves 11. Severe protein calorie malnutrition ? As evidenced by suboptimal energy intake, severe physical changes this is due to patient multiple medical comorbidities patient has been seen and evaluated by dietitian notes and recommendations reviewed. 12. GERD -Continue PPI 13. History of head neck cancer Treated with surgery and radiation with subsequent PEG tube placement 14. Paroxysmal A-fib with RVR ? Patient started on amiodarone and Cardizem drip 15. DVT prophylaxis -Subcu Lovenox CODE STATUS -DNR CCA with short-term intubation Time spent in the patient's overall evaluation,decision-making process, review of diagnostic data, adjustment of management, discussion with other providers, nursing nursing and ancillary staff involved in patient's care documentation, 50 Minutes Charges/Coding Visit Charges Inpatient E&M: 36843 Subs Hosp L3
[2023-11-17] MEDS: Midodrine HCl 5 MG Tablet 10 MG GT ×2 (07:41→22:19)
[2023-11-17] MEDS: Furosemide 20 MG/2 ML VIAL IV ×2 (07:41→17:22)
[2023-11-17] MEDS: Aspirin 81 MG TAB.CHEW NG (07:41)
[2023-11-17] MEDS: Lansoprazole 15 MG Capsule.DR 30 MG GT ×2 (07:42→22:20)
[2023-11-17] MEDS: TICAGRELOR 90 MG TABLET NG ×2 (07:42→22:19)
[2023-11-17] MEDS: Senna Tablet 1 TABLET GT (07:43)
[2023-11-17] MEDS: RisperiDONE 0.25 MG Tablet GT (07:43)
--- NOTE | 2023-11-17 10:08 | NURSING ---
extensive conversation with patient's daughter, Deja, regarding patient condition and in-depth conversation of code status. She was receptive of information and stated she would discuss with her brother and talk with her dad about decisions.
[2023-11-17] MEDS: Potassium Chloride Oral Soln 20 MEQ/15 ML UDC GT ×2 (10:27→22:19)
[2023-11-17] MEDS: Jevity 1.5 1,000 ML 25 ML GT (10:38)
[2023-11-17] MEDS: Menthol/Lanolin/Calamine/Znox 113 GM Tube 1 APPLIC TOPICAL ×2 (12:35→22:20)
[2023-11-17] MEDS: Atorvastatin Calcium 40 MG Tablet NG (22:19)
[2023-11-17] MEDS: RisperiDONE 0.5 MG Tablet GT (22:19)
[2023-11-18] VITALS (25 sets, daily range): BP systolic 118–166; BP diastolic 49–121; PULSE 77–101; RESP 15–34; TEMP 35.7–36.6; O2SAT 89–98; BMI 18.1
--- NOTE | 2023-11-18 04:50 | NURSING ---
Pt noted with increased work of breathing this morning by this RN. Pt states that he is shirt of breath, oral care was performed with swabs and Y[place]auer. MD made aware of respirations in 30s-40s with blood gas done and pending CT results of chest for possible aspiration. This RN was advised by MD to hold tube feedings until CT comes back. Pt now sitting at 4L.
--- NOTE | 2023-11-18 05:39 | CPS ---
Mouth care done with pt permission to use wet swabs to moisten dried mucus/sputum that pt is unable to get out by himself. RT obtained large amounts of thick sticky creamy yellow sputum from oral cavity. RN notified. pt on 3-4L nasal o2.
--- NOTE | 2023-11-18 05:45 | CT_ITS ---
EXAM: CT CHEST WITHOUT INTRAVENOUS CONTRAST CLINICAL INDICATION: SHORTNESS OF BREATH TECHNIQUE: Helically acquired images were obtained of the chest without intravenous contrast. This CT exam was performed using one or more of the following dose reduction techniques: automated exposure control, adjustment of the mA and/or kV according to patient size, and/or use of iterative reconstruction technique. RADIATION DOSE: CTDIvol = 8.81 mGy, DLP = 306.10 mGy-cm COMPARISON: Chest x-ray 11/14/2023. CTA of the chest 11/07/2023. FINDINGS: LUNGS AND PLEURAL SPACES: Atelectasis and patchy areas of consolidation bilaterally the lower lobes that have increased compared with the prior CT scan likely due to pneumonia. Small bilateral pleural effusions. Scarring and bullous changes right lung apex unchanged. No mass. HEART: Coronary artery calcifications. Heart size is normal. No pericardial effusion. MEDIASTINUM: Unremarkable. No mediastinal or hilar adenopathy. Esophagus is unremarkable. No hiatal hernia. THYROID: Unremarkable. No thyroid lesions. BONES/JOINTS: Unremarkable. No suspicious lytic or blastic abnormality. VASCULATURE: See above. TUBES, LINES AND DEVICES: Endotracheal tube has been removed. CT/Chest without Contrast IMPRESSION: 1. Endotracheal tube has been removed. 2. Atelectasis and patchy areas of consolidation bilaterally the lower lobes that have increased compared with the prior CT scan likely due to pneumonia. 3. Small bilateral pleural effusions. 4. Scarring and bullous changes right lung apex unchanged. 5. Coronary artery disease. Electronically Signed: Junior Garcia MD at 6:11 [facility] ,
[2023-11-18 06:06] LABS: Allen Test Positive; Base Excess 5 mmol/L (-2 to +2); Bicarbonate 28.4 mmol/L (22-26); Blood Gas Specimen Type ART; Mode Not entered; O2 Delivery Device Cannula; PO2 70 mmHG (75-100); SITE L Radial; SO2 95 % (95-99); Total Carbon Dioxide 30 mmol/L; pCO2 38.7 mmHg (35-45); pH 7.47 (7.35-7.45)
[2023-11-18] MEDS: Diltiazem 125 MG in Dextrose 5%-Water (100mL Bag) 100 ML 15 MG CONT INF (06:19)
[2023-11-18] MEDS: Ipratropium/Albuterol Sulfate 3 ML AMPUL.NEB INHALATION ×3 (07:01→19:45)
[2023-11-18] MEDS: Senna Tablet 1 TABLET GT (10:57)
[2023-11-18] MEDS: Potassium Chloride Oral Soln 20 MEQ/15 ML UDC GT ×2 (10:57→22:19)
[2023-11-18] MEDS: Lansoprazole 15 MG Capsule.DR 30 MG GT ×2 (10:58→22:18)
[2023-11-18] MEDS: Aspirin 81 MG TAB.CHEW NG (10:58)
[2023-11-18] MEDS: RisperiDONE 0.25 MG Tablet GT (10:58)
[2023-11-18] MEDS: TICAGRELOR 90 MG TABLET NG ×2 (10:58→22:18)
[2023-11-18] MEDS: Furosemide 20 MG/2 ML VIAL IV ×2 (10:58→18:15)
[2023-11-18] MEDS: Amiodarone 200 MG Tablet 100 MG PO (10:58)
[2023-11-18] MEDS: Midodrine HCl 5 MG Tablet 10 MG GT ×2 (10:59→22:19)
--- NOTE | 2023-11-18 13:44 | PN.CC_ITS ---
Assessment & Plan Assessment/Plan (1) Acute hypercapnic respiratory failure: (2) Severe sepsis: (3) Left lower lobe pneumonia: QUALIFIERS: Pneumonia type: due to unspecified organism Qualified Code(s): J18.9 - Pneumonia, unspecified organism (4) Non-ST elevated myocardial infarction: PLAN: Plan RECOMMENDATIONS: 1. Delirium protocol 2. Complete 10 days of antimicrobials 3. Ongoing electrolyte repletion as needed. 4. Advance tube feeds to goal 5. Aspiration precautions 6. PT /OT 7. Hemodynamically stable on minimal nasal cannula. Will sign off from a critical care perspective IMPRESSIONS: 1. Sepsis secondary to possible aspiration pneumonia The patient presented with sepsis due to probable aspiration pneumonia wi th acute sepsis related organ dysfunction as evidenced by respiratory failure requiring invasive mechanical ventilatory support. The patient remains on appropriate antimicrobial therapy using culture guidance. Patient was successfully extubated on 11/14/2023. Patient's oxygen requirements continue to improve. Patient should complete 10 days of antimicrobials, but is only on minimal nasal cannula at this time. Will sign off from a critical care perspective. 2. Non-ST elevation NC Most likely secondary to demand ischemia in the setting of #1. Cardiology is following to assist with medical management. Echocardiogram revealed intact, preserved systolic function. 3. Acute combined respiratory failure with sepsis CT of the chest she does show some emphysematous changes with bronchiectasis indicating probable complications of smoking. As such, we will continue scheduled bronchodilator therapy today. Patient could follow-up as an outpatient, but anticipate bronchiectasis from chronic aspiration. If patient is able to remain n.p.o. anticipate stabilization of overall condition from a respiratory perspective. 4. Metabolic encephalopathy/delirium Patient is hard of hearing and does not have hearing aids in place. Patient also with electrolyte abnormalities intermittently. Patient with hypernatremia and hyperchloremia. Patient is receiving increased free water. 5. History of oral cancer/severe protein malnutrition/GERD Complicates care, management, recovery and prognosis. Continue to monitor for refeeding syndrome given underlying poor nutritional state. Physical therapy to work with the patient. Patient verified to be a DNR/DNI. Subjective Subjective Patient did okay overnight. Patient was found on room air saturating 86%. Patient denied any chest pain. Did discuss with speech therapy and they will continue to work with him. Patient is tolerating his tube feeds. Objective Data Objective Data Vital Signs: Vital Signs Temp Pulse Resp BP Pulse Ox O2 Del Method O2 Flow Rate 36.1 C L 94 31 H 129/58 H 91 Nasal Cannula 2 11/18/23 09:00 11/18/23 13:00 11/18/23 13:00 11/18/23 13:00 11/18/23 13:00 11/18/23 13:00 11/18/23 13:00 FiO2 100 11/16/23 18:50 Oxygen Flow Rate (L/min) 2 Oxygen Delivery Method Nasal Cannula Weight: 56.9 kg Body Mass Index (BMI) 18.6 Intake & Output: Intake and Output for Last 24 Hours 11/16/23 11/17/23 11/18/23 23:59 23:59 23:59 Intake Total 2389.53 / 2437.83 1453.76 / 1648.76 1073.33 / 1073.33 Output Total 5825 / 5825 2865 / 2865 500 / 500 Balance -3435.47 / -3387.17 -1411.24 / -1216.24 573.33 / 573.33 Medical Nutrition Assessment Dietitian: Malnutrition Criteria Met Start: 11/08/23 09:33 Freq: Status: Active Protocol: Document 11/18/23 13:43 AG (Rec: 11/18/23 13:43 AG [id number]) Nutrition Malnutrition Evidence of Malnutrition Exists Yes Malnutrition (severe): Chronic Evidenced By Suboptimal Energy Intake ( Severe),Physical Changes ( Severe) Clinical Problem Chronic Disease or Condition Related Malnutrition Etiology severe, chronic malnutrition related to inadequate energy intake Signs/Symptoms as evidenced by severe muscle wasting/fat loss evident per physical exam in orbital, clavicle, acromion, and temporal areas; 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 Would resume at 35mL/hour and increase by 10mL every 8 hours as tolerated until goal rate is achieved. Lab / Micro Data Attestation: I reviewed the patient's lab results. 11/16/23 04:00 11/16/23 18:40 Micro: Microbiology 11/07/23 13:10 Blood Culture (Wb) - Anticubital Left Blood Culture - Final No growth in 5 days. 11/07/23 13:00 Blood Culture (Wb) - Anticubital Right Blood Culture - Final No growth in 5 days. 11/12/23 12:40 Stool Stool Occult Blood (VADIM) - Final Occult Blood Positive 11/09/23 11:50 Sputum, Induced/Lukens Gram Stain - Final 11/09/23 11:50 Sputum, Induced/Lukens Respiratory Culture - Final Staphylococcus aureus Yeast, not Pina albicans Presumptive C albicans 11/07/23 18:08 Sputum, Induced/Lukens Gram Stain - Final 11/07/23 18:08 Sputum, Induced/Lukens Respiratory Culture - Final Staphylococcus aureus Proteus mirabilis Escherichia coli 11/07/23 13:30 Urine Catheter - Catheter Urine Culture - Final Presumptive E. coli 11/07/23 13:30 Nasal Secretion SARS-CoV-2 & FLU Antigen (Rapid) - Final ABG Data ABG results: ABG 11/18/23 05:08 Specimen Type ART Sample Site L Radial pH 7.47 H Bicarbonate Actual 28.4 H Total CO2 30 Base Excess 5 H O2 Saturation 95 O2 % 2.0 ABG pCO2 38.7 ABG pO2 70 L Yosvany Test Positive O2 Delivery Device Cannula Vent Mode Not entered Radiography Diagnostic Testing: Radiology Impression Chest CT 11/18/23 05:45 IMPRESSION: 1. Endotracheal tube has been removed. 2. Atelectasis and patchy areas of consolidation bilaterally the lower lobes that have increased compared with the prior CT scan likely due to pneumonia. 3. Small bilateral pleural effusions. 4. Scarring and bullous changes right lung apex unchanged. 5. Coronary artery disease. Electronically Signed: Junior Garcia MD at 6:11 EST , Physical Exam Const alert Constitutional Narrative: Interactive. RASS 0 General Appearance: frail HEENT HEENT Narrative: Temporal wasting. Status post glossectomy Eyes PERRL and EOMs intact bilaterally Neck full ROM and no lymphadenopathy Resp Auscultation: diminished lung sounds; Negative for rales, rhonchi or wheezes Cardio regular rate, regular rhythm, S1 normal heart sound, S2 normal heart sound, no murmurs, no rub and no gallops GI normal to inspection, nondistended, normoactive bowel sounds Inspection: GI tube present Extremity General Extremity: clubbing; Negative for edema Neuro CN's II-XII intact bilaterally and no focal motor deficits Charges/Coding Visit Charges Inpatient E&M: 80584 Subs Hosp L2
[2023-11-18] MEDS: Menthol/Lanolin/Calamine/Znox 113 GM Tube 1 APPLIC TOPICAL (13:53)
--- NOTE | 2023-11-18 14:16 | CASEMGMT ---
MARIELY called patient's daughter Deja. Deja said her brother Dawood would like to talk with the doctor regarding patient's prognosis. They would guide patient toward hospice if his prognosis is not good. Deja said Dawood is not working this week. MARIELY then called Dawood and left him another voice mail requesting a return call. Malia BLEDSOE
--- NOTE | 2023-11-18 15:04 | PN.CARD_ITS ---
<Statement entered by Kp Spencer MD - 11/18/23 16:02> Pt seen & evaluated w/CALLIE. I personally interviewed & exam the pt. I was involved in all aspects of pt's orders, interpretation of results & treatment Subjective Subjective Patient did okay overnight. He has maintained SR. On 11/17, pt did develop narrow complex tachycardia. Was given adenosine. This did decrease rate momentarily. He was started on IV cardizem then low dose amiodarone. Objective Data Vital Signs: Vital Signs Temp Pulse Resp BP Pulse Ox O2 Del Method O2 Flow Rate 96.5 F L 92 34 H 128/51 H 97 Nasal Cannula 2 11/18/23 14:00 11/18/23 14:00 11/18/23 14:00 11/18/23 14:00 11/18/23 14:00 11/18/23 14:00 11/18/23 14:00 FiO2 100 11/16/23 18:50 Oxygen Flow Rate (L/min) 2 Oxygen Delivery Method Nasal Cannula Weight: 125 lb 7.088 oz Body Mass Index (BMI) 18.6 Intake & Output: Intake and Output for Last 24 Hours 11/16/23 11/17/23 11/18/23 23:59 23:59 23:59 Intake Total 2389.53 / 2437.83 1453.76 / 1648.76 1083.41 / 1083.41 Output Total 5825 / 5825 2865 / 2865 500 / 500 Balance -3435.47 / -3387.17 -1411.24 / -1216.24 583.41 / 583.41 Lab / Micro Data 11/16/23 04:00 11/16/23 18:40 ABG Data ABG results: ABG 11/18/23 05:08 Specimen Type ART Sample Site L Radial pH 7.47 H Bicarbonate Actual 28.4 H Total CO2 30 Base Excess 5 H O2 Saturation 95 O2 % 2.0 ABG pCO2 38.7 ABG pO2 70 L Yosvany Test Positive O2 Delivery Device Cannula Vent Mode Not entered Cardiology Labs/Tests 11/18/23 05:08: pH 7.47 H, Bicarbonate Actual 28.4 H, Base Excess 5 H, O2 Saturation 95, ABG pCO2 38.7, ABG pO2 70 L, Yosvany Test Positive Rhythm: NSR Radiography Diagnostic Testing: Radiology Impression Chest CT 11/18/23 05:45 IMPRESSION: 1. Endotracheal tube has been removed. 2. Atelectasis and patchy areas of consolidation bilaterally the lower lobes that have increased compared with the prior CT scan likely due to pneumonia. 3. Small bilateral pleural effusions. 4. Scarring and bullous changes right lung apex unchanged. 5. Coronary artery disease. Electronically Signed: Junior Garcia MD at 6:11 EST , Physical Exam Const alert General Appearance: frail HEENT normocephalic Eyes no scleral icterus Neck full ROM and no lymphadenopathy Resp normal respiratory effort and clear to auscultation bilaterally Auscultation: diminished lung sounds; Negative for rales, rhonchi or wheezes Cardio regular rate, regular rhythm, no murmurs, no rub and no gallops GI normal to inspection, nondistended, normoactive bowel sounds Inspection: GI tube present Extremity General Extremity: clubbing; Negative for edema Neuro CN's II-XII intact bilaterally and no focal motor deficits Assessment & Plan Assessment/Plan (1) Non-ST elevated myocardial infarction: PLAN: Likely demand based in the setting of hypoxia and acidosis on top of his underlying severe coronary artery disease. No further inpatient workup recommended from a cardiac standpoint. Patient can follow-up with cardiology as an outpatient. (2) CAD (coronary artery disease): QUALIFIERS: Coronary Disease-Associated Artery/Lesion type: unspecified vessel or lesion type [place] vs. transplanted heart: [place] heart Associated angina: without angina Qualified Code(s): I25.10 - Atherosclerotic heart disease of [place] coronary artery without angina pectoris PLAN: Coronary angiography from 2020 was reviewed. At that time, he was noted to have critical lesion in his proximal and mid right coronary artery which were treated with drug-eluting stents. He is also noted to have severe diffuse LAD disease and a very tight lesion in proximal first diagonal. Continue medical management. (3) Narrow complex tachycardia: PLAN: Pt has maintained SR. Okay to stop diltiazem IV. HR BP controlled. Co ntinue with oral medications. He was started on low dose amiodarone (4) Severe sepsis: PLAN: As per critical care. (5) Protein calorie malnutrition: QUALIFIERS: Protein-calorie malnutrition severity: moderate Qualified Code(s): E44.0 - Moderate protein-calorie malnutrition (6) History of mouth cancer: PLAN: Plan Will sign off. If further cardiac input is needed please call. Charges/Coding Visit Charges Inpatient E&M: 67640 Subs Hosp L2
--- NOTE | 2023-11-18 17:47 | PCM.PN.HOSP ---
Reason for Visit Reason for Visit: Diagnoses Sepsis, unspecified organism (11/07/23) Anemia, unspecified (11/07/23) Moderate protein-calorie malnutrition (11/07/23) Unspecified protein-calorie malnutrition (11/07/23) Other disorders of phosphorus metabolism (11/07/23) Dehydration (11/07/23) Hyperosmolality and hypernatremia (11/07/23) Acidosis, unspecified (11/07/23) Hypokalemia (11/07/23) Non-ST elevation (NSTEMI) myocardial infarction (11/07/23) Atherosclerotic heart disease of [place] coronary artery without angina pectoris (11/07/23) Other supraventricular tachycardia (11/07/23) Pneumonia, unspecified organism (11/07/23) Acute respiratory failure with hypoxia (11/07/23) Acute respiratory failure with hypercapnia (11/07/23) Respiratory failure, unspecified, unspecified whether with hypoxia or hypercapnia (11/07/23) Severe sepsis without septic shock (11/07/23) Abnormal results of thyroid function studies (11/07/23) 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 Patient was started on amiodarone today orally. Objective Data Objective Data Vital Signs: Vital Signs Temp Pulse Resp BP Pulse Ox O2 Del Method O2 Flow Rate 96.5 F L 94 27 H 122/51 H 98 Nasal Cannula 2 11/18/23 15:00 11/18/23 16:35 11/18/23 16:35 11/18/23 15:00 11/18/23 15:00 11/18/23 16:00 11/18/23 16:00 FiO2 100 11/16/23 18:50 Oxygen Flow Rate (L/min) 2 Oxygen Delivery Method Nasal Cannula Weight: 56.9 kg Body Mass Index (BMI) 18.6 Intake & Output: Intake and Output for Last 24 Hours 11/16/23 11/17/23 11/18/23 23:59 23:59 23:59 Intake Total 2389.53 / 2437.83 1453.76 / 1648.76 1267.99 / 1267.99 Output Total 5825 / 5825 2865 / 2865 500 / 500 Balance -3435.47 / -3387.17 -1411.24 / -1216.24 767.99 / 767.99 Medical Nutrition Assessment Dietitian: Malnutrition Criteria Met Start: 11/08/23 09:33 Freq: Status: Active Protocol: Document 11/18/23 13:43 AG (Rec: 11/18/23 13:43 AG [id number]) Nutrition Malnutrition Evidence of Malnutrition Exists Yes Malnutrition (severe): Chronic Evidenced By Suboptimal Energy Intake ( Severe),Physical Changes ( Severe) Clinical Problem Chronic Disease or Condition Related Malnutrition Etiology severe, chronic malnutrition related to inadequate energy intake Signs/Symptoms as evidenced by severe muscle wasting/fat loss evident per physical exam in orbital, clavicle, acromion, and temporal areas; estimated PO intake meeting <75% of estimated energy needs > 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 Would resume at 35mL/hour and increase by 10mL every 8 hours as tolerated until goal rate is achieved. Lab / Micro Data 11/16/23 04:00 11/16/23 18:40 Micro: Microbiology 11/07/23 13:10 Blood Culture (Wb) - Anticubital Left Blood Culture - Final No growth in 5 days. 11/07/23 13:00 Blood Culture (Wb) - Anticubital Right Blood Culture - Final No growth in 5 days. 11/12/23 12:40 Stool Stool Occult Blood (VADIM) - Final Occult Blood Positive 11/09/23 11:50 Sputum, Induced/Lukens Gram Stain - Final 11/09/23 11:50 Sputum, Induced/Lukens Respiratory Culture - Final Staphylococcus aureus Yeast, not Pina albicans Presumptive C albicans 11/07/23 18:08 Sputum, Induced/Lukens Gram Stain - Final 11/07/23 18:08 Sputum, Induced/Lukens Respiratory Culture - Final Staphylococcus aureus Proteus mirabilis Escherichia coli 11/07/23 13:30 Urine Catheter - Catheter Urine Culture - Final Presumptive E. coli 11/07/23 13:30 Nasal Secretion SARS-CoV-2 & FLU Antigen (Rapid) - Final ABG Data ABG results: ABG 11/18/23 05:08 Specimen Type ART Sample Site L Radial pH 7.47 H Bicarbonate Actual 28.4 H Total CO2 30 Base Excess 5 H O2 Saturation 95 O2 % 2.0 ABG pCO2 38.7 ABG pO2 70 L Yosvany Test Positive O2 Delivery Device Cannula Vent Mode Not entered Radiography Diagnostic Testing: Radiology Impression Chest CT 11/18/23 05:45 IMPRESSION: 1. Endotracheal tube has been removed. 2. Atelectasis and patchy areas of consolidation bilaterally the lower lobes that have increased compared with the prior CT scan likely due to pneumonia. 3. Small bilateral pleural effusions. 4. Scarring and bullous changes right lung apex unchanged. 5. Coronary artery disease. Electronically Signed: Junior Garcia MD at 6:11 EST , Physical Exam Const alert, oriented x3 and no apparent distress General Appearance: cooperative, well kempt and well developed Orientation / Consciousness: awake, oriented to person, oriented to place and oriented to time HEENT normocephalic HEENT Narrative: Patient has evidence of muscle wasting in the face Mouth: dry mucous membranes Eyes PERRL, EOMs intact bilaterally and conjunctivae normal Neck supple, no JVD, thyroid normal and no carotid bruits General: trachea midline Resp normal respiratory effort, no retractions and no use of accessory muscles Resp Narrative: Creased breath sounds are noted bilaterally Auscultation: Negative for rales, rhonchi or wheezes Cardio regular rate, regular rhythm, S1 normal heart sound, S2 normal heart sound, no murmurs, no rub and no gallops GI normal to inspection, nondistended, normoactive bowel sounds, soft to palpation, non-tender and non-distended GI Narrative: PEG tube is in place Extremity no clubbing, cyanosis or edema Skin no rashes or lesions noted General Skin Exam: no breakdown Neuro CN's II-XII intact bilaterally, moves all extremities, no focal motor deficits and no sensory deficits noted Neuro Narrative: Patient is unable to speak due to previous oral surgery Sensorium / Orientation: awake and alert Psych Psych Narrative: Does not appear to be anxious or agitated Assessment & Plan Assessment/Plan (1) Acute respiratory failure with hypoxia and hypercapnia: PLAN: Plan # 1 sepsis secondary to possible aspiration pneumonia, polymicrobial with Staph aureus, Proteus, E. coli-patient has completed 10 days of antimicrobials, pulmonary medicine is signed off the case #2 narrow complex tachycardia-patient is currently on amiodarone #3 non-ST elevation [place]-patient is currently on aspirin and Brilinta as well as atorvastatin, cardiology is not planning any further inpatient workup at this time #4 oropharyngeal onmhqwsmg-qcbclokmf-vprjukq is n.p.o. and has a PEG tube #5 severe chronic protein and caloric malnutrition related to inadequate energy intake as evidenced by severe muscle wasting/fat loss evident per physical exam and orbital, clavicular, acromion, and temporal areas, estimated p.o. intake meeting less than 75% of estimated energy needs over more than 3 months, and BMI at 16.5-enteral nutrition well continue with Jevity 1.5 remedios to a goal rate of 55 cc/h #6 acute hypoxic and hypercapnic respiratory failure-patient now on 2 L via nasal cannula #7 hypothyroidism-patient is on Synthroid #8 history of head neck cancer-complicates care, medical course, recovery, and prognosis Total clinical time spent by myself addressing patient's medical issues, reviewing all of his data, and collaborating with patient's care team: 35 minutes Charges/Coding Visit Charges Inpatient E&M: 26621 Subs Hosp L2
[2023-11-18] MEDS: 0.9% Saline Lock 10 ML Syringe IV (18:15)
--- NOTE | 2023-11-18 20:35 | EKG12_ITS ---
Test Reason : CP Blood Pressure : / mmHG Vent. Rate : 072 BPM Atrial Rate : 072 BPM P-R Int : 176 ms QRS Dur : 088 ms QT Int : 418 ms P-R-T Axes : 063 048 184 degrees QTc Int : 457 ms Sinus rhythm with Premature supraventricular complexes ST & T wave abnormality, consider anterolateral ischemia Abnormal ECG When compared with ECG of 16-NOV-2023 18:57, Premature ventricular complexes are no longer Present Premature supraventricular complexes are now Present Vent. rate has decreased BY 63 BPM T wave inversion now evident in Anterior leads T wave inversion less evident in Lateral leads Confirmed by KIRA GUILLEN, ROSINA ([id number]), news video editor EDIS WALLS ([id number]) on 11/20/2023 5:50:39 AM Referred By: Chi Terrell Confirmed By:ROSINA MALONE MD
[2023-11-18] MEDS: LORazepam 2 MG/ML Syringe 0.5 MG IV (21:28)
[2023-11-18] MEDS: RisperiDONE 0.5 MG Tablet GT (22:18)
[2023-11-18] MEDS: Atorvastatin Calcium 40 MG Tablet NG (22:19)
[2023-11-18] MEDS: Acetaminophen 650 MG/20 ML UDC GT (22:22)
[2023-11-19] VITALS (9 sets, daily range): BP systolic 104–141; BP diastolic 49–66; PULSE 58–97; RESP 27–34; TEMP 36.1–36.5; O2SAT 84–99; BMI 18.0; BMI 17.7
[2023-11-19] MEDS: Jevity 1.5 1,000 ML 45 ML GT (02:52)
[2023-11-19] MEDS: LORazepam 2 MG/ML Syringe 0.5 MG IV (02:57)
[2023-11-19] MEDS: Menthol/Lanolin/Calamine/Znox 113 GM Tube 1 APPLIC TOPICAL (05:12)
[2023-11-19] MEDS: Levothyroxine 50 MCG Tablet NG (05:13)
--- NOTE | 2023-11-19 06:45 | NURSING ---
This RN did speak with daughter on pt contact list. Daughter was given update about pt status and that pt was given several doses of Ativan last night for anxiety and restlessness and requiring more oxygen at times. Daughter is wanting to speak with son about going hospice or palliative route, daughter and son are wanting to speak with doctor and case management about pts prognosis and which decision is the best for their father. Questions were asked and answered. This RN told daughter to call back with any questions.
[2023-11-19] MEDS: Ipratropium/Albuterol Sulfate 3 ML AMPUL.NEB INHALATION (07:05)
--- NOTE | 2023-11-19 08:24 | PCM.HOSP.N ---
Hospitalist Note The nurse text me at 7:37 PM that patient is not doing well and looks bad. She requested me to come and see the patient. I was coming to the PCU on the hallway number.html he . Before even I entered the room and see the patient he had already . I talked to the my colleague DrSanjuanita Salmeron and informed about it. Since the patient very early even before seeing me, at 7:45 AM I requested him to do the summary and he agreed. I gathered the information from the charge nurse and patient's nurse that he patient was tachypneic and short of breath overnight. He was put on the BiPAP but then he . 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 Deja Rae and shared the bad news. The nurses have informed the patient's daughter overnight that he was not doing good and put on BiPAP. She will inform her brother. They are coming to the PCU.
--- NOTE | 2023-11-19 08:32 | NURSING ---
this nurse received call from [facility], pt not a candidate for organ donation. No further involvement from [facility].
--- NOTE | 2023-11-20 17:14 | EXP.PCM_ITS ---
Preliminary Cause of Preliminary Cause of Preliminary Cause of : Symptomatic bradycardia progressing into asystole from coronary artery disease. Date of Admission: 11/07/23 Date of : 11/19/23 Principle Diagnosis Problem List: Active and Suspected Problems (Updated 11/18/23 @ 15:09 by Buffy LAMAS, PA) Narrow complex tachycardia (Acute) Anemia (Acute) Hypophosphatemia (Acute) Abnormal results of thyroid function studies (Acute) Lactic acidosis (Acute) Hypernatremia (Acute) Acute respiratory failure with hypoxia and hypercapnia (Acute) CAD (coronary artery disease) (Acute) History of mouth cancer (Acute) Protein calorie malnutrition (Acute) Bilateral pneumonia (Acute) Severe sepsis (Acute) Dehydration (Acute) Left lower lobe pneumonia (Acute) Hypoxia (Acute) Respiratory failure (Acute) Non-ST elevated myocardial infarction (Acute) Leukocytosis (Acute) History of oral cancer (Acute) Hospital Course 68-year-old white male was seen in the emergency room at [facility] with a chief complaint of shortness of breath, patient had a history of head and neck cancer several years prior and unable to take care of himself at home patient was placed on a nonrebreather, his O2 sat was 94%, mucous membranes are dry there is evidence of prior surgical resection of tissue in the patient's oral cavity. Patient was hard of hearing and it was difficult to communicate with the patient and information was obtained from the patient's son. Patient remained tachypneic on a nonrebreather with wheezing and rales, he remained tachycardic in the 120s with a respiratory rate in the 30s. Labs were obtained, white blood cell count was elevated at 15, sodium was 147, potassium was 3.2, BUN was 23, lactic acid was 2.2. Patient's troponin was 974, EKG showed a sinus tachycardia but did not show ischemic changes. Chest x-ray showed evidence of chronic obstructive pulmonary disease with lower lung interstitial edema or infiltrates. CT of the neck was ordered which showed extensive postsurgical resection with suspected mucous plugging or aspiration in the posterior aspect of the oropharynx extending into the larynx. CTA of the chest was obtained which showed significant mucus plugging at the origin of the left lower lobe bronchus extending into the subsegmental bronchi. Patient was felt to have aspiration pneumonia, he was given IV Zosyn and placed on IV heparin due to his elevated troponin, cardiology was contacted and made no additional recommendatio ns for his treatment plan. Patient's respiratory status remained poor and he had to be intubated and he was admitted to the ICU and seen in consultation by cardiology and intensive care medicine. Patient was felt to be in septic shock, there is noted to be a drop in patient's hemoglobin and he was seen by gastroenterology who noted a benign-appearing esophageal stenosis which was dilated, and eroding gastrostomy tube was present and this was changed. Patient was finally extubated and transferred to PCU for further care, patient's family requested that he go to an extended care facility because they felt they were not able to take care of him. Patient did have some narrow complex tachycardia during his hospitalization and was placed on amiodarone. Patient was seen and examined on the afternoon of 11/18/2023, he was requiring 2 L of nasal cannula oxygen and he appears stable at that time. The next day on the morning of 11/19/2023, the patient went into a bradycardia which then progressed into asystole and the patient passed at 7:45 AM. He was a DNR CC arrest with no intubation. Cause of was felt to be arrhythmia secondary to coronary artery disease. Assessment & Plan Assessment/Plan (1) Respiratory failure: QUALIFIERS: Chronicity: acute Respiratory failure complication: hypoxia and hypercapnia Qualified Code(s): J96.01 - Acute respiratory failure with hypoxia; J96.02 - Acute respiratory failure with hypercapnia PLAN: Plan Final diagnosis: #1 septic shock secondary to aspiration pneumonia, polymicrobial with Staph aureus, Proteus, and E. coli #2 narrow complex tachycardia #3 non-ST elevation [place] #4 oropharyngeal dysphagia #5 severe chronic protein and caloric malnutrition #6 acute hypoxic and hypercapnic respiratory failure requiring mechanical ventilation #7 hypothyroidism #8 bradycardia progressing to asystole Visit Charges Inpatient E&M: 13427 Disch Hosp >30min
== END 2023-11-19 07:45 | DRG 870 ==
LOC: ED 17:19 → ICU 17:41 → PCU 11-18 07:39
PROVIDERS: Internal Medicine; Internal Medicine Critical Care Medicine; Internal Medicine Gastroenterology; Physician Assistant; Admitting Provider Family Medicine; Emergency Provider Emergency Medicine; PCP Internal Medicine; Referring Provider Emergency Medicine; Visit Provider Internal Medicine
PROC: 0DJ08ZZ Inspection of Upper Intestinal Tract, Via Natural or Artificial Opening Endoscopic (ICD-10-PCS; CPT 43235; principal; 2023-11-13 15:55)
DX: A41.2 Sepsis due to unspecified staphylococcus (principal); J96.01 Acute respiratory failure with hypoxia; J69.0 Pneumonitis due to inhalation of food and vomit; R65.21 Severe sepsis with septic shock; G93.41 Metabolic encephalopathy; E43 Unspecified severe protein-calorie malnutrition; I21.4 Non-ST elevation (NSTEMI) myocardial infarction; J96.02 Acute respiratory failure with hypercapnia; E87.29 Other acidosis; J47.0 Bronchiectasis with acute lower respiratory infection; E87.0 Hyperosmolality and hypernatremia; E87.1 Hypo-osmolality and hyponatremia; I24.89 Other forms of acute ischemic heart disease; N39.0 Urinary tract infection, site not specified; I47.19 Other supraventricular tachycardia; Z68.1 Body mass index [BMI] 19.9 or less, adult; K22.2 Esophageal obstruction; I46.9 Cardiac arrest, cause unspecified; I48.0 Paroxysmal atrial fibrillation; Z93.1 Gastrostomy status; I10 Essential (primary) hypertension; E03.9 Hypothyroidism, unspecified; D64.9 Anemia, unspecified; E83.39 Other disorders of phosphorus metabolism; E78.5 Hyperlipidemia, unspecified; I25.10 Atherosclerotic heart disease of native coronary artery without angina pectoris; F17.290 Nicotine dependence, other tobacco product, uncomplicated; E87.8 Other disorders of electrolyte and fluid balance, not elsewhere classified; E87.6 Hypokalemia; K21.9 Gastro-esophageal reflux disease without esophagitis; E86.0 Dehydration; Z79.82 Long term (current) use of aspirin; H91.90 Unspecified hearing loss, unspecified ear; Z95.5 Presence of coronary angioplasty implant and graft; Z66 Do not resuscitate; E07.81 Sick-euthyroid syndrome; B37.9 Candidiasis, unspecified; Z51.5 Encounter for palliative care; R13.12 Dysphagia, oropharyngeal phase; Z85.819 Personal history of malignant neoplasm of unspecified site of lip, oral cavity, and pharynx
CPT/HCPCS: 31500; 31720; 36569; 36600; 51702; 70491; 71045; 71250; 71275; 80048; 80053; 80202; 81001; 82274; 82330; 82550; 82728; 82803; 83036; 83540; 83550; 83605; 83735; 83880; 84100; 84439; 84443; 84478; 84484; 85025; 85610; 85730; 87040; 87070; 87077; 87086; 87088; 87186; 87205; 87428; 92526; 92610; 93005; 93306; 94002; 94003; 94640; 94660; 94762; 97110; 97162; 97165; 97530; 97535; 97802; 97803; 99252; 99285; 99406; J7030; J7040; J7050; Q9967; A4216; G0463; J0153; J1940; J3475; J3490